=== PATIENT | male | born 1960 | race Caucasian/White ===

== ENCOUNTER → 2017-07-13 | Outpatient (CLI) | payer BC ==
[~2017-07-13] MED LIST: AMIT25TA9 PO; AML5T PO; AMLO5TAB2 PO; ASP325TEC PO; ASP81TEC PO; ASPI-999 PO; ASPI1TAB PO; ATOR40TA PO; ATOR80TA PO; CALC-250 PO; CLOP75TA PO; CLOP75TA28 PO; CLPD75T PO; CYCL10TA45 PO; FISH1CAP15 PO; FLDR.1T PO; HYDR-34 PO; HYDR12.5 PO; ISM30TCR PO; LIPITOR PO; METF500T4 PO; METF500T8 PO; METO-272 PO; METO-351 PO; METO25TA PO; METO25TA2 PO; MTF500T PO; MTP25TSR PO; NITR0.4T12 SL; NTR.4SL SL; OMG1KC PO; PNT40TEC PO; PRAV20TA PO; RANO500T2 PO; RANO500T3 PO; ROSU5TAB PO; TMZP15C PO; UBID1CAP51 PO; VARE1TAB17 PO
--- NOTE | 2017-07-13 09:34 | Diagnostic Imaging Report ---
PROCEDURE: CT lumbar spine without contrast. TECHNIQUE: Multiple contiguous axial images were obtained through the lumbar spine without the use of intravenous contrast. Sagittal and coronal reformations were then performed. INDICATION: Low back pain which radiates into the right lower extremity. FINDINGS: Lumbar spinal curvature and alignment are within normal limits. Vertebral body heights and disc spaces are maintained. There is mild annular bulging of the L2-L3 and L3-L4 disc with mild leftward asymmetry, however, there is no significant spinal or neural foraminal stenosis. There is also [id number] bulging of the L4-L5 disc which is eccentric towards the right resulting in mild neural foraminal stenosis, greater on the right. There is no evidence of fracture or subluxation. Mild degenerative facet arthropathy is seen at L4-L5 and L5-S1. Note is made of aortoiliac atherosclerotic calcification. IMPRESSION: Mild annular disc bulging from L2 through L5 without significant spinal stenosis. There does appear to be mild L4-L5 neural foraminal stenosis, greater on the right. Dictated by: Dictated on workstation # [id number]
== END ==
LOC: RAD 08:01
DX: M51.26 Other intervertebral disc displacement, lumbar region (principal); M79.604 Pain in right leg
CPT/HCPCS: 72131

== ENCOUNTER 2017-08-17 09:03 | Day surgery (SDC) | payer BC ==
[~2017-08-17] VITALS: Ht 177.8 cm; Wt 99.8 kg
[2017-08-17] VITALS (11 sets, daily range): BP systolic 125–149; BP diastolic 75–104
[2017-08-17 09:30] LABS: BASOPHILS % (AUTO) 0 % (0-10); EOSINOPHILS # (AUTO) 0.5 10^3/uL (0.0-0.3); EOSINOPHILS % (AUTO) 6 % (0-10); HEMATOCRIT 43 % (40-54); HEMOGLOBIN 14.8 G/DL (13.3-17.7); LYMPHOCYTES # (AUTO) 2.3 X 10^3 (1.0-4.0); LYMPHOCYTES % (AUTO) 27 % (12-44); MEAN CORPUSCULAR HEMOGLOBIN 33 PG (25-34); MEAN CORPUSCULAR HGB CONC 35 G/DL (32-36); MEAN CORPUSCULAR VOLUME 93 FL (80-99); MEAN PLATELET VOLUME 10.3 FL (7.4-10.4); MONOCYTES # (AUTO) 0.9 X 10^3 (0.0-1.0); MONOCYTES % (AUTO) 10 % (0-12); NEUTROPHILS % (AUTO) 57 % (42-75); PLATELET COUNT 214 10^3/uL (130-400); RED BLOOD COUNT 4.56 10^6/uL (4.35-5.85); RED CELL DISTRIBUTION WIDTH 13.8 % (10.0-14.5); WHITE BLOOD COUNT 8.8 10^3/uL (4.3-11.0)
[2017-08-17] MEDS ORDERED: IOHEXOL 240 MGI/ML 20 ML (OMNIPAQUE) VIAL IV ONE (11:00)
[2017-08-17] MEDS ORDERED: HYDROcodone/APAP 5 MG/325 MG (LORTAB) TAB PO PRN (11:15)
--- NOTE | 2017-08-17 11:48 | Diagnostic Imaging Report ---
PROCEDURE: CT lumbar spine with contrast. TECHNIQUE: Multiple contiguous axial images were obtained through the lumbar spine after the intrathecal administration of contrast. Sagittal and coronal reformations were then performed. INDICATION: Back pain, left leg pain. FINDINGS: The previous CT lumbar spine exam performed on 07/13/17 noted mild annular bulging of the L2-L3 and L3-L4 discs with mild leftward asymmetry. There also appeared to be a mild disc bulge eccentric to the right at L4-L5. On this study, there is a disc bulge eccentric to the left at the L2-L3 level. The disc compresses the left ventral aspect of the thecal sac and narrows the AP diameter of the thecal sac to 10.8 mm. There is also narrowing of the neuroforamen on the left at this level. At the L3-L4 level, there is a slight disc bulge centrally. The disc flattens the ventral aspect of the thecal sac and narrows the AP diameter to 14.2 mm. There is only mild narrowing of the neuroforamen bilaterally at this level. At the L4-L5 level, there is a broad-based disc bulge centrally which flattens the ventral aspect of the thecal sac and narrows the AP diameter to 12.9 mm. There is mild narrowing of the neuroforamen at this level, particularly on the right. At the L5-S1 level, there is a disc bulge centrally which narrows the AP diameter of the thecal sac to 16.1 mm. There does not appear to be any significant neuroforaminal narrowing at this level. There is no evidence for spinal stenosis or nerve root encroachment at the L1-L2 level. There is no fracture or acute bony abnormality identified. As noted on the prior exam, there is heavy atherosclerotic plaque involving the aorta and the common iliac arteries. IMPRESSION: 1. There is a disc bulge eccentric to the left at the L2-L3 level. The disc compresses the left ventral aspect of the thecal sac resulting in borderline spinal stenosis. There is also narrowing of the neuroforamen on the left at this level. 2. The remainder of the lumbar spine is unremarkable for central stenosis or any significant neuroforaminal narrowing. 3. There is no sign of an acute bony abnormality. Dictated by: Dictated on workstation # [id number]
--- NOTE | 2017-08-17 12:42 | Diagnostic Imaging Report ---
EXAM: Lumbar myelogram. INDICATION: Back pain, left leg pain. FINDINGS: Following aseptic preparation of the skin and administration of local anesthesia, a lumbar puncture was made at the L2-3 level. A small amount of clear CSF was visualized. Subsequently, 15 cc of Omnipaque-240 was infused. There is no significant central stenosis or nerve root encroachment identified. CT is pending for further evaluation. The patient tolerated the procedure well and was sent to the CT suite in good condition. 4.1 seconds of fluoroscopy time was utilized. IMPRESSION: There is no evidence for a high-grade central stenosis or for a nerve root encroachment. CT is pending for further evaluation. Dictated by: Dictated on workstation # [id number]
== END 2017-08-17 13:57 | disposition home or self-care (01) ==
LOC: RAD 09:03
PROVIDERS: ATTEND Orthopaedic Surgery
DX: M48.061 Spinal stenosis, lumbar region without neurogenic claudication (principal); M51.26 Other intervertebral disc displacement, lumbar region
CPT/HCPCS: 36415; 36430; 62284; 72132; 72265; 77002; 85025; 85610; 85730

== ENCOUNTER → 2017-08-25 | Outpatient (CLI) | payer BC ==
--- NOTE | 2017-08-25 15:03 | Diagnostic Imaging Report ---
PROCEDURE: CT abdomen and pelvis without contrast. TECHNIQUE: Multiple contiguous axial images were obtained through the abdomen and pelvis without the use of intravenous contrast. INDICATION: Hematuria x2 weeks. FINDINGS: Lung bases are clear. Liver appears normal. Gallbladder is decompressed. There is a moderate amount of food residue in stomach. Pancreas appears normal. The spleen is not enlarged. Adrenal glands are normal. There is aortic calcification. There is also some renovascular calcification of the renal tosha bilaterally. Right kidney appears normal. There is a 1 mm calculus in an inferior calyx of left kidney. There is a 3 cm cyst on the inferior lateral margin of the left kidney. There is no hydronephrosis. Urinary bladder appears normal. Prostate and seminal vesicles are unremarkable. The appendix is normal. Small bowel is not dilated. There is moderate amount of stool throughout the colon. There is no intraperitoneal free air or free fluid. IMPRESSION: Atherosclerosis. Left renal cyst. A 1 mm calculus in inferior pole of left kidney. Dictated by: Dictated on workstation # [id number]
== END ==
LOC: RAD 14:17
PROVIDERS: ATTEND Urology
DX: I70.1 Atherosclerosis of renal artery (principal); N28.1 Cyst of kidney, acquired; N20.0 Calculus of kidney
CPT/HCPCS: 74176

== ENCOUNTER → 2017-12-13 | Outpatient (CLI) | payer BC ==
[~2017-12-13] VITALS: Ht 180.3 cm; Wt 95.7 kg
[~2017-12-13] MED LIST changes: +CATHETER FLUSH 10 ML SYR IV PRN; -METF500T4 PO; +METF500T5 PO; +REGADENOSON 0.4 MG/5 ML SYR (LEXISCAN) IV ONE
[2017-12-13 09:37] VITALS: BP 117/77
[2017-12-13 09:40] VITALS: BP 111/74
--- NOTE | 2017-12-13 21:01 | STRESS TEST ---
DATE OF SERVICE: 12/13/2017 LEXISCAN MYOVIEW STRESS TEST REFERRING PHYSICIAN: Dr. Gala Chino. Baseline heart rate is 73, baseline blood pressure 117/77. Baseline EKG is sinus rhythm with no ischemic changes. In summary, the patient was injected with 10.16 mCi of technetium-99 Myoview and the resting images were obtained. Then, the patient received 0.4 mg of Lexiscan followed by 30.6 mCi of technetium-99 Myoview. Throughout the test, there were no EKG changes. The resting and stress images were reviewed and compared in the short axis, horizontal long axis, and vertical long axis views. Review of the images showed good radiotracer uptake with no significant ischemia or infarction. SSS is 0. TID value 1.13. On the gated images, the left ventricle appeared to be in normal size with normal contractility. Calculated ejection fraction is 66%. CONCLUSION: 1. The patient tolerated Lexiscan well. 2. No ischemia or infarction on SPECT images. 3. Normal left ventricular size with normal contractility. Calculated ejection fraction is 66%. Job ID: [id number] DocumentID: [id number] Dictated Date: 12/13/2017 14:23:55 Photograph Finisher Date: 12/13/2017 21:00:46 Dictated By: JERALD LOPEZ MD
== END ==
LOC: CARD 08:02
PROVIDERS: ATTEND Internal Medicine Cardiovascular Disease
DX: I25.10 Atherosclerotic heart disease of native coronary artery without angina pectoris (principal); R07.89 Other chest pain; I10 Essential (primary) hypertension; E78.2 Mixed hyperlipidemia; R00.2 Palpitations; I07.1 Rheumatic tricuspid insufficiency
CPT/HCPCS: 78452; 93017; 93306

== ENCOUNTER → 2018-01-15 | Outpatient (CLI) | payer BC ==
[~2018-01-15] MED LIST changes: -CATHETER FLUSH 10 ML SYR IV PRN; -REGADENOSON 0.4 MG/5 ML SYR (LEXISCAN) IV ONE
--- NOTE | 2018-01-15 18:30 | Diagnostic Imaging Report ---
INDICATION: History of tobacco use with a 36 pack year history. TECHNIQUE: Noncontrast, low-dose CT imaging performed according to lung cancer screening protocol. COMPARISON: CT angio chest 06/24/2016 FINDINGS: HEART/MEDIASTINUM: Left-sided transvenous pacemaker is present. Heart size upper limits of normal. Trace pericardial effusion. There is the presence of scattered coronary artery calcifications and apparent stents. Thoracic aortic contour unremarkable. Evaluation for potential mediastinal and/or hilar lymphadenopathy is limited. The hilar configuration however appears to be generally stable from prior examination. LUNGS: Advanced emphysematous changes including centrilobular and paraseptal changes are noted. Prominent predominantly subpleural honeycombing is present, particularly in the upper lobe distributions. Overall lung volumes are hyperinflated. Scattered areas of peribronchial thickening are noted most pronounced centrally. MEASURED PULMONARY NODULES: The multifocal areas of parenchymal density, including groundglass and solid densities in the upper lobe distributions overall to be generally stable from prior examination. Definitive new concerning mass lesion is not suggested. OTHER: None. IMPRESSION: 1. Rather advanced emphysematous changes about the lung parenchyma. Rather prominent scattered pulmonary parenchymal disease of the upper lobe distributions are noted but overall appear generally stable from previous imaging. 2. Prominent coronary artery calcification with the presence of coronary artery stents. LUNG-RADS CATEGORY: 2D-S. LUNG SCREENING MANAGEMENT/RECOMMENDATIONS: Continued annual screening with low dose CT in 12 months. Notes: Lung rads category 1 or 2 does not mean that an individual does not have lung cancer or other active disease process, but rather nothing is identified to meet criteria for current lung pathology. Therefore, continued annual lung cancer screening should be performed. It is noted that this is a low dose CT examination. As a technical result, the examination is limited in overall assessment compared to a conventional CT examination of the chest. Dictated by: Dictated on workstation # [id number]
== END ==
LOC: RAD 16:29
PROVIDERS: ATTEND Family Medicine
DX: Z12.2 Encounter for screening for malignant neoplasm of respiratory organs (principal); J43.9 Emphysema, unspecified; I25.10 Atherosclerotic heart disease of native coronary artery without angina pectoris; Z87.891 Personal history of nicotine dependence; Z95.5 Presence of coronary angioplasty implant and graft

== ENCOUNTER 2018-04-17 08:30 | Outpatient (CLI) | payer BC ==
[~2018-04-17] VITALS: Ht 177.8 cm; Wt 94.3 kg
[~2018-04-17 08:30] MED LIST changes: +AMLO5TAB7 PO; +METF-397 PO; -METF500T5 PO
[2018-04-17] MEDS ORDERED: ASPI-586 PO (11:20)
[2018-04-17] MEDS ORDERED: METO-387 PO (11:20)
[2018-04-17] MEDS ORDERED: EVOL140S SQ (11:20)
== END 2018-04-17 11:43 | disposition home or self-care (01) ==
LOC: PREOP 08:30
PROVIDERS: ATTEND Surgery
DX: Z01.818 Encounter for other preprocedural examination (principal)

== ENCOUNTER 2018-04-20 10:15 | Day surgery (SDC) | payer BC ==
[~2018-04-20] VITALS: Ht 177.8 cm; Wt 94.3 kg
[~2018-04-20 10:15] MED LIST changes: +ASPI-586 PO; +EVOL140S SQ; +METO-387 PO
--- OUTSIDE RECORDS SUMMARY | 2018-04-20 10:20 | XMS REPORT ---
Author Author JUSTINE PATEL [facility] Address [address] [place] [address] Care Team Providers Care Pet Training Instructor Name Role Phone YANETH FLETCHERY Unavailable PROBLEMS Type Condition ICD9-CM Code GWV35-BE Code Onset Dates Condition Status SNOMED Code Problem Major depressive disorder, recurrent, severe without psychotic features F33.2 Active 98673370 Problem Essential hypertension I10 Active 48915398 Problem Chronic post-traumatic headache, not intractable G44.329 Active 067768091 Problem Allergy to bee sting Z91.038 Active 770056785 Problem Mixed hyperlipidemia E78.2 Active 272524241 Problem Other chronic pain G89.29 Active 06171285 Problem Tobacco use Z72.0 Resolved 584938190 Problem Atherosclerotic heart disease of [place]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.10 Active 794864196863550 Problem Acute midline low back pain with left-sided sciatica M54.42 Active 913937949 Problem Chronic obstructive pulmonary disease, unspecified COPD type J44.9 Active 57541232 Problem 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.119 Active 9218833857272 Problem Automatic implantable cardioverter-defibrillator in situ Z95.810 Active 826418994 Problem Obstructive sleep apnea G47.33 Active 90629280 Problem Diabetes mellitus type II, controlled E11.9 Active 39803503 ALLERGIES No Information ENCOUNTERS Encounter Location Date Diagnosis [facility] [id number] [address] Feb, [facility] [id number] [place] [address] 94666- 0571 Jan, [facility] [address] [address] Jan, [facility] [id number] [place] [address] 00494- 7680 Jan, Diabetes mellitus type II, controlled E11.9 ; Essential hypertension I10 ; Chronic obstructive pulmonary disease, unspecified COPD type J44.9 ; Tobacco use Z72.0 ; Mixed hyperlipidemia E78.2 ; Numbness of toes R20.0 ; Colon cancer screening Z12.11 ; Encounter for screening for lung cancer Z12.2 and Encounter for immunization Z23 [place] [address] [address] December, Allergy to bee sting Z91.038 [place] [address] 96170- 9553 December, Mixed hyperlipidemia E78.2 [place] [address] [address]- 7372 Nov, [place] [address] [address]- [address]27 Sep, Acute midline low back pain with left-sided sciatica M54.42 [place] [address] 23223- 6951 Aug, Atherosclerotic heart disease of [place]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.10 [place] [address] 97369- 0681 Aug, [place] [address] [address]- 9931 Aug, [place] [address] 8[address]72- 3203 Aug, Acute midline low back pain with left-sided sciatica M54.42 [facility] [place] [address] [address] Aug, Left foot pain M79.672 ; Low back pain M54.5 ; Other chronic pain G89.29 and Acute cystitis without hematuria N30.00 [facility] [address] [address] Jun, Acute bilateral low back pain without sciatica M54.5 [facility] [id number] [place] [address] 28557- 1083 Jun, Diabetes mellitus type II, controlled E11.9 and Essential hypertension I10 [facility] [id number] [place] [address] 88827- 5880 May, [facility] [id number] [place] [address] 14988 -3634 Mar, Pneumonia of both lower lobes due to infectious organism J18.9 [facility] [id number] [place] [address] 15485- 3596 Mar, [place] [id number] [place] [address] 85029- 8257 Mar, Bronchitis J40 [facility] [id number] [place] [address] 75732 -4421 Mar, Bronchitis J40 [facility] [id number] [place] [address] 50923- 1194 Feb, Chronic obstructive pulmonary disease, unspecified COPD type J44.9 [place] [id number] [place] [address] 29282- 7472 Jan, Diabetes mellitus type II, controlled E11.9 ; Essential hypertension I10 and Chronic obstructive pulmonary disease, unspecified COPD type J44.9 [place] [id number] [place] [address] 38977- 1582 Nov, [facility] [id number] [place] [address] 61658- 4722 Oct, Pneumonia of left lung due to infectious organism, unspecified part of lung J18.9 [facility] [id number] [place] [address] 05981- 6082 Sep, Bronchitis J40 and Pneumonia of both upper lobes due to infectious organism J18.9 [place] [id number] [place] [address] 47859- 7457 17 Sep, 2016 Diabetes mellitus type II, controlled E11.9 ; Essential hypertension I10 and 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.119 [place] [id number] [place] [address] 44119- 6386 15 Sep, 2016 [place] [id number] [place] [address] 41020- 6215 Jul, [place] [id number] [place] [address] 29605- 4202 May, [place] [id number] [place] [address] 10746- 6644 May, Diabetes mellitus type II, controlled E11.9 ; Dental abscess K04.7 ; Palpitations R00.2 ; Dizziness R42 and Double vision H53.2 [place] [id number] [place] [address] 42268- 1347 May, Confused R41.0 and Shortness of breath R06.02 [place] [id number] [place] [address] 03423- 9780 May, Diabetes mellitus type II, controlled E11.9 ; Essential hypertension I10 and 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.119 [place] [address] [address] May, Essential hypertension I10 ; Diabetes mellitus type II, controlled E11.9 ; 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.119 and Tobacco use Z72.0 [place] [id number] [place] [address] 30176- 0411 Apr, 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.119 [place] [id number] [place] [address] 27451- 7250 Apr, [place] [id number] [place] [address] 70841- 5524 Apr, [facility] [id number] [place] [address] 40939- 4935 Feb, Diabetes mellitus type II, controlled E11.9 ; Essential hypertension I10 ; Tobacco use Z72.0 and 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.119 [facility] [id number] [place] [address] 47457 -3314 Jan, Right knee injury, initial encounter S89.91XA [facility] [id number] [place] [address] 93496- 1497 Nov, [facility] [address] 68211- 5944 Oct, [facility] [id number] [place] [address] 70053- 3555 Sep, [facility] [id number] [place] [address] 30897- 7425 Aug, [facility] [id number] [place] [address] 63158- 7191 Jul, [facility] [id number] [place] [address] 15496- 1643 Jul, Low back pain M54.5 ; Sciatica, unspecified side M54.30 and Thoracic neuritis M54.14 [facility] [id number] [place] [address] 77872- 7004 Jul, [facility] [id number] [place] [address] 71789- 0238 Jul, Shortness of breath R06.02 [facility] [id number] [place] [address] 56874- 7493 Jun, [facility] [id number] [place] [address] 03417- 5673 13 Jun, 2015 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.119 ; Apnea R06.81 and Fatigue, unspecified type R53.83 [facility] [id number] [place] [address] 50621- 2625 Jun, Major depressive disorder, recurrent, severe without psychotic features F33.2 and Insomnia G47.00 [place] [address] 30971- 8607 May, Atherosclerotic heart disease of [place]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.10 and Shortness of breath R06.02 [facility] [address] 43395- 7505 May, [place] [address] 92386- 7374 May, Diabetes mellitus type II, controlled E11.9 ; CAD (coronary artery disease) 414.00 ; Major depressive disorder, recurrent, severe without psychotic features F33.2 ; Apnea R06.81 and Shortness of breath R06.02 [place] [address] 97045- 2402 May, [place] [address] 57782- 3385 Feb, Sciatica 724.3 ; Lumbar pain 724.2 and CAD (coronary artery disease) 414.00 [place] [id number] [place] [address] 94335- 4503 Feb, [place] [address] 91226- 2126 Feb, [place] [id number] [place] [address] 98252- 4758 Nov, [facility] [address] 73148- 9832 Nov, [facility] [address] 32387- 0103 Oct, [facility] [address] 88634- 2546 Oct, [facility] [place] [facility] [address] [id number] [place] [address]- 1651 Oct, [facility] [place] [facility] [address] [id number] [place] [address]- 4323 Oct, [facility] [place] [facility] [address] [id number] [place] [address]- 4650 Oct, [facility] [place] [facility] [address] [id number] [place] [address]- 4691 Oct, [facility] [place] [facility] [address] [id number] [place] [address]- 5331 Oct, [facility] [place] [facility] [address] [facility] [id number] [place] [address]- 0565 Oct, [facility] [place] [facility] [address] [facility] [id number] [place] [address]- 2601 Oct, [facility] [place] [facility] [address] [id number] [address]- 6610 Oct, [facility] [place] [facility] [address] [id number] [place] [address]- 8251 Sep, [facility] [place] [facility] [address] [facility] [id number] [place] [address]- 6772 Sep, [facility] [place] [facility] [address] [id number] [place] [address]- 0404 Sep, 2014 [facility] [place] [facility] [address] [facility] [id number] [address]- 7039 Sep, [facility] [place] [facility] [address] [id number] [place] [address]- 7312 Sep, [facility] [place] [facility] [address] [id number] [place] [address]- 7789 Sep, [facility] [place] [facility] [address] [facility] [id number] [address]- 9986 Aug, [facility] [place] [facility] [address] [id number] [place] [address]- 0379 Aug, [facility] [place] [facility] [address] [id number] [place] [address]- 3850 Aug, [facility] [place] [facility] [address] [id number] [place] [address]- 6915 Aug, [facility] [place] [facility] [address] [id number] [place] [address]- 6029 Jul, [facility] [place] [facility] [address] [id number] [place] [address]- 2665 Jul, [facility] [place] [facility] [address] [id number] [place] [address]- 8329 Jul, [facility] [place] [facility] [address] [id number] [place] [address]- 3154 Jul, [facility] [place] [facility] [address] [id number] [place] [address]- 1890 Jun, [facility] [place] [facility] [address] [id number] [place] [address]- 9375 Jun, [facility] [place] [facility] [address] [id number] [place] [address]- 6695 Jun, [facility] [place] [facility] [address] [id number] [place] [address]- 9840 Jun, [facility] [place] [facility] [address] [id number] [place] [address]- 4313 Jun, [facility] [place] [facility] [address] [id number] [place] [address]- 6943 Jun, [facility] [place] [facility] [address] [id number] [place] [address]- 5238 May, [facility] [place] [facility] [address] [id number] [place] [address]- 9682 May, [facility] [place] [facility] [address] [id number] [place] [address]- 0542 May, [facility] [place] [facility] [address] [id number] [place] [address]- 1566 May, [facility] [place] [facility] [address] [id number] [place] [address]- 8228 May, [facility] [place] [facility] [address] [id number] [place] [address]- 1941 May, [facility] [place] [facility] [address] [id number] [place] [address]- 1372 May, [facility] [place] [facility] [address] [id number] [place] [address]- 7062 May, [facility] [place] [facility] [address] [id number] [place] [address]- 2983 May, [facility] [place] [facility] [address] [id number] [place] [address]- 4057 May, [facility] [place] [facility] [address] [id number] [place] [address]- 6638 May, [facility] [place] [facility] [address] [id number] [place] [address]- 6940 May, [facility] [place] [facility] [address] [id number] [place] [address]- 3312 May, [facility] [place] [facility] [address] [id number][place] [address]- 1893 May, [facility] [place] [facility] [address] [id number][place] [address]- 1447 May, [facility] [place] [facility] [address] [id number] [place] [address]- 5590 May, [facility] [place] [facility] [address] [id number][place] [address]- 6221 Apr, [facility] [place] [facility] [address] [id number] [place] [address]- 1224 Apr, [facility] [place] [facility] [address] [id number] [place] [address]- 8906 23 Sep, 2013 [facility] [place] [facility] [address] [id number] [place] [address] 2546 23 Sep, 2013 [facility] [place] [facility] [address] [id number] [place] [address] 2546 22 Sep, 2013 [facility] [place] [facility] [address] [id number] [place] [address] 2547 22 Sep, 2013 [facility] [place] [facility] [address] [id number] [place] [address] 2548 19 Sep, 2013 [facility] [place] [facility] [address] [id number] [place] [address]- 3385 19 Sep, 2013 [facility] [place] [facility] [address] [id number] [place] [address]- 6860 18 Sep, 2013 [facility] [place] [facility] [address] [id number] [place] [address]- 4731 18 Sep, 2013 [facility] [place] [facility] [address] [id number] [place] [address]- 7635 18 Sep, 2013 [facility] [place] [facility] [address] [id number] [place] [address] 2548 18 Sep, 2013 [facility] [place] [facility] [address] [id number] [place] [address]- 2540 17 Sep, 2013 [facility] [place] [facility] [address] [id number] [place] [address] 2543 17 Sep, 2013 [facility] [place] [facility] [address] [id number] [place] [address]- 2549 15 Sep, 2013 [facility] [place] [facility] [address] [id number] [place] [address] 2540 15 Sep, 2013 [facility] [place] [facility] [address] [id number] [place] [address]- 2547 02 Sep, 2013 [facility] [place] [facility] [address] [id number] [place] [address] 2544 Apr, [facility] [place] [facility] [address] [id number] [place] [address]- 1557 Apr, [facility] [place] [facility] [address] [id number] [place] [address]- 7233 Apr, [facility] [place] [facility] [address] [id number] [place] [address]- 8883 Mar, [facility] [place] [facility] [address] [id number] [place] [address]- 1560 Mar, [facility] [place] [facility] [address] [id number] [place] [address]- 6701 Mar, [facility] [place] [facility] [address] [id number] [place] [address]- 9356 Mar, [facility] [place] [facility] [address] [id number] [place] [address]- 5531 Feb, [facility] [place] [facility] [address] [id number] [place] [address]- 7002 Feb, [facility] [place] [facility] [address] [id number] [place] [address]- 8694 Jul, [facility] [place] [facility] [address] [id number] [place] [address]- 8825 Jul, [facility] [place] [facility] [address] [id number] [place] [address]- 0779 May, [facility] [place] [facility] [address] [id number] [place] [address]- 7118 May, [facility] [place] [facility] [address] [id number] [place] [address]- 2689 Mar, [facility] [place] [facility] [address] [id number] [place] [address]- 9985 Feb, [facility] [place] [facility] [address] [id number] [place] [address]- 2283 Jan, [facility] [place] [facility] [address] [id number] [place] [address]- 0397 Jan, [facility] [place] [facility] [address] [id number] [place] [address]- 3154 Jan, [facility] [place] [facility] [address] [id number] [place] [address]- 7842 Aug, [facility] [place] [facility] [address] [id number] [place] [address]- 9157 Aug, [facility] [place] [facility] [address] [id number] [place] [address]- 4172 Jun, [facility] [place] [facility] [address] [id number] [place] [address]- 5080 Jun, [facility] [place] [facility] [address] [id number] [place] [address]- 5202 Jun, [facility] [place] [facility] [address] [id number] [place] [address]- 2671 Jun, [facility] [place] [facility] [address] [id number] [place] [address]- 2538 May, [facility] [place] [facility] [address] [id number] [place] [address]- 1988 May, [facility] [place] [facility] [address] [id number] [place] [address]- 4315 Feb, [facility] [place] [facility] [address] [id number] [place] [address]- 1257 Jan, [facility] [place] [facility] [address] [id number] [place] [address]- 7270 Jan, [facility] [place] [facility] [address] [id number] [place] [address]- 9154 December, [facility] [place] [facility] [address] [id number] [place] [address]- 5704 December, [facility] [place] [facility] [address] [id number] [place] [address]36 December, [facility] [place] [facility] [address] [facility] [facility] [id number] [place] [address] December, [facility] [address] [facility] [id number] [place] [address]- 8489 Jun, [facility] [address] [facility] [id number] [place] [address]01 Feb, IMMUNIZATIONS No Known Immunizations SOCIAL HISTORY Never Assessed REASON FOR VISIT CT Scan PLAN OF CARE VITAL SIGNS MEDICATIONS Unknown Medications RESULTS No Results PROCEDURES No Known procedures INSTRUCTIONS MEDICATIONS ADMINISTERED No Known Medications MEDICAL (GENERAL) HISTORY Type Description Date Medical History Cardiovascular Disorder () Medical History ---- Stress Echo 02/26/2010 ()- Hypertensive response;no ischemia; normal Echo EF 60% Medical History --Stent 04/2011 Medical History --Heart Cath 06/2011 Medical History --Cardiac Arrest requiring multiple defibrillations 03/2014 Medical History --Heart cath 03/2014 in [place], no stents placed at that time Medical History --Pacemaker/defrillator placed 03/2014 after cardiac arrest Medical History Cardiovascular disorder ()- CAD Medical History ----Stress Echo 02/26/2010 Medical History --Stent 04/2011 Medical History --Heart Cath 06/2011- negative Medical History Hypertension Medical History Hyperlipidemia 02/2010- Chol 208, HDL 38, LDL 145, Trig 126 Medical History Type 2 diabetes mellitus A1C 6.6 at diagnosis 04/2014 Medical History Tobacco use (resolved 05/13/2016) Surgical History Orthopedic Surgery- Femur repair, titanium johnny placed [address] [facility] 2 stents placed 06/2015 Surgical History Back injections at [facility] 09/2017 Hospitalization History Surgeries Hospitalization History Chest pain/CAD--[facility] 04/26/16
--- OUTSIDE RECORDS SUMMARY | 2018-04-20 10:20 | XMS REPORT ---
Author Author JUSTINE PATEL [facility] Address [address] [place] [address] Care Team Providers Care Senior Materials Scientist Name Role Phone YANETH FLETCHERY Unavailable PROBLEMS Type Condition ICD9-CM Code ZSA65-JO Code Onset Dates Condition Status SNOMED Code Problem Major depressive disorder, recurrent, severe without psychotic features F33.2 Active 88494327 Problem Essential hypertension I10 Active 84214125 Problem Chronic post-traumatic headache, not intractable G44.329 Active 274432719 Problem Allergy to bee sting Z91.038 Active 730744160 Problem Mixed hyperlipidemia E78.2 Active 630706448 Problem Other chronic pain G89.29 Active 58491179 Problem Tobacco use Z72.0 Resolved 111528667 Problem Atherosclerotic heart disease of [place]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.10 Active [id number] Problem Acute midline low back pain with left-sided sciatica M54.42 Active 806038705 Problem Chronic obstructive pulmonary disease, unspecified COPD type J44.9 Active 19492906 Problem 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 Active 5905940907752 Problem Automatic implantable cardioverter-defibrillator in situ Z95.810 Active 735329212 Problem Obstructive sleep apnea G47.33 Active 35156919 Problem Diabetes mellitus type II, controlled E11.9 Active 55930269 ALLERGIES No Information ENCOUNTERS Encounter Location Date Diagnosis [facility] [address] [id number] [address] Feb, [facility] [id number] [place] [address] 38863- 2160 Jan, [facility] [id number] [address] Jan, [facility] [id number] [place] [address] 35846- 2567 Jan, Diabetes mellitus type II, controlled E11.9 ; Essential hypertension I10 ; Chronic obstructive pulmonary disease, unspecified COPD type J44.9 ; Tobacco use Z72.0 ; Mixed hyperlipidemia E78.2 ; Numbness of toes R20.0 ; Colon cancer screening Z12.11 ; Encounter for screening for lung cancer Z12.2 and Encounter for immunization Z23 [place] [address] [address] December, Allergy to bee sting Z91.038 [place] [address] [address]- 3800 December, Mixed hyperlipidemia E78.2 [place] [address] [address]- 9387 Nov, [place] [address] [address]- 2065 Sep, Acute midline low back pain with left-sided sciatica M54.42 [place] [address] 08513- 1337 Aug, Atherosclerotic heart disease of [place]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.10 [place] [address] [address]503- 6038 Aug, [place] [address] 09445- 0781 Aug, [place] [address] [address]64- 8255 Aug, Acute midline low back pain with left-sided sciatica M54.42 [facility] [place] [address] [address] Aug, Left foot pain M79.672 ; Low back pain M54.5 ; Other chronic pain G89.29 and Acute cystitis without hematuria N30.00 [facility] IN [facility] [address] [address]100 Jun, Acute bilateral low back pain without sciatica M54.5 [facility] [address] [place] [address] 80925- 7968 Jun, Diabetes mellitus type II, controlled E11.9 and Essential hypertension I10 [facility] [id number] [place] [address] 77710- 4191 May, [facility] [id number] [place] [address] 10599 -2899 Mar, Pneumonia of both lower lobes due to infectious organism J18.9 [facility] [id number] [place] [address] 60521- 4705 Mar, [place] [id number] [place] [address] 05218- 2443 Mar, Bronchitis J40 [facility] [id number] [place] [address] 12917 -0693 Mar, Bronchitis J40 [facility] [id number] [place] [address] 61305- 9599 Feb, Chronic obstructive pulmonary disease, unspecified COPD type J44.9 [place] [id number] [place] [address] 98456- 5582 Jan, Diabetes mellitus type II, controlled E11.9 ; Essential hypertension I10 and Chronic obstructive pulmonary disease, unspecified COPD type J44.9 [place] [address] [place] [address] 05332- 0863 Nov, [facility] [id number] [place] [address] 72596- 4574 Oct, Pneumonia of left lung due to infectious organism, unspecified part of lung J18.9 [facility] [id number] [place] [address] 24878- 8356 Sep, Bronchitis J40 and Pneumonia of both upper lobes due to infectious organism J18.9 [place] [id number] [place] [address] 41436- 5808 17 Sep, 2016 Diabetes mellitus type II, controlled E11.9 ; Essential hypertension I10 and 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 [place] [address] [place] [address] 12462- 8248 15 Sep, 2016 [place] [id number] [place] [address] 98530- 7437 Jul, [place] [id number] [place] [address] 96415- 1736 May, [place] [address] [id number] [place] [address] 57132- 3555 May, Diabetes mellitus type II, controlled E11.9 ; Dental abscess K04.7 ; Palpitations R00.2 ; Dizziness R42 and Double vision H53.2 [place] [id number] [place] [address] 82562- 9018 May, Confused R41.0 and Shortness of breath R06.02 [place] [address] [id number] [place] [address] 57622- 9656 May, Diabetes mellitus type II, controlled E11.9 ; Essential hypertension I10 and 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 [place] [address] [address] 1649 May, Essential hypertension I10 ; Diabetes mellitus type II, controlled E11.9 ; 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0 and 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 [facility] [id number] [place] [address] 48083 -4442 Jan, Right knee injury, initial encounter S89.91XA [facility] [id number] [place] [address] 09858- 8644 Nov, [facility] [address] 68286- 3375 Oct, [facility] [id number] [place] [address] 93383- 7909 Sep, [facility] [id number] [place] [address] 91940- 7937 Aug, [facility] [id number] [place] [address] 46356- 2465 Jul, [facility] [id number] [place] [address] 08135- 4978 Jul, Low back pain M54.5 ; Sciatica, unspecified side M54.30 and Thoracic neuritis M54.14 [facility] [address] [id number] [place] [address] 25891- 3278 Jul, [facility] [id number] [place] [address] 76410- 6537 Jul, Shortness of breath R06.02 [facility] [id number] [place] [address] 91914- 5456 Jun, [facility] [id number] [place] [address] 65899- 3869 13 Jun, 2015 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 ; Apnea R06.81 and Fatigue, unspecified type R53.83 [facility] [id number] [place] [address] 31376- 5004 Jun, Major depressive disorder, recurrent, severe without psychotic features F33.2 and Insomnia G47.00 [place] [address] 67696- 5791 May, Atherosclerotic heart disease of [place]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.10 and Shortness of breath R06.02 [facility] [address] 99481- 3856 May, [place] [address] 07929- 2394 May, Diabetes mellitus type II, controlled E11.9 ; CAD (coronary artery disease) 414.00 ; Major depressive disorder, recurrent, severe without psychotic features F33.2 ; Apnea R06.81 and Shortness of breath R06.02 [place] [address] 04035- 1842 May, [place] [address] 29455- 1260 Feb, Sciatica 724.3 ; Lumbar pain 724.2 and CAD (coronary artery disease) 414.00 [place] [id number] [place] [address] 52832- 2161 Feb, [place] [address] 28602- 9401 Feb, [place] [id number] [place] [address] 47112- 4040 Nov, [facility] [address] 51921- 8765 Nov, [facility] [address] 34854- 2963 Oct, [facility] [address] 33765- 2546 Oct, [facility] [place] [facility] [address] [id number] [place] [address]- 1996 Oct, [facility] [place] [facility] [address] [id number] [place] [address]- 4220 Oct, [facility] [place] [facility] [address] [id number] [place] [address]- 9546 Oct, [facility] [place] [facility] [address] [id number] [place] [address]- 7266 Oct, [facility] [place] [facility] [address] [id number] [place] [address]- 2892 Oct, [facility] [place] [facility] [address] [facility] [id number] [place] [address]- 6152 Oct, [facility] [place] [facility] [address] [facility] [id number] [place] [address]- 7139 Oct, [facility] [place] [facility] [address] [id number] [address]- 4630 Oct, [facility] [place] [facility] [address] [id number] [place] [address]- 3485 Sep, [facility] [place] [facility] [address] [facility] [id number] [place] [address]- 6188 Sep, [facility] [place] [facility] [address] [id number] [place] [address]- 9629 Sep, 2014 [facility] [place] [facility] [address] [facility] [id number] [address]- 4700 Sep, [facility] [place] [facility] [address] [id number] [place] [address]- 9985 Sep, [facility] [place] [facility] [address] [id number] [place] [address]- 7198 Sep, [facility] [place] [facility] [address] [facility] [id number] [address]- 0028 Aug, [facility] [place] [facility] [address] [id number] [place] [address]- 8390 Aug, [facility] [place] [facility] [address] [id number] [place] [address]- 6039 Aug, [facility] [place] [facility] [address] [id number] [place] [address]- 6641 Aug, [facility] [place] [facility] [address] [id number] [place] [address]- 9693 Jul, [facility] [place] [facility] [address] [id number] [place] [address]- 1584 Jul, [facility] [place] [facility] [address] [id number] [place] [address]- 0958 Jul, [facility] [place] [facility] [address] [id number] [place] [address]- 3934 Jul, [facility] [place] [facility] [address] [id number] [place] [address]- 7540 Jun, [facility] [place] [facility] [address] [id number] [place] [address]- 5359 Jun, [facility] [place] [facility] [address] [id number] [place] [address]- 0983 Jun, [facility] [place] [facility] [address] [id number] [place] [address]- 3700 Jun, [facility] [place] [facility] [address] [id number] [place] [address]- 1782 Jun, [facility] [place] [facility] [address] [id number] [place] [address]- 1455 Jun, [facility] [place] [facility] [address] [id number] [place] [address]- 0475 May, [facility] [place] [facility] [address] [id number] [place] [address]- 1205 May, [facility] [place] [facility] [address] [id number] [place] [address]- 5442 May, [facility] [place] [facility] [address] [id number] [place] [address]- 7539 May, [facility] [place] [facility] [address] [id number] [place] [address]- 2704 May, [facility] [place] [facility] [address] [id number] [place] [address]- 8056 May, [facility] [place] [facility] [address] [id number] [place] [address]- 6882 May, [facility] [place] [facility] [address] [id number] [place] [address]- 9725 May, [facility] [place] [facility] [address] [id number] [place] [address]- 6347 May, [facility] [place] [facility] [address] [id number] [place] [address]- 6893 May, [facility] [place] [facility] [address] [id number] [place] [address]- 3544 May, [facility] [place] [facility] [address] [id number] [place] [address]- 1839 May, [facility] [place] [facility] [address] [id number] [place] [address]- 1843 May, [facility] [place] [facility] [address] [id number] [place] [address]- 5603 May, [facility] [place] [facility] [address] [id number] [place] [address]- 6991 May, [facility] [place] [facility] [address] [id number] [place] [address]- 1966 May, [facility] [place] [facility] [address] [id number] [place] [address]- 9751 Apr, [facility] [place] [facility] [address] [id number] [place] [address]- 0555 Apr, [facility] [place] [facility] [address] [id number] [place] [address]- 4670 23 Sep, 2013 [facility] [place] [facility] [address] [id number] [place] [address] 2546 23 Sep, 2013 [facility] [place] [facility] [address] [id number] [place] [address] 2546 22 Sep, 2013 [facility] [place] [facility] [address] [id number] [place] [address] 2547 22 Sep, 2013 [facility] [place] [facility] [address] [id number] [place] [address] 2547 19 Sep, 2013 [facility] [place] [facility] [address] [id number] [place] [address]- 8143 19 Sep, 2013 [facility] [place] [facility] [address] [id number] [place] [address]- 0686 18 Sep, 2013 [facility] [place] [facility] [address] [id number] [place] [address]- 1464 18 Sep, 2013 [facility] [place] [facility] [address] [id number] [place] [address]- 6242 18 Sep, 2013 [facility] [place] [facility] [address] [id number] [place] [address] 2543 18 Sep, 2013 [facility] [place] [facility] [address] [id number] [place] [address]- 2545 17 Sep, 2013 [facility] [place] [facility] [address] [id number] [place] [address] 2545 17 Sep, 2013 [facility] [place] [facility] [address] [id number] [place] [address]- 2541 15 Sep, 2013 [facility] [place] [facility] [address] [id number] [place] [address] 2544 15 Sep, 2013 [facility] [place] [facility] [address] [id number] [place] [address]- 254 02 Sep, 2013 [facility] [place] [facility] [address] [id number] [place] [address] 2544 Apr, [facility] [place] [facility] [address] [id number] [place] [address]- 4029 Apr, [facility] [place] [facility] [address] [id number] [place] [address]- 9918 Apr, [facility] [place] [facility] [address] [id number] [place] [address]- 3487 Mar, [facility] [place] [facility] [address] [id number] [place] [address]- 8807 Mar, [facility] [place] [facility] [address] [id number] [place] [address]- 2927 Mar, [facility] [place] [facility] [address] [id number] [place] [address]- 7701 Mar, [facility] [place] [facility] [address] [id number] [place] [address]- 3243 Feb, [facility] [place] [facility] [address] [id number] [place] [address]- 1574 Feb, [facility] [place] [facility] [address] [id number] [place] [address]- 7253 Jul, [facility] [place] [facility] [address] [id number] [place] [address]- 2879 Jul, [facility] [place] [facility] [address] [id number] [place] [address]- 2337 May, [facility] [place] [facility] [address] [id number] [place] [address]- 4202 May, [facility] [place] [facility] [address] [id number] [place] [address]- 6026 Mar, [facility] [place] [facility] [address] [id number] [place] [address]- 3197 Feb, [facility] [place] [facility] [address] [id number] [place] [address]- 5830 Jan, [facility] [place] [facility] [address] [id number] [place] [address]- 7089 Jan, [facility] [place] [facility] [address] [id number] [place] [address]- 3623 Jan, [facility] [place] [facility] [address] [id number] [place] [address]- 0362 Aug, [facility] [place] [facility] [address] [id number] [place] [address]- 4108 Aug, [facility] [place] [facility] [address] [id number] [place] [address]- 1878 Jun, [facility] [place] [facility] [address] [id number] [place] [address]- 2897 Jun, [facility] [place] [facility] [address] [id number] [place] [address]- 4770 Jun, [facility] [place] [facility] [address] [id number] [place] [address]- 0487 Jun, [facility] [place] [facility] [address] [id number] [place] [address]- 1551 May, [facility] [place] [facility] [address] [id number] [place] [address]- 5720 May, [facility] [place] [facility] [address] [id number] [place] [address]- 0665 Feb, [facility] [place] [facility] [address] [id number] [place] [address]- 3773 Jan, [facility] [place] [facility] [address] [id number] [place] [address]- 0178 Jan, [facility] [place] [facility] [address] [id number] [place] [address]- 3741 December, [facility] [place] [facility] [address] [id number] [place] [address]- 2061 December, [facility] [place] [facility] [address] [id number] [place] 6811 December, [facility] [place] [facility] [address] [facility] [id number] [place] [address]- 4489 December, [facility] [address] [facility] [id number] [place] 2671 Jun, [facility] [address] [facility] [id number] [place] [address]- 9731 Feb, IMMUNIZATIONS No Known Immunizations SOCIAL HISTORY Never Assessed REASON FOR VISIT Refill request PLAN OF CARE VITAL SIGNS MEDICATIONS Medication Instructions Dosage Frequency Start Date End Date Duration Status Metoprolol Tartrate 25 MG Orally Once a day- if side effects can take half tab 1 tablet Active RESULTS No Results PROCEDURES No Known procedures INSTRUCTIONS MEDICATIONS ADMINISTERED No Known Medications MEDICAL (GENERAL) HISTORY Type Description Date Medical History Cardiovascular Disorder ([facility]) Medical History ---- Stress Echo 02/26/2010 ([facility])- Hypertensive response;no ischemia; normal Echo EF 60% Medical History --Stent 04/2011 Medical History --Heart Cath 06/2011 Medical History --Cardiac Arrest requiring multiple defibrillations 03/2014 Medical History --Heart cath 03/2014 in [place], no stents placed at that time Medical [...] Hospitalization History Surgeries Hospitalization History Chest pain/CAD--[facility] 04/26/16
--- OUTSIDE RECORDS SUMMARY | 2018-04-20 10:21 | XMS REPORT ---
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 Name Role Phone YANETH FLETCHERY Unavailable PROBLEMS Type Condition ICD9-CM Code [id number] Code Onset Dates Condition Status SNOMED Code Problem Major depressive disorder, recurrent, severe without psychotic features F33.2 Active 17639448 Problem Essential hypertension I10 Active 31701114 Problem Chronic post-traumatic headache, not intractable G44.329 Active 424837920 Problem Allergy to bee sting Z91.038 Active 646190064 Problem Mixed hyperlipidemia E78.2 Active 434213802 Problem Other chronic pain G89.29 Active 57992349 Problem Tobacco use Z72.0 Resolved 596325338 Problem 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 Active 209025147758577 Problem Acute midline low back pain with left-sided sciatica M54.42 Active 502304233 Problem Chronic obstructive pulmonary disease, unspecified COPD type J44.9 Active 09828014 Problem 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 Active 0983260172522 Problem Automatic implantable cardioverter-defibrillator in situ Z95.810 Active 115996639 Problem Obstructive sleep apnea G47.33 Active 59133365 Problem Diabetes mellitus type II, controlled E11.9 Active 39777657 ALLERGIES No Information ENCOUNTERS Encounter Location Date Diagnosis [facility] [id number] [address] Feb, [facility] [id number] [place] [address] 71582- 3353 Jan, [facility] [address] [address] Jan, [facility] [id number] [place] [address] 00114- 9887 Jan, Diabetes mellitus type II, controlled E11.9 ; Essential hypertension I10 ; Chronic obstructive pulmonary disease, unspecified COPD type J44.9 ; Tobacco use Z72.0 ; Mixed hyperlipidemia E78.2 ; Numbness of toes R20.0 ; Colon cancer screening Z12.11 ; Encounter for screening for lung cancer Z12.2 and Encounter for immunization Z23 [place] [address] [address] December, Allergy to bee sting Z91.038 [place] [address] 9[address]- 2354 December, Mixed hyperlipidemia E78.2 [place] [address] [address]- 2012 Nov, [place] [address] [address]- 6520 Sep, Acute midline low back pain with left-sided sciatica M54.42 [place] [address] [address]- 1821 Aug, 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 [place] [address] [address]- 1218 Aug, [place] [address] 05647- 0905 Aug, [place] [address] [address]25- 1278 Aug, Acute midline low back pain with left-sided sciatica M54.42 [facility] [place] [address] [address] Aug, Left foot pain M79.672 ; Low back pain M54.5 ; Other chronic pain G89.29 and Acute cystitis without hematuria N30.00 [facility] IN [facility] [address] [address] Jun, Acute bilateral low back pain without sciatica M54.5 [facility] [id number] [place] [address] 97963- 7019 Jun, Diabetes mellitus type II, controlled E11.9 and Essential hypertension I10 [facility] [id number] [place] [address] 57775- 5435 May, [facility] [id number] [place] [address] 31071 -6868 Mar, Pneumonia of both lower lobes due to infectious organism J18.9 [facility] [id number] [place] [address] 82433- 2471 Mar, [place] [id number] [place] [address] 72884- 1819 Mar, Bronchitis J40 [facility] IN [facility] [id number] [place] [address] 31263 -8478 Mar, Bronchitis J40 [facility] [id number] [place] [address] 98156- 7950 Feb, Chronic obstructive pulmonary disease, unspecified COPD type J44.9 [place] [id number] [place] [address] 36483- 9330 Jan, Diabetes mellitus type II, controlled E11.9 ; Essential hypertension I10 and Chronic obstructive pulmonary disease, unspecified COPD type J44.9 [place] [id number] [place] [address] 16606- 0329 Nov, [facility] [id number] [place] [address] 30648- 3357 Oct, Pneumonia of left lung due to infectious organism, unspecified part of lung J18.9 [facility] [id number] [place] [address] 26963- 2706 Sep, Bronchitis J40 and Pneumonia of both upper lobes due to infectious organism J18.9 [place] [id number] [place] [address] 80421- 9465 17 Sep, 2016 Diabetes mellitus type II, controlled E11.9 ; Essential hypertension I10 and 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 [place] [address] [place] [address] 85899- 3277 15 Sep, 2016 [place] [address] [id number] [place] [address] 73841- 6671 Jul, [place] [id number] [place] [address] 17658- 1303 May, [place] [id number] [place] [address] 15900- 2486 May, Diabetes mellitus type II, controlled E11.9 ; Dental abscess K04.7 ; Palpitations R00.2 ; Dizziness R42 and Double vision H53.2 [place] [id number] [place] [address] 47157- 4684 May, Confused R41.0 and Shortness of breath R06.02 [place] [id number] [place] [address] 85938- 6615 May, Diabetes mellitus type II, controlled E11.9 ; Essential hypertension I10 and 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 [place] [address] [address] 5536 May, Essential hypertension I10 ; Diabetes mellitus type II, controlled E11.9 ; 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 and Tobacco use Z72.0 [place] [id number] [place] [address] 16747- 4436 Apr, 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 [place] [id number] [place] [address] 57743- 5217 Apr, [place] [id number] [place] [address] 48224- 9031 Apr, [facility] [id number] [place] [address] 01678- 1908 Feb, Diabetes mellitus type II, controlled E11.9 ; Essential hypertension I10 ; Tobacco use Z72.0 and 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 [facility] [id number] [place] [address] 43521 -9580 Jan, Right knee injury, initial encounter S89.91XA [facility] [id number] [place] [address] 58826- 5840 Nov, [facility] [address] 53947- 3765 Oct, [facility] [id number] [place] [address] 50454- 3521 Sep, [facility] [id number] [place] [address] 72420- 0490 Aug, [facility] [id number] [place] [address] 67266- 9583 Jul, [facility] [id number] [place] [address] 41521- 7425 Jul, Low back pain M54.5 ; Sciatica, unspecified side M54.30 and Thoracic neuritis M54.14 [facility] [id number] [place] [address] 75754- 0127 Jul, [facility] [id number] [place] [address] 71472- 1231 Jul, Shortness of breath R06.02 [facility] [id number] [place] [address] 21029- 6930 Jun, [facility] [id number] [place] [address] 80934- 5487 13 Jun, 2015 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 ; Apnea R06.81 and Fatigue, unspecified type R53.83 [facility] [id number] [place] [address] 16738- 4129 Jun, Major depressive disorder, recurrent, severe without psychotic features F33.2 and Insomnia G47.00 [place] [address] 64170- 1821 May, 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 and Shortness of breath R06.02 [facility] [address] 37512- 1674 May, [place] [address] 85974- 4907 May, Diabetes mellitus type II, controlled E11.9 ; CAD (coronary artery disease) 414.00 ; Major depressive disorder, recurrent, severe without psychotic features F33.2 ; Apnea R06.81 and Shortness of breath R06.02 [place] [address] 27990- 7921 May, [place] [address] 85363- 7334 Feb, Sciatica 724.3 ; Lumbar pain 724.2 and CAD (coronary artery disease) 414.00 [place] [id number] [place] [address] 86740- 2706 Feb, [place] [address] 06413- 5583 Feb, [place] [id number] [place] [address] 13055- 5435 Nov, [facility] [address] 41487- 8142 Nov, [facility] [address] 57538- 9857 Oct, [facility] [address] 38560- 2546 Oct, [facility] [place] [facility] [address] [id number] [place] [address]- 3812 Oct, [facility] [place] [facility] [address] [id number] [place] [address]- 6644 Oct, [facility] [place] [facility] [address] [id number] [place] [address]- 9679 Oct, [facility] [place] [facility] [address] [id number] [place] [address]- 8265 Oct, [facility] [place] [facility] [address] [id number] [place] [address]- 9209 Oct, [facility] [place] [facility] [address] [facility] [id number] [place] [address]- 7364 Oct, [facility] [place] [facility] [address] [facility] [id number] [place] [address]- 8488 Oct, [facility] [place] [facility] [address] [id number] [address]- 9783 Oct, [facility] [place] [facility] [address] [id number] [place] [address]- 8548 Sep, [facility] [place] [facility] [address] [facility] [id number] [place] [address]- 6841 Sep, [facility] [place] [facility] [address] [id number] [place] [address]- 8156 Sep, 2014 [facility] [place] [facility] [address] [facility] [id number] [address]- 8202 Sep, [facility] [place] [facility] [address] [id number] [place] [address]- 4702 Sep, [facility] [place] [facility] [address] [id number] [place] [address]- 9366 Sep, [facility] [place] [facility] [address] [facility] [id number] [address]- 7661 Aug, [facility] [place] [facility] [address] [id number] [place] [address]- 1420 Aug, [facility] [place] [facility] [address] [id number] [place] [address]- 0313 Aug, [facility] [place] [facility] [address] [id number] [place] [address]- 2862 Aug, [facility] [place] [facility] [address] [id number] [place] [address]- 2527 Jul, [facility] [place] [facility] [address] [id number] [place] [address]- 4467 Jul, [facility] [place] [facility] [address] [id number] [place] [address]- 7237 Jul, [facility] [place] [facility] [address] [id number] [place] [address]- 8973 Jul, [facility] [place] [facility] [address] [id number] [place] [address]- 2326 Jun, [facility] [place] [facility] [address] [id number] [place] [address]- 4867 Jun, [facility] [place] [facility] [address] [id number] [place] [address]- 1343 Jun, [facility] [place] [facility] [address] [id number] [place] [address]- 5934 Jun, [facility] [place] [facility] [address] [id number] [place] [address]- 5968 Jun, [facility] [place] [facility] [address] [id number] [place] [address]- 9428 Jun, [facility] [place] [facility] [address] [id number] [place] [address]- 4660 May, [facility] [place] [facility] [address] [id number] [place] [address]- 7428 May, [facility] [place] [facility] [address] [id number] [place] [address]- 7842 May, [facility] [place] [facility] [address] [id number] [place] [address]- 3327 May, [facility] [place] [facility] [address] [id number] [place] [address]- 3060 May, [facility] [place] [facility] [address] [id number] [place] [address]- 3533 May, [facility] [place] [facility] [address] [id number] [place] [address]- 9744 May, [facility] [place] [facility] [address] [id number] [place] [address]- 9193 May, [facility] [place] [facility] [address] [id number] [place] [address]- 0843 May, [facility] [place] [facility] [address] [id number] [place] [address]- 0792 May, [facility] [place] [facility] [address] [id number] [place] [address]- 3662 May, [facility] [place] [facility] [address] [id number] [place] [address]- 5488 May, [facility] [place] [facility] [address] [id number] [place] [address]- 6510 May, [facility] [place] [facility] [address] [id number], [place] [address]- 6281 May, [facility] [place] [facility] [address] [id number], [place] [address]- 7038 May, [facility] [place] [facility] [address] [id number] [place] [address]- 9197 May, [facility] [place] [facility] [address] [id number], [place] [address]- 2116 Apr, [facility] [place] [facility] [address] [id number] [place] [address]- 0984 Apr, [facility] [place] [facility] [address] [id number] [place] [address]- 4865 23 Sep, 2013 [facility] [place] [facility] [address] [id number] [place] [address] 2546 23 Sep, 2013 [facility] [place] [facility] [address] [id number] [place] [address] 2546 22 Sep, 2013 [facility] [place] [facility] [address] [id number] [place] [address] 2543 22 Sep, 2013 [facility] [place] [facility] [address] [id number] [place] [address] 2543 19 Sep, 2013 [facility] [place] [facility] [address] [id number] [place] [address]- 1807 19 Sep, 2013 [facility] [place] [facility] [address] [id number] [place] [address]- 4207 18 Sep, 2013 [facility] [place] [facility] [address] [id number] [place] [address]- 8863 18 Sep, 2013 [facility] [place] [facility] [address] [id number] [place] [address]- 6441 18 Sep, 2013 [facility] [place] [facility] [address] [id number] [place] [address] 2548 18 Sep, 2013 [facility] [place] [facility] [address] [id number] [place] [address]- 2540 17 Sep, 2013 [facility] [place] [facility] [address] [id number] [place] [address] 2543 17 Sep, 2013 [facility] [place] [facility] [address] [id number] [place] [address]- 254 15 Sep, 2013 [facility] [place] [facility] [address] [id number] [place] [address] 2547 15 Sep, 2013 [facility] [place] [facility] [address] [id number] [place] [address]- 2541 02 Sep, 2013 [facility] [place] [facility] [address] [id number] [place] [address] 2549 Apr, [facility] [place] [facility] [address] [id number] [place] [address]- 6358 Apr, [facility] [place] [facility] [address] [id number] [place] [address]- 6024 Apr, [facility] [place] [facility] [address] [id number] [place] [address]- 3240 Mar, [facility] [place] [facility] [address] [id number] [place] [address]- 4299 Mar, [facility] [place] [facility] [address] [id number] [place] [address]- 1134 Mar, [facility] [place] [facility] [address] [id number] [place] [address]- 9678 Mar, [facility] [place] [facility] [address] [id number] [place] [address]- 3564 Feb, [facility] [place] [facility] [address] [id number] [place] [address]- 0872 Feb, [facility] [place] [facility] [address] [id number] [place] [address]- 9509 Jul, [facility] [place] [facility] [address] [id number] [place] [address]- 0838 Jul, [facility] [place] [facility] [address] [id number] [place] [address]- 2695 May, [facility] [place] [facility] [address] [id number] [place] [address]- 7597 May, [facility] [place] [facility] [address] [id number] [place] [address]- 5045 Mar, [facility] [place] [facility] [address] [id number] [place] [address]- 3227 Feb, [facility] [place] [facility] [address] [id number] [place] [address]- 6565 Jan, [facility] [place] [facility] [address] [id number] [place] [address]- 1064 Jan, [facility] [place] [facility] [address] [id number] [place] [address]- 8827 Jan, [facility] [place] [facility] [address] [id number] [place] [address]- 0022 Aug, [facility] [place] [facility] [address] [id number] [place] [address]- 8654 Aug, [facility] [place] [facility] [address] [id number] [place] [address]- 9888 Jun, [facility] [place] [facility] [address] [id number] [place] [address]- 0910 Jun, [facility] [place] [facility] [address] [id number] [place] [address]- 1648 Jun, [facility] [place] [facility] [address] [id number] [place] [address]- 4906 Jun, [facility] [place] [facility] [address] [id number] [place] [address]- 1931 May, [facility] [place] [facility] [address] [id number] [place] [address]- 1401 May, [facility] [place] [facility] [address] [id number] [place] [address]- 2326 Feb, [facility] [place] [facility] [address] [id number] [place] [address]- 0466 Jan, [facility] [place] [facility] [address] [id number] [place] [address]- 1353 Jan, [facility] [place] [facility] [address] [id number] [place] [address]- 4966 December, [facility] [place] [facility] [address] [id number] [place] [address]- 5042 December, [facility] [place] [facility] [address] [id number] [place] 1890 December, [facility] [place] [facility] [address] [facility] [id number] [place] 7718 December, [facility] [address] [facility] [id number] [place] [address]- 0843 Jun, [facility] [address] [facility] [id number] [place] 0466 Feb, IMMUNIZATIONS No Known Immunizations SOCIAL HISTORY Never Assessed REASON FOR VISIT Requests return call PLAN OF CARE VITAL SIGNS MEDICATIONS Unknown [...] 03/2014 Medical History --Heart cath 03/2014 in [place], no stents placed at that time Medical [...] Hospitalization History Surgeries Hospitalization History Chest pain/CAD--[facility]ia [facility] 04/26/16
--- OUTSIDE RECORDS SUMMARY | 2018-04-20 10:21 | XMS REPORT ---
Author Author JUSTINE PATEL [facility] Address [address] [place] [address] Care Team Providers Care Cooker Process Cheese Name Role Phone JUSTINESYDNEE MUSEHANY Unavailable PROBLEMS Type Condition ICD9-CM Code QRZ70-XL Code Onset Dates Condition Status SNOMED Code Problem Major depressive disorder, recurrent, severe without psychotic features F33.2 Active 02779519 Problem Essential hypertension I10 Active 62372931 Problem Chronic post-traumatic headache, not intractable G44.329 Active 749020221 Problem Allergy to bee sting Z91.038 Active 954944069 Problem Mixed hyperlipidemia E78.2 Active 464524611 Problem Other chronic pain G89.29 Active 68134998 Problem Tobacco use Z72.0 Resolved 594529978 Problem Atherosclerotic heart disease of [place]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.10 Active [id number] Problem Acute midline low back pain with left-sided sciatica M54.42 Active 735347846 Problem Chronic obstructive pulmonary disease, unspecified COPD type J44.9 Active 99406215 Problem 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.119 Active 9451467182301 Problem Automatic implantable cardioverter-defibrillator in situ Z95.810 Active 042859036 Problem Obstructive sleep apnea G47.33 Active 52819340 Problem Diabetes mellitus type II, controlled E11.9 Active 74697317 ALLERGIES Substance Reaction Event Type Date Status Isosorbide Mononitrate migraines Drug Allergy Jan, Active Atorvastatin Calcium muscle pain Drug Allergy Jan, Active ENCOUNTERS Encounter Location Date Diagnosis [facility] [id number], [place] [address] Feb, [facility] [address], [place] [address] Jan, [facility] [address] [id number], [place] [address] Jan, [facility] [id number] [place] [address] 89958- 5914 Jan, Diabetes mellitus type II, controlled E11.9 ; Essential hypertension I10 ; Chronic obstructive pulmonary disease, unspecified COPD type J44.9 ; Tobacco use Z72.0 ; Mixed hyperlipidemia E78.2 ; Numbness of toes R20.0 ; Colon cancer screening Z12.11 ; Encounter for screening for lung cancer Z12.2 and Encounter for immunization Z23 [facility] [address] [address] December, Allergy to bee sting Z91.038 [place] [address] [address] December, Mixed hyperlipidemia E78.2 [place] [address] [address]- 7626 Nov, [place] [address] 9[address]72- 6368 Sep, Acute midline low back pain with left-sided sciatica M54.42 [place] [address] [address]- 74[address] Aug, Atherosclerotic heart disease of [place]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.10 [place] [id number] [place] [address] 24227- 5953 Aug, [facility] [id number] [place] [address] 30084- 7766 Aug, [place] [id number] [place] [address] 27191- 2172 Aug, Acute midline low back pain with left-sided sciatica M54.42 [facility] [id number] [place] [address] 44789 -5558 Aug, Left foot pain M79.672 ; Low back pain M54.5 ; Other chronic pain G89.29 and Acute cystitis without hematuria N30.00 [facility] [id number] [place] [address] 26066 -9038 15 Jun, 2017 Acute bilateral low back pain without sciatica M54.5 [facility] [id number] [place] [address] 34184- 4975 09 Jun, 2017 Diabetes mellitus type II, controlled E11.9 and Essential hypertension I10 [facility] [address] [address]- 9855 May, [facility] [id number] [place] [address] 65292 -0171 Mar, Pneumonia of both lower lobes due to infectious organism J18.9 [place] [id number] [place] [address] 93922- 8030 Mar, [facility] [id number] [place] [address] 31676- 0091 Mar, Bronchitis J40 [facility] [id number] [place] [address] 21301 -6392 Mar, Bronchitis J40 [place] [id number] [place] [address] 64262- 1953 Feb, Chronic obstructive pulmonary disease, unspecified COPD type J44.9 [facility] [id number] [place] [address] 35049- 3142 Jan, Diabetes mellitus type II, controlled E11.9 ; Essential hypertension I10 and Chronic obstructive pulmonary disease, unspecified COPD type J44.9 [place] [id number] [place] [address] 33916- 2303 Nov, [place] [id number] [place] [address] 08900- 1457 Oct, Pneumonia of left lung due to infectious organism, unspecified part of lung J18.9 [facility] [id number] [place] [address] 44612- 8477 Sep, Bronchitis J40 and Pneumonia of both upper lobes due to infectious organism J18.9 [place] [id number] [place] [address] 03291- 0430 17 Sep, 2016 Diabetes mellitus type II, controlled E11.9 ; Essential hypertension I10 and 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.119 [place] [id number] [place] [address] 00532- 3647 15 Sep, 2016 [place] [address] 51466- 0769 Jul, [place] [address] 19711- 7062 May, [place] [address] 28122- 5406 May, Diabetes mellitus type II, controlled E11.9 ; Dental abscess K04.7 ; Palpitations R00.2 ; Dizziness R42 and Double vision H53.2 [place] [id number] [place] [address] 45850- 9080 May, Confused R41.0 and Shortness of breath R06.02 [place] [id number] [place] [address] 63454- 1699 May, Diabetes mellitus type II, controlled E11.9 ; Essential hypertension I10 and 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.119 [place] [id number] [place] [address] 00054- 1079 May, Essential hypertension I10 ; Diabetes mellitus type II, controlled E11.9 ; 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.119 and Tobacco use Z72.0 [place] [id number] [place] [address] 52519- 8044 Apr, 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.119 [place] [id number] [place] [address] 84733- 3969 Apr, [facility] [id number] [place] [address] 63232- 0130 Apr, [facility] [id number] [place] [address] 43640- 4626 Feb, Diabetes mellitus type II, controlled E11.9 ; Essential hypertension I10 ; Tobacco use Z72.0 and 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.119 [facility] [id number] [place] [address] 59836 -3730 Jan, Right knee injury, initial encounter S89.91XA [facility] [address] 38968- 6687 Nov, [facility] [address] 01994- 2835 Oct, [facility] [address] 48280- 4712 Sep, [facility] [id number] [place] [address] 10812- 0650 Aug, [facility] [id number] [place] [address] 84266- 7536 Jul, [facility] [id number] [place] [address] 63423- 0582 Jul, Low back pain M54.5 ; Sciatica, unspecified side M54.30 and Thoracic neuritis M54.14 [facility] [id number] [place] [address] 31427- 7291 Jul, [facility] [address] 83718- 5320 Jul, Shortness of breath R06.02 [facility] [id number] [place] [address] 66597- 6940 Jun, [facility] [address] 60870- 5980 Jun, 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.119 ; Apnea R06.81 and Fatigue, unspecified type R53.83 [place] [address] 96254- 2127 Jun, Major depressive disorder, recurrent, severe without psychotic features F33.2 and Insomnia G47.00 [place] [address] 60898- 7548 May, Atherosclerotic heart disease of [place]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.10 and Shortness of breath R06.02 [place] [address] 24208- 2188 May, [address] [address]- 1537 May, Diabetes mellitus type II, controlled E11.9 ; CAD (coronary artery disease) 414.00 ; Major depressive disorder, recurrent, severe without psychotic features F33.2 ; Apnea R06.81 and Shortness of breath R06.02 [place] [address] 69854- 8357 May, [place] [address] 25491- 8922 Feb, Sciatica 724.3 ; Lumbar pain 724.2 and CAD (coronary artery disease) 414.00 [place] [address] 11186- 1293 Feb, [place] [address] 27046- 6777 Feb, [facility] [address] 58843- 2198 Nov, [place] [address] 53397- 3973 Nov, [facility] [address] 68688- 7496 Oct, [facility] [place] [facility] [address] [id number] [place] [address]- 8504 Oct, [facility] [place] [facility] [address] [id number] [place] [address]- 4233 Oct, [facility] [place] [facility] [address] [facility] [id number] [place] [address]- 9841 Oct, [facility] [place] [facility] [address] [id number], [place] [address]- 3542 Oct, [facility] [place] [facility] [address] [id number] [place] [address]- 6977 Oct, [facility] [place] [facility] [address] [facility] [id number] [place] [address]- 1616 Oct, [facility] [place] [facility] [address] [facility] [id number] [place] [address]- 2932 Oct, [facility] [place] [facility] [address] [facility] [id number], [place] [address]- 5098 Oct, [facility] [place] [facility] [address] [facility] [id number] [place] [address]- 2309 Oct, [facility] [place] [facility] [address] [facility] [id number], [place] [address]- 8686 Sep, [facility] [place] [facility] [address] [id number], [place] [address]- 7319 Sep, 2014 [facility] [place] [facility] [address] [facility] [id number], [place] [address]- 5862 Sep, 2014 [facility] [place] [facility] [address] [id number] [place] [address]- 2647 Sep, 2014 [facility] [place] [facility] [address] [facility] [id number], [place] [address]- 5104 Sep, 2014 [facility] [place] [facility] [address] [facility] [id number], [place] [address]- 6604 Sep, 2014 [facility] [place] [facility] [address] [id number] [place] [address]- 7589 Aug, [facility] [place] [facility] [address] [id number] [place] [address]- 6551 Aug, [facility] [place] [facility] [address] [id number] [place] [address]- 9579 Aug, [facility] [place] [facility] [address] [id number] [place] [address]- 5936 Aug, [facility] [place] [facility] [address] [id number] [place] [address]- 8791 Jul, [facility] [place] [facility] [address] [id number] [place] [address]- 5395 Jul, [facility] [place] [facility] [address] [id number] [place] [address]- 7622 Jul, [facility] [place] [facility] [address] [id number] [place] [address]- 3862 Jul, [facility] [place] [facility] [address] [id number] [place] [address]- 0931 Jun, [facility] [place] [facility] [address] [id number] [place] [address]- 6418 Jun, [facility] [place] [facility] [address] [id number] [place] [address]- 4604 Jun, [facility] [place] [facility] [address] [id number] [place] [address]- 6376 Jun, [facility] [place] [facility] [address] [id number] [place] [address]- 6019 Jun, [facility] [place] [facility] [address] [id number] [place] [address]- 6622 Jun, [facility] [place] [facility] [address] [id number] [place] [address]- 7721 May, [facility] [place] [facility] [address] [id number] [place] [address]- 5913 May, [facility] [place] [facility] [address] [id number] [place] [address]- 7827 May, [facility] [place] [facility] [address] [id number] [place] [address]- 2396 May, [facility] [place] [facility] [address] [id number] [place] [address]- 1702 May, [facility] [place] [facility] [address] [id number] [place] [address]- 9037 May, [facility] [place] [facility] [address] [id number] [place] [address]- 9980 May, [facility] [place] [facility] [address] [id number] [place] [address]- 4448 May, [facility] [place] [facility] [address] [id number] [place] [address]- 1682 May, [facility] [place] [facility] [address] [id number], [place] [address]- 5238 May, [facility] [place] [facility] [address] [id number] [place] [address]- 3368 May, [facility] [place] [facility] [address] [id number], [place] [address]- 1063 May, [facility] [place] [facility] [address] [id number], [place] [address]- 0785 May, [facility] [place] [facility] [address] [id number], [place] [address]- 1442 May, [facility] [place] [facility] [address] [id number] [place] [address]- 4110 May, [facility] [place] [facility] [address] [id number], [place] [address]- 2512 May, [facility] [place] [facility] [address] [id number], [place] [address]- 7898 Apr, [facility] [place] [facility] [address] [id number] [place] [address]- 7414 26 Sep, 2013 [facility] [place] [facility] [address] [id number] [place] [address] 2546 23 Sep, 2013 [facility] [place] [facility] [address] [id number] [place] [address] 2546 23 Sep, 2013 [facility] [place] [facility] [address] [id number] [place] [address] 2545 22 Sep, 2013 [facility] [place] [facility] [address] [id number] [place] [address] 2542 22 Sep, 2013 [facility] [place] [facility] [address] [id number] [place] [address]- 8481 19 Sep, 2013 [facility] [place] [facility] [address] [id number] [place] [address]- 0274 19 Sep, 2013 [facility] [place] [facility] [address] [id number] [place] [address]- 5378 18 Sep, 2013 [facility] [place] [facility] [address] [id number] [place] [address]- 2548 18 Sep, 2013 [facility] [place] [facility] [address] [id number] [place] [address] 2542 18 Sep, 2013 [facility] [place] [facility] [address] [id number] [place] [address] 2543 18 Sep, 2013 [facility] [place] [facility] [address] [id number] [place] [address] 2542 17 Sep, 2013 [facility] [place] [facility] [address] [id number] [place] [address]- 2545 17 Sep, 2013 [facility] [place] [facility] [address] [id number] [place] [address] 2543 15 Sep, 2013 [facility] [place] [facility] [address] [id number] [place] [address]- 2549 15 Sep, 2013 [facility] [place] [facility] [address] [id number] [place] [address] 2547 Apr, [facility] [place] [facility] [address] [id number] [place] [address]- 2355 Apr, [facility] [place] [facility] [address] [id number] [place] [address]- 5511 Apr, [facility] [place] [facility] [address] [id number] [place] [address]- 5699 Apr, [facility] [place] [facility] [address] [id number] [place] [address]- 6993 Mar, [facility] [place] [facility] [address] [id number] [place] [address]- 7920 Mar, [facility] [place] [facility] [address] [id number] [place] [address]- 4240 Mar, [facility] [place] [facility] [address] [id number] [place] [address]- 2385 Mar, [facility] [place] [facility] [address] [id number] [place] [address]- 3726 Feb, [facility] [place] [facility] [address] [id number] [place] [address]- 5809 Feb, [facility] [place] [facility] [address] [id number] [place] [address]- 6449 Jul, [facility] [place] [facility] [address] [id number] [place] [address]- 6612 Jul, [facility] [place] [facility] [address] [id number] [place] [address]- 6679 May, [facility] [place] [facility] [address] [id number] [place] [address]- 4412 May, [facility] [place] [facility] [address] [id number] [place] [address]- 3398 Mar, [facility] [place] [facility] [address] [id number] [place] [address]- 2544 Feb, [facility] [place] [facility] [address] [id number] [place] [address]- 3774 Jan, [facility] [place] [facility] [address] [id number] [place] [address]- 3701 Jan, [facility] [place] [facility] [address] [id number] [place] [address]- 3528 Jan, [facility] [place] [facility] [address] [id number] [place] [address]- 7764 Aug, [facility] [place] [facility] [address] [id number] [place] [address]- 8834 Aug, [facility] [place] [facility] [address] [id number] [place] [address]- 3987 Jun, [facility] [place] [facility] [address] [id number] [place] [address]- 1947 Jun, [facility] [place] [facility] [address] [id number] [place] [address]- 2065 Jun, [facility] [place] [facility] [address] [id number] [place] [address]- 7325 Jun, [facility] [place] [facility] [address] [id number] [place] [address]- 9929 May, [facility] [place] [facility] [address] [id number] [place] [address]- 8920 May, [facility] [place] [facility] [address] [id number] [place] [address]- 4854 Feb, [facility] [place] [facility] [address] [id number] [place] [address]- 5727 Jan, [facility] [place] [facility] [address] [id number] [place] [address]- 1010 Jan, [facility] [place] [facility] [address] [id number] [place] [address]- 1480 December, [facility] [place] [facility] [address] [id number] [place] [address]- 1266 December, [facility] [place] [facility] [address] [facility] [id number] [place] [address]- 0731 December, [facility] [address] [facility] [id number][place] [id number] 0337 December, [facility] [address] [facility] [id number], [place] [address]- 9819 Jun, [place] [address] [facility] [id number][place] [address] [address]697 Feb, IMMUNIZATIONS Vaccine Route Administration Date Status PPSV23 (PNEUMOVAX) IM Intramuscular January 10, 2018 Administered SOCIAL HISTORY Never Assessed REASON FOR VISIT Diabetes--tcuppettRN PLAN OF CARE Activity Details Follow Up 6 Months Reason:DMII/HTN VITAL SIGNS Height 70 in 2018-01-10 Weight 211.2 lbs 2018-01-10 Temperature 98.5 degrees Fahrenheit 2018-01-10 Heart Rate 76 bpm 2018-01-10 Respiratory Rate 18 2018-01-10 BMI 30.30 kg/m2 2018-01-10 Blood pressure systolic 120 mmHg 2018-01-10 Blood pressure diastolic 78 mmHg 2018-01-10 MEDICATIONS Medication Instructions Dosage Frequency Start Date End Date Duration Status Metoprolol Tartrate 25 MG Orally Once a day 0.5 tablet with food 24h Active Aspirin 81 MG CHEW ONE TABLET BY MOUTH AND SWALLOW ONCE DAILY (MUST HAVE APPOINTMENT FOR REFILL) 90 Active Hydrochlorothiazide 12.5 MG Orally Once a day 1 tablet in the morning as needed for swelling 24h 90 days Active Repatha 140 MG/ML Subcutaneous every 2 weeks 1 ml Active Amlodipine Besylate 5 MG Orally Once a day 1 tablet 24h 90 days Active EpiPen 2-Remigio 0.3 MG/0.3ML as directed December, Active Symbicort 160-4.5 MCG/ACT Inhalation Twice a day 2 puffs 12h Oct, Not-Taking Fish Oil 500 mg Orally Once a day 1 capsule 24h Active ProAir HFA 108 (90 Base) MCG/ACT Inhalation every 4 hrs 2 puffs as needed 4h Mar, Active RESULTS Name Result Date Reference Range A1C (IN HOUSE) 2018-01-10 A1C IN HOUSE 5.4 4.3 - 5.6 % Previous A1c 5.5 Lot [id number] Exp date 10/2019 CT Scan : Chest, low dose (Screening) 2018-01-15 PROCEDURES Procedure Date Ordered Result Body Site GLYCATED HEMOGLOBIN TEST January 10, 2018 SINGLE IMMUNIZATION ADMIN January 10, 2018 PPSV23 (PNEUMOVAX) January 10, 2018 INSTRUCTIONS MEDICATIONS ADMINISTERED No Known Medications MEDICAL (GENERAL) HISTORY Type Description Date Medical History Cardiovascular Disorder () Medical History ---- Stress Echo 02/26/2010 ([facility] Hypertensive response;no ischemia; normal Echo EF 60% Medical History --Stent 04/2011 Medical History --Heart Cath 06/2011 Medical History --Cardiac Arrest requiring multiple defibrillations 03/2014 Medical History --Heart cath 03/2014 in [place], no stents placed at that time Medical [...] Hospitalization History Surgeries Hospitalization History Chest pain/CAD--[facility] 04/26/16
--- OUTSIDE RECORDS SUMMARY | 2018-04-20 10:22 | XMS REPORT ---
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 Name Role Phone YANETH FLETCHERY Unavailable PROBLEMS Type Condition ICD9-CM Code UVE17-EX Code Onset Dates Condition Status SNOMED Code Problem Major depressive disorder, recurrent, severe without psychotic features F33.2 Active 62751245 Problem Essential hypertension I10 Active 80583541 Problem Chronic post-traumatic headache, not intractable G44.329 Active 121904443 Problem Allergy to bee sting Z91.038 Active 785932803 Problem Mixed hyperlipidemia E78.2 Active 651343117 Problem Other chronic pain G89.29 Active 53472521 Problem Tobacco use Z72.0 Resolved 599540366 Problem Atherosclerotic heart disease of [place]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.10 Active 731104885280324 Problem Acute midline low back pain with left-sided sciatica M54.42 Active 764668706 Problem Chronic obstructive pulmonary disease, unspecified COPD type J44.9 Active 14083859 Problem 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 [id number] [address] Feb, [facility] [id number] [place] [address]58- 2816 Jan, [facility] [address] [address] Jan, [facility] [id number] [place] [address] 99304- 4437 Jan, Diabetes mellitus type II, controlled E11.9 ; Essential hypertension I10 ; Chronic obstructive pulmonary disease, unspecified COPD type J44.9 ; Tobacco use Z72.0 ; Mixed hyperlipidemia E78.2 ; Numbness of toes R20.0 ; Colon cancer screening Z12.11 ; Encounter for screening for lung cancer Z12.2 and Encounter for immunization Z23 [place] [address] [address] December, Allergy to bee sting Z91.038 [place] [address] 9[address]- 4977 December, Mixed hyperlipidemia E78.2 [place] [address] 9[address]- 3274 Nov, [place] [address] 73619- 8862 Sep, Acute midline low back pain with left-sided sciatica M54.42 [place] [address] [address]- 4311 Aug, Atherosclerotic heart disease of [place]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.10 [place] [address] 8[address]48- 4796 Aug, [place] [address] 98388- 0785 Aug, [place] [address] 86436- 1289 Aug, Acute midline low back pain with left-sided sciatica M54.42 [facility] [place] [address] [address] -[address] Aug, Left foot pain M79.672 ; Low back pain M54.5 ; Other chronic pain G89.29 and Acute cystitis without hematuria N30.00 [facility] [address] [address] Jun, Acute bilateral low back pain without sciatica M54.5 [facility] [address] [place] [address] 80204- 6835 Jun, Diabetes mellitus type II, controlled E11.9 and Essential hypertension I10 [facility] [id number] [place] [address] 38126- 4732 May, [facility] [id number] [place] [address] 35217 -6110 Mar, Pneumonia of both lower lobes due to infectious organism J18.9 [facility] [id number] [place] [address] 06029- 0085 Mar, [place] [id number] [place] [address] 19220- 0424 Mar, Bronchitis J40 [facility] [id number] [place] [address] 63210 -0853 Mar, Bron[address]itis J40 [facility] [id number] [place] [address] 88838- 9810 Feb, Chronic obstructive pulmonary disease, unspecified COPD type J44.9 [place] [id number] [place] [address] 42528- 4479 Jan, Diabetes mellitus type II, controlled E11.9 ; Essential hypertension I10 and Chronic obstructive pulmonary disease, unspecified COPD type J44.9 [place] [address] [place] [address] 07051- 2642 Nov, [facility] [id number] [place] [address] 42486- 7649 Oct, Pneumonia of left lung due to infectious organism, unspecified part of lung J18.9 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.119 [place] [address] [place] [address] 85248- 9060 15 Sep, 2016 [place] [id number] [place] [address] 97574- 3568 Jul, [place] [id number] [place] [address] 07721- 4896 May, [place] [id number] [place] [address] 77794- 0287 May, Diabetes mellitus type II, controlled E11.9 ; Dental abscess K04.7 ; Palpitations R00.2 ; Dizziness R42 and Double vision H53.2 [place] [id number] [place] [address] 74994- 8946 May, Confused R41.0 and Shortness of breath R06.02 [place] [id number] [place] [address] 92526- 6720 May, Diabetes mellitus type II, controlled E11.9 ; Essential hypertension I10 and 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.119 [place] [address] [address] 3340 May, Essential hypertension I10 ; Diabetes mellitus type II, controlled E11.9 ; 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 [address] [place] [address] 76229- 7764 Feb, Diabetes mellitus type II, controlled E11.9 ; Essential hypertension I10 ; Tobacco use Z72.0 and 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.119 [facility] [id number] [place] [address] 79742 -8194 Jan, Right knee injury, initial encounter S89.91XA [facility] [id number] [place] [address] 19210- 6464 Nov, [facility] [address] 84665- [address]563 Oct, [facility] [id number] [place] [address] 28957- 3636 Sep, [facility] [id number] [place] [address] 59972- 6594 Aug, [facility] [id number] [place] [address] 90494- 7200 Jul, [facility] [id number] [place] [address] 54380- 5854 Jul, Low back pain M54.5 ; Sciatica, unspecified side M54.30 and Thoracic neuritis M54.14 [facility] [id number] [place] [address] 86733- 5364 Jul, [facility] [id number] [place] [address] 73016- 6477 Jul, Shortness of breath R06.02 [facility] [id number] [place] [address] 93999- 1723 Jun, 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 [id number] [place] [address] 69481- 3519 Jun, Major depressive disorder, recurrent, severe without psychotic features F33.2 and Insomnia G47.00 [place] [address] 87653- 5789 May, Atherosclerotic heart disease of [place]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.10 and Shortness of breath R06.02 [facility] [address] 14809- 8552 May, [place] [address] 23480- 4966 May, Diabetes mellitus type II, controlled E11.9 ; CAD (coronary artery disease) 414.00 ; Major depressive disorder, recurrent, severe without psychotic features F33.2 ; Apnea R06.81 and Shortness of breath R06.02 [place] [address] 99733- 0957 May, [place] [address] 84994- 5043 Feb, Sciatica 724.3 ; Lumbar pain 724.2 and CAD (coronary artery disease) 414.00 [place] [id number] [place] [address] 14771- 8902 Feb, [place] [address] 56955- 3019 Feb, [place] [id number] [place] [address] 91611- 3525 Nov, [facility] [address] 10028- 6347 Nov, [facility] [address] 66415- 6074 Oct, [facility] [address] 30858- 2546 Oct, [facility] [place] [facility] [address] [id number] [place] [address]- 0053 Oct, [facility] [place] [facility] [address] [id number] [place] [address]- 3148 Oct, [facility] [place] [facility] [address] [id number] [place] [address]- 0669 Oct, [facility] [place] [facility] [address] [id number] [place] [address]- 4432 Oct, [facility] [place] [facility] [address] [id number] [place] [address]- 9958 Oct, [facility] [place] [facility] [address] [facility] [id number] [place] [address]- 3214 Oct, [facility] [place] [facility] [address] [facility] [id number] [place] [address]- 3451 Oct, [facility] [place] [facility] [address] [id number] [address]- 7508 Oct, [facility] [place] [facility] [address] [id number] [place] [address]- 1780 Sep, [facility] [place] [facility] [address] [facility] [id number] [place] [address]- 1332 Sep, [facility] [place] [facility] [address] [id number] [place] [address]- 4649 Sep, 2014 [facility] [place] [facility] [address] [facility] [id number] [address]- 8891 Sep, [facility] [place] [facility] [address] [id number] [place] [address]- 4874 Sep, [facility] [place] [facility] [address] [id number] [place] [address]- 3031 Sep, [facility] [place] [facility] [address] [facility] [id number] [address]- 6021 Aug, [facility] [place] [facility] [address] [id number] [place] [address]- 9806 Aug, [facility] [place] [facility] [address] [id number] [place] [address]- 6571 Aug, [facility] [place] [facility] [address] [id number] [place] [address]- 3367 Aug, [facility] [place] [facility] [address] [id number] [place] [address]- 4698 Jul, [facility] [place] [facility] [address] [id number] [place] [address]- 5305 Jul, [facility] [place] [facility] [address] [id number] [place] [address]- 6171 Jul, [facility] [place] [facility] [address] [id number] [place] [address]- 2906 Jul, [facility] [place] [facility] [address] [id number] [place] [address]- 7489 Jun, [facility] [place] [facility] [address] [id number] [place] [address]- 8003 Jun, [facility] [place] [facility] [address] [id number] [place] [address]- 7577 Jun, [facility] [place] [facility] [address] [id number] [place] [address]- 7086 Jun, [facility] [place] [facility] [address] [id number] [place] [address]- 4544 Jun, [facility] [place] [facility] [address] [id number] [place] [address]- 0011 Jun, [facility] [place] [facility] [address] [id number] [place] [address]- 0011 May, [facility] [place] [facility] [address] [id number] [place] [address]- 1960 May, [facility] [place] [facility] [address] [id number] [place] [address]- 1118 May, [facility] [place] [facility] [address] [id number] [place] [address]- 2835 May, [facility] [place] [facility] [address] [id number] [place] [address]- 6409 May, [facility] [place] [facility] [address] [id number] [place] [address]- 0084 May, [facility] [place] [facility] [address] [id number] [place] [address]- 7776 May, [facility] [place] [facility] [address] [id number] [place] [address]- 4689 May, [facility] [place] [facility] [address] [id number] [place] [address]- 4426 May, [facility] [place] [facility] [address] [id number] [place] [address]- 0564 May, [facility] [place] [facility] [address] [id number] [place] [address]- 8492 May, [facility] [place] [facility] [address] [id number] [place] [address]- 8873 May, [facility] [place] [facility] [address] [id number] [place] [address]- 7929 May, [facility] [place] [facility] [address] [id number], [place] [address]- 3054 May, [facility] [place] [facility] [address] [id number], [place] [address]- 7025 May, [facility] [place] [facility] [address] [id number] [place] [address]- 9607 May, [facility] [place] [facility] [address] [id number], [place] [address]- 3409 Apr, [facility] [place] [facility] [address] [id number] [place] [address]- 1333 Apr, [facility] [place] [facility] [address] [id number] [place] [address]- 2850 23 Sep, 2013 [facility] [place] [facility] [address] [id number] [place] [address] 2546 23 Sep, 2013 [facility] [place] [facility] [address] [id number] [place] [address] 2546 22 Sep, 2013 [facility] [place] [facility] [address] [id number] [place] [address] 2548 22 Sep, 2013 [facility] [place] [facility] [address] [id number] [place] [address] 2548 19 Sep, 2013 [facility] [place] [facility] [address] [id number] [place] [address]- 0753 19 Sep, 2013 [facility] [place] [facility] [address] [id number] [place] [address]- 0307 18 Sep, 2013 [facility] [place] [facility] [address] [id number] [place] [address]- 7121 18 Sep, 2013 [facility] [place] [facility] [address] [id number] [place] [address]- 5330 18 Sep, 2013 [facility] [place] [facility] [address] [id number] [place] [address] 2541 18 Sep, 2013 [facility] [place] [facility] [address] [id number] [place] [address]- 2542 17 Sep, 2013 [facility] [place] [facility] [address] [id number] [place] [address] 254 17 Sep, 2013 [facility] [place] [facility] [address] [id number] [place] [address]- 254 15 Sep, 2013 [facility] [place] [facility] [address] [id number] [place] [address] 2540 15 Sep, 2013 [facility] [place] [facility] [address] [id number] [place] [address]- 2543 02 Sep, 2013 [facility] [place] [facility] [address] [id number] [place] [address] 2549 Apr, [facility] [place] [facility] [address] [id number] [place] [address]- 1489 Apr, [facility] [place] [facility] [address] [id number] [place] [address]- 3276 Apr, [facility] [place] [facility] [address] [id number] [place] [address]- 1565 Mar, [facility] [place] [facility] [address] [id number] [place] [address]- 3550 Mar, [facility] [place] [facility] [address] [id number] [place] [address]- 5673 Mar, [facility] [place] [facility] [address] [id number] [place] [address]- 5878 Mar, [facility] [place] [facility] [address] [id number] [place] [address]- 9890 Feb, [facility] [place] [facility] [address] [id number] [place] [address]- 9786 Feb, [facility] [place] [facility] [address] [id number] [place] [address]- 4817 Jul, [facility] [place] [facility] [address] [id number] [place] [address]- 4415 Jul, [facility] [place] [facility] [address] [id number] [place] [address]- 8807 May, [facility] [place] [facility] [address] [id number] [place] [address]- 0679 May, [facility] [place] [facility] [address] [id number] [place] [address]- 6789 Mar, [facility] [place] [facility] [address] [id number] [place] [address]- 0708 Feb, [facility] [place] [facility] [address] [id number] [place] [address]- 8114 Jan, [facility] [place] [facility] [address] [id number] [place] [address]- 6430 Jan, [facility] [place] [facility] [address] [id number] [place] [address]- 3392 Jan, [facility] [place] [facility] [address] [id number] [place] [address]- 6928 Aug, [facility] [place] [facility] [address] [id number] [place] [address]- 9730 Aug, [facility] [place] [facility] [address] [id number] [place] [address]- 9450 Jun, [facility] [place] [facility] [address] [id number] [place] [address]- 7040 Jun, [facility] [place] [facility] [address] [id number] [place] [address]- 0046 Jun, [facility] [place] [facility] [address] [id number] [place] [address]- 2596 Jun, [facility] [place] [facility] [address] [id number] [place] [address]- 5130 May, [facility] [place] [facility] [address] [id number] [place] [address]- 6925 May, [facility] [place] [facility] [address] [id number] [place] [address]- 7996 Feb, [facility] [place] [facility] [address] [id number] [place] [address]- 9444 Jan, [facility] [place] [facility] [address] [id number] [place] [address]- 0134 Jan, [facility] [place] [facility] [address] [id number] [place] [address]- 8923 December, [facility] [place] [facility] [address] [id number] [place] [address]- 8488 December, [facility] [place] [facility] [address] [id number] [place] 1663 December, [facility] [place] [facility] [address] [facility] [id number] [place] [address] December, [facility] [address] [facility] [id number] [place] [address]- 5088 Jun, [facility] [address] [facility] [id number] [place] 1172 Feb, IMMUNIZATIONS No Known Immunizations SOCIAL HISTORY Never Assessed REASON FOR VISIT Medication refill/needing appointment PLAN OF CARE VITAL SIGNS MEDICATIONS Unknown Medications RESULTS No Results PROCEDURES No Known procedures INSTRUCTIONS MEDICATIONS ADMINISTERED No Known Medications MEDICAL (GENERAL) HISTORY Type Description Date Medical History Cardiovascular Disorder () Medical History ---- Stress Echo 02/26/2010 ([facility])- [...] Hospitalization History Surgeries Hospitalization History Chest pain/CAD--[facility] 04/26/16
--- OUTSIDE RECORDS SUMMARY | 2018-04-20 10:22 | XMS REPORT ---
Author Author JERALD LOPEZ Organization [facility] Address [address] [place] [address] Care Team Providers Care [employer] Counter Associate Name Role Phone JERALD LOPEZ Unavailable PROBLEMS Type Condition ICD9-CM Code [id number] Code Onset Dates Condition Status SNOMED Code Problem Major depressive disorder, recurrent, severe without psychotic features F33.2 Active 52515518 Problem Essential hypertension I10 Active 79495190 Problem Chronic post-traumatic headache, not intractable G44.329 Active 957056097 Problem Allergy to bee sting Z91.038 Active 400673049 Problem Mixed hyperlipidemia E78.2 Active 810612514 Problem Other chronic pain G89.29 Active 31874391 Problem Tobacco use Z72.0 Resolved 640570116 Problem Atherosclerotic heart disease of [place]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.10 Active 968201011731039 Problem Acute midline low back pain with left-sided sciatica M54.42 Active 193733398 Problem Chronic obstructive pulmonary disease, unspecified COPD type J44.9 Active 88966718 Problem 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 Active 4634427956106 Problem Automatic implantable cardioverter-defibrillator in situ Z95.810 Active 782269423 Problem Obstructive sleep apnea G47.33 Active 54011102 Problem Diabetes mellitus type II, controlled E11.9 Active 05693254 ALLERGIES No Information ENCOUNTERS Encounter Location Date Diagnosis [facility] [address] [facility] [id number], [place] [address] Feb, [facility] [id number] [place] [address] 61829- 5130 Jan, [facility] [address] [address] Jan, [facility] [address] [place] [id number] [place] [address] 93507- 5317 Jan, Diabetes mellitus type II, controlled E11.9 ; Essential hypertension I10 ; Chronic obstructive pulmonary disease, unspecified COPD type J44.9 ; Tobacco use Z72.0 ; Mixed hyperlipidemia E78.2 ; Numbness of toes R20.0 ; Colon cancer screening Z12.11 ; Encounter for screening for lung cancer Z12.2 and Encounter for immunization Z23 [place] [address] [address] December, Allergy to bee sting Z91.038 [place] [address] 53287- 5805 December, Mixed hyperlipidemia E78.2 [place] [address] 41574- 1306 Nov, [place] [address] 21369- 4160 Sep, Acute midline low back pain with left-sided sciatica M54.42 [place] [address] 13555- 6571 Aug, Atherosclerotic heart disease of [place]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.10 [place] [address] 13463- 9242 Aug, [place] [address] 32[address]- 7820 Aug, [place] [address] 87930- 8682 Aug, Acute midline low back pain with left-sided sciatica M54.42 [facility] [place] [address] [address] Aug, Left foot pain M79.672 ; Low back pain M54.5 ; Other chronic pain G89.29 and Acute cystitis without hematuria N30.00 [facility] [place] [address] 7[address]160 Jun, Acute bilateral low back pain without sciatica M54.5 [facility] [address] [address] Jun, Diabetes mellitus type II, controlled E11.9 and Essential hypertension I10 [facility] [address] [address] May, [facility] [address] [place] [id number] [place] [address] 41552 -7489 Mar, Pneumonia of both lower lobes due to infectious organism J18.9 [facility] [address] [place] [id number] [place] [address] 58759- 6978 Mar, [facility] [address] [place] [id number] [place] [address] 82279- 9190 Mar, Bronchitis J40 [facility] [address] [place] [id number] [place] [address] 67978 -5322 Mar, Bronchitis J40 [facility] [address] [place] [id number] [place] [address] 41557- 4834 Feb, Chronic obstructive pulmonary disease, unspecified COPD type J44.9 [facility] [address] [place] [id number] [place] [address] 73752- 6934 Jan, Diabetes mellitus type II, controlled E11.9 ; Essential hypertension I10 and Chronic obstructive pulmonary disease, unspecified COPD type J44.9 [facility] [address] [address] 0407 Nov, [facility] [address] [place] [id number] [place] [address] 42424- 3361 Oct, Pneumonia of left lung due to infectious organism, unspecified part of lung J18.9 [facility] [id number] [place] [address] 31862- 0028 Sep, Bronchitis J40 and Pneumonia of both upper lobes due to infectious organism J18.9 [place] [address] [place] [id number] [place] [address] 60960- 5585 Sep, Diabetes mellitus type II, controlled E11.9 ; Essential hypertension I10 and 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 [place] [address] [place] [address] 65150- 8188 15 Sep, 2016 [facility] [address] [place] [address] 85926- 9786 Jul, [place] [address] [place] [id number] [place] [address] 28986- 2776 May, [place] [address] [place] [id number] [place] [address] 40769- 8491 May, Diabetes mellitus type II, controlled E11.9 ; Dental abscess K04.7 ; Palpitations R00.2 ; Dizziness R42 and Double vision H53.2 [place] [address] [place] [id number] [place] [address] 13741- 8881 May, Confused R41.0 and Shortness of breath R06.02 [place] [address] [place] [id number] [place] [address] 08123- 6703 May, Diabetes mellitus type II, controlled E11.9 ; Essential hypertension I10 and 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 [place] [address], [place] [address] 3905 May, Essential hypertension I10 ; Diabetes mellitus type II, controlled E11.9 ; 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0 and 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 [facility] [address] [place] [id number] [place] [address] 23648 -0455 Jan, Right knee injury, initial encounter S89.91XA [facility] [address] [place] [id number] [place] [address] 20164- 8660 Nov, [facility] [address] 76291- 5182 Oct, [facility] [address] [place] [id number] [place] [address] 43068- 7542 Sep, [facility] [address] [place] [id number] [place] [address] 04432- 7812 Aug, [facility] [address] [place] [id number] [place] [address] 48022- 6346 Jul, [facility] [address] [place] [id number] [place] [address] 22647- 1160 Jul, Low back pain M54.5 ; Sciatica, unspecified side M54.30 and Thoracic neuritis M54.14 [facility] [address] [place] [id number] [place] [address] 77941- 6672 Jul, [facility] [address] [place] [id number] [place] [address] 51614- 7092 Jul, Shortness of breath R06.02 [facility] [address] [place] [id number] [place] [address] 13439- 0182 Jun, [facility] [address] [place] [id number] [place] [address] 19900- 0173 13 Jun, 2015 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 ; Apnea R06.81 and Fatigue, unspecified type R53.83 [facility] [address] [place] [id number] [place] [address] 04467- 6223 Jun, Major depressive disorder, recurrent, severe without psychotic features F33.2 and Insomnia G47.00 [facility] [address] [place] [id number] [place] [address] 40417- 9728 May, Atherosclerotic heart disease of [place]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.10 and Shortness of breath R06.02 [facility] [address] 69930- 8532 May, [place] [address] 04089- 2449 May, Diabetes mellitus type II, controlled E11.9 ; CAD (coronary artery disease) 414.00 ; Major depressive disorder, recurrent, severe without psychotic features F33.2 ; Apnea R06.81 and Shortness of breath R06.02 [place] [address] 72290- 2091 May, [place] [address] 57119- 6063 Feb, Sciatica 724.3 ; Lumbar pain 724.2 and CAD (coronary artery disease) 414.00 [place] [address] [place] [id number] [place] [address] 45328- 4126 Feb, [facility] [address] [place] [id number] [place] [address] 21465- 9197 Feb, [facility] [address] [place] [id number] [place] [address] 96940- 2272 Nov, [facility] [address] 98211- 9315 Nov, [facility] [address] [place] [id number] [place] [address] 97190- 6301 Oct, [facility] [address] 93461- 6882 Oct, [facility] [place] [facility] [address] [id number] [place] [address]- 2779 Oct, [facility] [place] [facility] [address] [id number] [place] [address]- 3097 Oct, [facility] [place] [facility] [address] [facility] [id number] [place] [address]- 6388 Oct, [facility] [place] [facility] [address] [facility] [id number] [place] [address]- 2287 Oct, [facility] [place] [facility] [address] [facility] [id number] [place] [address]- 1671 Oct, [facility] [place] [facility] [address] [facility] [id number] [place] [address]- 2210 Oct, [facility] [place] [facility] [address] [facility] [id number] [place] [address]- 7513 Oct, [facility] [place] [facility] [address] [facility] [id number], [place] [address]- 1184 Oct, [facility] [place] [facility] [address] [facility] [id number] [place] [address]- 1674 Sep, [facility] [place] [facility] [address] [facility] [id number] [place] [address]- 6624 Sep, [facility] [place] [facility] [address] [facility] [id number], [place] [address]- 5320 Sep, 2014 [facility] [place] [facility] [address] [facility] [id number], [place] [address]- 8598 Sep, [facility] [place] [facility] [address] [facility] [id number] [place] [address]- 0063 Sep, [facility] [place] [facility] [address] [facility] [id number], [place] [address]- 1650 Sep, [facility] [place] [facility] [address] [facility] [id number] [place] [address]- 1492 Aug, [facility] [place] [facility] [address] [id number] [place] [address]- 6047 Aug, [facility] [place] [facility] [address] [id number] [place] [address]- 7657 Aug, [facility] [place] [facility] [address] [id number] [place] [address]- 1971 Aug, [facility] [place] [facility] [address] [id number] [place] [address]- 8640 Jul, [facility] [place] [facility] [address] [id number] [place] [address]- 4729 Jul, [facility] [place] [facility] [address] [id number] [place] [address]- 4204 Jul, [facility] [place] [facility] [address] [id number] [place] [address]- 5093 Jul, [facility] [place] [facility] [address] [id number] [place] [address]- 1255 Jun, [facility] [place] [facility] [address] [id number] [place] [address]- 5172 Jun, [facility] [place] [facility] [address] [id number] [place] [address]- 9918 Jun, [facility] [place] [facility] [address] [id number] [place] [address]- 9507 Jun, [facility] [place] [facility] [address] [id number] [place] [address]- 8351 Jun, [facility] [place] [facility] [address] [id number] [place] [address]- 9956 Jun, [facility] [place] [facility] [address] [id number] [place] [address]- 9890 May, [facility] [place] [facility] [address] [id number] [place] [address]- 8035 May, [facility] [place] [facility] [address] [id number] [place] [address]- 7513 May, [facility] [place] [facility] [address] [id number] [place] [address]- 8845 May, [facility] [place] [facility] [address] [id number] [place] [address]- 0506 May, [facility] [place] [facility] [address] [id number] [place] [address]- 8763 May, [facility] [place] [facility] [address] [id number] [place] [address]- 0595 May, [facility] [place] [facility] [address] [id number] [place] [address]- 8541 May, [facility] [place] [facility] [address] [id number] [place] [address]- 8232 May, [facility] [place] [facility] [address] [id number] [place] [address]- 9341 May, [facility] [place] [facility] [address] [id number] [place] [address]- 8563 May, [facility] [place] [facility] [address] [id number] [place] [address]- 9762 May, [facility] [place] [facility] [address] [id number], [place] [address]- 4423 May, [facility] [place] [facility] [address] [id number], [place] [address]- 4640 May, [facility] [place] [facility] [address] [id number], [place] [address]- 6170 May, [facility] [place] [facility] [address] [id number] [place] [address]- 9897 May, [facility] [place] [facility] [address] [id number], [place] [address]- 2153 Apr, [facility] [place] [facility] [address] [id number], [place] [address]- 5961 Apr, [facility] [place] [facility] [address] [id number] [place] [address]- 3077 23 Sep, 2013 [facility] [place] [facility] [address] [id number] [place] [address] 2546 23 Sep, 2013 [facility] [place] [facility] [address] [id number] [place] [address] 2546 22 Sep, 2013 [facility] [place] [facility] [address] [id number] [place] [address] 254 22 Sep, 2013 [facility] [place] [facility] [address] [id number] [place] [address] 2549 19 Sep, 2013 [facility] [place] [facility] [address] [id number] [place] [address]- 6019 19 Sep, 2013 [facility] [place] [facility] [address] [id number] [place] [address] 2543 18 Sep, 2013 [facility] [place] [facility] [address] [id number] [place] [address]- 4037 18 Sep, 2013 [facility] [place] [facility] [address] [id number] [place] [address]- 2542 18 Sep, 2013 [facility] [place] [facility] [address] [id number] [place] [address] 2545 18 Sep, 2013 [facility] [place] [facility] [address] [id number] [place] [address]- 254 17 Sep, 2013 [facility] [place] [facility] [address] [id number] [place] [address] 2544 17 Sep, 2013 [facility] [place] [facility] [address] [id number], [place] [address]- 2542 15 Sep, 2013 [facility] [place] [facility] [address] [id number] [place] [address] 2541 15 Sep, 2013 [facility] [place] [facility] [address] [id number] [place] [address]- 2547 02 Sep, 2013 [facility] [place] [facility] [address] [id number] [place] [address] 2547 Apr, [facility] [place] [facility] [address] [id number] [place] [address]- 8544 Apr, [facility] [place] [facility] [address] [id number] [place] [address]- 8852 Apr, [facility] [place] [facility] [address] [id number] [place] [address]- 4213 Mar, [facility] [place] [facility] [address] [id number] [place] [address]- 0778 Mar, [facility] [place] [facility] [address] [id number] [place] [address]- 5172 Mar, [facility] [place] [facility] [address] [id number] [place] [address]- 9036 Mar, [facility] [place] [facility] [address] [id number] [place] [address]- 1228 Feb, [facility] [place] [facility] [address] [id number] [place] [address]- 3217 Feb, [facility] [place] [facility] [address] [id number] [place] [address]- 7901 Jul, [facility] [place] [facility] [address] [id number] [place] [address]- 9492 Jul, [facility] [place] [facility] [address] [id number] [place] [address]- 9281 May, [facility] [place] [facility] [address] [id number] [place] [address]- 1412 May, [facility] [place] [facility] [address] [id number] [place] [address]- 2791 Mar, [facility] [place] [facility] [address] [id number] [place] [address]- 2479 Feb, [facility] [place] [facility] [address] [id number] [place] [address]- 5275 Jan, [facility] [place] [facility] [address] [id number] [place] [address]- 0018 Jan, [facility] [place] [facility] [address] [id number] [place] [address]- 3015 Jan, [facility] [place] [facility] [address] [id number] [place] [address]- 2570 Aug, [facility] [place] [facility] [address] [id number] [place] [address]- 7158 Aug, [facility] [place] [facility] [address] [id number] [place] [address]- 6151 Jun, [facility] [place] [facility] [address] [id number] [place] [address]- 0583 Jun, [facility] [place] [facility] [address] [id number] [place] [address]- 8265 Jun, [facility] [place] [facility] [address] [id number] [place] [address]- 5195 Jun, [facility] [place] [facility] [address] [id number] [place] [address]- 4485 May, [facility] [place] [facility] [address] [id number] [place] [address]- 9520 May, [facility] [place] [facility] [address] [id number] [place] [address]- 2416 Feb, [facility] [place] [facility] [address] [id number] [place] [address]- 5243 Jan, [facility] [place] [facility] [address] [id number] [place] [address]- 8579 Jan, [facility] [place] [facility] [address] [id number] [place] [address]- 0922 December, [facility] [place] [facility] [address] [id number] [place] [address]- 6325 December, [facility] [place] [facility] [address] [id number] [place] [address]- 1797 December, [facility] [place] [facility] [address] [facility] [id number] [place] [address]- 0365 December, [facility] [address] [facility] [id number] [place] 9146 Jun, [facility] [address] [facility] [id number] [place] [address]82 Feb, IMMUNIZATIONS No Known Immunizations SOCIAL HISTORY Never Assessed REASON FOR VISIT Lab (walk-in)--[facility] PLAN OF CARE VITAL SIGNS MEDICATIONS Unknown Medications RESULTS No Results PROCEDURES Procedure Date Ordered Result Body Site COMPREHEN METABOLIC PANEL December 07, 2017 LIPID PANEL December 07, 2017 VENIPUNCT, ROUTINE* December 07, 2017 INSTRUCTIONS MEDICATIONS ADMINISTERED No Known Medications MEDICAL (GENERAL) HISTORY Type Description Date Medical History Cardiovascular Disorder () Medical History ---- Stress Echo 02/26/2010 ([facility])- Hypertensive response;no ischemia; normal Echo EF 60% Medical History --Stent 04/2011 Medical History --Heart Cath 06/2011 Medical History --Cardiac Arrest requiring multiple defibrillations 03/2014 Medical History --Heart cath 03/2014 in [place], no stents placed at that time Medical [...] Hospitalization History Surgeries Hospitalization History Chest pain/CAD--[facility] 04/26/16
--- OUTSIDE RECORDS SUMMARY | 2018-04-20 10:22 | XMS REPORT ---
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
--- OUTSIDE RECORDS SUMMARY | 2018-04-20 10:22 | XMS REPORT ---
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.119 Active 4754269821813 Problem Chronic obstructive pulmonary disease, unspecified COPD type J44.9 Active 02338293 Problem Tobacco use Z72.0 Resolved 070635341 Problem Diabetes mellitus type II, controlled E11.9 Active 15260020 Problem Automatic implantable cardioverter-defibrillator in situ Z95.810 Active 230319486 Problem Chronic post-traumatic headache, not intractable G44.329 Active 556560156 Problem Major depressive disorder, recurrent, severe without psychotic features F33.2 Active 12755590 Problem Essential hypertension I10 Active 55190314 ALLERGIES Unknown Allergies SOCIAL HISTORY No smoking Hx information available PLAN OF CARE VITAL SIGNS MEDICATIONS Unknown Medications RESULTS No Results PROCEDURES No Known procedures IMMUNIZATIONS No Known Immunizations
--- OUTSIDE RECORDS SUMMARY | 2018-04-20 10:22 | XMS REPORT ---
Author Author PATEL FLETCHER e[employer] Address Unknown Phone Unavailable Care Team Providers Care Unit Assembler Name Role Phone PATEL FLETCHER CP Unavailable Allergies, Adverse Reactions, Alerts Substance Reaction Event Type Isosorbide Mononitrate migraines Drug Allergy Atorvastatin Calcium muscle pain Drug Allergy Problems Problem Type Condition Code Onset Dates Condition Status Assessment Diabetes mellitus type II, controlled E11.9 Active Problem Chronic obstructive pulmonary disease, unspecified COPD type J44.9 Active Problem Obstructive sleep apnea G47.33 Active Problem Diabetes mellitus type II, controlled E11.9 Active Problem Major depressive disorder, recurrent, severe without psychotic features F33.2 Active Problem Tobacco use Z72.0 Active Problem Chronic post-traumatic headache, not intractable G44.329 Active Problem Coronary artery disease involving [place] coronary artery of [place]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 pectoris I25.119 Active Problem Essential hypertension I10 Active Problem Automatic implantable cardioverter-defibrillator in situ Z95.810 Active Assessment Double vision H53.2 Active Assessment Dizziness R42 Active Assessment Palpitations R00.2 Active Assessment Dental abscess K04.7 Active Medications Medication Code System Code Instructions Start Date End Date Status Dosage Amlodipine Besylate [facility] [address]-41 5 mg Orally Once a day 1 tablet Amoxicillin [facility] [address]-14 500 MG Orally 3 times a day May 20, 2016 May 30, 2016 1 capsule Clopidogrel Bisulfate [facility] 27954002346 75 MG Orally Once a day 1 tablet [place] [facility] [address]-61 7.5-325 MG Orally every 6 hrs May 20, 2016 1 tablet as needed Aspirin [facility] [address]-32 81 MG Orally Once a day Apr 24, 2014 1 tablet MetFORMIN HCl ER [facility] 70929043697 500 MG Orally Once a day 1 tablet with evening meal Nitrostat [facility] [address]-59 0.4 MG Sublingual every 15 mins x3 for Chest pain 1 tablet Procedures Procedure Coding System Code Date Office Visit, Est Pt., Level 3 CPT-4 37875 May 20, 2016 GLYCATED HEMOGLOBIN TEST CPT-4 97108 May 20, 2016 Vital Signs Date/Time: May 20, 2016 Cardiac Monitoring Heart Rate 80 bpm Weight 208 lbs Height 70 in BMI 29.84 Index Blood Pressure Diastolic 84 mmHg Blood Pressure Systolic 126 mmHg Results Name Result Date Reference Range Unit Abnormality Flag A1C (IN HOUSE) ----A1C IN HOUSE 5.5 20160520 4.3 - 5.6 % ----Previous A1c 5.5 [id number] ----Lot [id number] ----Exp date 20160520 Summary Purpose eClinicalWorks Submission
--- OUTSIDE RECORDS SUMMARY | 2018-04-20 10:22 | XMS REPORT ---
Author Author PATEL FLETCHER Organization [facility] Address [address] [place] [address] Care Team Providers Care Marine Engine Machinist Name Role Phone PATEL FLETCHER Unavailable PROBLEMS Type Condition ICD9-CM Code VSL39-FS Code Onset Dates Condition Status SNOMED Code Problem Obstructive sleep apnea G47.33 Active 04999237 Problem Coronary artery disease involving [place] coronary artery of [place]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 pectoris I25.119 Active 6931062338310 Problem Chronic obstructive pulmonary disease, unspecified COPD type J44.9 Active 14709893 Problem Tobacco use Z72.0 Resolved 129608141 Problem Diabetes mellitus type II, controlled E11.9 Active 12347469 Problem Automatic implantable cardioverter-defibrillator in situ Z95.810 Active 801726817 Problem Chronic post-traumatic headache, not intractable G44.329 Active 802031475 Problem Major depressive disorder, recurrent, severe without psychotic features F33.2 Active 49903851 Problem Essential hypertension I10 Active 34833205 ALLERGIES Unknown Allergies SOCIAL HISTORY No smoking Hx information available PLAN OF CARE VITAL SIGNS MEDICATIONS Unknown Medications RESULTS No Results PROCEDURES No Known procedures IMMUNIZATIONS No Known Immunizations
--- OUTSIDE RECORDS SUMMARY | 2018-04-20 10:23 | XMS REPORT ---
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 Name Role Phone DOUG QUIÑONES Unavailable PROBLEMS Type Condition ICD9-CM Code DGD16-ZU Code Onset Dates Condition Status SNOMED Code Problem Automatic implantable cardioverter-defibrillator in situ Z95.810 Active 623790707 Problem Major depressive disorder, recurrent, severe without psychotic features F33.2 Active 17917727 Problem Diabetes mellitus type II, controlled E11.9 Active 01813866 Problem Obstructive sleep apnea G47.33 Active 03429082 Problem Chronic obstructive pulmonary disease, unspecified COPD type J44.9 Active 23243395 Problem 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.119 Active 5122825280603 Problem Atherosclerotic heart disease of [place]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.10 Active 236926120680450 Problem Acute midline low back pain with left-sided sciatica M54.42 Active 186795791 Problem Essential hypertension I10 Active 01879410 Problem Chronic post-traumatic headache, not intractable G44.329 Active 788752035 Problem Other chronic pain G89.29 Active 20907855 Problem Tobacco use Z72.0 Resolved 172968919 ALLERGIES Substance Reaction Event Type Date Status Isosorbide Mononitrate migraines Drug Allergy Mar, Active Atorvastatin Calcium muscle pain Drug Allergy Mar, Active ENCOUNTERS Encounter Location Date Diagnosis [facility] [address] [facility] [id number] [address] Sep, Acute midline low back pain with left-sided sciatica M54.42 [facility] [address] [id number] [address] Aug, Atherosclerotic heart disease of [place]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.10 [facility] [address] [facility] [id number], [place] [address] Aug, [facility] [id number] [place] [address] Aug, [facility] [address] [address] Aug, Acute midline low back pain with left-sided sciatica M54.42 [facility] [address] [address] Aug, Left foot pain M79.672 ; Low back pain M54.5 ; Other chronic pain G89.29 and Acute cystitis without hematuria N30.00 [facility] [address] [address] Jun, Acute bilateral low back pain without sciatica M54.5 [place] [address] [address] Jun, Diabetes mellitus type II, controlled E11.9 and Essential hypertension I10 [place] [address] [address] May, [facility] [address] [address] Mar, Pneumonia of both lower lobes due to infectious organism J18.9 [place] [id number] [place] [address]23- 6298 Mar, [place] [address] [address] Mar, Bronchitis J40 [facility] [id number] [place] [address] Mar, Bronchitis J40 [facility] [id number] [place] [address]- 7092 Feb, Chronic obstructive pulmonary disease, unspecified COPD type J44.9 [facility] [address] [address] Jan, Diabetes mellitus type II, controlled E11.9 ; Essential hypertension I10 and Chronic obstructive pulmonary disease, unspecified COPD type J44.9 [place] [id number] [place] [address]73- 7670 Nov, [place] [id number] [place] [address]87- 0320 Oct, Pneumonia of left lung due to infectious organism, unspecified part of lung J18.9 [place] [id number] [place] [address]335- 4232 Sep, Bronchitis J40 and Pneumonia of both upper lobes due to infectious organism J18.9 [place] [id number] [place] [address]32- 5[address] 17 Sep, 2016 Diabetes mellitus type II, controlled E11.9 ; Essential hypertension I10 and 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.119 [place] [id number] [place] [address] 08381- 9265 Sep, [place] [id number] [place] [address]156- 7343 Jul, [place] [id number] [place] [address]284- 2753 May, [place] [id number] [place] [address] 79931- 1058 May, Diabetes mellitus type II, controlled E11.9 ; Dental abscess K04.7 ; Palpitations R00.2 ; Dizziness R42 and Double vision H53.2 [place] [id number] [place] [address] 95861- 9191 May, Confused R41.0 and Shortness of breath R06.02 [place] [id number] [place] [address] 46619- 0068 May, Diabetes mellitus type II, controlled E11.9 ; Essential hypertension I10 and 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.119 [facility] [address], [place] [address] 07 May, 2016 Essential hypertension I10 ; Diabetes mellitus type II, controlled E11.9 ; 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.119 and Tobacco use Z72.0 [facility] [address], [place] [address] Apr, 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.119 [facility] [id number] [place] [address] 89967- 239[address] Apr, [facility] [id number] [place] [address] 60383- 6519 Apr, [facility] [address] [id number] [address] Feb, Diabetes mellitus type II, controlled E11.9 ; Essential hypertension I10 ; Tobacco use Z72.0 and 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.119 [facility] [address], [place] [address] Jan, Right knee injury, initial encounter S89.91XA [facility] [address], [place] [address] Nov, [facility] [id number] [place] [address] 01902- 9378 Oct, [facility] [address], [place] [address] 10[address] Sep, [facility] [id number] [place] [address] 94031- 2551 Aug, [facility] [address], [place] [address] Jul, [facility] [id number] [place] [address] 86365- 4849 Jul, Low back pain M54.5 ; Sciatica, unspecified side M54.30 and Thoracic neuritis M54.[address] [address]- [address] Jul, [place] [address] [address] Jul, Shortness of breath R06.[address] [address] Jun, [address] [address] 16[address] Jun, 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.119 ; Apnea R06.81 and Fatigue, unspecified type R53.[address] [address]- [address] Jun, Major depressive disorder, recurrent, severe without psychotic features F33.2 and Insomnia G47.[address] [address]- [address] May, Atherosclerotic heart disease of [place]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.10 and Shortness of breath R06.02 [place] [id number] [place] [address]359- 9590 May, [address] [address] 6[address] May, Diabetes mellitus type II, controlled E11.9 ; CAD (coronary artery disease) 414.00 ; Major depressive disorder, recurrent, severe without psychotic features F33.2 ; Apnea R06.81 and Shortness of breath R06.[address] [address] May, [address] [address] Feb, Sciatica 724.3 ; Lumbar pain 724.2 and CAD (coronary artery disease) 414.00 [facility] [place] [facility] [address] [id number] [place] [address]- 9118 Feb, [facility] [place] [facility] [address] [id number] [place] [address]- 9766 Feb, [facility] [place] [facility] [address] [id number] [place] [address]- 6168 14 Nov, 2014 [facility] [place] [facility] [address] [id number] [place] [address]- 0914 Nov, [facility] [place] [facility] [address] [id number] [place] [address]- 4673 Oct, [facility] [place] [facility] [address] [id number] [place] [address]- 6637 Oct, [facility] [place] [facility] [address] [id number] [place] [address]- 3214 Oct, [facility] [place] [facility] [address] [id number] [place] [address]- 9406 Oct, [facility] [place] [facility] [address] [id number] [place] [address]- 9490 Oct, [facility] [place] [facility] [address] [id number] [place] [address]- 0753 Oct, [facility] [place] [facility] [address] [id number] [place] [address]- 6649 Oct, [facility] [place] [facility] [address] [id number], [place] [address] 4827 Oct, [facility] [place] [facility] [address] [id number] [place] [address]- 7154 Oct, [facility] [place] [facility] [address] [id number] [place] [address]- 0856 Oct, [facility] [place] [facility] [address] [id number] [place] [address]- 0595 Sep, [facility] [place] [facility] [address] [id number] [place] [address]- 3492 20 Sep, 2014 [facility] [address] [id number] [place] [address]- 4246 Sep, 2014 [facility] [place] [facility] [address] [id number] [place] [address] Sep, 2014 [facility] [place] [facility] [address] [id number] [place] [address]- 3426 Sep, 2014 [facility] [place] [facility] [address] [id number] [place] [address]- 2812 Sep, 2014 [facility] [place] [facility] [address] [id number] [place] [address]- 0789 Aug, [facility] [place] [facility] [address] [id number] [place] [address]- 1889 Aug, [facility] [place] [facility] [address] [id number] [place] [address]- 2616 Aug, [facility] [place] [facility] [address] [id number] [place] [address]- 5832 Aug, [facility] [place] [facility] [address] [id number] [place] [address]- 7979 Jul, [facility] [place] [facility] [address] [id number] [place] [address]- 9680 31 Jul, 2014 [facility] [place] [facility] [address] [id number] [place] [address]- 2031 Jul, [facility] [place] [facility] [address] [id number] [place] [address]- 9296 Jul, [facility] [place] [facility] [address] [id number] [place] 7927 Jun, [facility] [place] [facility] [address] [id number] [place] [address]- 1807 Jun, [facility] [place] [facility] [address] [id number] [place] 9260 Jun, [facility] [place] [facility] [address] [id number] [place] [address]- 7420 Jun, [facility] [place] [facility] [address] [id number] [place] [address]- 2649 Jun, [facility] [place] [facility] [address] [id number] [place] [address]- 4547 Jun, [facility] [place] [facility] [address] [id number] [place] [address]- 4908 May, [facility] [place] [facility] [address] [id number] [place] [address]- 1477 May, [facility] [place] [facility] [address] [id number] [place] [address]- 0274 May, [facility] [place] [facility] [address] [id number] [place] [address]- 7871 May, [facility] [place] [facility] [address] [id number] [place] [address]- 1483 May, [facility] [place] [facility] [address] [id number] [place] [address]- 6758 May, [facility] [place] [facility] [address] [id number] [place] [address]- 9142 May, [facility] [place] [facility] [address] [id number] [place] [address]- 2838 May, [facility] [place] [facility] [address] [id number], [place] [address]- 1680 May, [facility] [place] [facility] [address] [id number] [place] [address]- 7956 May, [facility] [place] [facility] [address] [id number] [place] [address]- 3465 May, [facility] [place] [facility] [address] [id number] 6673 May, [facility] [place] [facility] [address] [id number], [place] [address]- 7335 May, [facility] [place] [facility] [address] [id number] [place] [address]- 3865 May, [facility] [place] [facility] [address] [id number] [place] [address]- 0505 May, [facility] [place] [facility] [address] [id number] [place] [address]- 1591 May, [facility] [place] [facility] [address] [id number] [place] [address]- 5627 Apr, [facility] [place] [facility] [address] [id number] [place] [address]- 5453 Apr, [facility] [place] [facility] [address] [id number] [place] [address]- 8067 Apr, [facility] [place] [facility] [address] [id number] [place] [address]- 0888 Apr, [facility] [place] [facility] [address] [id number] [place] [address]- 8571 Apr, [facility] [place] [facility] [address] [id number] [place] [address]- 4954 Apr, [facility] [place] [facility] [address] [id number] [place] [address]- 0135 Apr, 2013 [facility] [place] [facility] [address] [id number], [place] [address]- 9423 Apr, 2013 [facility] [place] [facility] [address] [id number], [place] [address]- 6424 18 Apr, 2013 [facility] [place] [facility] [address] [id number], [place] [address]- 9892 18 Apr, 2013 [facility] [place] [facility] [address] [id number] [place] [address]- 0153 18 Apr, 2013 [facility] [place] [facility] [address] [id number] [place] [address]- 7891 Apr, 2013 [facility] [place] [facility] [address] [id number] [place] [address]- 8321 17 Apr, 2013 [facility] [place] [facility] [address] [id number] [place] [address]- 7148 17 Apr, 2013 [facility] [place] [facility] [address] [id number] [place] [address]- 1566 15 Apr, 2013 [facility] [place] [facility] [address] [id number] [place] [address]- 3446 15 Apr, 2013 [facility] [place] [facility] [address] [id number] [place] [address]- 6999 02 Apr, 2013 [facility] [place] [facility] [address] [id number] [place] [address]- 1139 Apr, 2013 [facility] [place] [facility] [address] [id number] [place] [address]- 0220 Apr, 2013 [facility] [place] [facility] [address] [id number] [place] [address]- 0099 Apr, 2013 [facility] [place] [facility] [address] [id number] [place] [address]- 1480 Mar, [facility] [place] [facility] [address] [id number] [place] [address]- 2276 Mar, [facility] [place] [facility] [address] [id number] [place] [address]- 2952 Mar, [facility] [place] [facility] [address] [id number] [place] [address]- 8744 Mar, [facility] [place] [facility] [address] [id number] [place] [address]- 3593 Feb, [facility] [place] [facility] [address] [id number] [place] [address]- 0585 Feb, [facility] [place] [facility] [address] [id number] [place] [address]- 7070 Jul, [facility] [place] [facility] [address] [id number] [place] [address]- 9690 Jul, [facility] [place] [facility] [address] [id number] [place] [address]- 6097 May, [facility] [place] [facility] [address] [id number] [place] [address]- 8574 May, [facility] [place] [facility] [address] [id number] [place] [address]- 3172 Mar, [facility] [place] [facility] [address] [id number] [place] [address]- 8000 Feb, [facility] [place] [facility] [address] [id number] [place] [address]- 4847 Jan, [facility] [place] [facility] [address] [id number] [place] [address]- 0989 Jan, [facility] [place] [facility] [address] [id number] [place] [address]- 4757 Jan, [facility] [place] [facility] [address] [id number] [place] [address]- 9230 Aug, [facility] [place] [facility] [address] [id number] [place] [address]- 4824 Aug, [facility] [place] [facility] [address] [id number], [place] [address]- 3658 Jun, [facility] [place] [facility] [address] [id number] [place] [address]- 7262 Jun, [facility] [place] [facility] [address] [id number], [place] [address]- 0011 Jun, [facility] [place] [facility] [address] [id number] [place] [address]- 9007 Jun, [facility] [place] [facility] [address] [id number] [place] [address]- 9530 May, [facility] [place] [facility] [address] [id number] [place] [address]- 9587 May, [facility] [place] [facility] [address] [id number] [address]- 2546 Feb, [facility] [address], [place] [address]- 2546 Jan, [facility] [address] [address]- 2546 Jan, [facility] [address] [address]- 2546 December, [facility] [id number] [place] [address] 92498- 2546 December, [facility] [id number] [place] [address] 87657 2546 December, [facility] [id number] [place] [address] 60686- 2546 December, [facility] [id number] [place] [address] 92022- 2546 Jun, [facility] [id number], [place] [address]- 2546 Feb, IMMUNIZATIONS No Known Immunizations SOCIAL HISTORY Never Assessed REASON FOR VISIT cough, head and chest congestion for a month. has seen mis...was on levaquin...still feels sick. right earache that started yesterday...also having some vertigo. [email or web address] PLAN OF CARE VITAL SIGNS Height 70 in 2017-04-05 Weight 200.6 lbs 2017-04-05 Temperature 97.5 degrees Fahrenheit 2017-04-05 Heart Rate 80 bpm 2017-04-05 Respiratory Rate 20 2017-04-05 BMI 28.78 kg/m2 2017-04-05 Blood pressure systolic 126 mmHg 2017-04-05 Blood pressure diastolic 76 mmHg 2017-04-05 MEDICATIONS Medication Instructions Dosage Frequency Start Date End Date Duration Status Amlodipine Besylate 5 mg Orally Once a day 1 tablet 24h 90 Active ProAir HFA 108 (90 Base) MCG/ACT Inhalation every 4 hrs 2 puffs as needed 4h Mar, Active Clopidogrel Bisulfate 75 MG Orally Once a day 1 tablet 24h 90 Active Promethazine-Codeine 6.25-10 MG/5ML Orally every 6 hrs 5 ml as needed 6h 12 Mar, 2017 Active Levaquin 750 MG Orally Once a day 1 tablet 24h Mar, Apr, 10 day(s) Active Pravachol 20 mg Orally Once a day 1/2 tablet 24h Active Aspirin 81 MG Orally Once a day 1 tablet 24h 18 Apr, 2014 Active Hydrochlorothiazide 12.5 MG Orally Once a day 1 capsule as needed for swelling 24h 30 Active PredniSONE 20 mg Orally Once a day 2 tablets 24h Mar, Apr, 05 days Active Albuterol Sulfate HFA cfc free 90 mcg/inh Inhalation every 4 hrs 2 puffs as needed 4h 20 Sep, 2016 Active Symbicort 160-4.5 MCG/ACT Inhalation Twice a day 2 puffs 12h Oct, Active RESULTS No Results PROCEDURES Procedure Date Ordered Result Body Site CHEST X-RAY Apr 05, 2017 INSTRUCTIONS MEDICATIONS ADMINISTERED No Known Medications MEDICAL (GENERAL) HISTORY Type Description Date Medical History Cardiovascular Disorder ([facility]) Medical History ---- Stress Echo 02/26/2010 ([facility])- Hypertensive response;no ischemia; normal Echo EF 60% Medical History --Stent 04/2011 Medical History --Heart Cath 06/2011 Medical History --Cardiac Arrest requiring multiple defibrillations 03/2014 Medical History --Heart cath 03/2014 in [place], no stents placed at that time Medical History --Pacemaker/defrillator placed 03/2014 after cardiac arrest Medical History Cardiovascular disorder ([facility])- CAD Medical History ----Stress Echo 02/26/2010 Medical [...] History [facility] 2 stents placed 06/2015 Hospitalization History Surgeries Hospitalization History Chest pain/CAD--Via [facility] 04/26/16
--- OUTSIDE RECORDS SUMMARY | 2018-04-20 10:23 | XMS REPORT ---
Author Author JUSTINE PATEL [facility] Address [address] [place] [address] Care Team Providers Care Medicine Aide Name Role Phone JUSTINESYDNEE MUSEHANY Unavailable PROBLEMS Type Condition ICD9-CM Code SNM74-PJ Code Onset Dates Condition Status SNOMED Code Problem Major depressive disorder, recurrent, severe without psychotic features F33.2 Active 67184281 Problem Essential hypertension I10 Active 85650511 Problem Chronic post-traumatic headache, not intractable G44.329 Active 343313383 Problem Allergy to bee sting Z91.038 Active 838460811 Problem Mixed hyperlipidemia E78.2 Active 644198398 Problem Other chronic pain G89.29 Active 81582257 Problem Tobacco use Z72.0 Resolved 987630835 Problem Atherosclerotic heart disease of [place]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.10 Active 028727612746640 Problem Acute midline low back pain with left-sided sciatica M54.42 Active 042488581 Problem Chronic obstructive pulmonary disease, unspecified COPD type J44.9 Active 84074534 Problem 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 [id number] [address] Jan, [facility] [address] [address] Jan, [facility] [address] [place] [id number] [address] Jan, Diabetes mellitus type II, controlled E11.9 ; Essential hypertension I10 ; Chronic obstructive pulmonary disease, unspecified COPD type J44.9 ; Tobacco use Z72.0 ; Mixed hyperlipidemia E78.2 ; Numbness of toes R20.0 ; Colon cancer screening Z12.11 ; Encounter for screening for lung cancer Z12.2 and Encounter for immunization Z23 [place] [address] [address] December, Allergy to bee sting Z91.038 [place] [address] [address] December, Mixed hyperlipidemia E78.2 [place] [address] [address] Nov, [place] [address] [address] Sep, Acute midline low back pain with left-sided sciatica M54.42 [place] [address] [address] Aug, Atherosclerotic heart disease of [place]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.10 [place] [address] [address] Aug, [place] [address] [address] Aug, [place] [address] [address] Aug, Acute midline low back pain with left-sided sciatica M54.42 [facility] [address] [address] Aug, Left foot pain M79.672 ; Low back pain M54.5 ; Other chronic pain G89.29 and Acute cystitis without hematuria N30.00 [facility] [address] [address] Jun, Acute bilateral low back pain without sciatica M54.5 [place] [address] [place] [address] Jun, Diabetes mellitus type II, controlled E11.9 and Essential hypertension I10 [facility] [id number] [place] [address] May, [facility] [address] [address] Mar, Pneumonia of both lower lobes due to infectious organism J18.9 [facility] [address] [place] [address]- [address] Mar, [facility] [id number] [place] [address]- 0128 Mar, Bronchitis J40 [facility] [address] [address] Mar, Bronchitis J40 [facility] [address] [place] [id number] [place] [address]- 9[address] Feb, Chronic obstructive pulmonary disease, unspecified COPD type J44.9 [facility] [address], [place] [address] Jan, Diabetes mellitus type II, controlled E11.9 ; Essential hypertension I10 and Chronic obstructive pulmonary disease, unspecified COPD type J44.9 [facility] [address] [address] Nov, [facility] [address] [place] [address]- 5[address] Oct, Pneumonia of left lung due to infectious organism, unspecified part of lung J18.9 [facility] [address], [place] [address] Sep, Bronchitis J40 and Pneumonia of both upper lobes due to infectious organism J18.9 [facility] [address] [address] Sep, Diabetes mellitus type II, controlled E11.9 ; Essential hypertension I10 and 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 [place] [address] [address] 15 Sep, 2016 [place] [address] [place] [id number] [place] [address]- [address] Jul, [place] [address] [place] [id number] [place] [address]- 4677 May, [place] [address] [place] [id number] [place] [address]- 4[address] May, Diabetes mellitus type II, controlled E11.9 ; Dental abscess K04.7 ; Palpitations R00.2 ; Dizziness R42 and Double vision H53.2 [place] [address] [place] [id number] [place] [address]- 6[address] May, Confused R41.0 and Shortness of breath R06.02 [place] [address] [place] [id number] [place] [address] 29[address] May, Diabetes mellitus type II, controlled E11.9 ; Essential hypertension I10 and 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 [place] [address] [place] [id number] [place] [address] 8314 May, Essential hypertension I10 ; Diabetes mellitus type II, controlled E11.9 ; 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 and Tobacco use Z72.0 [place] [address] [place] [address]- 6917 Apr, 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 [place] [address] [place] [id number] [place] [address] Apr, [place] [address] [place] [address]- 0319 Apr, [place] [address] [place] [id number] [place] [address] 6[address]- 1770 Feb, Diabetes mellitus type II, controlled E11.9 ; Essential hypertension I10 ; Tobacco use Z72.0 and 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 [facility] [address] [place] [id number] [place] [address] Jan, Right knee injury, initial encounter S89.91XA [facility] [address] [address] Nov, [facility] [address] [address] Oct, [place] [address] [address] Sep, [place] [address] [address] Aug, [facility] [address] [address]- [address] Jul, [place] [address] [address] Jul, Low back pain M54.5 ; Sciatica, unspecified side M54.30 and Thoracic neuritis M54.14 [place] [address] [address]- 82[address] Jul, [place] [address] [place] [id number] [place] [address]- 5027 Jul, Shortness of breath R06.02 [place] [address] [address]- 7940 Jun, [place] [address] [address]- [address] 13 Jun, 2015 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 ; Apnea R06.81 and Fatigue, unspecified type R53.83 [place] [address] [address] Jun, Major depressive disorder, recurrent, severe without psychotic features F33.2 and Insomnia G47.00 [place] [address] [address]- 8729 May, Atherosclerotic heart disease of [place]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.10 and Shortness of breath R06.02 [facility] [address] [address]- [address] May, [facility] [address] [address]- [address] May, Diabetes mellitus type II, controlled E11.9 ; CAD (coronary artery disease) 414.00 ; Major depressive disorder, recurrent, severe without psychotic features F33.2 ; Apnea R06.81 and Shortness of breath R06.02 [place] [address] [address]- [address] May, [facility] [address] [address]- [address] Feb, Sciatica 724.3 ; Lumbar pain 724.2 and CAD (coronary artery disease) 414.00 [place] [address] [place] [id number] [place] [address] 56[address]- 0883 Feb, [facility] [address] [place] [id number] [place] [address]99- 8593 Feb, [facility] [address] [place] [id number] [place] [address] 04790- 5781 Nov, [facility] [address] [place] [id number] [place] [address] 92632- 4175 Nov, [facility] [address] [address]- 8025 Oct, [facility] [address] [place] [id number] [place] [address] 94027- 1806 Oct, [facility] [address] [address]- 2546 Oct, [facility] [place] [facility] [address] [id number] [place] [address]- 3493 Oct, [facility] [place] [facility] [address] [id number] [place] [address]- 8199 Oct, [facility] [place] [facility] [address] [facility] [id number] [place] [address]- 0647 Oct, [facility] [place] [facility] [address] [id number] [place] [address]- 9091 Oct, [facility] [place] [facility] [address] [id number] [place] [address]- 9484 Oct, [facility] [place] [facility] [address] [facility] [id number] [place] [address]- 9136 Oct, [facility] [place] [facility] [address] [facility] [id number] [place] [address]- 4722 Oct, [facility] [place] [facility] [address] [facility] [id number] [place] [address]- 2229 Sep, [facility] [place] [facility] [address] [id number] [place] [address]- 6267 Sep, [facility] [place] [facility] [address] [facility] [id number] [place] [address]- 1202 Sep, [facility] [place] [facility] [address] [facility] [id number] [place] [address]- 2386 Sep, [facility] [place] [facility] [address] [facility] [id number] [address]- 9489 Sep, [facility] [place] [facility] [address] [id number] [place] [address]- 8729 Sep, [facility] [place] [facility] [address] [facility] [id number] [place] [address]- 5425 Aug, [facility] [place] [facility] [address] [facility] [id number], [place] [address]- 2730 Aug, [facility] [place] [facility] [address] [id number] [place] [address]- 2997 Aug, [facility] [place] [facility] [address] [id number] [place] [address]- 2661 Aug, [facility] [place] [facility] [address] [id number] [place] [address]- 8876 Jul, [facility] [place] [facility] [address] [id number] [place] [address]- 5473 Jul, [facility] [place] [facility] [address] [id number] [place] [address]- 5012 Jul, [facility] [place] [facility] [address] [id number] [place] [address]- 3654 Jul, [facility] [place] [facility] [address] [id number] [place] [address]- 9323 Jun, [facility] [place] [facility] [address] [id number] [place] [address]- 6602 Jun, [facility] [place] [facility] [address] [id number] [place] [address]- 8237 Jun, [facility] [place] [facility] [address] [id number] [place] [address]- 1130 Jun, [facility] [place] [facility] [address] [id number] [place] [address]- 3308 Jun, [facility] [place] [facility] [address] [id number] [place] [address]- 1481 Jun, [facility] [place] [facility] [address] [id number] [place] [address]- 7466 May, [facility] [place] [facility] [address] [id number] [place] [address]- 6490 May, [facility] [place] [facility] [address] [id number] [place] [address]- 5539 May, [facility] [place] [facility] [address] [id number] [place] [address]- 2888 May, [facility] [place] [facility] [address] [id number] [place] [address]- 6654 May, [facility] [place] [facility] [address] [id number] [place] [address]- 3130 May, [facility] [place] [facility] [address] [id number] [place] [address]- 0458 May, [facility] [place] [facility] [address] [id number] [place] [address]- 8941 May, [facility] [place] [facility] [address] [id number] [place] [address]- 2256 May, [facility] [place] [facility] [address] [id number] [place] [address]- 3735 May, [facility] [place] [facility] [address] [id number] [place] [address]- 0545 May, [facility] [place] [facility] [address] [id number] [place] [address]- 1523 May, [facility] [place] [facility] [address] [id number] [place] [address]- 5692 May, [facility] [place] [facility] [address] [id number] [place] [address]- 8896 May, [facility] [place] [facility] [address] [id number], [place] [address]- 1610 May, [facility] [place] [facility] [address] [id number] [address]- 1390 May, [facility] [place] [facility] [address] [id number] [place] [address]- 2386 Apr, [facility] [place] [facility] [address] [id number] [place] [address]- 8443 Apr, [facility] [place] [facility] [address] [id number] [place] [address]- 4582 Apr, [facility] [place] [facility] [address] [id number] [place] [address]- 4790 23 Sep, 2013 [facility] [place] [facility] [address] [id number] [place] [address] 2546 22 Sep, 2013 [facility] [place] [facility] [address] [id number] [place] [address] 2540 22 Sep, 2013 [facility] [place] [facility] [address] [id number] [place] [address] 2549 19 Sep, 2013 [facility] [place] [facility] [address] [id number] [place] [address] 2544 19 Sep, 2013 [facility] [place] [facility] [address] [id number] [place] [address]- 2141 18 Sep, 2013 [facility] [place] [facility] [address] [id number] [place] [address]- 7007 18 Sep, 2013 [facility] [place] [facility] [address] [id number] [place] [address]- 7303 18 Sep, 2013 [facility] [place] [facility] [address] [id number] [place] [address]- 4159 18 Sep, 2013 [facility] [place] [facility] [address] [id number] [place] [address]- 2547 17 Sep, 2013 [facility] [place] [facility] [address] [id number] [place] [address]- 2541 17 Sep, 2013 [facility] [place] [facility] [address] [id number] [place] [address] 2549 15 Sep, 2013 [facility] [place] [facility] [address] [id number] [place] [address]- 254 15 Sep, 2013 [facility] [place] [facility] [address] [id number] [place] [address] 2544 02 Sep, 2013 [facility] [place] [facility] [address] [id number] [place] [address]- 2541 02 Sep, 2013 [facility] [place] [facility] [address] [id number] [place] [address]- 7874 Apr, [facility] [place] [facility] [address] [id number] [place] [address]- 0652 Apr, [facility] [place] [facility] [address] [id number] [place] [address]- 2230 Mar, [facility] [place] [facility] [address] [id number] [place] [address]- 6507 Mar, [facility] [place] [facility] [address] [id number] [place] [address]- 2421 Mar, [facility] [place] [facility] [address] [id number] [place] [address]- 6752 Mar, [facility] [place] [facility] [address] [id number] [place] [address]- 4153 Feb, [facility] [place] [facility] [address] [id number] [place] [address]- 5069 Feb, [facility] [place] [facility] [address] [id number] [place] [address]- 4118 Jul, [facility] [place] [facility] [address] [id number] [place] [address]- 9014 Jul, [facility] [place] [facility] [address] [id number] [place] [address]- 1717 May, [facility] [place] [facility] [address] [id number] [place] [address]- 9337 May, [facility] [place] [facility] [address] [id number] [place] [address]- 0562 Mar, [facility] [place] [facility] [address] [id number] [place] [address]- 4989 Feb, [facility] [place] [facility] [address] [id number] [place] [address]- 8720 Jan, [facility] [place] [facility] [address] [id number] [place] [address]- 6781 Jan, [facility] [place] [facility] [address] [id number], [place] [address]- 2925 Jan, [facility] [place] [facility] [address] [id number] [place] [address]- 3906 Aug, [facility] [place] [facility] [address] [id number] [place] [address]- 6717 Aug, [facility] [place] [facility] [address] [id number] [place] [address]- 1227 Jun, [facility] [place] [facility] [address] [id number] [place] [address]- 5131 Jun, [facility] [place] [facility] [address] [id number] [place] [address]- 3989 Jun, [facility] [place] [facility] [address] [id number] [place] [address]- 2300 Jun, [facility] [place] [facility] [address] [id number] [place] [address]- 8738 May, [facility] [place] [facility] [address] [id number] [place] [address]- 3303 May, [facility] [place] [facility] [address] [id number] [place] [address]- 9960 Feb, [facility] [place] [facility] [address] [id number] [place] [address]- 2006 Jan, [facility] [place] [facility] [address] [id number] [place] [address]- 8791 Jan, [facility] [place] [facility] [address] [id number] [place] [address]- 6055 December, [facility] [place] [facility] [address] [id number] [place] [address]- 4555 December, [facility] [place] [facility] [address] [id number] [place] [address]- 7237 December, [facility] [place] [facility] [address] [id number] [place] [address]- 7486 December, [facility] [place] [facility] [address] [facility] [id number] [place] [address]- 5519 Jun, [facility] [address] [facility] [id number] [place] [address]- 5558 Feb, IMMUNIZATIONS No Known Immunizations SOCIAL HISTORY Never Assessed REASON FOR VISIT Referral Request PLAN OF CARE VITAL SIGNS MEDICATIONS Unknown Medications RESULTS No Results PROCEDURES No Known procedures INSTRUCTIONS MEDICATIONS ADMINISTERED No Known Medications MEDICAL (GENERAL) HISTORY Type Description Date Medical History Cardiovascular Disorder (Yanet) Medical History ---- Stress Echo 02/26/2010 (Yanet)- [...] Hospitalization History Surgeries Hospitalization History Chest pain/CAD--[facility] 04/26/16
--- OUTSIDE RECORDS SUMMARY | 2018-04-20 10:23 | XMS REPORT ---
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.119 Active Assessment Tobacco use Z72.0 Active Assessment Essential hypertension I10 Active Medications Medication Code System Code Instructions Start Date End Date Status Dosage Aspirin [facility] [address]-45 Apr 24, 2014 by Oral route Chantix Starting Month Remigio [facility] [address]-00 0.5 MG X 11 & 1 MG X 42 Orally February 19, 2016 as directed MetFORMIN HCl ER [facility] 96352138923 500 MG Orally Once a day 1 tablet with evening meal Fish Oil [facility] [address]-56 December 23, 2011 by Oral route Clopidogrel Bisulfate [facility] 86830520261 75 MG TAKE ONE TABLET BY MOUTH ONCE DAILY Amlodipine Besylate [facility] 25173288236 5 MG TAKE ONE TABLET BY MOUTH DAILY Procedures Procedure Coding System Code Date MICROALBUMIN, SEMIQUANT CPT-4 42073 February 19, 2016 Office Visit, Est Pt., Level 3 CPT-4 83478 February 19, 2016 GLYCATED HEMOGLOBIN TEST CPT-4 96562 February 19, 2016 Vital Signs Date/Time: February 19, 2016 Cardiac Monitoring Heart Rate 88 bpm Weight 198.5 lbs Height 70 in Blood Pressure Diastolic 74 mmHg Blood Pressure Systolic 126 mmHg Results No Known Results Summary Purpose [employer] Submission
--- OUTSIDE RECORDS SUMMARY | 2018-04-20 10:24 | XMS REPORT ---
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
--- OUTSIDE RECORDS SUMMARY | 2018-04-20 10:24 | XMS REPORT ---
Author Author PATEL FLETCHER Organization [facility] Address [address] [place] [address] Care Team Providers Care Product Designer Name Role Phone PATEL FLETCHER Unavailable PROBLEMS Type Condition ICD9-CM Code ODB60-ZI Code Onset Dates Condition Status SNOMED Code Problem Obstructive sleep apnea G47.33 Active 15774090 Problem Chronic post-traumatic headache, not intractable G44.329 Active 384746093 Problem Chronic obstructive pulmonary disease, unspecified COPD type J44.9 Active 13132557 Problem Tobacco use Z72.0 Resolved 675389686 Problem Essential hypertension I10 Active 14645678 Problem Automatic implantable cardioverter-defibrillator in situ Z95.810 Active 669469775 Problem 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.] Hospitalization History Surgeries Hospitalization History Chest pain/CAD--[facility] 04/26/16
--- OUTSIDE RECORDS SUMMARY | 2018-04-20 10:24 | XMS REPORT ---
Author Author PATEL FLETCHER eClinicalWorks Address Unknown Phone Unavailable Care Team Providers Care Manager [facility] Name Role Phone PATEL FLETCHER Unavailable Allergies No Known Allergies Problems Problem Type Condition Code Onset Dates Condition Status Problem Major depressive disorder, recurrent, severe without psychotic features F33.2 Active Problem Essential hypertension I10 Active Problem Diabetes mellitus type II, controlled E11.9 Active Problem Coronary artery disease involving ruby coronary artery of ruby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 pectoris I25.119 Active Problem Chronic obstructive pulmonary disease, unspecified COPD type J44.9 Active Problem Automatic implantable cardioverter-defibrillator in situ Z95.810 Active Problem Chronic post-traumatic headache, not intractable G44.329 Active Medications Medication Code System Code Instructions Start Date End Date Status Dosage Albuterol Sulfate A [facility] [id number] (90 Base) MCG/ACT Inhalation every 4 hrs Jul 14, 2015 2 puffs as needed Results No Known Results Summary Purpose eClinicalWorks Submission
--- OUTSIDE RECORDS SUMMARY | 2018-04-20 10:24 | XMS REPORT ---
Author Author JUSTINE PATEL [facility] Address [address] [place] [address] Care Team Providers Care Lead Customer Service Representative Name Role Phone JUSTINESYDNEE MUSEHANY Unavailable PROBLEMS Type Condition ICD9-CM Code LOG41-ON Code Onset Dates Condition Status SNOMED Code Problem Diabetes mellitus type II, controlled E11.9 Active 46457072 Problem Chronic post-traumatic headache, not intractable G44.329 Active 948771789 Problem Major depressive disorder, recurrent, severe without psychotic features F33.2 Active 99820638 Problem Obstructive sleep apnea G47.33 Active 25160350 Problem Chronic obstructive pulmonary disease, unspecified COPD type J44.9 Active 95582413 Problem 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 Active 5858849571250 Problem Automatic implantable cardioverter-defibrillator in situ Z95.810 Active 876711144 Problem Mixed hyperlipidemia E78.2 Active 085564407 Problem Atherosclerotic heart disease of [place]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.10 Active 737115300592676 Problem Tobacco use Z72.0 Resolved 780842756 Problem Essential hypertension I10 Active 48322800 Problem Acute midline low back pain with left-sided sciatica M54.42 Active 437405749 Problem Other chronic pain G89.29 Active 91776334 ALLERGIES No Information ENCOUNTERS Encounter Location Date Diagnosis [facility] [id number] [place] [address] 74327- 0869 Jan, [facility] [id number] [place] [address] 34542- 1013 December, Mixed hyperlipidemia E78.2 [facility] [id number] [place] [address] 70250- 4429 Nov, [facility] [id number] [place] [address] 13130- 9485 Sep, Acute midline low back pain with left-sided sciatica M54.42 [place] [id number] [place] [address] 53230- 0442 Aug, Atherosclerotic heart disease of [place]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.10 [place] [id number] [place] [address] 06441- 3176 Aug, [facility] [address] [address]- 4848 Aug, [place] [address] 03006- 5340 Aug, Acute midline low back pain with left-sided sciatica M54.42 [facility] [place] [id number] [place] [address] 45627 -3036 Aug, Left foot pain M79.672 ; Low back pain M54.5 ; Other chronic pain G89.29 and Acute cystitis without hematuria N30.00 [facility] [address] [address] -7507 Jun, Acute bilateral low back pain without sciatica M54.5 [place] [id number] [place] [address] 77230- 3399 Jun, Diabetes mellitus type II, controlled E11.9 and Essential hypertension I10 [place] [address] 45108- 0941 May, [facility] [place] [id number] [place] [address] 70973 -0068 Mar, Pneumonia of both lower lobes due to infectious organism J18.9 [place] [address] 06658- 1872 Mar, [place] [address] 42149- 4465 Mar, Bronchitis J40 [facility] [address] 66248 -6903 Mar, Bronchitis J40 [facility] [address] [place] [address] 50392- 9000 Feb, Chronic obstructive pulmonary disease, unspecified COPD type J44.9 [facility] [address] [place] [address] 56241- 9718 Jan, Diabetes mellitus type II, controlled E11.9 ; Essential hypertension I10 and Chronic obstructive pulmonary disease, unspecified COPD type J44.9 [place] [id number] [place] [address] 24011- 9182 Nov, [place] [id number] [place] [address] 91101- 0420 Oct, Pneumonia of left lung due to infectious organism, unspecified part of lung J18.9 [place] [id number] [place] [address] 10824- 1698 Sep, Bronchitis J40 and Pneumonia of both upper lobes due to infectious organism J18.9 [place] [address] [place] [address] 84877- 3012 Sep, Diabetes mellitus type II, controlled E11.9 ; Essential hypertension I10 and 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 [place] [address] [place] [address] 55493- 4829 Sep, [place] [address] [place] [address] 05718- 5207 Jul, [place] [address] [place] [address] 40024- 5084 May, [place] [id number] [place] [address] 47768- 3804 14 May, 2016 Diabetes mellitus type II, controlled E11.9 ; Dental abscess K04.7 ; Palpitations R00.2 ; Dizziness R42 and Double vision H53.2 [place] [id number] [place] [address] 54573- 8668 May, Confused R41.0 and Shortness of breath R06.02 [facility] [id number] [place] [address] 66289- 7781 May, Diabetes mellitus type II, controlled E11.9 ; Essential hypertension I10 and 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 [place] [id number] [place] [address] 56849- 1804 May, Essential hypertension I10 ; Diabetes mellitus type II, controlled E11.9 ; 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 and Tobacco use Z72.0 [place] [id number] [place] [address] 61150- 6848 Apr, 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 [place] [id number] [place] [address] 94052- 5891 Apr, [facility] [id number] [place] [address] 33225- 3056 Apr, [place] [id number] [place] [address] 85939- 7228 Feb, Diabetes mellitus type II, controlled E11.9 ; Essential hypertension I10 ; Tobacco use Z72.0 and 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 [facility] [address] [place] [address] 39239 -4738 Jan, Right knee injury, initial encounter S89.91XA [facility] [id number] [place] [address] 60760- 4119 Nov, [place] [id number] [place] [address] 53728- 8961 Oct, [facility] [address] [place] [address] 32098- 5503 Sep, [place] [id number] [place] [address] 42351- 4621 Aug, [place] [address] 03860- 2323 Jul, [place] [address] 06703- 6556 Jul, Low back pain M54.5 ; Sciatica, unspecified side M54.30 and Thoracic neuritis M54.14 [place] [id number] [place] [address] 54885- 1565 Jul, [place] [address] 91984- 9122 Jul, Shortness of breath R06.02 [place] [id number] [place] [address] 35451- 2012 Jun, [place] [address] 26317- 8362 Jun, 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 ; Apnea R06.81 and Fatigue, unspecified type R53.83 [place] [id number] [place] [address] 22291- 2347 Jun, Major depressive disorder, recurrent, severe without psychotic features F33.2 and Insomnia G47.00 [place] [id number] [place] [address] 91480- 7263 May, Atherosclerotic heart disease of [place]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.10 and Shortness of breath R06.02 [place] [id number] [place] [address] 63192- 2539 May, [address] 13728- 1067 May, Diabetes mellitus type II, controlled E11.9 ; CAD (coronary artery disease) 414.00 ; Major depressive disorder, recurrent, severe without psychotic features F33.2 ; Apnea R06.81 and Shortness of breath R06.02 [facility] [address] [address]- 6727 May, [facility] [id number] [address]- 0896 Feb, Sciatica 724.3 ; Lumbar pain 724.2 and CAD (coronary artery disease) 414.00 [facility] [id number] [place] [address] 02439- 3007 Feb, [facility] [id number] [address]- 1128 Feb, [facility] [id number] [place] [address], [place] [address]- 0848 Nov, [facility] [id number] [address]- 5267 Nov, [facility] [id number] [place] [address], [place] [address]- 7276 Oct, [facility] [address] [address]- 1070 Oct, [facility] [address] [address] 9577 Oct, [facility] [address] 3051 Oct, [facility] [address] [address]- 7220 Oct, [facility] [address] [address]- 6394 Oct, [facility] [id number] [address]- 1992 Oct, [facility] [address] [address]- 4470 Oct, [facility] [address] [address]- 8149 Oct, [facility] [place] [facility] [address] [facility] [id number] [place] [address]- 7353 Oct, [facility] [place] [facility] [address] [facility] [id number] [place] [address]- 4281 Sep, 2014 [facility] [place] [facility] [address] [facility] [id number] [place] [address]- 3126 Sep, 2014 [facility] [place] [facility] [address] [facility] [id number] [place] [address]- 2223 Sep, 2014 [facility] [place] [facility] [address] [facility] [id number] [place] [address]- 3624 Sep, 2014 [facility] [place] [facility] [address] [facility] [id number] [place] [address]- 6422 Sep, [facility] [place] [facility] [address] [facility] [id number] [place] [address]- 6358 Sep, [facility] [place] [facility] [address] [facility] [id number] [place] [address]- 3339 Aug, [facility] [place] [facility] [address] [facility] [id number] [place] [address]- 5646 Aug, [facility] [place] [facility] [address] [facility] [id number] [place] [address]- 9478 Aug, [facility] [place] [facility] [address] [facility] [id number] [place] [address]- 2059 Aug, [facility] [place] [facility] [address] [facility] [id number] [place] [address]- 7958 Jul, [facility] [place] [facility] [address] [facility] [id number] [place] 7679 Jul, [facility] [place] [facility] [address] [facility] [id number] [place] [address]- 9221 Jul, [facility] [place] [facility] [address] [facility] [id number] [place] [address]- 9697 Jul, [facility] [place] [facility] [address] [id number] [place] [address]- 5939 Jun, [facility] [place] [facility] [address] [id number] [place] [address]- 3747 Jun, [facility] [place] [facility] [address] [id number] [place] [address]- 7334 Jun, [facility] [place] [facility] [address] [id number] [place] [address]- 7595 Jun, [facility] [place] [facility] [address] [id number] [place] [address]- 0633 Jun, [facility] [place] [facility] [address] [id number] [place] [address]- 1425 Jun, [facility] [place] [facility] [address] [id number] [place] [address]- 2667 May, [facility] [place] [facility] [address] [id number] [place] [address]- 0632 May, [facility] [place] [facility] [address] [id number] [place] [address]- 5846 May, [facility] [place] [facility] [address] [id number] [place] [address]- 2940 May, [facility] [place] [facility] [address] [id number] [place] [address]- 3490 May, [facility] [place] [facility] [address] [id number] [place] [address]- 8991 May, [facility] [place] [facility] [address] [id number] [place] [address]- 6362 May, [facility] [place] [facility] [address] [id number] [place] [address]- 7503 May, [facility] [place] [facility] [address] [id number] [place] [address]- 8197 May, [facility] [place] [facility] [address] [id number] [place] [address]- 7462 May, [facility] [place] [facility] [address] [id number] [place] [address]- 4566 May, [facility] [place] [facility] [address] [id number] [place] [address]- 1283 May, [facility] [place] [facility] [address] [id number] [place] [address]- 6381 May, [facility] [place] [facility] [address] [id number] [place] [address]- 1690 May, [facility] [place] [facility] [address] [id number] [place] [address]- 7678 May, [facility] [place] [facility] [address] [id number] [place] [address]- 3101 May, [facility] [place] [facility] [address] [id number] [place] [address]- 1678 Apr, [facility] [place] [facility] [address] [id number] [place] [address]- 7482 26 Apr, 2014 [facility] [place] [facility] [address] [id number] [place] [address]- 1189 23 Apr, 2014 [facility] [place] [facility] [address] [id number] [place] [address]- 3928 23 Apr, 2013 [facility] [place] [facility] [address] [id number], [place] [address]- 1859 22 Apr, 2013 [facility] [place] [facility] [address] [id number], [place] [address]- 9829 22 Apr, 2013 [facility] [place] [facility] [address] [id number] [place] [address]- 3988 19 Apr, 2013 [facility] [place] [facility] [address] [id number] [place] [address]- 4511 19 Apr, 2013 [facility] [place] [facility] [address] [id number] [place] [address]- 2824 18 Apr, 2013 [facility] [place] [facility] [address] [id number] [place] [address]- 1947 18 Apr, 2013 [facility] [place] [facility] [address] [id number] [place] [address]- 6732 18 Apr, 2013 [facility] [place] [facility] [address] [id number] [place] [address]- 3986 18 Apr, 2013 [facility] [place] [facility] [address] [id number] [place] [address]- 5211 17 Apr, 2013 [facility] [place] [facility] [address] [id number] [place] [address]- 0270 17 Apr, 2013 [facility] [place] [facility] [address] [id number] [place] [address]- 3102 15 Apr, 2013 [facility] [place] [facility] [address] [id number] [place] [address]- 7799 15 Apr, 2013 [facility] [place] [facility] [address] [id number] [place] [address]- 0890 02 Apr, 2013 [facility] [place] [facility] [address] [id number] [place] [address]- 3941 02 Apr, 2013 [facility] [place] [facility] [address] [id number] [place] [address]- 9691 02 Apr, 2013 [facility] [place] [facility] [address] [id number] [place] [address]- 0135 02 Apr, 2013 [facility] [place] [facility] [address] [id number] [place] [address]- 4665 Mar, 2013 [facility] [place] [facility] [address] [id number] [place] [address]- 3511 Mar, [facility] [place] [facility] [address] [id number] [place] [address]- 1061 Mar, [facility] [place] [facility] [address] [id number] [place] [address]- 4686 Mar, 2013 [facility] [place] [facility] [address] [id number] [place] [address]- 3394 Feb, [facility] [place] [facility] [address] [id number] [place] [address]- 3667 Feb, [facility] [place] [facility] [address] [id number] [place] [address]- 2619 Jul, [facility] [place] [facility] [address] [id number] [place] [address]- 9062 Jul, [facility] [place] [facility] [address] [id number] [place] [address]- 2527 May, [facility] [place] [facility] [address] [id number] [place] [address]- 2492 May, [facility] [place] [facility] [address] [id number] [place] [address]- 2799 Mar, [facility] [place] [facility] [address] [id number] [place] [address]- 8229 Feb, [facility] [place] [facility] [address] [id number] [place] [address]- 5658 Jan, [facility] [place] [facility] [address] [id number] [place] [address]- 8146 Jan, [facility] [place] [facility] [address] [id number] [place] [address]- 9105 Jan, [facility] [place] [facility] [address] [id number] [place] [address]- 3769 Aug, [facility] [place] [facility] [address] [id number] [place] [address]- 2154 Aug, [facility] [place] [facility] [address] [id number] [place] [address]- 7542 Jun, [facility] [place] [facility] [address] [id number] [place] [address]- 3284 Jun, [facility] [place] [facility] [address] [id number] [place] [address]- 7412 Jun, [facility] [place] [facility] [address] [id number], [place] [address]- 7056 Jun, [facility] [id number] [address]- 2216 May, [facility] [address] [address]- 2546 May, [facility] [address] [address]- 2546 Feb, [facility] [id number] [address]- 2546 Jan, [facility] [address] [address]- 2546 Jan, [facility] [address] [address] 2546 December, [facility] [address] [address]- 2546 December, [facility] [address] [address] 2546 December, [facility] [address] [address]- 7466 December, [facility] [address] [address] 2546 Jun, [facility] [id number] [address] 2546 Feb, IMMUNIZATIONS No Known Immunizations SOCIAL [...] after cardiac arrest Medical History Cardiovascular disorder (Yanet)- CAD Medical History ----Stress Echo 02/26/2010 Medical [...] Hospitalization History Surgeries Hospitalization History Chest pain/CAD--[facility] 04/26/16
--- OUTSIDE RECORDS SUMMARY | 2018-04-20 10:24 | XMS REPORT ---
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 [address]-69 75 MG TAKE ONE TABLET BY MOUTH ONCE DAILY MetFORMIN HCl ER [facility] [address]-38 500 MG Orally Once a day Sep 24, 2015 1 tablet with evening meal Results No Known Results Summary Purpose eClinicalWorks Submission
--- OUTSIDE RECORDS SUMMARY | 2018-04-20 10:24 | XMS REPORT ---
Author Author MARY PHAM Organization [facility] Address [address] [place] [address] Care Team Providers Care Bootmaker Name Role Phone ANKIT MARY Unavailable PROBLEMS Type Condition ICD9-CM Code [id number] Code Onset Dates Condition Status SNOMED Code Problem Obstructive sleep apnea G47.33 Active 92829574 Problem Chronic post-traumatic headache, not intractable G44.329 Active 937549860 Problem Chronic obstructive pulmonary disease, unspecified COPD type J44.9 Active 04245735 Problem Tobacco use Z72.0 Resolved 937284462 Problem Essential hypertension I10 Active 04468586 Problem Automatic implantable cardioverter-defibrillator in situ Z95.810 Active 907218005 Problem 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.119 Active 5468252931698 Problem Major depressive disorder, recurrent, severe without psychotic features F33.2 Active 96515228 Problem Diabetes mellitus type II, controlled E11.9 Active 28072820 ALLERGIES Substance Reaction Event Type Date Status Isosorbide Mononitrate migraines Drug Allergy Sep, Active Atorvastatin Calcium muscle pain Drug Allergy Sep, Active SOCIAL HISTORY Never Assessed PLAN OF CARE Activity Details Follow Up 2 Weeks, prn Reason: VITAL SIGNS Height 70 in 2016-09-26 Weight 206.3 lbs 2016-09-26 Temperature 98.3 degrees Fahrenheit 2016-09-26 Heart Rate 82 bpm 2016-09-26 Respiratory Rate 18 2016-09-26 BMI 29.60 kg/m2 2016-09-26 Blood pressure systolic 120 mmHg 2016-09-26 Blood pressure diastolic 80 mmHg 2016-09-26 MEDICATIONS Medication Instructions Dosage Frequency Start Date End Date Duration Status Fish Oil 1200 MG Orally Once a day 2 capsule 24h December, Active Promethazine-Codeine 6.25-10 MG/5ML Orally every 6 hrs 5 ml as needed 6h Sep, Active MetFORMIN HCl ER 500 MG Orally Once a day 1 tablet with evening meal 24h 90 days Active Nitrostat 0.4 MG Sublingual every 15 mins x3 for Chest pain 1 tablet Active Hydrochlorothiazide 12.5 MG Orally Once a day 1 capsule as needed for swelling 24h 30 Active Clopidogrel Bisulfate 75 MG Orally Once a day 1 tablet 24h 90 days Active Albuterol Sulfate HFA 108 (90 Base) MCG/ACT Inhalation every 4 hrs 2 puffs as needed 4h Sep, Active Amlodipine Besylate 5 mg Orally Once a day 1 tablet 24h 90 days Active Levaquin 500 MG Orally Once a day 1 tablet 24h Sep, Oct, 10 day(s) Active Aspirin 81 MG Orally Once a day 1 tablet 24h 18 Apr, 2014 Active RESULTS Name Result Date Reference Range MYCOPLASMA, IgM 2016-09-26 M pneumoniae IgM Abs <770 0-769 CBC 2016-09-26 WBC 4.5 3.4-10.8 RBC 4.79 4.14-5.80 Hemoglobin 14.7 12.6-17.7 Hematocrit 42.5 37.5-51.0 MCV 89 79-97 MCH 30.7 26.6-33.0 MCHC 34.6 31.5-35.7 RDW 13.8 12.3-15.4 Platelets 188 150-379 Neutrophils 55 Lymphs 29 Monocytes 13 Eos 3 Basos 0 Neutrophils (Absolute) 2.5 1.4-7.0 Lymphs (Absolute) 1.3 0.7-3.1 Monocytes(Absolute) 0.6 0.1-0.9 Eos (Absolute) 0.2 0.0-0.4 Baso (Absolute) 0.0 0.0-0.2 Immature Granulocytes 0 Immature Grans (Abs) 0.0 0.0-0.1 Xray : Chest (IN HOUSE) 2016-09-26 PROCEDURES Procedure Date Ordered Result Body Site CHEST X-RAY Sep 26, 2016 COMPLETE CBC W/AUTO DIFF WBC Sep 26, 2016 THER/PROPH/DIAG INJ, SC/IM Sep 26, 2016 MYCOPLASMA ANTIBODY Sep 26, 2016 DEPO MEDROL 40 MG/ML Sep 26, 2016 VENIPUNCT, ROUTINE* Sep 26, 2016 IMMUNIZATIONS Vaccine Route Administration Date Status DEPO MEDROL 40 MG/ML IM Intramuscular Sep 26, 2016 Administered MEDICAL (GENERAL) HISTORY Type Description Date Medical [...]
--- OUTSIDE RECORDS SUMMARY | 2018-04-20 10:25 | XMS REPORT ---
Author Author JUSTINE PATEL [facility] Address [address] [place] [address] Care Team Providers Care Pst Manager Name Role Phone JUSTINESYDNEE MUSEHANY Unavailable PROBLEMS Type Condition ICD9-CM Code CVN58-UG Code Onset Dates Condition Status SNOMED Code Problem Major depressive disorder, recurrent, severe without psychotic features F33.2 Active 28110498 Problem Essential hypertension I10 Active 20337806 Problem Chronic post-traumatic headache, not intractable G44.329 Active 089506227 Problem Allergy to bee sting Z91.038 Active 649087126 Problem Mixed hyperlipidemia E78.2 Active 549681010 Problem Other chronic pain G89.29 Active 00695674 Problem Tobacco use Z72.0 Resolved 834954362 Problem Atherosclerotic heart disease of [place]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.10 Active 069873752300825 Problem Acute midline low back pain with left-sided sciatica M54.42 Active 545543406 Problem Chronic obstructive pulmonary disease, unspecified COPD type J44.9 Active 96642813 Problem 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.119 Active 6095025124864 Problem Automatic implantable cardioverter-defibrillator in situ Z95.810 Active 750159668 Problem Obstructive sleep apnea G47.33 Active 87027083 Problem Diabetes mellitus type II, controlled E11.9 Active 45174470 ALLERGIES No Information ENCOUNTERS Encounter Location Date Diagnosis [facility] [address] [facility] [id number], [place] [address] Jan, [facility] [address] [address] Jan, [facility] [address] [id number] [address] Jan, Diabetes mellitus type II, controlled E11.9 ; Essential hypertension I10 ; Chronic obstructive pulmonary disease, unspecified COPD type J44.9 ; Tobacco use Z72.0 ; Mixed hyperlipidemia E78.2 ; Numbness of toes R20.0 ; Colon cancer screening Z12.11 ; Encounter for screening for lung cancer Z12.2 and Encounter for immunization Z23 [place] [address] [address] December, Allergy to bee sting Z91.038 [place] [address] [address] December, Mixed hyperlipidemia E78.2 [place] [address] [address] Nov, [place] [address] [address] Sep, Acute midline low back pain with left-sided sciatica M54.42 [place] [address] [address] Aug, Atherosclerotic heart disease of [place]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.10 [place] [address] [address] Aug, [place] [address] [address] Aug, [place] [address] [address] Aug, Acute midline low back pain with left-sided sciatica M54.42 [facility] [address] [address] Aug, Left foot pain M79.672 ; Low back pain M54.5 ; Other chronic pain G89.29 and Acute cystitis without hematuria N30.00 [facility] [address] [address] Jun, Acute bilateral low back pain without sciatica M54.5 [place] [address] [place] [address] Jun, Diabetes mellitus type II, controlled E11.9 and Essential hypertension I10 [facility] [id number] [place] [address] May, [facility] [address], [place] [address] Mar, Pneumonia of both lower lobes due to infectious organism J18.9 [facility] [address] [place] [address]- 2[address] Mar, [facility] [id number] [place] [address]- 3743 Mar, Bronchitis J40 [facility] [address], [place] [address] Mar, Bronchitis J40 [facility] [address] [id number] [place] [address]- [address] Feb, Chronic obstructive pulmonary disease, unspecified COPD type J44.9 [facility] [address], [place] [address] Jan, Diabetes mellitus type II, controlled E11.9 ; Essential hypertension I10 and Chronic obstructive pulmonary disease, unspecified COPD type J44.9 [facility] [address], [place] [address] Nov, [facility] [id number] [place] [address]- 6752 Oct, Pneumonia of left lung due to infectious organism, unspecified part of lung J18.9 [facility] [address], [place] [address] 160[address] Sep, Bronchitis J40 and Pneumonia of both upper lobes due to infectious organism J18.9 [facility] [address], [place] [address] Sep, Diabetes mellitus type II, controlled E11.9 ; Essential hypertension I10 and 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.119 [place] [address], [place] [address] 15 Sep, 2016 [place] [address] [address] [id number] [place] [address]- 6[address] Jul, [place] [address] [address] [id number] [place] [address] 7[address]- 95[address] May, [place] [address] [id number] [place] [address]- 6203 May, Diabetes mellitus type II, controlled E11.9 ; Dental abscess K04.7 ; Palpitations R00.2 ; Dizziness R42 and Double vision H53.2 [place] [address] [id number] [place] [address]- 7923 May, Confused R41.0 and Shortness of breath R06.02 [place] [address] [address] [id number] [place] [address]- 2008 May, Diabetes mellitus type II, controlled E11.9 ; Essential hypertension I10 and 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.119 [place] [address] [address] [id number] [place] [address] 86[address]- 9339 May, Essential hypertension I10 ; Diabetes mellitus type II, controlled E11.9 ; 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.119 and Tobacco use Z72.0 [place] [address] [place] [address] 16155- 6990 Apr, 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.119 [place] [address] [address] [id number] [place] [address]- 6147 Apr, [place] [address] [place] [address] 8[address]25- 8074 Apr, [place] [address] [address] [id number] [place] [address] 21787- 8293 Feb, Diabetes mellitus type II, controlled E11.9 ; Essential hypertension I10 ; Tobacco use Z72.0 and 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.119 [facility] [address] [id number] [place] [address] Jan, Right knee injury, initial encounter S89.91XA [facility] [address] [address]- [address] Nov, [facility] [address] [address] Oct, [place] [address] [address]- [address] Sep, [place] [address] 23[address]- 8691 Aug, [facility] [address] [address]- [address] Jul, [place] [address] [address]- [address]774 Jul, Low back pain M54.5 ; Sciatica, unspecified side M54.30 and Thoracic neuritis M54.14 [place] [address] 6[address]- 7108 Jul, [place] [address] [place] [id number] [place] [address]- 8206 Jul, Shortness of breath R06.02 [place] [address] 7[address]- 4861 Jun, [place] [address] 47[address]- 6957 13 Jun, 2015 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.119 ; Apnea R06.81 and Fatigue, unspecified type R53.83 [place] [address] [address]- 7434 Jun, Major depressive disorder, recurrent, severe without psychotic features F33.2 and Insomnia G47.00 [place] [address] 160[address]- 6717 May, Atherosclerotic heart disease of [place]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.10 and Shortness of breath R06.02 [facility] [address] [address]- 6[address] May, [facility] [address] [address]- 0842 May, Diabetes mellitus type II, controlled E11.9 ; CAD (coronary artery disease) 414.00 ; Major depressive disorder, recurrent, severe without psychotic features F33.2 ; Apnea R06.81 and Shortness of breath R06.02 [place] [address] [address]- [address] May, [facility] [address] [address]- [address] Feb, Sciatica 724.3 ; Lumbar pain 724.2 and CAD (coronary artery disease) 414.00 [place] [address] [id number] [place] [address] 79651- 6821 Feb, [facility] [address] [id number] [place] [address] 74288- 2747 Feb, [facility] [address] [id number] [place] [address] 04948- 3821 Nov, [facility] [address] [place] [address] [id number] [place] [address]28- 0293 Nov, [facility] [address] [address]- 0608 Oct, [facility] [address] [place] [id number] [place] [address] 83827- 3340 Oct, [facility] [address] [address]- 2546 Oct, [facility] [place] [facility] [address] [id number] [place] [address]- 5533 Oct, [facility] [place] [facility] [address] [id number] [place] [address]- 1404 Oct, [facility] [place] [facility] [address] [facility] [id number] [place] [address]- 7754 Oct, [facility] [place] [facility] [address] [id number] [place] [address]- 1492 Oct, [facility] [place] [facility] [address] [id number] [place] [address]- 4882 Oct, [facility] [place] [facility] [address] [facility] [id number] [place] [address]- 8015 Oct, [facility] [place] [facility] [address] [facility] [id number] [place] [address]- 1472 Oct, [facility] [place] [facility] [address] [facility] [id number] [place] [address]- 2578 Sep, [facility] [place] [facility] [address] [id number] [place] [address]- 8165 Sep, [facility] [place] [facility] [address] [facility] [id number] [place] [address]- 5661 Sep, [facility] [place] [facility] [address] [facility] [id number] [place] [address]- 2379 Sep, [facility] [place] [facility] [address] [facility] [id number], [place] [address]- 3250 Sep, [facility] [place] [facility] [address] [id number] [place] [address]- 8109 Sep, [facility] [place] [facility] [address] [facility] [id number] [place] [address]- 0577 Aug, [facility] [place] [facility] [address] [facility] [id number], [place] [address]- 8284 Aug, [facility] [place] [facility] [address] [id number] [place] [address]- 7990 Aug, [facility] [place] [facility] [address] [id number] [place] [address]- 6561 Aug, [facility] [place] [facility] [address] [id number] [place] [address]- 9759 Jul, [facility] [place] [facility] [address] [id number] [place] [address]- 6050 Jul, [facility] [place] [facility] [address] [id number] [place] [address]- 1651 Jul, [facility] [place] [facility] [address] [id number] [place] [address]- 2067 Jul, [facility] [place] [facility] [address] [id number] [place] [address]- 5501 Jun, [facility] [place] [facility] [address] [id number] [place] [address]- 8869 Jun, [facility] [place] [facility] [address] [id number] [place] [address]- 3596 Jun, [facility] [place] [facility] [address] [id number] [place] [address]- 7035 Jun, [facility] [place] [facility] [address] [id number] [place] [address]- 3121 Jun, [facility] [place] [facility] [address] [id number] [place] [address]- 4061 Jun, [facility] [place] [facility] [address] [id number] [place] [address]- 4628 May, [facility] [place] [facility] [address] [id number] [place] [address]- 4840 May, [facility] [place] [facility] [address] [id number] [place] [address]- 1349 May, [facility] [place] [facility] [address] [id number] [place] [address]- 0113 May, [facility] [place] [facility] [address] [id number] [place] [address]- 9182 May, [facility] [place] [facility] [address] [id number] [place] [address]- 0079 May, [facility] [place] [facility] [address] [id number] [place] [address]- 6816 May, [facility] [place] [facility] [address] [id number] [place] [address]- 7305 May, [facility] [place] [facility] [address] [id number] [place] [address]- 8045 May, [facility] [place] [facility] [address] [id number] [place] [address]- 2501 May, [facility] [place] [facility] [address] [id number] [place] [address]- 7428 May, [facility] [place] [facility] [address] [id number] [place] [address]- 8148 May, [facility] [place] [facility] [address] [id number] [place] [address]- 5226 May, [facility] [place] [facility] [address] [id number] [place] [address]- 6523 May, [facility] [place] [facility] [address] [id number], [place] [address]- 7799 May, [facility] [place] [facility] [address] [id number], [place] [address]- 4699 May, [facility] [place] [facility] [address] [id number] [place] [address]- 0506 Apr, [facility] [place] [facility] [address] [id number] [place] [address]- 5673 Apr, [facility] [place] [facility] [address] [id number] [place] [address]- 6894 Apr, [facility] [place] [facility] [address] [id number] [place] [address]- 9882 23 Sep, 2013 [facility] [place] [facility] [address] [id number] [place] [address] 2546 22 Sep, 2013 [facility] [place] [facility] [address] [id number] [place] [address] 2545 22 Sep, 2013 [facility] [place] [facility] [address] [id number] [place] [address] 2547 19 Sep, 2013 [facility] [place] [facility] [address] [id number] [place] [address] 2541 19 Sep, 2013 [facility] [place] [facility] [address] [id number] [place] [address]- 7501 18 Sep, 2013 [facility] [place] [facility] [address] [id number] [place] [address]- 3806 18 Sep, 2013 [facility] [place] [facility] [address] [id number] [place] [address]- 1247 18 Sep, 2013 [facility] [place] [facility] [address] [id number] [place] [address]- 7562 18 Sep, 2013 [facility] [place] [facility] [address] [id number] [place] [address]- 2549 17 Sep, 2013 [facility] [place] [facility] [address] [id number] [place] [address]- 2543 17 Sep, 2013 [facility] [place] [facility] [address] [id number] [place] [address] 2542 15 Sep, 2013 [facility] [place] [facility] [address] [id number] [place] [address]- 2545 15 Sep, 2013 [facility] [place] [facility] [address] [id number] [place] [address] 2549 02 Sep, 2013 [facility] [place] [facility] [address] [id number] [place] [address]- 2549 02 Sep, 2013 [facility] [place] [facility] [address] [id number] [place] [address]- 3633 Apr, [facility] [place] [facility] [address] [id number] [place] [address]- 5025 Apr, [facility] [place] [facility] [address] [id number] [place] [address]- 2216 Mar, [facility] [place] [facility] [address] [id number] [place] [address]- 9082 Mar, [facility] [place] [facility] [address] [id number] [place] [address]- 2494 Mar, [facility] [place] [facility] [address] [id number] [place] [address]- 6120 Mar, [facility] [place] [facility] [address] [id number] [place] [address]- 8419 Feb, [facility] [place] [facility] [address] [id number] [place] [address]- 9022 Feb, [facility] [place] [facility] [address] [id number] [place] [address]- 4061 Jul, [facility] [place] [facility] [address] [id number] [place] [address]- 2979 Jul, [facility] [place] [facility] [address] [id number] [place] [address]- 1603 May, [facility] [place] [facility] [address] [id number] [place] [address]- 0569 May, [facility] [place] [facility] [address] [id number] [place] [address]- 6779 Mar, [facility] [place] [facility] [address] [id number] [place] [address]- 7272 Feb, [facility] [place] [facility] [address] [id number] [place] [address]- 7799 Jan, [facility] [place] [facility] [address] [id number] [place] [address]- 4204 Jan, [facility] [place] [facility] [address] [id number], [place] [address]- 4530 Jan, [facility] [place] [facility] [address] [id number] [place] [address]- 4519 Aug, [facility] [place] [facility] [address] [id number] [place] [address]- 5526 Aug, [facility] [place] [facility] [address] [id number] [place] [address]- 5897 Jun, [facility] [place] [facility] [address] [id number] [place] [address]- 7915 Jun, [facility] [place] [facility] [address] [id number] [place] [address]- 7307 Jun, [facility] [place] [facility] [address] [id number] [place] [address]- 4523 Jun, [facility] [place] [facility] [address] [id number] [place] [address]- 4623 May, [facility] [place] [facility] [address] [id number] [place] [address]- 4540 May, [facility] [place] [facility] [address] [id number] [place] [address]- 5261 Feb, [facility] [place] [facility] [address] [id number] [place] [address]- 8636 Jan, [facility] [place] [facility] [address] [id number] [place] [address]- 6585 Jan, [facility] [place] [facility] [address] [id number] [place] [address]- 6326 December, [facility] [place] [facility] [address] [id number] [place] [address]- 6280 December, [facility] [place] [facility] [address] [id number] [place] [address]- 2215 December, [facility] [place] [facility] [address] [id number] [place] [address]- 7546 December, [facility] [place] [facility] [address] [facility] [id number] [place] [address]- 0804 Jun, [facility] [address] [facility] [id number], [place] [address]- 7422 Feb, IMMUNIZATIONS No Known Immunizations SOCIAL HISTORY Never Assessed REASON FOR VISIT Controlled Refill Request PLAN OF CARE VITAL SIGNS MEDICATIONS Medication Instructions Dosage Frequency Start Date End Date Duration Status Promethazine-Codeine 6.25-10 MG/5ML Orally every 6 hrs 5 ml as needed 6h 12 Mar, 2017 Not-Taking Pravachol 20 mg Orally Once a day 1/2 tablet 24h Not-Taking Amlodipine Besylate 5 mg Orally Once a day 1 tablet 24h 90 Active Promethazine-Codeine 6.25-10 MG/5ML Orally every 6 hrs 5 ml as needed 6h Sep, Not-Taking Metoprolol Succinate ER 25 MG Orally Once a day 1 tablet 24h Not- Taking Fish Oil 1200 MG Orally Once a day 2 capsule 24h December, Not- Taking Nitrostat 0.4 MG Sublingual every 15 mins x3 for Chest pain 1 tablet Not-Taking Symbicort 160-4.5 MCG/ACT Inhalation Twice a day 2 puffs 12h Oct, Active Hydrochlorothiazide 12.5 MG Orally Once a day 1 capsule as needed for swelling 24h 30 Active Efudex 5 % Externally Twice a day 1 application to affected area 12h Nov Not-Taking Aspirin 81 MG CHEW AND SWALLOW ONE TABLET BY MOUTH ONCE DAILY 108 Active ProAir HFA 108 (90 Base) MCG/ACT Inhalation every 4 hrs 2 puffs as needed 4h Mar, Active Clopidogrel Bisulfate 75 MG Orally Once a day 1 tablet 24h 90 Not- Taking PredniSONE 20 MG Orally Once a day 2 tablet 24h Aug, Aug, 5 days Active [place] 7.5-325 MG Orally every 6 hrs 1 tablet as needed 6h May, Not-Taking Tramadol HCl 50 mg Orally every 6 hrs 1 tablet as needed 6h Aug, Aug, 07 days Active Albuterol Sulfate HFA cfc free 90 mcg/inh Inhalation every 4 hrs 2 puffs as needed 4h Sep, Active Tizanidine HCl 4 MG Orally Three times a day 1 tablet as needed 8h Aug, Sep, 30 days Active Pravastatin Sodium 20 MG TAKE ONE TABLET BY MOUTH ONCE DAILY 30 Not-Taking Bactrim DS 800-160 MG Orally Twice a day 1 tablet 12h Aug,Aug 10 day(s) Active RESULTS No Results PROCEDURES No Known procedures INSTRUCTIONS MEDICATIONS ADMINISTERED No Known Medications MEDICAL (GENERAL) HISTORY Type Description Date Medical History Cardiovascular Disorder ([facility]) Medical History ---- Stress Echo 02/26/2010 ([facility])- Hypertensive response;no ischemia; normal Echo EF 60% Medical History --Stent 04/2011 Medical History --Heart Cath 06/2011 Medical History --Cardiac Arrest requiring multiple defibrillations 03/2014 Medical History --Heart cath 03/2014 in [place], no stents placed at that time Medical History --Pacemaker/defrillator placed 03/2014 after cardiac arrest Medical History Cardiovascular disorder ([facility])- CAD Medical History ----Stress Echo 02/26/2010 [...]
--- OUTSIDE RECORDS SUMMARY | 2018-04-20 10:25 | XMS REPORT ---
Author Author ELIZABETH VILLAGOMEZ [facility] Address [address] [place] [address] Care Team Providers Care Juvenile Court Judge Name Role Phone ELIZABETH VILLAGOMEZ Unavailable PROBLEMS Type Condition ICD9-CM Code AGP89-LH Code Onset Dates Condition Status SNOMED Code Problem Major depressive disorder, recurrent, severe without psychotic features F33.2 Active 42699303 Problem Essential hypertension I10 Active 00887474 Problem Chronic post-traumatic headache, not intractable G44.329 Active 848725833 Problem Allergy to bee sting Z91.038 Active 130701435 Problem Mixed hyperlipidemia E78.2 Active 110199246 Problem Other chronic pain G89.29 Active 06067167 Problem Tobacco use Z72.0 Resolved 654982892 Problem Atherosclerotic heart disease of [place]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.10 Active [id number] Problem Acute midline low back pain with left-sided sciatica M54.42 Active 529607335 Problem Chronic obstructive pulmonary disease, unspecified COPD type J44.9 Active 84325220 Problem Coronary artery disease involving [place] coronary artery of [place]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 pectoris I25.119 Active 3257548926436 Problem Automatic implantable cardioverter-defibrillator in situ Z95.810 Active 559975088 Problem Obstructive sleep apnea G47.33 Active 49642225 Problem Diabetes mellitus type II, controlled E11.9 Active 33231192 ALLERGIES Substance Reaction Event Type Date Status Isosorbide Mononitrate migraines Drug Allergy Aug, Active Atorvastatin Calcium muscle pain Drug Allergy Aug, Active ENCOUNTERS Encounter Location Date Diagnosis [facility] [address] [facility] [id number] [address] Jan, [facility] [address] [facility] [id number] [address] Jan, [facility] [address] [address] Jan, Diabetes mellitus type II, controlled E11.9 ; Essential hypertension I10 ; Chronic obstructive pulmonary disease, unspecified COPD type J44.9 ; Tobacco use Z72.0 ; Mixed hyperlipidemia E78.2 ; Numbness of toes R20.0 ; Colon cancer screening Z12.11 ; Encounter for screening for lung cancer Z12.2 and Encounter for immunization Z23 [place] [address] [address] December, Allergy to bee sting Z91.038 [place] [address] [address] December, Mixed hyperlipidemia E78.2 [place] [address] [address] Nov, [place] [address] [address] Sep, Acute midline low back pain with left-sided sciatica M54.42 [place] [address] [address] Aug, Atherosclerotic heart disease of [place]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.10 [place] [address] [address] Aug, [place] [address] [address] Aug, [place] [address] [address] Aug, Acute midline low back pain with left-sided sciatica M54.42 [facility] [place] [address] [address] 02 Aug, 2017 Left foot pain M79.672 ; Low back pain M54.5 ; Other chronic pain G89.29 and Acute cystitis without hematuria N30.00 [facility] [place] [address] [address] Jun, Acute bilateral low back pain without sciatica M54.5 [facility] [address], [place] [address] Jun, Diabetes mellitus type II, controlled E11.9 and Essential hypertension I10 [facility] [address], [place] [address] May, [facility] [address] [place] [id number] [place] [address] Mar, Pneumonia of both lower lobes due to infectious organism J18.9 [facility] [address] [place] [id number] [place] [address]- 2916 Mar, [facility] [address] [place] [id number] [place] [address]- 7587 Mar, Bronchitis J40 [facility] [address] [place] [id number] [place] [address] Mar, Bronchitis J40 [facility] [address] [place] [id number] [place] [address]- 6[address] Feb, Chronic obstructive pulmonary disease, unspecified COPD type J44.9 [place] [id number] [place] [address]- [address] Jan, Diabetes mellitus type II, controlled E11.9 ; Essential hypertension I10 and Chronic obstructive pulmonary disease, unspecified COPD type J44.9 [place] [address] [address] Nov, [facility] [id number] [place] [address]- 1844 Oct, Pneumonia of left lung due to infectious organism, unspecified part of lung J18.9 [facility] [address], [place] [address] Sep, Bronchitis J40 and Pneumonia of both upper lobes due to infectious organism J18.9 [place] [address] [place] [id number] [place] [address]- 7815 17 Sep, 2016 Diabetes mellitus type II, controlled E11.9 ; Essential hypertension I10 and Coronary artery disease involving [place] coronary artery of [place]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 pectoris I25.119 [place] [address] [place] [id number] [place] [address]61- 68[address] 15 Sep, 2016 [place] [address] [place] [id number] [place] [address]- 6011 Jul, [place] [address] [place] [id number] [place] [address]- 1548 May, [place] [address] [place] [id number] [place] [address]- 8557 May, Diabetes mellitus type II, controlled E11.9 ; Dental abscess K04.7 ; Palpitations R00.2 ; Dizziness R42 and Double vision H53.2 [place] [address] [place] [id number] [place] [address] 16[address]- 2447 May, Confused R41.0 and Shortness of breath R06.02 [place] [address] [place] [id number] [place] [address] 9[address]16- 7738 May, Diabetes mellitus type II, controlled E11.9 ; Essential hypertension I10 and Coronary artery disease involving [place] coronary artery of [place]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 pectoris I25.119 [place] [address] [place] [address]- 3657 May, Essential hypertension I10 ; Diabetes mellitus type II, controlled E11.9 ; Coronary artery disease involving [place] coronary artery of [place]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 pectoris I25.119 and Tobacco use Z72.0 [place] [address] [place] [id number] [place] [address]- 0248 Apr, Coronary artery disease involving [place] coronary artery of [place]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 pectoris I25.119 [place] [address] [place] [id number] [place] [address]47- 6879 Apr, [place] [address] [place] [id number] [place] [address] 7[address]- 7377 Apr, [facility] [address] [place] [id number] [place] [address]28- 8785 Feb, Diabetes mellitus type II, controlled E11.9 ; Essential hypertension I10 ; Tobacco use Z72.0 and Coronary artery disease involving [place] coronary artery of [place]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 pectoris I25.119 [facility] [address] [place] [id number] [place] [address] Jan, Right knee injury, initial encounter S89.91XA [facility] [address] [address] Nov, [facility] [address] [address] 98[address] Oct, [facility] [address] [address]- 8[address] Sep, [facility] [address] [place] [id number] [place] [address] 92942- 3284 Aug, [facility] [address] [place] [id number] [place] [address]35- 0914 Jul, [facility] [address] [place] [id number] [place] [address] 97418- 6888 Jul, Low back pain M54.5 ; Sciatica, unspecified side M54.30 and Thoracic neuritis M54.14 [facility] [address] [place] [id number] [place] [address] 14858- 0480 Jul, [facility] [address] [place] [id number] [place] [address] 68461- 0237 Jul, Shortness of breath R06.02 [facility] [address] [place] [id number] [place] [address] 20269- 0041 Jun, [facility] [address] [place] [id number] [place] [address] 13619- 0111 13 Jun, 2015 Coronary artery disease involving [place] coronary artery of [place]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 pectoris I25.119 ; Apnea R06.81 and Fatigue, unspecified type R53.83 [facility] [address] [place] [id number] [place] [address] 7[address]- 1415 Jun, Major depressive disorder, recurrent, severe without psychotic features F33.2 and Insomnia G47.00 [place] [address] [address]- 264[address] May, Atherosclerotic heart disease of [place]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.10 and Shortness of breath R06.02 [place] [address] [address]- 1471 May, [place] [address] [address]- 47[address] May, Diabetes mellitus type II, controlled E11.9 ; CAD (coronary artery disease) 414.00 ; Major depressive disorder, recurrent, severe without psychotic features F33.2 ; Apnea R06.81 and Shortness of breath R06.02 [place] [address] [address]- 245[address] May, [place] [address] 8[address]- 8151 Feb, Sciatica 724.3 ; Lumbar pain 724.2 and CAD (coronary artery disease) 414.00 [place] [address] [place] [id number] [place] [address]- 1930 Feb, [place] [address] [address]- 5103 Feb, [place] [address] 17178- 4476 Nov, [place] [address] 7[address]23- 0925 Nov, [facility] [address] [address]- 6736 Oct, [place] [address] [place] [address]- 1264 Oct, [facility] [place] [facility] [address] [id number] [place] [address]- 2138 Oct, [facility] [place] [facility] [address] [id number] [place] [address]- 8402 Oct, [facility] [place] [facility] [address] [id number] [place] [address]- 8904 Oct, [facility] [place] [facility] [address] [id number] [place] [address]- 6286 Oct, [facility] [place] [facility] [address] [id number] [place] [address]- 0003 Oct, [facility] [place] [facility] [address] [id number] [place] [address]- 4547 Oct, [facility] [place] [facility] [address] [id number] [place] [address]- 2399 Oct, [facility] [place] [facility] [address] [facility] [id number] [place] [address]- 4517 Oct, [facility] [place] [facility] [address] [id number] [place] [address]- 5658 Sep, 2014 [facility] [place] [facility] [address] [facility] [id number] [place] [address]- 1574 Sep, 2014 [facility] [place] [facility] [address] [facility] [id number] [place] [address]- 8519 Sep, 2014 [facility] [place] [facility] [address] [facility] [id number] [address]- 8314 Sep, 2014 [facility] [place] [facility] [address] [id number] [place] [address]- 1958 Sep, 2014 [facility] [place] [facility] [address] [facility] [id number], [place] [address]- 3149 Sep, 2014 [facility] [place] [facility] [address] [facility] [id number] [address]- 2680 Aug, [facility] [place] [facility] [address] [id number] [place] [address]- 4188 Aug, [facility] [place] [facility] [address] [id number] [place] [address]- 3541 Aug, [facility] [place] [facility] [address] [id number] [place] [address]- 1510 Aug, [facility] [place] [facility] [address] [id number] [place] [address]- 2391 Jul, [facility] [place] [facility] [address] [id number] [place] [address]- 3365 Jul, [facility] [place] [facility] [address] [id number] [place] [address]- 1994 Jul, [facility] [place] [facility] [address] [id number] [place] [address]- 5517 Jul, [facility] [place] [facility] [address] [id number] [place] [address]- 3355 Jun, [facility] [place] [facility] [address] [id number] [place] [address]- 7805 Jun, [facility] [place] [facility] [address] [id number], [place] [address]- 7737 Jun, [facility] [place] [facility] [address] [id number], [place] [address]- 6385 Jun, [facility] [place] [facility] [address] [id number][place] [address]- 2431 Jun, [facility] [place] [facility] [address] [id number] [address]- 3363 Jun, [facility] [place] [facility] [address] [id number], [place] [address]- 9743 May, [facility] [place] [facility] [address] [id number], [place] [address]- 9395 May, [facility] [place] [facility] [address] [id number], [place] [address]- 9082 May, [facility] [place] [facility] [address] [id number] [place] [address]- 8601 May, [facility] [place] [facility] [address] [id number] [place] [address]- 7829 May, [facility] [place] [facility] [address] [id number] [place] [address]- 9553 May, [facility] [place] [facility] [address] [id number] [place] [address]- 5658 May, [facility] [place] [facility] [address] [id number] [place] [address]- 6047 May, [facility] [place] [facility] [address] [id number] [place] [address]- 8593 May, [facility] [place] [facility] [address] [id number] [place] [address]- 4338 May, [facility] [place] [facility] [address] [id number] [place] [address]- 9256 May, [facility] [place] [facility] [address] [id number] [place] [address]- 0371 May, [facility] [place] [facility] [address] [facility] [id number] [place] [address]- 3361 May, [facility] [place] [facility] [address] [id number], [place] [address]- 5103 May, [facility] [place] [facility] [address] [id number], [place] [address]- 1781 May, [facility] [place] [facility] [address] [id number] [place] [address]- 2796 May, [facility] [place] [facility] [address] [id number] [place] [address]- 9395 Apr, [facility] [place] [facility] [address] [id number] [place] [address]- 0840 Apr, [facility] [place] [facility] [address] [id number] [place] [address]- 2191 23 Sep, 2013 [facility] [place] [facility] [address] [id number] [place] [address]- 9096 23 Sep, 2013 [facility] [place] [facility] [address] [id number] [place] [address]- 2546 22 Sep, 2013 [facility] [place] [facility] [address] [id number] [place] [address] 2542 22 Sep, 2013 [facility] [place] [facility] [address] [id number] [place] [address]- 2542 19 Sep, 2013 [facility] [place] [facility] [address] [id number] [place] [address]- 3018 19 Sep, 2013 [facility] [place] [facility] [address] [id number] [place] [address]- 1943 18 Sep, 2013 [facility] [place] [facility] [address] [id number] [place] [address]- 3236 18 Sep, 2013 [facility] [place] [facility] [address] [id number] [place] [address] 2545 18 Sep, 2013 [facility] [place] [facility] [address] [id number] [place] [address]- 2545 18 Sep, 2013 [facility] [place] [facility] [address] [id number] [place] [address]- 2543 17 Sep, 2013 [facility] [place] [facility] [address] [id number] [place] [address]- 2549 17 Sep, 2013 [facility] [place] [facility] [address] [id number] [place] [address] 2541 15 Sep, 2013 [facility] [place] [facility] [address] [id number] [place] [address] 2546 15 Sep, 2013 [facility] [place] [facility] [address] [id number] [place] [address]- 2540 02 Sep, 2013 [facility] [place] [facility] [address] [id number] [place] [address]- 2071 Apr, [facility] [place] [facility] [address] [id number] [place] [address]- 0635 Apr, [facility] [place] [facility] [address] [id number] [place] [address]- 9415 Apr, [facility] [place] [facility] [address] [id number] [place] [address]- 4939 Mar, [facility] [place] [facility] [address] [id number] [place] [address]- 3298 Mar, [facility] [place] [facility] [address] [id number] [place] [address]- 3583 Mar, [facility] [place] [facility] [address] [id number] [place] [address]- 3332 Mar, [facility] [place] [facility] [address] [id number] [place] [address]- 7493 Feb, [facility] [place] [facility] [address] [id number] [place] [address]- 7360 Feb, [facility] [place] [facility] [address] [id number] [place] [address]- 6048 Jul, [facility] [place] [facility] [address] [id number] [place] [address]- 1302 Jul, [facility] [place] [facility] [address] [id number] [place] [address]- 8722 May, [facility] [place] [facility] [address] [id number] [address]- 0433 May, [facility] [place] [facility] [address] [id number] [place] [address]- 9370 Mar, [facility] [place] [facility] [address] [id number] [place] [address]- 8502 Feb, [facility] [place] [facility] [address] [id number] [place] [address]- 5682 Jan, [facility] [place] [facility] [address] [id number] [place] [address]- 0957 Jan, [facility] [place] [facility] [address] [id number] [place] [address]- 0492 Jan, [facility] [place] [facility] [address] [id number] [place] [address]- 1575 Aug, [facility] [place] [facility] [address] [id number] [place] [address]- 6011 Aug, [facility] [place] [facility] [address] [id number] [place] [address]- 9452 Jun, [facility] [place] [facility] [address] [id number] [place] [address]- 1488 Jun, [facility] [place] [facility] [address] [id number] [place] [address]- 0717 Jun, [facility] [place] [facility] [address] [id number] [place] [address]- 9563 Jun, [facility] [place] [facility] [address] [id number] [place] [address]- 6842 May, [facility] [place] [facility] [address] [id number] [place] [address]- 3452 May, [facility] [place] [facility] [address] [id number] [place] [address]- 7705 Feb, [facility] [place] [facility] [address] [id number] [place] [address]- 1422 Jan, [facility] [place] [facility] [address] [id number] [place] [address]- 8719 Jan, [facility] [place] [facility] [address] [id number] [place] [address]- 7644 December, [facility] [place] [facility] [address] [id number] [place] [address]- 5717 December, [facility] [place] [facility] [address] [id number] [place] [address]- 5193 December, [facility] [address] [facility] [id number] [address]- 7186 December, [facility] [address] [facility] [id number], [place] [address]- 0636 Jun, [facility] [address] [facility] [id number] [address]- 1656 Feb, IMMUNIZATIONS No Known Immunizations SOCIAL HISTORY Never Assessed REASON FOR VISIT uti/back pain Pt states he feels he has UTI since Monday. Also having back pain and L foot pain. States numbness in last two toes on L foot for months and recently they started hurting. Also states he stopped his statin therapy for cholesterol due to joint pain with the increased dose. JUDITH Moore PLAN OF CARE Activity Details Follow Up prn Reason: VITAL SIGNS Height 70 in 2017-08-08 Weight 204.8 lbs 2017-08-08 Temperature 97.8 degrees Fahrenheit 2017-08-08 Heart Rate 88 bpm 2017-08-08 Respiratory Rate 20 2017-08-08 BMI 29.38 kg/m2 2017-08-08 Blood pressure systolic 122 mmHg 2017-08-08 Blood pressure diastolic 76 mmHg 2017-08-08 MEDICATIONS Medication Instructions Dosage Frequency Start Date End Date Duration Status Percocet 5-325 MG Orally every 6 hrs 1 tablet as needed 6h 15 Jun, 2017 Not-Taking Pravachol 20 mg Orally Once a day 1/2 tablet 24h Not-Taking Clopidogrel Bisulfate 75 MG Orally Once a day 1 tablet 24h 90 Not- Taking Amlodipine Besylate 5 mg Orally Once a day 1 tablet 24h 90 Active Hydrochlorothiazide 12.5 MG Orally Once a day 1 capsule as needed for swelling 24h 30 Active Pravastatin Sodium 20 MG TAKE ONE TABLET BY MOUTH ONCE DAILY 30 Not-Taking PredniSONE 20 MG Orally Once a day 2 tablet 24h Aug, Aug, 5 days Active Metoprolol Succinate ER 25 MG Orally Once a day 1 tablet 24h Not- Taking Cyclobenzaprine HCl 10 MG Orally Three times a day 1 tablet as needed 8h Aug, Aug, 10 days Active Albion 7.5-325 MG Orally every 6 hrs 1 tablet as needed 6h 14 May, 2016 Not-Taking Efudex 5 % Externally Twice a day 1 application to affected area 12h Nov Not-Taking Nitrostat 0.4 MG Sublingual every 15 mins x3 for Chest pain 1 tablet Not-Taking Albuterol Sulfate HFA cfc free 90 mcg/inh Inhalation every 4 hrs 2 puffs as needed 4h Sep, Active Fish Oil 1200 MG Orally Once a day 2 capsule 24h 18 Dec, 2011 Not- Taking ProAir HFA 108 (90 Base) MCG/ACT Inhalation every 4 hrs 2 puffs as needed 4h 30 Mar, 2017 Active Aspirin 81 MG CHEW AND SWALLOW ONE TABLET BY MOUTH ONCE DAILY 108 Active Promethazine-Codeine 6.25-10 MG/5ML Orally every 6 hrs 5 ml as needed 6h Sep, Not-Taking Promethazine-Codeine 6.25-10 MG/5ML Orally every 6 hrs 5 ml as needed 6h Mar, Not-Taking Symbicort 160-4.5 MCG/ACT Inhalation Twice a day 2 puffs 12h 08 Oct, 2016 Active Bactrim DS 800-160 MG Orally Twice a day 1 tablet 12h Aug,Aug 10 day(s) Active RESULTS Name Result Date Reference Range UA LONG DIP (IN HOUSE) 2017-08-08 Lot # [id number] Exp date Clarity sl cloudy Color dk yellow Odor none GLU neg CATHERINE neg KET neg SG 1.025 BLO 2+ pH 6.0 Protein neg URO 1.0 NIT neg ORIANA neg Lot # [id number] Exp date 11/2017 Xray : Foot, Left 3 views (IN HOUSE) PROCEDURES Procedure Date Ordered Result Body Site X-RAY EXAM OF FOOT Aug 08, 2017 URINALYSIS, AUTO, W/O SCOPE Aug 08, 2017 INSTRUCTIONS MEDICATIONS ADMINISTERED No Known Medications MEDICAL (GENERAL) HISTORY Type Description Date Medical History Cardiovascular Disorder ([facility]) Medical History ---- Stress Echo 02/26/2010 ([facility])- Hypertensive response;no ischemia; normal Echo EF 60% Medical History --Stent 04/2011 Medical History --Heart Cath 06/2011 Medical History --Cardiac Arrest requiring multiple defibrillations 03/2014 Medical History --Heart cath 03/2014 in [place], no stents placed at that time Medical History --Pacemaker/defrillator placed 03/2014 after cardiac arrest Medical History Cardiovascular disorder ([facility])- CAD Medical History ----Stress Echo 02/26/2010 [...] Hospitalization History Surgeries Hospitalization History Chest pain/CAD--[facility] 04/26/16
--- OUTSIDE RECORDS SUMMARY | 2018-04-20 10:26 | XMS REPORT ---
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 Name Role Phone PATEL FLETCHER CP Unavailable Allergies No Known Allergies Problems Problem Type Condition Code Onset Dates Condition Status Problem Chronic airway obstruction, not elsewhere classified 496 Active Problem Other dyspnea and respiratory abnormalities 786.09 Active Problem Lumbago 724.2 Active Problem Ventricular fibrillation 427.41 Active Problem Automatic implantable cardiac defibrillator in situ V45.02 Active Problem CAD (coronary artery disease) 414.00 Active Problem Special screening for malignant neoplasms, colon V76.51 Active Problem Squamous cell carcinoma of skin of upper limb, including shoulder 173.62 Active Problem Nondependent tobacco use disorder 305.1 Active Problem 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 Active Problem Routine general medical examination at health care facility V70.0 Active Problem Unspecified disorder of skin and subcutaneous tissue 709.9 Active Problem Closed fracture of metatarsal bone(s) 825.25 Active Problem Enthesopathy of hip region 726.5 Active Problem Pain in soft tissues of limb 729.5 Active Problem Essential hypertension, benign 401.1 Active Problem Other seborrheic keratosis 702.19 Active Problem Diabetes mellitus without mention of complication, type II or unspecified type, not stated as uncontrolled 250.00 Active Problem Encounter for long-term (current) use of other medications V58.69 Active Problem Chronic post-traumatic headache 339.22 Active Medications No Known Medications Results No Known Results Summary Purpose eClinicalWorks Submission
--- OUTSIDE RECORDS SUMMARY | 2018-04-20 10:26 | XMS REPORT ---
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 Name Role Phone PATEL FLETCHER Unavailable Allergies No Known Allergies Problems Problem Type Condition Code Onset Dates Condition Status Assessment Shortness of breath R06.02 Active Problem Major depressive disorder, recurrent, severe without psychotic features F33.2 Active Problem Essential hypertension I10 Active Problem Diabetes mellitus type II, controlled E11.9 Active Problem Coronary artery disease involving [place] coronary artery of [place]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 pectoris I25.119 Active Assessment Atherosclerotic heart disease of [place]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.10 Active Problem Automatic implantable cardioverter-defibrillator in situ Z95.810 Active Problem Chronic post-traumatic headache, not intractable G44.329 Active Medications No Known Medications Results No Known Results Summary Purpose eClinicalWorks Submission
--- OUTSIDE RECORDS SUMMARY | 2018-04-20 10:26 | XMS REPORT ---
Author Author PATEL FLETCHER eClinicalWorks Address Unknown Phone Unavailable Care Team Providers Care Stranner Name Role Phone PATEL FLETCHER Unavailable Allergies No Known Allergies Problems Problem Type Condition Code Onset Dates Condition Status Problem Major depressive disorder, recurrent, severe without psychotic features F33.2 Active Problem Essential hypertension I10 Active Problem Diabetes mellitus type II, controlled E11.9 Active Problem Coronary artery disease involving [place] coronary artery of [place]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 pectoris I25.119 Active Problem Automatic implantable cardioverter-defibrillator in situ Z95.810 Active Problem Chronic post-traumatic headache, not intractable G44.329 Active Medications No Known Medications Results No Known Results Summary Purpose eClinicalWorks Submission
--- OUTSIDE RECORDS SUMMARY | 2018-04-20 10:26 | XMS REPORT ---
Author Author MARY PHAM [facility] eClinicalWorks Address Unknown Phone Unavailable Care Team Providers Care Diamond Powder Technician Name Role Phone MARY PHAM CP Unavailable Allergies No Known Allergies Problems Problem Type Condition Code Onset Dates Condition Status Assessment Confused R41.0 Active Problem Chronic obstructive pulmonary disease, unspecified COPD type J44.9 Active Problem Obstructive sleep apnea G47.33 Active Assessment Shortness of breath R06.02 Active Problem Diabetes mellitus type II, controlled E11.9 Active Problem Major depressive disorder, recurrent, severe without psychotic features F33.2 Active Problem Tobacco use Z72.0 Active Problem Chronic post-traumatic headache, not intractable G44.329 Active Problem 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
--- OUTSIDE RECORDS SUMMARY | 2018-04-20 10:26 | XMS REPORT ---
Author Author MARY Vang Organization [facility] [place] Address [address] [place] [address] Care Team Providers Care Radar Systems Engineer Name Role Phone Ciera MARY Unavailable PROBLEMS Type Condition ICD9-CM Code HEF45-UA Code Onset Dates Condition Status SNOMED Code Problem Automatic implantable cardioverter-defibrillator in situ Z95.810 Active 018094660 Problem Major depressive disorder, recurrent, severe without psychotic features F33.2 Active 55695074 Problem Diabetes mellitus type II, controlled E11.9 Active 09405881 Problem Obstructive sleep apnea G47.33 Active 42499716 Problem Chronic obstructive pulmonary disease, unspecified COPD type J44.9 Active 73608495 Problem Coronary artery disease involving modoc coronary artery of modoc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 pectoris I25.119 Active 6102664226055 Problem Atherosclerotic heart disease of modoc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.10 Active [id number] Problem Acute midline low back pain with left-sided sciatica M54.42 Active 966336238 Problem Essential hypertension I10 Active 75843248 Problem Chronic post-traumatic headache, not intractable G44.329 Active 330508593 Problem Other chronic pain G89.29 Active 16136339 Problem Tobacco use Z72.0 Resolved 684984384 ALLERGIES Substance Reaction Event Type Date Status Isosorbide Mononitrate migraines Drug Allergy Mar, Active Atorvastatin Calcium muscle pain Drug Allergy Mar, Active ENCOUNTERS Encounter Location Date Diagnosis [facility] [place] [address] [id number] [address] Sep, Acute midline low back pain with left-sided sciatica M54.42 [facility] [place] [address] [id number] [address] Aug, Atherosclerotic heart disease of modoc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.10 [facility] [place] [id number] [place] [address]95- 6567 Aug, [facility] [place] [id number] [place] [address]47- 8866 Aug, [facility] [place] [id number] [place] [address]359- 6402 Aug, Acute midline low back pain with left-sided sciatica M54.42 [facility] [address] [address] Aug, Left foot pain M79.672 ; Low back pain M54.5 ; Other chronic pain G89.29 and Acute cystitis without hematuria N30.00 [facility] [address] [address] Jun, Acute bilateral low back pain without sciatica M54.5 [place] [address] [address] Jun, Diabetes mellitus type II, controlled E11.9 and Essential hypertension I10 [place] [address] [address] May, [facility] [address] [address] Mar, Pneumonia of both lower lobes due to infectious organism J18.9 [place] [address] [address] Mar, [facility] [place] [address] [address] Mar, Bronchitis J40 [facility] [address] [address] Mar, Bronchitis J40 [facility] [place] [id number] [place] [address] 49575- 5195 Feb, Chronic obstructive pulmonary disease, unspecified COPD type J44.9 [facility] [place] [address] [place] [address] Jan, Diabetes mellitus type II, controlled E11.9 ; Essential hypertension I10 and Chronic obstructive pulmonary disease, unspecified COPD type J44.9 [place] [id number] [place] [address]85- 1298 Nov, [place] [id number] [place] [address]74- [address]27 Oct, Pneumonia of left lung due to infectious organism, unspecified part of lung J18.9 [place] [id number] [place] [address]235- 2990 20 Sep, 2016 Bronchitis J40 and Pneumonia of both upper lobes due to infectious organism J18.9 [place] [id number] [place] [address] 46357- 8745 17 Sep, 2016 Diabetes mellitus type II, controlled E11.9 ; Essential hypertension I10 and Coronary artery disease involving modoc coronary artery of modoc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 pectoris I25.119 [place] [id number] [place] [address] 03420- 1041 Sep, [place] [id number] [place] [address]- 1990 Jul, [place] [id number] [place] [address] 24242- 0236 May, [place] [id number] [place] [address] 92129- 7255 May, Diabetes mellitus type II, controlled E11.9 ; Dental abscess K04.7 ; Palpitations R00.2 ; Dizziness R42 and Double vision H53.2 [place] [id number] [place] [address] 77925- 1407 May, Confused R41.0 and Shortness of breath R06.02 [place] [id number] [place] [address] 98156- 8270 May, Diabetes mellitus type II, controlled E11.9 ; Essential hypertension I10 and Coronary artery disease involving modoc coronary artery of modoc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 pectoris I25.119 [facility] [place] [address] [address] May, Essential hypertension I10 ; Diabetes mellitus type II, controlled E11.9 ; Coronary artery disease involving modoc coronary artery of modoc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 pectoris I25.119 and Tobacco use Z72.0 [facility] [place] [id number] [place] [address]88- 8912 Apr, Coronary artery disease involving modoc coronary artery of modoc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 pectoris I25.119 [facility] [place] [id number] [place] [address] 48332- 4741 Apr, [facility] [place] [id number] [place] [address] 34609- 2445 Apr, [facility] [place] [id number] [place] [address]24- 3736 Feb, Diabetes mellitus type II, controlled E11.9 ; Essential hypertension I10 ; Tobacco use Z72.0 and Coronary artery disease involving modoc coronary artery of modoc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 pectoris I25.119 [facility] [id number] [place] [address] Jan, Right knee injury, initial encounter S89.91XA [facility] [place] [id number] [place] [address] 57001- 9067 Nov, [facility] [place] [id number] [place] [address] 11258- 3208 Oct, [facility] [place] [id number] [place] [address] 89681- 7110 Sep, [facility] [place] [id number] [place] [address] 23024- 6458 Aug, [facility] [place] [id number] [place] [address] 49043- 9255 Jul, [facility] [place] [id number] [place] [address] 00321- 9137 Jul, Low back pain M54.5 ; Sciatica, unspecified side M54.30 and Thoracic neuritis M54.14 [place] [id number] [place] [address] 33043- 4020 Jul, [place] [id number] [place] [address] 96541- 5069 Jul, Shortness of breath R06.02 [place] [address] [address]- 9908 Jun, [place] [address] 7[address]63- 7087 Jun, Coronary artery disease involving modoc coronary artery of modoc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 pectoris I25.119 ; Apnea R06.81 and Fatigue, unspecified type R53.[address] [address]- [address] Jun, Major depressive disorder, recurrent, severe without psychotic features F33.2 and Insomnia G47.00 [place] [id number] [place] [address] 23293- 6742 May, Atherosclerotic heart disease of modoc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.10 and Shortness of breath R06.02 [place] [id number] [place] [address] 94648- 6376 May, [place] [id number] [place] [address] 20556- 1086 May, Diabetes mellitus type II, controlled E11.9 ; CAD (coronary artery disease) 414.00 ; Major depressive disorder, recurrent, severe without psychotic features F33.2 ; Apnea R06.81 and Shortness of breath R06.02 [place] [id number] [place] [address] 96498- 5165 May, [place] [id number] [place] [address] 83179- 4582 Feb, Sciatica 724.3 ; Lumbar pain 724.2 and CAD (coronary artery disease) 414.00 [facility] [address] [facility] [id number] [place] [address]- [address] Feb, [facility] [address] [facility] [id number] [address]- 4[address] Feb, [facility] [address] [place] [address]- [address] 14 Nov, 2014 [facility] [address] [facility] [id number] [address]- 1278 Nov, [facility] [address] [place] [address]- 4331 Oct, [facility] [address] [facility] [id number] [place] [address]- 1662 Oct, [facility] [address] [address]- 6658 Oct, [facility] [address] [address]- 6344 Oct, [facility] [address] [address]- 7203 Oct, [facility] [address] [address]- 6091 Oct, [facility] [address] [address]- 2149 Oct, [facility] [address] [facility] [id number] [address]- 3603 Oct, [facility] [id number] [address]- 3042 Oct, [facility] [address] [facility] [id number] [address]- 8286 Oct, [facility] [id number] [address]- 0902 Sep, [facility] [place] [facility] [address] [id number] [place] [address]- 8184 Sep, 2014 [facility] [place] [facility] [address] [id number] [place] [address]- 1634 Sep, 2014 [facility] [place] [facility] [address] [id number] [place] [address]- 8788 Sep, 2014 [facility] [place] [facility] [address] [id number] [place] [address]- 6530 Sep, 2014 [facility] [place] [facility] [address] [id number] [place] [address]- 8048 Sep, 2014 [facility] [place] [facility] [address] [id number] [place] [address]- 2370 Aug, [facility] [place] [facility] [address] [id number] [place] [address]- 5293 Aug, [facility] [place] [facility] [address] [id number] [place] [address]- 6658 Aug, [facility] [place] [facility] [address] [id number] [place] [address]- 0240 Aug, [facility] [place] [facility] [address] [facility] [id number] [place] [address]- 1171 Jul, [facility] [place] [facility] [address] [facility] [id number] [place] [address]- 6965 Jul, [facility] [place] [facility] [address] [id number] [place] [address]- 3440 Jul, [facility] [place] [facility] [address] [id number] [place] [address]- 3277 Jul, [facility] [place] [facility] [address] [id number] [place] [address]- 9882 Jun, [facility] [place] [facility] [address] [id number] [address]- 9550 Jun, [facility] [place] [facility] [address] [id number] [address]- 4526 Jun, [facility] [place] [facility] [address] [id number] [place] [address]- 5089 Jun, [facility] [place] [facility] [address] [id number] [place] [address]- 9315 Jun, [facility] [place] [facility] [address] [id number] [place] [address]- 1180 Jun, [facility] [place] [facility] [address] [id number] [place] [address]- 2953 May, [facility] [place] [facility] [address] [id number] [place] [address]- 1459 May, [facility] [place] [facility] [address] [id number] [place] [address]- 1510 May, [facility] [place] [facility] [address] [id number] [place] [address]- 8962 May, [facility] [place] [facility] [address] [id number] [place] [address]- 9117 May, [facility] [place] [facility] [address] [id number] [place] [address]- 7938 May, [facility] [place] [facility] [address] [id number] [place] [address]- 0464 May, [facility] [place] [facility] [address] [id number] [address]- 1776 May, [facility] [place] [facility] [address] [id number] [address]- 5052 May, [facility] [place] [facility] [address] [id number] [place] [address]- 8844 May, [facility] [place] [facility] [address] [id number] [address]- 1828 May, [facility] [place] [facility] [address] [facility] [id number] [place] [address]- 1133 May, [facility] [place] [facility] [address] [id number] [place] [address]- 4175 May, [facility] [place] [facility] [address] [id number] [place] [address]- 2107 May, [facility] [place] [facility] [address] [id number] [place] [address]- 6737 May, [facility] [place] [facility] [address] [id number] [place] [address]- 4185 May, [facility] [place] [facility] [address] [id number] [place] [address]- 2335 Apr, 2013 [facility] [place] [facility] [address] [id number] [place] [address]- 1087 26 Apr, 2013 [facility] [place] [facility] [address] [id number] [place] [address]- 3938 23 Apr, 2014 [facility] [place] [facility] [address] [id number] [place] [address]- 5098 23 Apr, 2013 [facility] [place] [facility] [address] [id number] [place] [address]- 2389 22 Apr, 2013 [facility] [place] [facility] [address] [id number] [place] [address]- 6681 22 Apr, 2013 [facility] [place] [facility] [address] [id number] [place] [address]- 8961 19 Apr, 2013 [facility] [place] [facility] [address] [id number] [place] [address]- 4190 19 Apr, 2013 [facility] [place] [facility] [address] [id number] [place] [address]- 2544 18 Apr, 2013 [facility] [place] [facility] [address] [id number] [place] [address]- 254 18 Apr, 2013 [facility] [place] [facility] [address] [id number] [place] [address]- 2547 18 Apr, 2013 [facility] [place] [facility] [address] [id number] [place] [address]- 1897 18 Sep, 2013 [facility] [place] [facility] [address] [id number] [place] [address]- 2059 17 Apr, 2013 [facility] [place] [facility] [address] [id number] [place] [address]- 6411 17 Apr, 2013 [facility] [place] [facility] [address] [id number] [place] [address]- 4878 15 Apr, 2013 [facility] [place] [facility] [address] [id number] [place] [address]- 2436 15 Apr, 2013 [facility] [place] [facility] [address] [id number] [place] [address]- 0418 Apr, [facility] [place] [facility] [address] [id number] [place] [address]- 3158 Apr, [facility] [place] [facility] [address] [id number] [place] [address]- 9349 Apr, [facility] [place] [facility] [address] [id number] [place] [address]- 2400 Apr, [facility] [place] [facility] [address] [id number] [place] [address]- 7214 Mar, [facility] [place] [facility] [address] [id number] [place] [address]- 4969 Mar, [facility] [place] [facility] [address] [id number] [place] [address]- 1407 Mar, [facility] [place] [facility] [address] [id number] [address]- 9626 Mar, [facility] [place] [facility] [address] [id number] [place] [address]- 0590 Feb, [facility] [place] [facility] [address] [id number] [place] [address]- 8007 Feb, [facility] [place] [facility] [address] [id number] [place] [address]- 0343 Jul, [facility] [place] [facility] [address] [id number] [place] [address]- 6638 Jul, [facility] [address] [id number] [place] [address]- 2332 May, [facility] [place] [facility] [address] [id number] [place] [address]- 2997 May, [facility] [place] [facility] [address] [id number] [place] [address]- 3761 Mar, [facility] [place] [facility] [address] [id number] [place] [address]- 6698 Feb, [facility] [place] [facility] [address] [id number] [place] [address]- 3079 Jan, [facility] [place] [facility] [address] [id number] [place] [address]- 0089 Jan, [facility] [place] [facility] [address] [id number] [place] [address]- 0475 Jan, [facility] [place] [facility] [address] [id number] [place] [address]- 2912 Aug, [facility] [place] [facility] [address] [id number] [place] [address]- 5390 Aug, [facility] [place] [facility] [address] [id number] [place] [address]- 2210 Jun, [facility] [place] [facility] [address] [id number] [place] [address]- 0311 Jun, [facility] [place] [facility] [address] [id number] [place] [address]- 2142 Jun, [facility] [place] [facility] [address] [id number] [place] [address]- 8832 Jun, [facility] [place] [facility] [address] [id number] [place] [address]- 3679 May, [facility] [place] [facility] [address] [id number] [place] [address]- 8325 May, [facility] [place] [address] [facility] [id number] [address]- 2546 Feb, [facility] [place] [id number] [address]- 2546 Jan, [facility] [place] [id number] [address]- 2546 Jan, [facility] [place] [address] [address]- 2546 December, [facility] [place] [id number] [address]- 2546 December, [facility] [place] [address] [address]- 2546 December, [facility] [place] [address] [address]- 2546 December, [facility] [place] [address] [address]- 2546 Jun, [facility] [place] [address] [facility] [id number] [address] 2546 Feb, IMMUNIZATIONS Vaccine Route Administration Date Status DEXAMETHASONE 4MG/ML (PER 1 MG) IM Intramuscular Mar 18, 2017 Administered DEPO MEDROL 40 MG/ML IM Intramuscular Mar 18, 2017 Administered SOCIAL HISTORY Never Assessed REASON FOR VISIT respiratory PLAN OF CARE Activity Details Follow Up 1 Week Reason: VITAL SIGNS Height 70 in 2017-03-18 Weight 202 lbs 2017-03-18 Temperature 98.0 degrees Fahrenheit 2017-03-18 Heart Rate 84 bpm 2017-03-18 Respiratory Rate 16 2017-03-18 BMI 28.98 kg/m2 2017-03-18 Blood pressure systolic 140 mmHg 2017-03-18 Blood pressure diastolic 70 mmHg 2017-03-18 MEDICATIONS Medication Instructions Dosage Frequency Start Date End Date Duration Status Promethazine-Codeine 6.25-10 MG/5ML Orally every 6 hrs 5 ml as needed 6h Mar, Active Clopidogrel Bisulfate 75 MG Orally Once a day 1 tablet 24h 90 Active Pravachol 20 mg Orally Once a day 1/2 tablet 24h Active Aspirin 81 MG Orally Once a day 1 tablet 24h 18 Apr, 2014 Active Hydrochlorothiazide 12.5 MG Orally Once a day 1 capsule as needed for swelling 24h 30 Active Symbicort 160-4.5 MCG/ACT Inhalation Twice a day 2 puffs 12h 08 Oct, 2016 Active Levaquin 500 mg Orally Once a day 1 tablet 24h 12 Mar, 2017 Mar, 10 day(s) Active Albuterol Sulfate HFA cfc free 90 mcg/inh Inhalation every 4 hrs 2 puffs as needed 4h 20 Sep, 2016 Active Amlodipine Besylate 5 mg Orally Once a day 1 tablet 24h 90 Active RESULTS No Results PROCEDURES Procedure Date Ordered Result Body Site DEXAMETHASONE 4MG/ML (PER 1 MG) Mar 18, 2017 DEPO MEDROL 40 MG/ML Mar 18, 2017 THER/PROPH/DIAG INJ, SC/IM Mar 18, 2017 INSTRUCTIONS MEDICATIONS ADMINISTERED No Known Medications MEDICAL (GENERAL) HISTORY Type Description Date Medical History Cardiovascular Disorder ([facility]) Medical History ---- Stress Echo 02/26/2010 ([facility])- Hypertensive response;no ischemia; normal Echo EF 60% Medical History --Stent 04/2011 Medical History --Heart Cath 06/2011 Medical History --Cardiac Arrest requiring multiple defibrillations 03/2014 Medical History --Heart cath 03/2014 in [place], no stents placed at that time Medical History --Pacemaker/defrillator placed 03/2014 after cardiac arrest Medical History Cardiovascular disorder ([facility])- CAD Medical History ----Stress Echo 02/26/2010 [...] Hospitalization History Surgeries Hospitalization History Chest pain/CAD--[facility] 04/26/16
--- OUTSIDE RECORDS SUMMARY | 2018-04-20 10:26 | XMS REPORT ---
Author Author MARY Vang Organization [facility] Address [address] [place] [address] Care Team Providers Care Rig Manager Name Role Phone Ciera MARY Unavailable PROBLEMS Type Condition ICD9-CM Code PBP81-TD Code Onset Dates Condition Status SNOMED Code Problem Automatic implantable cardioverter-defibrillator in situ Z95.810 Active 380352850 Problem Major depressive disorder, recurrent, severe without psychotic features F33.2 Active 80554832 Problem Diabetes mellitus type II, controlled E11.9 Active 20815794 Problem Obstructive sleep apnea G47.33 Active 78678078 Problem Chronic obstructive pulmonary disease, unspecified COPD type J44.9 Active 46109646 Problem 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 [id number] [place] [address] 99739- 0008 Sep, Acute midline low back pain with left-sided sciatica M54.42 [facility] [id number] [place] [address] 01250- 0734 Aug, Atherosclerotic heart disease of [place]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.10 [facility] [address] [address] Aug, [facility] [id number] [place] [address] 57801- 8590 Aug, [facility] [id number] [place] [address] 80444- 4288 Aug, Acute midline low back pain with left-sided sciatica M54.42 [facility] [id number] [place] [address] 49907 -7439 Aug, Left foot pain M79.672 ; Low back pain M54.5 ; Other chronic pain G89.29 and Acute cystitis without hematuria N30.00 [facility] [id number] [place] [address] 81602 -9836 Jun, Acute bilateral low back pain without sciatica M54.5 [place] [id number] [place] [address] 19433- 7842 Jun, Diabetes mellitus type II, controlled E11.9 and Essential hypertension I10 [place] [address] [address]- 4434 May, [facility] [id number] [place] [address] 81771 -5916 Mar, Pneumonia of both lower lobes due to infectious organism J18.9 [place] [id number] [place] [address] 53495- 9791 Mar, [place] [facility] [id number] [place] [address] 92225- 2747 Mar, Bronchitis J40 [facility] [id number] [place] [address] 21270 -4301 Mar, Bronchitis J40 [place] [id number] [place] [address] 86033- 1607 Feb, Chronic obstructive pulmonary disease, unspecified COPD type J44.9 [facility] [id number] [place] [address] 37613- 7387 Jan, Diabetes mellitus type II, controlled E11.9 ; Essential hypertension I10 and Chronic obstructive pulmonary disease, unspecified COPD type J44.9 [place] [id number] [place] [address] 31586- 6002 Nov, [place] [id number] [place] [address] Oct, Pneumonia of left lung due to infectious organism, unspecified part of lung J18.9 [place] [id number] [place] [address] 49118- 5900 20 Sep, 2016 Bronchitis J40 and Pneumonia of both upper lobes due to infectious organism J18.9 [place] [id number] [place] [address] 24375- 1359 17 Sep, 2016 Diabetes mellitus type II, controlled E11.9 ; Essential hypertension I10 and Coronary artery disease involving [place] coronary artery of [place]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 pectoris I25.[address] 7[address]83- 2657 15 Sep, 2016 [place] [id number] [place] [address] 90517- 3053 Jul, [place] [id number] [place] [address] 05578- 5209 May, [place] [id number] [place] [address] 46747- 5771 May, Diabetes mellitus type II, controlled E11.9 ; Dental abscess K04.7 ; Palpitations R00.2 ; Dizziness R42 and Double vision H53.[address] [place] [address] 58052- 6359 May, Confused R41.0 and Shortness of breath R06.02 [id number] [place] [address] 75582- 5584 May, Diabetes mellitus type II, controlled E11.9 ; Essential hypertension I10 and 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 [id number] [place] [address] 97182- 4328 Apr, [facility] [id number] [place] [address] 32282- 9528 Apr, 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 [id number] [place] [address] 76070- 0506 Nov, [facility] [id number] [place] [address] 77077- 0940 Oct, [facility] [address] [place] [address] 07949- 4368 Sep, [facility] [address] [place] [address] 01744- 6279 Aug, [facility] [id number] [place] [address] 10614- 2327 Jul, 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.119 ; Apnea R06.81 and Fatigue, unspecified type R53.[address] 31855- 4487 Jun, Major depressive disorder, recurrent, severe without psychotic features F33.2 and Insomnia G47.[address] 40666- 0604 May, Atherosclerotic heart disease of [place]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.10 and Shortness of breath R06.[address] 42750- 6141 May, [address] 24565- 3917 May, Diabetes mellitus type II, controlled E11.9 ; CAD (coronary artery disease) 414.00 ; Major depressive disorder, recurrent, severe without psychotic features F33.2 ; Apnea R06.81 and Shortness of breath R06.[address] 25197- 2295 May, [address] 36713- 3474 Feb, Sciatica 724.3 ; Lumbar pain 724.2 and CAD (coronary artery disease) 414.[address] [place] [address]- 2836 07 Feb, 2014 [facility] [place] [facility] [address] [id number] [place] [address]- 6825 06 Feb, 2015 [facility] [place] [facility] [address] [id number] [place] [address]- 7958 14 Nov, 2014 [facility] [place] [facility] [address] [id number] [place] [address]- 3439 13 Nov, 2014 [facility] [place] [facility] [address] [id number] [place] [address]- 0778 Oct, [facility] [place] [facility] [address] [id number] [place] [address]- 9288 Oct, [facility] [place] [facility] [address] [id number] [place] [address]- 4445 Oct, [facility] [place] [facility] [address] [id number] [place] [address]- 6496 Oct, [facility] [place] [facility] [address] [id number] [place] [address]- 2610 Oct, [facility] [place] [facility] [address] [id number] [place] [address]- 5744 Oct, [facility] [place] [facility] [address] [facility] [id number] [place] [address]- 3429 Oct, [facility] [place] [facility] [address] [id number] [place] [address]- 1032 Oct, [facility] [place] [facility] [address] [id number] [place] [address]- 4315 Oct, [facility] [place] [facility] [address] [id number] [place] [address]- 0193 Oct, [facility] [place] [facility] [address] [id number] [place] [address]- 8726 Sep, [facility] [place] [facility] [address] [id number] [place] [address]- 6583 Sep, [facility] [place] [facility] [address] [id number] [place] [address]- 0059 Sep, 2014 [facility] [place] [facility] [address] [id number] [place] [address]- 1111 Sep, 2014 [facility] [place] [facility] [address] [id number] [place] [address]- 9498 Sep, 2014 [facility] [place] [facility] [address] [id number] [place] [address]- 0269 Sep, [facility] [place] [facility] [address] [id number] [place] [address]- 6804 Aug, [facility] [place] [facility] [address] [id number] [place] [address]- 8273 Aug, [facility] [place] [facility] [address] [id number] [place] [address]- 5928 Aug, [facility] [place] [facility] [address] [id number] [place] [address]- 4926 Aug, [facility] [place] [facility] [address] [id number] [place] [address]- 8315 Jul, [facility] [place] [facility] [address] [id number] [place] [address]- 0629 Jul, [facility] [place] [facility] [address] [id number] [place] [address]- 5569 Jul, [facility] [place] [facility] [address] [id number] [place] [address]- 9293 Jul, [facility] [place] [facility] [address] [id number] [place] [address]- 0024 Jun, [facility] [place] [facility] [address] [id number] [place] [address]- 1006 Jun, [facility] [place] [facility] [address] [id number] [place] [address]- 3866 Jun, [facility] [place] [facility] [address] [id number] [address]- 0203 Jun, [facility] [place] [facility] [address] [id number] [place] [address]- 0769 Jun, [facility] [place] [facility] [address] [id number] [place] [address]- 6599 Jun, [facility] [place] [facility] [address] [id number] [place] [address]- 3638 May, [facility] [place] [facility] [address] [id number] [place] [address]- 4728 May, [facility] [place] [facility] [address] [id number] [place] [address]- 5024 May, [facility] [place] [facility] [address] [id number] [place] [address]- 0999 May, [facility] [place] [facility] [address] [id number] [place] [address]- 9936 May, [facility] [place] [facility] [address] [id number] [place] [address]- 4496 May, [facility] [place] [facility] [address] [id number] [place] [address]- 0288 May, [facility] [place] [facility] [address] [id number] [place] [address]- 1654 May, [facility] [place] [facility] [address] [id number] [place] [address]- 8813 May, [facility] [place] [facility] [address] [id number] [place] [address]- 7841 May, [facility] [place] [facility] [address] [id number] [place] [address]- 5266 May, [facility] [place] [facility] [address] [facility] [id number] [place] [address]- 2407 May, [facility] [place] [facility] [address] [facility] [id number] [place] [address]- 3518 May, [facility] [place] [facility] [address] [id number] [place] [address]- 7784 May, [facility] [place] [facility] [address] [id number] [place] [address]- 7812 May, [facility] [place] [facility] [address] [id number] [place] [address]- 5013 May, [facility] [place] [facility] [address] [id number] [place] [address]- 9224 Apr, 2013 [facility] [place] [facility] [address] [id number] [place] [address] 2542 26 Apr, 2013 [facility] [place] [facility] [address] [id number] [place] [address]- 2311 23 Apr, 2013 [facility] [place] [facility] [address] [id number] [place] [address]- 7286 23 Apr, 2013 [facility] [place] [facility] [address] [id number] [place] [address]- 3674 22 Apr, 2013 [facility] [place] [facility] [address] [id number] [place] [address]- 5037 22 Apr, 2013 [facility] [place] [facility] [address] [id number] [place] [address]- 0348 19 Apr, 2013 [facility] [place] [facility] [address] [id number] [place] [address]- 0031 19 Apr, 2013 [facility] [place] [facility] [address] [id number] [place] [address]- 3922 18 Apr, 2013 [facility] [place] [facility] [address] [id number] [place] [address] 2541 18 Apr, 2013 [facility] [place] [facility] [address] [id number] [place] [address] 2542 18 Apr, 2013 [facility] [place] [facility] [address] [id number] [place] [address]- 2549 18 Apr, 2013 [facility] [place] [facility] [address] [id number] [place] [address]- 6650 17 Apr, 2013 [facility] [place] [facility] [address] [id number] [place] [address]- 0615 17 Apr, 2013 [facility] [place] [facility] [address] [id number] [place] [address]- 2043 15 Apr, 2014 [facility] [place] [facility] [address] [id number] [place] [address]- 4351 15 Apr, 2014 [facility] [place] [facility] [address] [id number] [place] [address]- 2534 Apr, [facility] [place] [facility] [address] [id number] [place] [address]- 7831 Apr, [facility] [place] [facility] [address] [id number] [place] [address]- 9027 Apr, [facility] [place] [facility] [address] [id number] [place] [address]- 8575 Apr, [facility] [place] [facility] [address] [id number] [place] [address]- 1959 Mar, [facility] [place] [facility] [address] [id number] [place] [address]- 0862 Mar, [facility] [place] [facility] [address] [id number] [place] [address]- 5773 Mar, [facility] [place] [facility] [address] [id number] [place] [address]- 5254 Mar, [facility] [place] [facility] [address] [id number] [place] [address]- 2116 Feb, [facility] [place] [facility] [address] [id number] [place] [address]- 4215 Feb, [facility] [place] [facility] [address] [id number] [place] [address]- 6392 Jul, [facility] [place] [facility] [address] [id number] [place] [address]- 2232 Jul, [facility] [place] [facility] [address] [id number] [place] [address]- 5545 May, [facility] [place] [facility] [address] [id number] [place] [address]- 7024 May, [facility] [place] [facility] [address] [id number] [place] [address]- 3866 Mar, [facility] [place] [facility] [address] [id number] [place] 7108 Feb, [facility] [place] [facility] [address] [id number] [place] [address]- 2653 Jan, [facility] [place] [facility] [address] [id number] [place] [address]- 2734 Jan, [facility] [place] [facility] [address] [id number] [place] [address]- 2386 Jan, [facility] [place] [facility] [address] [id number] [place] [address]- 0884 Aug, [facility] [place] [facility] [address] [id number] [place] [address]- 0458 Aug, [facility] [place] [facility] [address] [id number] [place] [address]- 6929 Jun, [facility] [place] [facility] [address] [id number] [place] [address]- 9524 Jun, [facility] [place] [facility] [address] [id number] [place] [address]- 6949 Jun, [facility] [place] [facility] [address] [id number] [place] [address]- 7769 Jun, [facility] [place] [facility] [address] [id number] [place] [address]- 1545 May, [facility] [place] [facility] [address] [id number] [place] [address]- 3135 May, [facility] [place] [facility] [address] [id number] [place] [address]- 3592 Feb, [facility] [id number] [address] 2546 Jan, [facility] [address] [address] 2546 Jan, [facility] [address] [address]- 2546 December, [facility] [id number] [place] [address] 17262- [address]46 [address], [facility] [address] [place] [address] 47766- 2546 December, [facility] [address] [place] [address]4879- 2546 December, [facility] [address] [address]- 2546 Jun, [facility] [address] [address] 2546 Feb, IMMUNIZATIONS No Known Immunizations SOCIAL HISTORY Never Assessed REASON FOR VISIT 40/4 PLAN OF CARE VITAL SIGNS MEDICATIONS Unknown [...] Hospitalization History Surgeries Hospitalization History Chest pain/CAD--[facility] 04/26/16
--- OUTSIDE RECORDS SUMMARY | 2018-04-20 10:26 | XMS REPORT ---
Author Author PATEL FLETCHER Organization 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 Active 0270250774903 Problem Chronic obstructive pulmonary disease, unspecified COPD type J44.9 Active 25966074 Assessment Coronary artery disease involving [place] coronary artery of samish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 pectoris I25.119 26 Apr, 2016 Active 7616333993877 Problem Tobacco use Z72.0 Resolved 315437028 Problem Diabetes mellitus type II, controlled E11.9 Active 76667102 Problem Automatic implantable cardioverter-defibrillator in situ Z95.810 Active 684926294 Problem Chronic post-traumatic headache, not intractable G44.329 Active 055023931 Problem Major depressive disorder, recurrent, severe without psychotic features F33.2 Active 97999115 Problem Essential hypertension I10 Active 96517740 ALLERGIES Unknown Allergies SOCIAL HISTORY No smoking Hx information available PLAN OF CARE VITAL SIGNS MEDICATIONS Unknown Medications RESULTS No Results PROCEDURES No Known procedures IMMUNIZATIONS No Known Immunizations
--- OUTSIDE RECORDS SUMMARY | 2018-04-20 10:27 | XMS REPORT ---
Author Author PATEL FLETCHER [employer] Address Unknown Phone Unavailable Care Team Providers Care Communications Coordinator Name Role Phone PATEL FLETCHER CP Unavailable Allergies, Adverse Reactions, Alerts Substance Reaction Event Type Isosorbide Mononitrate 30 Mg Tablet Extended Relea Headache Non Drug Allergy Problems Problem Type Condition Code Onset Dates Condition Status Assessment Major depressive disorder, recurrent, severe without psychotic features F33.2 Active Assessment Diabetes mellitus type II, controlled E11.9 Active Assessment CAD (coronary artery disease) 414.00 Active Assessment Shortness of breath R06.02 Active Assessment Apnea R06.81 Active Problem Major depressive disorder, recurrent, severe without psychotic features F33.2 Active Problem Essential hypertension I10 Active Problem Diabetes mellitus type II, controlled E11.9 Active Problem 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.119 Active Problem CAD (coronary artery disease) 414.00 Active Problem Automatic implantable cardioverter-defibrillator in situ Z95.810 Active Problem Chronic post-traumatic headache, not intractable G44.329 Active Medications Medication Code System Code Instructions Start Date End Date Status Dosage Atorvastatin Calcium [facility] [address]-98 40 MG Orally Once a day 1 tablet Aspirin [facility] [address]-34 Apr 24, 2014 by Oral route Coenzyme Q10 NDC 0 December 23, 2011 by Oral route Plavix [facility] 09667682962 75 MG TAKE ONE TABLET BY MOUTH ONCE DAILY MetFORMIN HCl ER ND 87933009098 500 MG TAKE ONE TABLET BY MOUTH DAILY WITH EVENING MEAL Amlodipine Besylate [place] 82728349009 5 MG TAKE ONE TABLET BY MOUTH DAILY Fish Oil [facility] [address]-37 December 23, 2011 by Oral route Contour Blood Glucose System NDC 0 not defined Escitalopram Oxalate ND 95379222218 10 MG TAKE ONE TABLET BY MOUTH DAILY Procedures Procedure Coding System Code Date Office Visit, Est Pt., Level 4 CPT-4 98028 May 19, 2015 GLYCATED HEMOGLOBIN TEST CPT-4 53268 May 19, 2015 Vital Signs Date/Time: May 19, 2015 Temperature 97.2 F Weight 204.2 lbs Height 70 in BMI 29.30 Index Blood Pressure Diastolic 80 mmHg Blood Pressure Systolic 134 mmHg Cardiac Monitoring Heart Rate 88 bpm Results Name Result Date Reference Range Unit Abnormality Flag A1C (IN HOUSE) Summary Purpose [employer] Submission
--- OUTSIDE RECORDS SUMMARY | 2018-04-20 10:27 | XMS REPORT ---
Author Author PATEL FLETCHER [facility] Address [address] [place] [address] Care Team Providers Care Conical Mixer Name Role Phone PATEL FLETCHER Unavailable PROBLEMS Type Condition ICD9-CM Code ZLS64-RR Code Onset Dates Condition Status SNOMED Code Problem Obstructive sleep apnea G47.33 Active 73606832 Problem Coronary artery disease involving [place] coronary artery of [place]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 pectoris I25.119 Active 6769349311744 Problem Chronic obstructive pulmonary disease, unspecified COPD type J44.9 Active 11664742 Problem Tobacco use Z72.0 Resolved 749926398 Problem Diabetes mellitus type II, controlled E11.9 Active 86415964 Problem Automatic implantable cardioverter-defibrillator in situ Z95.810 Active 295008512 Problem Chronic post-traumatic headache, not intractable G44.329 Active 311643963 Problem Major depressive disorder, recurrent, severe without psychotic features F33.2 Active 91749916 Problem Essential hypertension I10 Active 42451023 ALLERGIES No Known Allergies SOCIAL HISTORY No smoking Hx information available PLAN OF CARE VITAL SIGNS MEDICATIONS Unknown Medications RESULTS Name Result Date Reference Range CBC 2016-05-18 WBC 6.5 3.4-10.8 RBC 4.52 4.14-5.80 Hemoglobin 13.7 12.6-17.7 Hematocrit 40.4 37.5-51.0 MCV 89 79-97 MCH 30.3 26.6-33.0 MCHC 33.9 31.5-35.7 RDW 13.5 12.3-15.4 Platelets 236 150-379 Neutrophils 56 Lymphs 35 Monocytes 7 Eos 2 Basos 0 Neutrophils (Absolute) 3.6 1.4-7.0 Lymphs (Absolute) 2.3 0.7-3.1 Monocytes(Absolute) 0.5 0.1-0.9 Eos (Absolute) 0.1 0.0-0.4 Baso (Absolute) 0.0 0.0-0.2 Immature Granulocytes 0 Immature Grans (Abs) 0.0 0.0-0.1 BNP 2016-05-18 B-Type Natriuretic Peptide 19.2 0.0-100.0 BMP 2016-05-18 Glucose, Serum 89 65-99 BUN 17 6-24 Creatinine, Serum 1.01 0.76-1.27 eGFR If NonAfricn Am 84 >59 eGFR If Africn Am 97 >59 BUN/Creatinine Ratio 17 9-20 Sodium, Serum 139 134-144 Potassium, Serum 4.1 3.5-5.2 Chloride, Serum 104 97-108 Carbon Dioxide, Total 22 18-29 Calcium, Serum 9.2 8.7-10.2 Xray : Chest (IN HOUSE) 2016-05-18 PROCEDURES Procedure Date Ordered Related Diagnosis Body Site ROUTINE VENIPUNCTURE 2016-05-18 N/A COMPLETE CBC W/AUTO DIFF WBC May 18, 2016 NATRIURETIC PEPTIDE May 18, 2016 BASIC METABOLIC PANEL May 18, 2016 CHEST X-RAY May 18, 2016 VENIPUNCT, ROUTINE* May 18, 2016 IMMUNIZATIONS No Known Immunizations
--- OUTSIDE RECORDS SUMMARY | 2018-04-20 10:27 | XMS REPORT ---
Author Author MARY Vang Organization [facility] Address [address] [place] [address] Care Team Providers Care Financial Auditor Name Role Phone Ciera MARY Unavailable PROBLEMS Type Condition ICD9-CM Code BQN98-ZG Code Onset Dates Condition Status SNOMED Code Problem Automatic implantable cardioverter-defibrillator in situ Z95.810 Active 121613161 Problem Major depressive disorder, recurrent, severe without psychotic features F33.2 Active 61710245 Problem Diabetes mellitus type II, controlled E11.9 Active 83897059 Problem Obstructive sleep apnea G47.33 Active 43587933 Problem Chronic obstructive pulmonary disease, unspecified COPD type J44.9 Active 97010614 Problem 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 Active 6626512719734 Problem Atherosclerotic heart disease of [place]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.10 Active 204364498721461 Problem Acute midline low back pain with left-sided sciatica M54.42 Active 510133663 Problem Essential hypertension I10 Active 68095118 Problem Chronic post-traumatic headache, not intractable G44.329 Active 227961242 Problem Other chronic pain G89.29 Active 20316942 Problem Tobacco use Z72.0 Resolved 217723922 ALLERGIES No Information ENCOUNTERS Encounter Location Date Diagnosis [facility] [address] [place] [address] 18385- 5381 Sep, Acute midline low back pain with left-sided sciatica M54.42 [facility] [id number] [place] [address] 24956- 4666 Aug, Atherosclerotic heart disease of [place]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.10 [facility] [address] [address] 1[address] Aug, [facility] [id number] [place] [address] 85709- 5184 Aug, [facility] [id number] [place] [address] 90695- 4347 Aug, Acute midline low back pain with left-sided sciatica M54.42 [facility] [id number] [place] [address] 85801 -3779 Aug, Left foot pain M79.672 ; Low back pain M54.5 ; Other chronic pain G89.29 and Acute cystitis without hematuria N30.00 [facility] [id number] [place] [address] 57429 -0131 Jun, Acute bilateral low back pain without sciatica M54.5 [place] [id number] [place] [address] 10474- 6300 Jun, Diabetes mellitus type II, controlled E11.9 and Essential hypertension I10 [place] [address] 8[address]- 3349 May, [facility] [id number] [place] [address] 99847 -4671 Mar, Pneumonia of both lower lobes due to infectious organism J18.9 [place] [id number] [place] [address] 23022- 1757 Mar, [place] [id number] [place] [address] 20346- 2503 Mar, Bronchitis J40 [facility] [id number] [place] [address] 14203 -0205 Mar, Bronchitis J40 [place] [id number] [place] [address] 59674- 1767 Feb, Chronic obstructive pulmonary disease, unspecified COPD type J44.9 [facility] [id number] [place] [address] 24099- 7661 Jan, Diabetes mellitus type II, controlled E11.9 ; Essential hypertension I10 and Chronic obstructive pulmonary disease, unspecified COPD type J44.9 [place] [address] [place] [address] 10932- 2287 Nov, [place] [id number] [place] [address] Oct, Pneumonia of left lung due to infectious organism, unspecified part of lung J18.9 [place] [id number] [place] [address] 67652- 1610 20 Sep, 2016 Bronchitis J40 and Pneumonia of both upper lobes due to infectious organism J18.9 [place] [id number] [place] [address] 57960- 9089 17 Sep, 2016 Diabetes mellitus type II, controlled E11.9 ; Essential hypertension I10 and 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 [address]- 5747 15 Sep, 2016 [place] [id number] [place] [address] 60356- 6109 Jul, [place] [id number] [place] [address] 76898- 7552 May, [place] [id number] [place] [address] 74250- 7695 May, Diabetes mellitus type II, controlled E11.9 ; Dental abscess K04.7 ; Palpitations R00.2 ; Dizziness R42 and Double vision H53.[address] [place] [address] 10455- 3374 May, Confused R41.0 and Shortness of breath R06.02 [place] [id number] [place] [address] 95452- 2737 May, Diabetes mellitus type II, controlled E11.9 ; Essential hypertension I10 and 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 [place] [address] [place] [address] 3074 07 May, 2016 Essential hypertension I10 ; Diabetes mellitus type II, controlled E11.9 ; 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 and Tobacco use Z72.0 [facility] [address] [place] [address] 11021- 0910 26 Apr, 2016 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 [facility] [id number] [place] [address] 61297- 3966 Apr, [facility] [id number] [place] [address] 88330- 4540 Apr, [facility] [id number] [place] [address] 86243- 5216 Feb, Diabetes mellitus type II, controlled E11.9 ; Essential hypertension I10 ; Tobacco use Z72.0 and 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 [facility] [address] [place] [address] 50589 -5748 04 Jan, 2016 Right knee injury, initial encounter S89.91XA [facility] [id number] [place] [address] 78279- 0555 Nov, [facility] [id number] [place] [address] 82471- 3633 Oct, [facility] [id number] [place] [address] 53543- 1664 Sep, [facility] [address] [place] [address] 98826- 0547 Aug, [facility] [id number] [place] [address] 53822- 6041 Jul, [facility] [id number] [place] [address] 02792- 9464 08 Jul, 2015 Low back pain M54.5 ; Sciatica, unspecified side M54.30 and Thoracic neuritis M54.14 [place] [address] [address]53- 1938 Jul, [address] 99097- 2438 Jul, Shortness of breath R06.[address] 74470- 5583 Jun, [place] [address] 55030- 5785 Jun, 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 ; Apnea R06.81 and Fatigue, unspecified type R53.[address] 28704- 8807 Jun, Major depressive disorder, recurrent, severe without psychotic features F33.2 and Insomnia G47.[address] 76818- 9165 May, Atherosclerotic heart disease of [place]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.10 and Shortness of breath R06.[address] 60281- 6070 May, [address] 11071- 0443 May, Diabetes mellitus type II, controlled E11.9 ; CAD (coronary artery disease) 414.00 ; Major depressive disorder, recurrent, severe without psychotic features F33.2 ; Apnea R06.81 and Shortness of breath R06.[address] 63614- 5629 May, [address] 10270- 9554 Feb, Sciatica 724.3 ; Lumbar pain 724.2 and CAD (coronary artery disease) 414.[address] [place] [address]- 0414 07 Feb, 2014 [facility] [place] [facility] [address] [id number] [place] [address]- 8756 06 Feb, 2015 [facility] [place] [facility] [address] [id number] [place] [address]- 8398 14 Nov, 2014 [facility] [place] [facility] [address] [id number] [place] [address]- 4089 13 Nov, 2014 [facility] [place] [facility] [address] [id number] [place] [address]- 0520 Oct, [facility] [place] [facility] [address] [id number] [place] [address]- 8315 Oct, [facility] [place] [facility] [address] [id number] [place] [address]- 1999 Oct, [facility] [place] [facility] [address] [id number] [place] [address]- 7023 Oct, [facility] [place] [facility] [address] [id number] [place] [address]- 6369 Oct, [facility] [place] [facility] [address] [id number] [place] [address]- 3562 Oct, [facility] [place] [facility] [address] [facility] [id number] [place] [address]- 7437 Oct, [facility] [place] [facility] [address] [id number] [place] [address]- 1143 Oct, [facility] [place] [facility] [address] [id number] [place] [address]- 6664 Oct, [facility] [place] [facility] [address] [id number] [place] [address]- 7994 Oct, [facility] [place] [facility] [address] [id number] [place] [address]- 9219 Sep, [facility] [place] [facility] [address] [id number] [place] [address]- 6420 Sep, [facility] [place] [facility] [address] [id number] [place] [address]- 1594 Sep, 2014 [facility] [place] [facility] [address] [id number] [place] [address]- 7328 Sep, 2014 [facility] [place] [facility] [address] [id number] [place] [address]- 0581 Sep, 2014 [facility] [place] [facility] [address] [id number] [place] [address]- 8665 Sep, [facility] [place] [facility] [address] [id number] [place] [address]- 8254 Aug, [facility] [place] [facility] [address] [id number] [place] [address]- 2254 Aug, [facility] [place] [facility] [address] [id number] [place] [address]- 9865 Aug, [facility] [place] [facility] [address] [id number] [place] [address]- 5991 Aug, [facility] [place] [facility] [address] [id number] [place] [address]- 7243 Jul, [facility] [place] [facility] [address] [id number] [place] [address]- 1548 Jul, [facility] [place] [facility] [address] [id number] [place] [address]- 7663 Jul, [facility] [place] [facility] [address] [id number] [place] [address]- 1574 Jul, [facility] [place] [facility] [address] [id number] [place] [address]- 1325 Jun, [facility] [place] [facility] [address] [id number] [place] [address]- 1017 Jun, [facility] [place] [facility] [address] [id number] [place] [address]- 2752 Jun, [facility] [place] [facility] [address] [id number], [place] [address]- 5988 Jun, [facility] [place] [facility] [address] [id number] [place] [address]- 3347 Jun, [facility] [place] [facility] [address] [id number], [place] [address]- 9629 Jun, [facility] [place] [facility] [address] [id number] [place] [address]- 6387 May, [facility] [place] [facility] [address] [id number] [place] [address]- 8445 May, [facility] [place] [facility] [address] [id number] [place] [address]- 0318 May, [facility] [place] [facility] [address] [id number] [place] [address]- 6771 May, [facility] [place] [facility] [address] [id number], [place] [address]- 3136 May, [facility] [place] [facility] [address] [id number], [place] [address]- 2729 May, [facility] [place] [facility] [address] [id number], [place] [address]- 2976 May, [facility] [place] [facility] [address] [id number], [place] [address]- 6717 May, [facility] [place] [facility] [address] [id number], [place] [address]- 7446 May, [facility] [place] [facility] [address] [id number], [place] [address]- 4640 May, [facility] [place] [facility] [address] [id number], [place] [address]- 0034 May, [facility] [place] [facility] [address] [facility] [id number], [place] [address]- 2401 May, [facility] [place] [facility] [address] [facility] [id number], [place] [address]- 1370 May, [facility] [place] [facility] [address] [id number] [place] [address]- 6468 May, [facility] [place] [facility] [address] [id number] [place] [address]- 3896 May, [facility] [place] [facility] [address] [id number] [place] [address]- 9733 May, [facility] [place] [facility] [address] [id number] [place] [address]- 2181 Apr, 2013 [facility] [place] [facility] [address] [id number] [place] [address] 2549 26 Apr, 2013 [facility] [place] [facility] [address] [id number] [place] [address]- 9177 23 Apr, 2013 [facility] [place] [facility] [address] [id number] [place] [address]- 9607 23 Apr, 2013 [facility] [place] [facility] [address] [id number] [place] [address]- 1689 22 Apr, 2013 [facility] [place] [facility] [address] [id number] [place] [address]- 3140 22 Apr, 2013 [facility] [place] [facility] [address] [id number] [place] [address]- 6710 19 Apr, 2013 [facility] [place] [facility] [address] [id number] [place] [address]- 8624 19 Apr, 2013 [facility] [place] [facility] [address] [id number] [place] [address]- 3076 18 Apr, 2013 [facility] [place] [facility] [address] [id number] [place] [address] 2549 18 Apr, 2013 [facility] [place] [facility] [address] [id number] [place] [address] 254 18 Apr, 2013 [facility] [place] [facility] [address] [id number] [place] [address]- 254 18 Apr, 2013 [facility] [place] [facility] [address] [id number] [place] [address]- 7646 17 Apr, 2013 [facility] [place] [facility] [address] [id number] [place] [address]- 4653 17 Apr, 2013 [facility] [place] [facility] [address] [id number] [place] [address]- 2452 15 Apr, 2014 [facility] [place] [facility] [address] [id number] [place] [address]- 4347 15 Apr, 2014 [facility] [place] [facility] [address] [id number] [place] [address]- 3766 Apr, [facility] [place] [facility] [address] [id number] [place] [address]- 9518 Apr, [facility] [place] [facility] [address] [id number] [place] [address]- 8341 Apr, [facility] [place] [facility] [address] [id number] [place] [address]- 7245 Apr, [facility] [place] [facility] [address] [id number] [place] [address]- 2596 Mar, [facility] [place] [facility] [address] [id number] [place] [address]- 2381 Mar, [facility] [place] [facility] [address] [id number] [place] [address]- 7191 Mar, [facility] [place] [facility] [address] [id number] [place] [address]- 1928 Mar, [facility] [place] [facility] [address] [id number], [place] [address]- 2422 Feb, [facility] [place] [facility] [address] [id number] [place] [address]- 0826 Feb, [facility] [place] [facility] [address] [id number] [place] [address]- 1396 Jul, [facility] [place] [facility] [address] [id number] [place] [address]- 7086 Jul, [facility] [place] [facility] [address] [id number] [place] [address]- 3803 May, [facility] [place] [facility] [address] [id number] [place] [address]- 0607 May, [facility] [place] [facility] [address] [id number] [place] [address]- 6076 Mar, [facility] [place] [facility] [address] [id number] [place] 9298 Feb, [facility] [place] [facility] [address] [id number] [place] [address]- 6657 Jan, [facility] [place] [facility] [address] [id number] [place] [address]- 6732 Jan, [facility] [place] [facility] [address] [id number] [place] [address]- 3273 Jan, [facility] [place] [facility] [address] [id number] [place] [address]- 7227 Aug, [facility] [place] [facility] [address] [id number] [place] [address]- 1084 Aug, [facility] [place] [facility] [address] [id number] [place] [address]- 7874 Jun, [facility] [place] [facility] [address] [id number] [place] [address]- 4648 Jun, [facility] [place] [facility] [address] [id number] [place] [address]- 2181 Jun, [facility] [place] [facility] [address] [id number] [place] [address]- 3278 Jun, [facility] [place] [facility] [address] [id number] [place] [address]- 1182 May, [facility] [place] [facility] [address] [id number] [place] [address]- 7073 May, [facility] [place] [facility] [address] [id number] [place] [address]- 1776 Feb, [facility] [address] [facility] [id number], [place] [address]- 2546 Jan, [facility] [address] [id number], [place] [address] 2546 Jan, [facility] [address] [facility] [id number], [place] [address]- 5706 December, [facility] [address] [address]- 2496 December, [facility] [address] [facility] [id number], [place] [address]- 6166 December, [facility] [address] [id number], [place] [address]- 3156 December, [facility] [address] [id number], [place] [address]- 4596 Jun, [facility] [address] [id number], [place] [address] Feb, IMMUNIZATIONS Vaccine Route Administration Date Status DEXAMETHASONE 4MG/ML (PER 1 MG) IM Intramuscular Mar 31, 2017 Administered DEPO MEDROL 40 MG/ML IM Intramuscular Mar 31, 2017 Administered SOCIAL HISTORY Never Assessed REASON FOR VISIT Injection Aguilar PLAN OF CARE VITAL SIGNS MEDICATIONS Medication Instructions Dosage Frequency Start Date End Date Duration Status Aspirin 81 MG Orally Once a day 1 tablet 24h 18 Apr, 2014 Active Amlodipine Besylate 5 mg Orally Once a day 1 tablet 24h 90 Active Clopidogrel Bisulfate 75 MG Orally Once a day 1 tablet 24h 90 Active Albuterol Sulfate HFA cfc free 90 mcg/inh Inhalation every 4 hrs 2 puffs as needed 4h 20 Sep, 2016 Active Pravachol 20 mg Orally Once a day 1/2 tablet 24h Active Hydrochlorothiazide 12.5 MG Orally Once a day 1 capsule as needed for swelling 24h 30 Active Promethazine-Codeine 6.25-10 MG/5ML Orally every 6 hrs 5 ml as needed 6h Mar, Active Symbicort 160-4.5 MCG/ACT Inhalation Twice a day 2 puffs 12h Oct, Active RESULTS No Results PROCEDURES Procedure Date Ordered Result Body Site DEXAMETHASONE 4MG/ML (PER 1 MG) Mar 31, 2017 THER/PROPH/DIAG INJ, SC/IM Mar 31, 2017 DEPO MEDROL 40 MG/ML Mar 31, 2017 INSTRUCTIONS MEDICATIONS ADMINISTERED No Known Medications MEDICAL (GENERAL) HISTORY Type Description Date Medical History Cardiovascular Disorder ([place]) Medical History ---- Stress Echo 02/26/2010 ([place] [...] Hospitalization History Surgeries Hospitalization History Chest pain/CAD--[facility] 04/26/16
--- OUTSIDE RECORDS SUMMARY | 2018-04-20 10:27 | XMS REPORT ---
Author Author CHEKO BARRON Organization [facility] Address [address] 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.119 Active 5543251513120 Problem Chronic obstructive pulmonary disease, unspecified COPD type J44.9 Active 63477469 Problem Tobacco use Z72.0 Resolved 410327840 Problem Diabetes mellitus type II, controlled E11.9 Active 52614602 Problem Automatic implantable cardioverter-defibrillator in situ Z95.810 Active 962033347 Problem Chronic post-traumatic headache, not intractable G44.329 Active 751273884 Problem Major depressive disorder, recurrent, severe without psychotic features F33.2 Active 35434059 Problem Essential hypertension I10 Active 09098567 ALLERGIES Unknown Allergies SOCIAL HISTORY No smoking Hx information available PLAN OF CARE VITAL SIGNS MEDICATIONS Medication Instructions Dosage Frequency Start Date End Date Duration Status MetFORMIN HCl ER 500 MG Orally Once a day 1 tablet with evening meal 24h 30 Active Clopidogrel Bisulfate 75 MG TAKE ONE TABLET BY MOUTH ONCE DAILY Active Amlodipine Besylate 5 MG TAKE ONE TABLET BY MOUTH DAILY Active Metoprolol Succinate ER 25 MG Orally Once a day 1 tablet 24h Active Fish Oil 1200 MG Orally Once a day 2 capsule 24h December, Active Aspirin 81 MG Orally Once a day 1 tablet 24h Apr, Active Pravachol 20 MG Orally Once a day 1 tablet 24h Active Nitrostat 0.4 MG Sublingual every 15 mins x3 for Chest pain 1 tablet Active RESULTS No Results PROCEDURES No Known procedures IMMUNIZATIONS No Known Immunizations
--- OUTSIDE RECORDS SUMMARY | 2018-04-20 10:27 | XMS REPORT ---
Author Author PATEL FLETCHER eClinicalWorks Address Unknown Phone Unavailable Care Team Providers Care Ancient Art Curator Name Role Phone PATEL FLETCHER CP Unavailable Allergies, Adverse Reactions, Alerts Substance Reaction Event Type Isosorbide Mononitrate 30 Mg Tablet Extended Relea Headache Non Drug Allergy Problems Problem Type Condition Code Onset Dates Condition Status Assessment Apnea R06.81 Active Assessment Fatigue, unspecified type R53.83 Active Problem Major depressive disorder, recurrent, severe without psychotic features F33.2 Active Problem Essential hypertension I10 Active Problem Diabetes mellitus type II, controlled E11.9 Active Problem Coronary artery disease involving [place] coronary artery of [place]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 pectoris I25.119 Active Assessment Coronary artery disease involving [place] coronary artery of [place]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 pectoris I25.119 Active Problem Automatic implantable cardioverter-defibrillator in situ Z95.810 Active Problem Chronic post-traumatic headache, not intractable G44.329 Active Medications Medication Code System Code Instructions Start Date End Date Status Dosage Plavix [facility] 58188965288 75 MG TAKE ONE TABLET BY MOUTH ONCE DAILY Atorvastatin Calcium [facility] [address]-66 40 MG Orally Once a day 1 tablet Fish Oil [facility] [address]-49 December 23, 2011 by Oral route Contour Blood Glucose System ND 0 not defined Amlodipine Besylate [facility] 11339742030 5 MG TAKE ONE TABLET BY MOUTH DAILY MetFORMIN HCl ER [facility] 88185043560 500 MG TAKE ONE TABLET BY MOUTH DAILY WITH EVENING MEAL Coreg [facility] [address]-97 6.25 MG Orally 2 times a day 1 tablet Coenzyme Q10 ND 0 December 23, 2011 by Oral route Aspirin [facility] [address]-43 Apr 24, 2014 by Oral route Ambien CR [facility] [address]-97 6.25 MG Orally Once a day Jun 12, 2015 1 tablet at bedtime as needed Procedures Procedure Coding System Code Date Office Visit, Est Pt., Level 3 CPT-4 89757 Jun 19, 2015 Vital Signs Date/Time: Jun 19, 2015 Temperature 97.9 F Weight 207.0 lbs Height 70 in BMI 29.70 Index Blood Pressure Diastolic 82 mmHg Blood Pressure Systolic 130 mmHg Cardiac Monitoring Heart Rate 88 bpm Results No Known Results Summary Purpose eClinicalWorks Submission
--- OUTSIDE RECORDS SUMMARY | 2018-04-20 10:27 | XMS REPORT ---
Author Author MARY PHAM Organization [facility] Address [address] [place] [address] Care Team Providers Care City Planner Name Role Phone MARY PHAM Unavailable PROBLEMS Type Condition ICD9-CM Code CTC41-AB Code Onset Dates Condition Status SNOMED Code Problem Obstructive sleep apnea G47.33 Active 36072804 Problem Chronic post-traumatic headache, not intractable G44.329 Active 558644488 Problem Chronic obstructive pulmonary disease, unspecified COPD type J44.9 Active 07818851 Problem Tobacco use Z72.0 Resolved 732718022 Problem Essential hypertension I10 Active 18117741 Problem Automatic implantable cardioverter-defibrillator in situ Z95.810 Active 222362077 Problem Coronary artery disease involving [place] coronary artery of [place]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 pectoris I25.119 Active 5983467344992 Problem Major depressive disorder, recurrent, severe without psychotic features F33.2 Active 38932716 Problem Diabetes mellitus type II, controlled E11.9 Active 62027039 ALLERGIES Substance Reaction Event Type Date Status Isosorbide Mononitrate migraines Drug Allergy Oct, Active Atorvastatin Calcium muscle pain Drug Allergy Oct, Active SOCIAL HISTORY Never Assessed PLAN OF CARE Activity Details Follow Up 3 Months, prn Reason: VITAL SIGNS Height 70 in 2016-10-12 Weight 204.9 lbs 2016-10-12 Temperature 98.0 degrees Fahrenheit 2016-10-12 Heart Rate 80 bpm 2016-10-12 Respiratory Rate 16 2016-10-12 BMI 29.40 kg/m2 2016-10-12 Blood pressure systolic 108 mmHg 2016-10-12 Blood pressure diastolic 70 mmHg 2016-10-12 MEDICATIONS Medication Instructions Dosage Frequency Start Date End Date Duration Status Fish Oil 1200 MG Orally Once a day 2 capsule 24h December, Active Hydrochlorothiazide 12.5 MG Orally Once a day 1 capsule as needed for swelling 24h 30 Active Nitrostat 0.4 MG Sublingual every 15 mins x3 for Chest pain 1 tablet Active Aspirin 81 MG Orally Once a day 1 tablet 24h 18 Apr, 2014 Active MetFORMIN HCl ER 500 MG Orally Once a day 1 tablet with evening meal 24h 90 days Active Clopidogrel Bisulfate 75 MG Orally Once a day 1 tablet 24h 90 days Active Amlodipine Besylate 5 mg Orally Once a day 1 tablet 24h 90 days Active Albuterol Sulfate HFA 108 (90 Base) MCG/ACT Inhalation every 4 hrs 2 puffs as needed 4h 20 Sep, 2016 Active Symbicort 160-4.5 MCG/ACT Inhalation Twice a day 2 puffs 12h 08 Oct, 2016 Active RESULTS No Results PROCEDURES No Known procedures IMMUNIZATIONS No Known Immunizations MEDICAL (GENERAL) HISTORY Type Description Date Medical History Cardiovascular Disorder ([facility]) Medical History ---- Stress Echo 02/26/2010 ([facility])- Hypertensive response;no ischemia; normal Echo EF 60% Medical History --Stent 04/2011 Medical History --Heart Cath 06/2011 Medical History --Cardiac Arrest requiring multiple defibrillations 03/2014 Medical History --Heart cath 03/2014 in [place], no stents placed at that time Medical History --Pacemaker/defrillator placed 03/2014 after cardiac arrest Medical History Cardiovascular disorder ([facility])- CAD Medical History ----Stress Echo 02/26/2010 [...] Hospitalization History Surgeries Hospitalization History Chest pain/CAD--[facility] 04/26/16
--- OUTSIDE RECORDS SUMMARY | 2018-04-20 10:28 | XMS REPORT ---
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 Active Problem Essential hypertension I10 Active Problem Automatic implantable cardioverter-defibrillator in situ Z95.810 Active Medications No Known Medications Procedures Procedure Coding System Code Date NEB/MDI DEMO CPT-4 71550 Jul 10, 2015 RESPIRATORY FLOW VOLUME LOOP CPT-4 66679 Jul 10, 2015 SPIROMETRY CPT-4 43449 Jul 10, 2015 SPRIOMETRY CHALLENGE CPT-4 30018 Jul 10, 2015 Results Name Result Date Reference Range Unit Abnormality Flag PULMONARY FUNCTION TEST (IN-HOUSE) PULMONARY EDUCATION (IN-HOUSE) RESPIRATORY FLOW VOLUME LOOP (IN-HOUSE) BRONCHODILATION PRE/POST (IN-HOUSE) Summary Purpose eClinicalWorks Submission
--- OUTSIDE RECORDS SUMMARY | 2018-04-20 10:28 | XMS REPORT ---
Author Author JOSE LUNA [facility] eClinicalWorks Address Unknown Phone Unavailable Care Team Providers Care Manager Child Name Role Phone JOSE LUNA CP Unavailable Allergies, Adverse Reactions, Alerts Substance Reaction Event Type Isosorbide Mononitrate 30 Mg Tablet Extended Relea Headache Non Drug Allergy Problems Problem Type Condition Code Onset Dates Condition Status Assessment Insomnia G47.00 Active Problem Major depressive disorder, recurrent, severe without psychotic features F33.2 Active Problem Essential hypertension I10 Active Problem Diabetes mellitus type II, controlled E11.9 Active Problem 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 Active Assessment Major depressive disorder, recurrent, severe without psychotic features F33.2 Active Problem Automatic implantable cardioverter-defibrillator in situ Z95.810 Active Problem Chronic post-traumatic headache, not intractable G44.329 Active Medications Medication Code System Code Instructions Start Date End Date Status Dosage Plavix [facility] 2] 96092428341 75 MG TAKE ONE TABLET BY MOUTH ONCE DAILY Amlodipine Besylate [facility] [place] 2] 53477663656 5 MG TAKE ONE TABLET BY MOUTH DAILY Ambien CR [facility] [place] 2] [address]-54 6.25 MG Orally Once a day Jun 12, 2015 1 tablet at bedtime as needed Fish Oil [facility] [place] 2[facility] [address]-99 December 23, 2011 by Oral route MetFORMIN HCl ER [facility] [place]NOTE 2] 66860156209 500 MG TAKE ONE TABLET BY MOUTH DAILY WITH EVENING MEAL Atorvastatin Calcium [facility] [place]NOTE 2] [address]-22 40 MG Orally Once a day 1 tablet Contour Blood Glucose System NDC 0 not defined Aspirin [facility] [place] 2] [address]-56 Apr 24, 2014 by Oral route Coenzyme Q10 NDC 0 December 23, 2011 by Oral route Escitalopram Oxalate [facility] [place]NOTE 2] 31753942952 10 MG TAKE ONE TABLET BY MOUTH DAILY Procedures Procedure Coding System Code Date Psych diagnostic evaluation w/medical services, established patient CPT-4 15344 Jun 12, 2015 Vital Signs Date/Time: Jun 12, 2015 Cardiac Monitoring Heart Rate 100 bpm Weight 207.4 lbs Height 70 in BMI 29.76 Index Blood Pressure Diastolic 76 mmHg Blood Pressure Systolic 124 mmHg Results No Known Results Summary Purpose eClinicalWorks Submission
--- OUTSIDE RECORDS SUMMARY | 2018-04-20 10:28 | XMS REPORT ---
Author Author PATEL FLETCHER Organization [facility] Address [address] [place] [address] Care Team Providers Care Blow Off Worker Name Role Phone PATEL FLETCHER Unavailable PROBLEMS Type Condition ICD9-CM Code LJJ24-TI Code Onset Dates Condition Status SNOMED Code Problem Obstructive sleep apnea G47.33 Active 77734821 Problem Chronic post-traumatic headache, not intractable G44.329 Active 871195743 Problem Chronic obstructive pulmonary disease, unspecified COPD type J44.9 Active 02297226 Problem Tobacco use Z72.0 Resolved 999545060 Problem Essential hypertension I10 Active 98874815 Problem Automatic implantable cardioverter-defibrillator in situ Z95.810 Active 281611131 Problem 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 Active 9819500410331 Problem Major depressive disorder, recurrent, severe without psychotic features F33.2 Active 82088793 Problem Diabetes mellitus type II, controlled E11.9 Active 27946225 ALLERGIES No Information SOCIAL HISTORY Never Assessed PLAN OF CARE VITAL SIGNS MEDICATIONS Medication Instructions Dosage Frequency Start Date End Date Duration Status Amlodipine Besylate 5 mg Orally Once a day 1 tablet 24h 90 days Active MetFORMIN HCl ER 500 MG Orally Once a day 1 tablet with evening meal 24h 90 days Active Clopidogrel Bisulfate 75 MG Orally Once a day 1 tablet 24h 90 days Active RESULTS No Results PROCEDURES No Known [...] Hospitalization History Surgeries Hospitalization History Chest pain/CAD--[facility] 04/26/16
--- OUTSIDE RECORDS SUMMARY | 2018-04-20 10:28 | XMS REPORT ---
Author Author PATEL FLETCHER eClinicalWorks Address Unknown Phone Unavailable Care Team Providers Care Activities Director Scouting Name Role Phone PATEL FLETCHER CP Unavailable Allergies, Adverse Reactions, Alerts Substance Reaction Event Type Isosorbide Mononitrate migraines Drug Allergy Atorvastatin Calcium muscle pain Drug Allergy Problems Problem Type Condition Code Onset Dates Condition Status Assessment Essential hypertension I10 Active Problem Chronic obstructive pulmonary disease, unspecified COPD type J44.9 Active Problem Obstructive sleep apnea G47.33 Active Problem Diabetes mellitus type II, controlled E11.9 Active Problem Major depressive disorder, recurrent, severe without psychotic features F33.2 Active Problem Tobacco use Z72.0 Active Problem Chronic post-traumatic headache, not intractable G44.329 Active Problem 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 25064423137 500 MG Orally Once a day 1 tablet with evening meal Amlodipine Besylate [facility] [address]-42 5 mg Orally Once a day 1 tablet [address] [facility] [address]-75 0.4 MG Sublingual every 15 mins x3 for Chest pain 1 tablet Clopidogrel Bisulfate [facility] 25437156567 75 MG Orally Once a day 1 tablet Metoprolol Succinate ER [facility] [address]-77 25 MG Orally Once a day 1 tablet [address]rav[address]ol [facility] [address]-00 20 MG Orally Once a day [address] [facility] [address]-93 81 MG Orally Once a day Apr 24, 2014 1 tablet Procedures Procedure Coding System Code Date ASSAY OF FREE THYROXINE CPT-4 92190 May 13, 2016 COMPLETE CBC W/AUTO DIFF WBC CPT-4 51754 May 13, 2016 ASSAY THYROID STIM HORMONE CPT-4 12966 May 13, 2016 COMPREHEN METABOLIC PANEL CPT-4 17976 May 13, 2016 LIPID PANEL CPT-4 84684 May 13, 2016 VENIPUNCT, ROUTINE* CPT-4 88217 May 13, 2016 Office Visit, Est Pt., Level 3 CPT-4 45654 May 13, 2016 Vital Signs Date/Time: May 13, 2016 Cardiac Monitoring Heart Rate 80 bpm Weight 207.1 lbs Height 70 in BMI 29.71 Index Blood Pressure Diastolic 76 mmHg Blood Pressure Systolic 132 mmHg Results Name Result Date Reference Range Unit Abnormality Flag ROUTINE VENIPUNCTURE Summary Purpose eClinicalWorks Submission
--- OUTSIDE RECORDS SUMMARY | 2018-04-20 10:29 | XMS REPORT ---
Author DOUG Culver [facility] eClinicalWorks Address Unknown Phone Unavailable Care Team Providers Care Manager Security Name Role Phone DOUG QUIÑONES CP Unavailable Allergies, Adverse Reactions, Alerts Substance Reaction Event Type Isosorbide Mononitrate migraines Drug Allergy Problems Problem Type Condition Code Onset Dates Condition Status Assessment Thoracic neuritis M54.14 Active Assessment Low back pain M54.5 Active Assessment Sciatica, unspecified side M54.30 Active Problem Major depressive disorder, recurrent, severe without psychotic features F33.2 Active Problem Essential hypertension I10 Active Problem Diabetes mellitus type II, controlled E11.9 Active Problem 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 Active Problem Chronic obstructive pulmonary disease, unspecified COPD type J44.9 Active Problem Automatic implantable cardioverter-defibrillator in situ Z95.810 Active Problem Chronic post-traumatic headache, not intractable G44.329 Active Medications Medication Code System Code Instructions Start Date End Date Status Dosage Percocet [facility] [address]-50 5-325 MG Orally every 6 hrs Jul 14, 2015 1 tablet as needed MetFORMIN HCl ER [facility] 54211851267 500 MG TAKE ONE TABLET BY MOUTH DAILY WITH EVENING MEAL Contour Blood Glucose System ND 0 not defined Pantoprazole Sodium [facility] 05605971243 40 MG TAKE ONE TABLET BY MOUTH EVERY MORNING BEFORE BREAKFAST Atorvastatin Calcium [facility] [address]-20 40 MG Orally Once a day 1 tablet Clopidogrel Bisulfate [facility] 62680522500 75 MG TAKE ONE TABLET BY MOUTH ONCE DAILY Ambien CR [facility] [address]-70 6.25 MG Orally Once a day Jun 12, 2015 1 tablet at bedtime as needed Fish Oil [facility] [address]-95 December 23, 2011 by Oral route Aspirin [facility] [address]-02 Apr 24, 2014 by Oral route Coenzyme Q10 [facility] 0 December 23, 2011 by Oral route Albuterol Sulfate HFA [facility] [address]-01 108 (90 Base) MCG/ACT Inhalation every 4 hrs Jul 14, 2015 2 puffs as needed Amlodipine Besylate [facility] 50620931229 5 MG TAKE ONE TABLET BY MOUTH DAILY PredniSONE [facility] [address]-48 20 MG Orally Twice a day Jul 14, 2015Jul 1 tablet with food or milk Procedures Procedure Coding System Code Date THER/PROPH/DIAG INJ, SC/IM CPT-4 94017 Jul 14, 2015 Office Visit, Est Pt., Level 3 CPT-4 33133 Jul 14, 2015 TORADOL (IM) 60 MG/2ML (UP TO 15 MG) CPT-4 J1885 Jul 14, 2015 Vital Signs Date/Time: Jul 14, 2015 Temperature 97.5 F Weight 207.7 lbs Height 70 in BMI 29.80 Index Blood Pressure Diastolic 90 mmHg Blood Pressure Systolic 172 mmHg Cardiac Monitoring Heart Rate 100 bpm Results No Known Results Summary Purpose eClinicalWorks Submission
--- OUTSIDE RECORDS SUMMARY | 2018-04-20 10:29 | XMS REPORT ---
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
--- OUTSIDE RECORDS SUMMARY | 2018-04-20 10:29 | XMS REPORT ---
Author Author JUSTINE PATEL Organization [facility] Address [address] [place] [address] Care Team Providers Care Road Supervisor Of Engines Name Role Phone JUSTINESYDNEE MUSEHANY Unavailable PROBLEMS Type Condition ICD9-CM Code IFV15-CF Code Onset Dates Condition Status SNOMED Code Problem Automatic implantable cardioverter-defibrillator in situ Z95.810 Active 718225540 Problem Major depressive disorder, recurrent, severe without psychotic features F33.2 Active 83414830 Problem Diabetes mellitus type II, controlled E11.9 Active 35736543 Problem Obstructive sleep apnea G47.33 Active 44837855 Problem Chronic obstructive pulmonary disease, unspecified COPD type J44.9 Active 62056878 Problem 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.119 Active 6108944058544 Problem Atherosclerotic heart disease of [place]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.10 Active 317446317415356 Problem Acute midline low back pain with left-sided sciatica M54.42 Active 440408802 Problem Essential hypertension I10 Active 18722282 Problem Chronic post-traumatic headache, not intractable G44.329 Active 696664988 Problem Other chronic pain G89.29 Active 83381552 Problem Tobacco use Z72.0 Resolved 223444844 ALLERGIES Substance Reaction Event Type Date Status Isosorbide Mononitrate migraines Drug Allergy Jan, Active Atorvastatin Calcium muscle pain Drug Allergy Jan, Active ENCOUNTERS Encounter Location Date Diagnosis [facility] [address] [facility] [id number] [address] Sep, Acute midline low back pain with left-sided sciatica M54.42 [facility] [address] [id number] [address] Aug, Atherosclerotic heart disease of [place]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.10 [facility] [id number] [place] [address] Aug, [facility] [address] [address] Aug, [facility] [address] [address] Aug, Acute midline low back pain with left-sided sciatica M54.42 [facility] [address] [address] Aug, Left foot pain M79.672 ; Low back pain M54.5 ; Other chronic pain G89.29 and Acute cystitis without hematuria N30.00 [facility] [address] [address] Jun, Acute bilateral low back pain without sciatica M54.5 [place] [address] [address] Jun, Diabetes mellitus type II, controlled E11.9 and Essential hypertension I10 [place] [address] [address] May, [facility] [place] [address] [address] Mar, Pneumonia of both lower lobes due to infectious organism J18.9 [place] [address] [address] Mar, [place] [address] [address] Mar, Bronchitis J40 [facility] [address] [address] Mar, Bronchitis J40 [facility] [address] [address] Feb, Chronic obstructive pulmonary disease, unspecified COPD type J44.9 [facility] [address] [address] Jan, Diabetes mellitus type II, controlled E11.9 ; Essential hypertension I10 and Chronic obstructive pulmonary disease, unspecified COPD type J44.9 [place] [address] [place] [id number] [place] [address] Nov, [place] [address] [place] [address] [id number] [place] [address] Oct, Pneumonia of left lung due to infectious organism, unspecified part of lung J18.9 [place] [address] [place] [address] [id number] [place] [address]- [address] 20 Sep, 2016 Bronchitis J40 and Pneumonia of both upper lobes due to infectious organism J18.9 [place] [address] [place] [address] [id number] [place] [address]- [address] 17 Sep, 2016 Diabetes mellitus type II, controlled E11.9 ; Essential hypertension I10 and 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.119 [place] [address] [place] [address] [id number] [place] [address] Sep, [place] [address] [place] [address] [id number] [place] [address] Jul, [place] [address] [place] [address] [id number] [place] [address]- [address] May, [place] [address] [place] [address] [id number] [place] [address] May, Diabetes mellitus type II, controlled E11.9 ; Dental abscess K04.7 ; Palpitations R00.2 ; Dizziness R42 and Double vision H53.2 [place] [address] [place] [address] [id number] [place] [address]- [address] May, Confused R41.0 and Shortness of breath R06.02 [place] [address] [place] [address] [id number] [place] [address] May, Diabetes mellitus type II, controlled E11.9 ; Essential hypertension I10 and 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.119 [facility] [address], [place] [address] May, Essential hypertension I10 ; Diabetes mellitus type II, controlled E11.9 ; 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.119 and Tobacco use Z72.0 [facility] [address], [place] [address] Apr, 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.119 [facility] [address] [place] [address]- [address] Apr, [facility] [id number] [place] [address]20- 76[address] Apr, [facility] [id number] [place] [address] Feb, Diabetes mellitus type II, controlled E11.9 ; Essential hypertension I10 ; Tobacco use Z72.0 and 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.119 [facility] [address] [place] [address] Jan, Right knee injury, initial encounter S89.91XA [facility] [address], [place] [address] Nov, [facility] [id number] [place] [address] Oct, [facility] [address], [place] [address] Sep, [facility] [id number] [place] [address] Aug, [facility] [address], [place] [address] Jul, [facility] [id number] [place] [address]- [address] Jul, Low back pain M54.5 ; Sciatica, unspecified side M54.30 and Thoracic neuritis M54.14 [place] [address] [address] Jul, [place] [address] [address] Jul, Shortness of breath R06.02 [place] [address] [address] Jun, [place] [address] [address] Jun, 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.119 ; Apnea R06.81 and Fatigue, unspecified type R53.[address] [address] Jun, Major depressive disorder, recurrent, severe without psychotic features F33.2 and Insomnia G47.[address] [address] May, Atherosclerotic heart disease of walk[place]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.10 and Shortness of breath R06.02 [place] [id number] [place] [address] May, [address] [address] May, Diabetes mellitus type II, controlled E11.9 ; CAD (coronary artery disease) 414.00 ; Major depressive disorder, recurrent, severe without psychotic features F33.2 ; Apnea R06.81 and Shortness of breath R06.02 [place] [address] [address] May, [place] [address] [address] Feb, Sciatica 724.3 ; Lumbar pain 724.2 and CAD (coronary artery disease) 414.00 [facility] [place] [facility] [address] [id number] [place] [address] Feb, [facility] [place] [facility] [address] [id number] [place] [address]- 2686 Feb, [facility] [place] [facility] [address] [id number] [place] [address]- 7[address] Nov, [facility] [place] [facility] [address] [id number] [place] [address]- 4094 Nov, [facility] [place] [facility] [address] [id number] [place] [address]- 8359 Oct, [facility] [place] [facility] [address] [id number] [place] [address]- 4759 Oct, [facility] [place] [facility] [address] [id number] [place] [address]- 9562 Oct, [facility] [place] [facility] [address] [id number] [place] [address]- 7923 Oct, [facility] [place] [facility] [address] [id number] [place] [address]- 8553 Oct, [facility] [place] [facility] [address] [id number] [place] [address]- 2073 Oct, [facility] [place] [facility] [address] [id number], [place] [address] Oct, [facility] [place] [facility] [address] [id number], [place] [address] 3[address] Oct, [facility] [place] [facility] [address] [id number] [place] [address]- 8364 Oct, [facility] [place] [facility] [address] [id number] [place] [address]- 9885 Oct, [facility] [place] [facility] [address] [facility] [id number] [place] [address]- 8292 Sep, [facility] [place] [facility] [address] [id number] [place] [address]- 9018 20 Sep, 2014 [facility] [place] [facility] [address] [id number] [place] [address]- 9149 Sep, 2014 [facility] [place] [facility] [address] [id number] [place] [address]- 9936 Sep, 2014 [facility] [place] [facility] [address] [id number] [place] [address]- 6396 Sep, 2014 [facility] [place] [facility] [address] [id number] [place] [address]- 3694 Sep, [facility] [place] [facility] [address] [id number] [place] [address]- 7405 Aug, [facility] [place] [facility] [address] [id number] [place] [address]- 1144 Aug, [facility] [place] [facility] [address] [facility] [id number] [place] [address]- 7542 Aug, [facility] [place] [facility] [address] [id number] [place] [address]- 9825 Aug, [facility] [place] [facility] [address] [facility] [id number] [place] [address]- 3557 Jul, [facility] [place] [facility] [address] [facility] [id number] [place] [address]- 6255 Jul, [facility] [place] [facility] [address] [id number] [place] [address]- 8167 Jul, [facility] [place] [facility] [address] [id number] [place] [address] Jul, [facility] [place] [facility] [address] [id number] [place] [address]- 2666 Jun, [facility] [place] [facility] [address] [id number] [place] [address]- 2191 Jun, [facility] [place] [facility] [address] [facility] [id number] [place] [address]- 9613 Jun, [facility] [place] [facility] [address] [id number] [place] [address]- 1644 Jun, [facility] [place] [facility] [address] [id number] [place] [address]- 6267 Jun, [facility] [place] [facility] [address] [id number] [place] [address]- 7404 Jun, [facility] [place] [facility] [address] [id number] [place] [address]- 6601 May, [facility] [place] [facility] [address] [id number] [place] [address]- 8745 May, [facility] [place] [facility] [address] [id number] [place] [address]- 1102 May, [facility] [place] [facility] [address] [id number] [place] [address]- 9429 May, [facility] [place] [facility] [address] [id number], [place] [address]- 2094 May, [facility] [place] [facility] [address] [id number] [place] [address]- 1628 May, [facility] [place] [facility] [address] [id number], [place] [address]- 4903 May, [facility] [place] [facility] [address] [id number], [place] [address]- 2837 May, [facility] [place] [facility] [address] [id number], [place] [address]- 1500 May, [facility] [place] [facility] [address] [id number], [place] [address]- 3153 May, [facility] [place] [facility] [address] [id number], [place] [address]- 4790 May, [facility] [place] [facility] [address] [id number], [place] [address]- 3445 May, [facility] [place] [facility] [address] [id number] [place] [address]- 8682 May, [facility] [place] [facility] [address] [id number] [place] [address]- 3223 May, [facility] [place] [facility] [address] [id number] [place] [address]- 1113 May, [facility] [place] [facility] [address] [id number] [place] [address]- 4081 May, [facility] [place] [facility] [address] [id number] [place] [address]- 2971 Apr, 2013 [facility] [place] [facility] [address] [id number] [place] [address]- 7965 26 Apr, 2013 [facility] [place] [facility] [address] [id number] [place] [address]- 0514 23 Apr, 2013 [facility] [place] [facility] [address] [id number] [place] [address]- 7454 23 Apr, 2013 [facility] [place] [facility] [address] [id number] [place] [address]- 4610 22 Apr, 2013 [facility] [place] [facility] [address] [id number] [place] [address]- 9740 22 Apr, 2013 [facility] [place] [facility] [address] [id number] [place] [address]- 2540 19 Apr, 2013 [facility] [place] [facility] [address] [id number] [place] [address] 2549 19 Apr, 2013 [facility] [place] [facility] [address] [id number], [place] [address]- 2544 18 Apr, 2013 [facility] [place] [facility] [address] [id number] [place] [address] 2542 18 Apr, 2013 [facility] [place] [facility] [address] [id number] [place] [address]- 2547 18 Apr, 2013 [facility] [place] [facility] [address] [id number] [place] [address] 2543 18 Apr, 2013 [facility] [place] [facility] [address] [id number] [place] [address]- 2342 17 Apr, 2013 [facility] [place] [facility] [address] [id number] [place] [address]- 8620 17 Apr, 2013 [facility] [place] [facility] [address] [id number] [place] [address]- 5019 15 Apr, 2013 [facility] [place] [facility] [address] [id number] [place] [address]- 4086 15 Apr, 2013 [facility] [place] [facility] [address] [id number] [place] [address]- 2309 Apr, 2013 [facility] [place] [facility] [address] [id number] [place] [address]- 9152 Apr, 2013 [facility] [place] [facility] [address] [id number] [place] [address]- 7722 Apr, 2013 [facility] [place] [facility] [address] [id number] [place] [address]- 4505 Apr, [facility] [place] [facility] [address] [id number] [place] [address]- 8583 Mar, [facility] [place] [facility] [address] [id number] [place] [address]- 1950 Mar, [facility] [place] [facility] [address] [id number] [place] [address]- 2104 Mar, [facility] [place] [facility] [address] [id number] [place] [address]- 0300 Mar, [facility] [place] [facility] [address] [id number] [place] [address]- 5427 Feb, [facility] [place] [facility] [address] [id number] [place] [address]- 3112 Feb, [facility] [place] [facility] [address] [id number] [place] [address]- 9380 Jul, [facility] [place] [facility] [address] [id number] [place] [address]- 2935 Jul, [facility] [place] [facility] [address] [id number] [place] [address]- 4386 May, [facility] [place] [facility] [address] [id number] [place] [address]- 2071 May, [facility] [place] [facility] [address] [id number] [place] [address]- 8765 Mar, [facility] [place] [facility] [address] [id number] [place] [address]- 1624 Feb, [facility] [place] [facility] [address] [id number] [place] [address]- 8073 Jan, [facility] [place] [facility] [address] [id number] [place] [address]- 0234 Jan, [facility] [place] [facility] [address] [id number] [place] [address]- 0004 Jan, [facility] [place] [facility] [address] [id number] [place] [address]- 5372 Aug, [facility] [place] [facility] [address] [id number] [place] [address]- 7630 Aug, [facility] [place] [facility] [address] [id number] [place] [address]- 1374 Jun, [facility] [place] [facility] [address] [id number] [place] [address]- 9855 Jun, [facility] [place] [facility] [address] [id number] [place] [address]- 2419 Jun, [facility] [place] [facility] [address] [id number] [place] [address]- 9012 Jun, [facility] [place] [facility] [address] [id number] [place] [address]- 4417 May, [facility] [place] [facility] [address] [id number] [place] [address]- 2857 May, [facility] [place] [facility] [id number] [address]- [address] Feb, [facility] [id number] [address] 2546 Jan, [facility] [address], [place] [address]- 2546 Jan, [facility] [id number], [place] [address] 2546 December, [facility] [address], [place] [address]- 2546 December, [facility] [address], [place] [address] 2546 December, [facility] [address], [place] [address]- 2546 December, [facility] [address], [place] [address] 2546 Jun, [facility] [address] [facility] [id number], [place] [address] 2546 Feb, IMMUNIZATIONS No Known Immunizations SOCIAL HISTORY Never Assessed REASON FOR VISIT f/u PLAN OF CARE Activity Details Follow Up 3 Months Reason:DMII VITAL SIGNS Height 70 in 2017-02-03 Weight 206 lbs 2017-02-03 Temperature 98.2 degrees Fahrenheit 2017-02-03 Heart Rate 84 bpm 2017-02-03 BMI 29.55 kg/m2 2017-02-03 Blood pressure systolic 135 mmHg 2017-02-03 Blood pressure diastolic 70 mmHg 2017-02-03 MEDICATIONS Medication Instructions Dosage Frequency Start Date End Date Duration Status Nitrostat 0.4 MG Sublingual every 15 mins x3 for Chest pain 1 tablet Active Aspirin 81 MG Orally Once a day 1 tablet 24h 18 Apr, 2014 Active Albuterol Sulfate HFA 108 (90 Base) mcg/act Inhalation every 4 hrs 2 puffs as needed 4h 20 Sep, 2016 Active Clopidogrel Bisulfate 75 MG Orally Once a day 1 tablet 24h 90 Active Symbicort 160-4.5 MCG/ACT Inhalation Twice a day 2 puffs 12h Oct, Active Pravachol 20 mg Orally Once a day 1/2 tablet 24h Active Hydrochlorothiazide 12.5 MG Orally Once a day 1 capsule as needed for swelling 24h 30 Active Efudex 5 % Externally Twice a day 1 application to affected area 12h 24 Nov Active Amlodipine Besylate 5 mg Orally Once a day 1 tablet 24h 90 Active RESULTS Name Result Date Reference Range A1C (IN HOUSE) 2017-02-06 A1C IN HOUSE 5.5 4.3 - 5.6 % Previous A1c 5.5 Lot [id number] Exp date 10/2018 PROCEDURES Procedure Date Ordered Result Body Site GLYCATED HEMOGLOBIN TEST February 03, 2017 INSTRUCTIONS MEDICATIONS ADMINISTERED No Known Medications MEDICAL (GENERAL) HISTORY Type Description Date Medical History Cardiovascular Disorder ([facility]) Medical History ---- Stress Echo 02/26/2010 ([facility])- Hypertensive response;no ischemia; normal Echo EF 60% Medical History --Stent 04/2011 Medical History --Heart Cath 06/2011 Medical History --Cardiac Arrest requiring multiple defibrillations 03/2014 Medical History --Heart cath 03/2014 in [place], no stents placed at that time Medical History --Pacemaker/defrillator placed 03/2014 after cardiac arrest Medical History Cardiovascular disorder ([facility])- CAD Medical History ----Stress Echo 02/26/2010 [...] Hospitalization History Surgeries Hospitalization History Chest pain/CAD--[facility]ia [facility] 04/26/16
[2018-04-20] MEDS ORDERED: LACTATED RINGERS 1,000 ML IV ONE (10:39)
[2018-04-20] MEDS ORDERED: PROPOFOL INJECTION 50 ML IV ONE (11:12)
[2018-04-20] MEDS ORDERED: LACTATED RINGERS 1,000 ML IV STA (11:19)
[2018-04-20 11:24] VITALS: BP 128/91
--- NOTE | 2018-04-20 11:28 | Conscious Sedation/ASA ---
Conscious Sedation Pre-Proced Time Reviewed: 11:00 ASA Class: 2 Airway Mallampati Classification: (apache appropriate class) I. II. III, IV Lungs Heart ASA score ASA 1: a normal healthy patient ASA 2: a patient with a mild systemic disease (mid diabetes, controlled hypertension, obesity ASA 3: a patient with a severe systemic disease that limits activity (angina , COPD, prior Myocardial infarction) ASA 4: a patient with an incapacitating disease that is a constant threat to life (CHF, renal failure) ASA 5: a moribund patient not expected to survive 24 hrs. (ruptured aneurysm) ASA 6: a declared brain patient whose organs are being harvested. For emergent operations, add the letter E after the classification Grade 2 Sedation Plan: Analgesia, Amnesia, Plan communicated to team members, Discussed options with patient/fam, Discussed risks with patient/fam Note The patient is an appropriate candidate to undergo the planned procedure, sedation, and anesthesia. The patient immediately re-assessed prior to indication. FELIX DE GUZMAN MD Apr 20, 2018 11:28 am
--- NOTE | 2018-04-20 11:28 | Progress Note-Pre Operative ---
Pre-Operative Progress Note H&P Reviewed The H&P was reviewed, patient examined and no changes noted. Date Seen by Provider: Apr 20, 2018 Time Seen by Provider: 11:00 Date H&P Reviewed: Apr 20, 2018 Time H&P Reviewed: 11:00 Pre-Operative Diagnosis: screening colonoscopy FELIX DE GUZMAN MD Apr 20, 2018 11:28 am
[2018-04-20] MEDS ORDERED: morphine INJ 10 MG/ML 1ML (SYR OR VIAL) IV PRN (11:30)
[2018-04-20] MEDS ORDERED: ONDANSETRON 4 MG/2 ML (SDV) Z0FRAN IV PRN (11:30)
[2018-04-20] MEDS ORDERED: LIDOCAINE JELLY 2% (XYLOCAINE) 5 ML TUBE MM PRN (11:30)
[2018-04-20] MEDS ORDERED: HYDROcodone/APAP 5 MG/325 MG (LORTAB) TAB PO PRN (11:30)
[2018-04-20] MEDS ORDERED: ACETAMINOPHEN 325 MG TABLET PO PRN (11:30)
[2018-04-20] MEDS ORDERED: MIDAZOLAM 2 MG/2 ML (VERSED) VIAL ONE (11:30)
[2018-04-20] MEDS ORDERED: LIDOCAINE JELLY 2% (XYLOCAINE) 5 ML TUBE ONE (12:09)
--- NOTE | 2018-04-20 12:15 | Progress Note-Post Operative ---
Post-Operative Progess Note Surgeon (s)/Window Air Conditioner Installer (s) Surgeon FELIX DE GUZMAN MD Window Air Conditioner Installer: none Pre-Operative Diagnosis screening colonoscopy Post-Operative Diagnosis mild chronic stage 1 ext and int hemorrhoids. Procedure & Operative Findings Date of Procedure 04/20/18 Procedure Performed/Findings Colonoscopy Anesthesia Type MAC Estimated Blood Loss Estimated blood loss (mL): minimal Specimens/Packing Specimens Removed none FELIX DE GUZMAN MD Apr 20, 2018 12:14 pm
--- NOTE | 2018-04-20 12:16 | Discharge Inst-Surgical ---
D/C Lap Instructions-GAB Follow Up 10 years Activity as tolerated High Fiber Diet 25g or more per day Avoid Alcohol, Caffeine, Spicy [place] and Acid foods. Drink 64 fluid oz or more of fluids per day. Symptoms to Report: Fever over 101 degree F, Nausea/Vomiting If any problems/questions: Contact your physician or go to Emergency Room FELIX DE GUZMAN MD Apr 20, 2018 12:16 pm
[2018-04-20 12:30] VITALS: BP 110/80
[2018-04-20 12:45] VITALS: BP 110/80
--- NOTE | 2018-04-20 13:36 | Anesthesia-General Post-Op ---
MAC Patient Condition Mental Status/LOC: Same as Preop Cardiovascular: Satisfactory Nausea/Vomiting: Absent Respiratory: Satisfactory Pain: Controlled Complications: Absent Post Op Complications Complications None Follow Up Care/Instructions Patient Instructions None needed. Anesthesiology Discharge Order Discharge Order Patient is doing well, no complaints, stable vital signs, no apparent adverse anesthesia problems. No complications reported per nursing. BIRDIE WALTON CRNA Apr 20, 2018 13:36
[2018-04-20 13:57] VITALS: BP 110/80
--- NOTE | 2018-04-20 17:47 | OPERATIVE REPORT ---
DATE OF SERVICE: 04/20/2018 ATTENDING PRIMARY CARE PHYSICIAN: Gala Chino MD. PREOPERATIVE DIAGNOSIS: Screening colonoscopy. POSTOPERATIVE DIAGNOSIS: Mild stage I chronic external and internal hemorrhoids. Remainder of the rectum and colon were normal. PROCEDURE: Colonoscopy. SURGEON: Felix De Guzman MD. ANESTHESIA: Monitored anesthesia care. ESTIMATED BLOOD LOSS: Minimal. FINDINGS: Mild chronic stage I external and internal hemorrhoids, not actively edematous nor inflamed and no bleeding. Prostate gland was palpable and appeared normal. Remainder of the rectum and colon were normal. There were no polyps, or any neoplasms identified. DISPOSITION: The patient tolerated the procedure well. INDICATIONS: The patient is a 57-year-old male in need of a screening colonoscopy. He has not had a colonoscopy up to this point in his life. He states for the most part he is doing well with no issues with diarrhea nor constipation as well as no red blood per rectum nor any dark tarry stool. He also does not report any family history of colon cancer. DESCRIPTION OF PROCEDURE: The patient was brought to the endoscopy suite, laid in the left lateral decubitus position. After adequate IV pain and sedative medications and conscious sedation anesthesia, a digital rectal examination was performed. Mild chronic stage I external and internal hemorrhoids were identified, which were not actively edematous nor inflamed, no bleeding. Normal sphincter tone was felt and there were no palpable masses. Prostate gland was palpable and appeared normal. The endoscope was then intubated to the anus and rectum gently insufflated. The endoscope was then advanced to the valves of [place] in the rectum with no polyps or any neoplasms identified. We then proceeded through the sigmoid colon where no diverticulosis identified. The endoscope was then advanced to the remainder of the descending, transverse and ascending colon to the cecum. These segments were normal. There were no polyps, or any neoplasms identified throughout the colon or rectum. The endoscope was then slowly withdrawn while taking a second look and suctioning of residual air with no additional findings. The patient tolerated the procedure well. We will start IV and oral pain medication. We will recommend medical management with a high fiber diet with at least 30 grams of fiber per day as well as at least 64 fluid ounces of water daily to promote soft stools on a daily basis. He does not need another colonoscopy for another 10 years. Job ID: [id number] DocumentID: [id number] Dictated Date: 04/20/2018 12:05:33 Bar Welder Date: 04/20/2018 17:47:15 Dictated By: FELIX DE GUZMAN MD
== END 2018-04-20 12:45 | disposition home or self-care (01) ==
LOC: ENDO 10:15
PROVIDERS: ATTEND Surgery
DX: Z12.11 Encounter for screening for malignant neoplasm of colon (principal); K64.0 First degree hemorrhoids; I10 Essential (primary) hypertension; F17.210 Nicotine dependence, cigarettes, uncomplicated; G62.9 Polyneuropathy, unspecified; I25.2 Old myocardial infarction; Z95.810 Presence of automatic (implantable) cardiac defibrillator; Z79.82 Long term (current) use of aspirin; Z79.899 Other long term (current) drug therapy; Z95.5 Presence of coronary angioplasty implant and graft

== ENCOUNTER 2018-06-07 10:59 | Outpatient (CLI) | payer BC ==
[~2018-06-07] VITALS: Ht 177.8 cm; Wt 92.5 kg
[2018-06-07 11:07] VITALS: BP 120/82
== END 2018-06-07 11:20 | disposition home or self-care (01) ==
LOC: PREOP 10:59
PROVIDERS: ATTEND Orthopaedic Surgery
DX: Z01.818 Encounter for other preprocedural examination (principal); Z11.2 Encounter for screening for other bacterial diseases; M75.102 Unspecified rotator cuff tear or rupture of left shoulder, not specified as traumatic; M25.312 Other instability, left shoulder
CPT/HCPCS: 87081

== ENCOUNTER 2018-06-13 09:34 | Day surgery (SDC) | payer BC ==
--- NOTE | 2018-06-06 16:39 | HISTORY AND PHYSICAL ---
DATE OF SERVICE: ADMISSION HISTORY AND PHYSICAL This will be for outpatient surgery on 06/13/2018 for the left shoulder arthroscopy and rotator cuff repair. HISTORY OF PRESENT ILLNESS: The patient is a 57-year-old [id number] gentleman who for the last several months has progressively worsening left shoulder pain. He has undergone subacromial injections, which provided temporary relief of symptoms. He reports, however, that his symptoms have progressed. He reports difficulty with work as well as his activities of daily living. He reports weakness and stiffness. He is not a candidate for MRI due to his pacemaker. He has had no new injuries otherwise, but is very active. REVIEW OF SYSTEMS: No chest pain, no shortness of breath, no dysuria. PAST MEDICAL HISTORY: Myocardial infarction, coronary artery disease, hypertension, hypercholesterolemia, ventricular fibrillation. PAST SURGICAL HISTORY: Right femur IM johnny placement, vasectomy and lumbar injections. FAMILY HISTORY: Significant for ischemic heart disease and hypertension. PRIMARY CARE PROVIDER: [facility]. MEDICATIONS: 1. Amlodipine. 2. Repatha. 3. Children's aspirin. ALLERGIES: No known allergies. SOCIAL HISTORY: The patient is a former smoker with [id number] history. Denies alcohol use. PHYSICAL EXAMINATION: GENERAL: The patient is well developed, well nourished, in no acute distress. HEENT: Normocephalic, atraumatic. Pupils equal, round, reactive to light. Oropharynx is clear. LUNGS: Clear to auscultation bilaterally. HEART: Regular rate and rhythm. ABDOMEN: Soft, nontender, nondistended. EXTREMITIES: The left upper extremity demonstrates active forward elevation 180 degrees, but painful beyond 90. He has a mildly positive drop arm sign. External rotation and internal rotation are symmetric. He has a positive Neer sign marked and a positive Hawkin sign with marked positive [place]aca's maneuver. He has weakness with external rotation on the left versus the right. ASSESSMENT: Left shoulder superior labrum anterior and posterior tear with rotator cuff tear. PLAN: Left shoulder arthroscopy with acromioplasty, biceps tenodesis, possible open rotator cuff repair. The risks, benefits, options, ramifications and recovery were discussed at length with the patient. He understands and wishes to proceed. Job ID: [id number] DocumentID: [id number] Dictated Date: 06/06/2018 15:43:20 Psychiatric [facility]n Date: 06/06/2018 16:38:05 Dictated By: MARION SIEGEL MD
[~2018-06-13] VITALS: Ht 177.8 cm; Wt 92.5 kg
[2018-06-13] MEDS: LACTATED RINGERS 1,000 ML IV PRN ×2 (10:00→11:45)
[2018-06-13] MEDS ORDERED: BUPIVACAINE 0.25% 30 ML (SENSORCAINE) VIAL ONE (10:09)
[2018-06-13] MEDS ORDERED: morphine PF (DURAMORPH) 10 MG/10 ML AMP ONE (10:09)
[2018-06-13 10:12] VITALS: BP 119/70
[2018-06-13] MEDS ORDERED: fentaNYL INJECTION 100 MCG/2 ML AMP ONE ×2 (10:14→10:18)
[2018-06-13] MEDS ORDERED: ROPIVACAINE 5MG/ML 30ML VIAL ONE (10:14)
[2018-06-13] MEDS ORDERED: MIDAZOLAM 2 MG/2 ML (VERSED) VIAL ONE ×2 (10:14→10:19)
[2018-06-13] MEDS ORDERED: ceFAZolin INJECTION 1,000 MG in NS (IVPB) 50 ML IV ONE (10:15)
--- OUTSIDE RECORDS SUMMARY | 2018-06-13 10:17 | XMS REPORT ---
Author Author JUSTINE PATEL [facility] Address [address] [place] [address] Care Team Providers Care Montessori Paraprofessional Name Role Phone JUSTINESYDNEE MUSEHANY Unavailable PROBLEMS Type Condition ICD9-CM Code RJE17-EC Code Onset Dates Condition Status SNOMED Code Problem Major depressive disorder, recurrent, severe without psychotic features F33.2 Active 89774105 Problem Essential hypertension I10 Active 58523241 Problem Chronic post-traumatic headache, not intractable G44.329 Active 964553001 Problem Allergy to bee sting Z91.038 Active 942005019 Problem Mixed hyperlipidemia E78.2 Active 385388580 Problem Other chronic pain G89.29 Active 89061201 Problem Tobacco use Z72.0 Resolved 968866687 Problem Atherosclerotic heart disease of [place]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.10 Active [id number] Problem Acute midline low back pain with left-sided sciatica M54.42 Active 776053547 Problem Chronic obstructive pulmonary disease, unspecified COPD type J44.9 Active 36719343 Problem Coronary artery disease involving [place] coronary artery of [place]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 pectoris I25.119 Active 7745338819257 Problem Automatic implantable cardioverter-defibrillator in situ Z95.810 Active 007558504 Problem Obstructive sleep apnea G47.33 Active 38469444 Problem Diabetes mellitus type II, controlled E11.9 Active 16574310 ALLERGIES No Information ENCOUNTERS Encounter Location Date Diagnosis [facility] [address] [id number] [address] May, [facility] [id number] [place] [address] 18[address] May, Encounter for immunization Z23 [facility] [address] [address] Feb, [facility] [address] [address] 07 Jan, 2018 [place] [address] [address] Jan, [place] [address] [address] Jan, Diabetes mellitus type II, controlled E11.9 ; Essential hypertension I10 ; Chronic obstructive pulmonary disease, unspecified COPD type J44.9 ; Tobacco use Z72.0 ; Mixed hyperlipidemia E78.2 ; Numbness of toes R20.0 ; Colon cancer screening Z12.11 ; Encounter for screening for lung cancer Z12.2 and Encounter for immunization Z23 [place] [address] [address] December, Allergy to bee sting Z91.038 [place] [address] [address]- [address] December, Mixed hyperlipidemia E78.2 [place] [address] [address]- [address] Nov, [place] [address] [address]- [address] Sep, Acute midline low back pain with left-sided sciatica M54.42 [place] [address] [address]- [address] Aug, Atherosclerotic heart disease of [place]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.10 [place] [id number] [place] [address] 65044- 4070 Aug, [place] [id number] [place] [address] 47213- 3991 Aug, [place] [address] [address]- [address] Aug, Acute midline low back pain with left-sided sciatica M54.42 [facility] [address] [address] Aug, Left foot pain M79.672 ; Low back pain M54.5 ; Other chronic pain G89.29 and Acute cystitis without hematuria N30.00 [facility] [id number] [place] [address] -0073 15 Jun, 2017 Acute bilateral low back pain without sciatica M54.5 [facility] [address] [address]- [address] 09 Jun, 2017 Diabetes mellitus type II, controlled E11.9 and Essential hypertension I10 [facility] [address] [address]- [address] May, [facility] [address] [address] Mar, Pneumonia of both lower lobes due to infectious organism J18.9 [place] [address] 9[address]- 9916 Mar, [facility] [id number] [place] [address] 98465- 0711 Mar, Bronchitis J40 [facility] [address] [address]68 Mar, Bronchitis J40 [place] [id number] [place] [address] 59974- 0659 Feb, Chronic obstructive pulmonary disease, unspecified COPD type J44.9 [facility] [id number] [place] [address] 05031- 0316 Jan, Diabetes mellitus type II, controlled E11.9 ; Essential hypertension I10 and Chronic obstructive pulmonary disease, unspecified COPD type J44.9 [facility] [id number] [place] [address] 87858- 3880 Nov, [facility] [id number] [place] [address] 52265- 1112 Oct, Pneumonia of left lung due to infectious organism, unspecified part of lung J18.9 [place] [address] [place] [address] 20999- 4619 20 Sep, 2016 Bronchitis J40 and Pneumonia of both upper lobes due to infectious organism J18.9 [facility] [id number] [place] [address] 54733- 5587 17 Sep, 2016 Diabetes mellitus type II, controlled E11.9 ; Essential hypertension I10 and Coronary artery disease involving [place] coronary artery of [place]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 pectoris I25.119 [place] [id number] [place] [address] 14542- 0071 Sep, [place] [address] 413[address]- 1291 Jul, [place] [id number] [place] [address] 55056- 5179 May, [place] [id number] [place] [address] 42965- 1635 May, Diabetes mellitus type II, controlled E11.9 ; Dental abscess K04.7 ; Palpitations R00.2 ; Dizziness R42 and Double vision H53.2 [place] [id number] [place] [address] 83400- 6191 May, Confused R41.0 and Shortness of breath R06.02 [place] [id number] [place] [address] 04540- 1734 May, Diabetes mellitus type II, controlled E11.9 ; Essential hypertension I10 and Coronary artery disease involving [place] coronary artery of [place]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 pectoris I25.119 [place] [address] [place] [address] 69539- 3259 May, Essential hypertension I10 ; Diabetes mellitus type II, controlled E11.9 ; Coronary artery disease involving [place] coronary artery of [place]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 pectoris I25.119 and Tobacco use Z72.0 [place] [id number] [place] [address] 17691- 1757 Apr, Coronary artery disease involving [place] coronary artery of [place]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 pectoris I25.119 [facility] [address] [id number] [address] Apr, [facility] [id number] [place] [address] 92254- 0139 Apr, [facility] [id number] [place] [address] 22004- 9537 Feb, Diabetes mellitus type II, controlled E11.9 ; Essential hypertension I10 ; Tobacco use Z72.0 and Coronary artery disease involving [place] coronary artery of [place]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 pectoris I25.119 [facility] [id number] [place] [address] 00084 -8659 Jan, Right knee injury, initial encounter S89.91XA [facility] [id number] [place] [address] 11518- 0328 Nov, [facility] [id number] [place] [address] 21033- 2382 Oct, [facility] [id number] [place] [address] 37238- 8512 Sep, [facility] [id number] [place] [address] 43651- 7850 Aug, [facility] [id number] [place] [address] 48336- 6802 Jul, [facility] [id number] [place] [address] 73605- 7898 Jul, Low back pain M54.5 ; Sciatica, unspecified side M54.30 and Thoracic neuritis M54.14 [facility] [id number] [place] [address] 53786- 9526 Jul, [facility] [id number] [place] [address] 77870- 1031 Jul, Shortness of breath R06.02 [facility] [id number] [place] [address] 11966- 0801 Jun, [place] [id number] [place] [address] 42974- 3700 Jun, Coronary artery disease involving [place] coronary artery of [place]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 pectoris I25.119 ; Apnea R06.81 and Fatigue, unspecified type R53.83 [place] [id number] [place] [address] 90816- 8123 Jun, Major depressive disorder, recurrent, severe without psychotic features F33.2 and Insomnia G47.00 [place] [id number] [place] [address] 06164- 3387 May, Atherosclerotic heart disease of [place]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.10 and Shortness of breath R06.02 [place] [id number] [place] [address] 91846- 1983 May, [address] [address]- 5871 May, Diabetes mellitus type II, controlled E11.9 ; CAD (coronary artery disease) 414.00 ; Major depressive disorder, recurrent, severe without psychotic features F33.2 ; Apnea R06.81 and Shortness of breath R06.02 [place] [id number] [place] [address] 93930- 8071 May, [place] [id number] [place] [address] 66048- 0700 Feb, Sciatica 724.3 ; Lumbar pain 724.2 and CAD (coronary artery disease) 414.00 [place] [id number] [place] [address] 62587- 1880 Feb, [place] [id number] [place] [address] 64783- 9170 Feb, [place] [id number] [place] [address] 73829- 6438 Nov, [place] [address] [place] [address]- 8591 Nov, [facility] [place] [facility] [address] [id number] [place] [address]- 6534 Oct, [facility] [place] [facility] [address] [id number] [place] [address]- 6722 Oct, [facility] [place] [facility] [address] [id number] [place] [address]- 2046 Oct, [facility] [place] [facility] [address] [id number] [place] [address]- 9576 Oct, [facility] [place] [facility] [address] [id number] [place] [address]- 5606 Oct, [facility] [place] [facility] [address] [id number] [place] [address]- 4675 Oct, [facility] [place] [facility] [address] [id number] [place] [address]- 0367 Oct, [facility] [place] [facility] [address] [id number] [place] [address]- 8513 Oct, [facility] [place] [facility] [address] [id number] [place] [address]- 7262 Oct, [facility] [place] [facility] [address] [facility] [id number] [place] [address]- 9896 Oct, [facility] [place] [facility] [address] [id number] [place] [address]- 8173 Sep, 2014 [facility] [place] [facility] [address] [id number] [place] [address]- 5301 Sep, 2014 [facility] [place] [facility] [address] [id number] [place] [address]- 8049 Sep, 2014 [facility] [place] [facility] [address] [id number] [place] [address]- 8436 Sep, 2014 [facility] [place] [facility] [address] [id number] [address]- 5437 Sep, [facility] [place] [facility] [address] [id number] [place] [address]- 7079 Sep, [facility] [place] [facility] [address] [id number] [place] [address]- 4913 Aug, [facility] [place] [facility] [address] [id number] [place] [address]- 1952 Aug, [facility] [place] [facility] [address] [id number] [place] [address]- 2965 Aug, [facility] [place] [facility] [address] [id number] [place] [address]- 0660 Aug, [facility] [place] [facility] [address] [id number] [place] [address]- 8498 Jul, [facility] [place] [facility] [address] [id number] [place] [address]- 5120 Jul, [facility] [place] [facility] [address] [id number] [place] [address]- 0811 Jul, [facility] [place] [facility] [address] [id number] [place] [address]- 5980 Jul, [facility] [place] [facility] [address] [id number] [place] [address]- 0317 Jun, [facility] [place] [facility] [address] [id number] [place] [address]- 0227 Jun, [facility] [place] [facility] [address] [id number], [place] [address]- 4100 Jun, [facility] [place] [facility] [address] [id number] [place] [address]- 1045 Jun, [facility] [place] [facility] [address] [id number] [place] [address]- 3851 Jun, [facility] [place] [facility] [address] [id number] 0813 Jun, [facility] [place] [facility] [address] [id number], [place] [address]- 0917 May, [facility] [place] [facility] [address] [id number] [place] [address]- 5643 May, [facility] [place] [facility] [address] [id number] [place] [address]- 8445 May, [facility] [place] [facility] [address] [id number] [place] [address]- 5416 May, [facility] [place] [facility] [address] [id number] [place] [address]- 8469 May, [facility] [place] [facility] [address] [id number] [place] [address]- 4093 May, [facility] [place] [facility] [address] [id number] [place] [address]- 2066 May, [facility] [place] [facility] [address] [id number] [place] [address]- 1535 May, [facility] [place] [facility] [address] [id number] [place] [address]- 8289 May, [facility] [place] [facility] [address] [id number] [place] [address]- 0260 May, [facility] [place] [facility] [address] [id number], [place] [address]- 0485 May, [facility] [place] [facility] [address] [id number], [place] [address]- 2774 May, [facility] [place] [facility] [address] [id number], [place] [address]- 9499 May, [facility] [place] [facility] [address] [id number] [place] [address]- 9472 May, [facility] [place] [facility] [address] [id number], [place] [address]- 7005 May, [facility] [place] [facility] [address] [id number] [place] [address]- 9055 May, [facility] [place] [facility] [address] [id number] [place] [address]- 8538 26 Sep, 2013 [facility] [place] [facility] [address] [id number] [place] [address]- 0346 26 Sep, 2013 [facility] [place] [facility] [address] [id number] [place] [address] 2546 23 Sep, 2013 [facility] [place] [facility] [address] [id number] [place] [address] 2546 23 Sep, 2013 [facility] [place] [facility] [address] [id number] [place] [address]- 2548 22 Sep, 2013 [facility] [place] [facility] [address] [id number] [place] [address]- 4298 22 Sep, 2013 [facility] [place] [facility] [address] [id number] [place] [address]- 8755 19 Sep, 2013 [facility] [place] [facility] [address] [id number] [place] [address]- 6304 19 Sep, 2013 [facility] [place] [facility] [address] [id number] [place] [address] 2545 18 Sep, 2013 [facility] [place] [facility] [address] [id number] [place] [address]- 254 18 Sep, 2013 [facility] [place] [facility] [address] [id number] [place] [address]- 4836 18 Sep, 2013 [facility] [place] [facility] [address] [id number] [place] [address]- 2540 18 Sep, 2013 [facility] [place] [facility] [address] [id number] [place] [address] 2548 17 Sep, 2013 [facility] [place] [facility] [address] [id number] [place] [address] 2546 17 Sep, 2013 [facility] [place] [facility] [address] [id number] [place] [address]- 2546 15 Sep, 2013 [facility] [place] [facility] [address] [id number] [place] [address]- 0028 15 Apr, 2014 [facility] [place] [facility] [address] [id number] [place] [address]- 8204 Apr, [facility] [place] [facility] [address] [id number] [place] [address]- 2106 Apr, [facility] [place] [facility] [address] [id number] [place] [address]- 3905 Apr, [facility] [place] [facility] [address] [id number] [place] [address]- 8121 Apr, [facility] [place] [facility] [address] [id number] [place] [address]- 4416 Mar, [facility] [place] [facility] [address] [id number] [place] [address]- 0076 Mar, [facility] [place] [facility] [address] [id number] [place] [address]- 4785 Mar, [facility] [place] [facility] [address] [id number] [place] [address]- 6863 Mar, [facility] [place] [facility] [address] [id number] [place] [address]- 9252 Feb, [facility] [place] [facility] [address] [id number] [place] [address]- 1150 Feb, [facility] [place] [facility] [address] [id number] [place] [address]- 2402 Jul, [facility] [place] [facility] [address] [id number], [place] [address]- 6042 Jul, [facility] [place] [facility] [address] [id number] [place] [address]- 6006 May, [facility] [place] [facility] [address] [id number] [place] [address]- 8990 May, [facility] [place] [facility] [address] [id number] [place] [address]- 1279 Mar, [facility] [place] [facility] [address] [id number] [place] [address]- 7238 Feb, [facility] [place] [facility] [address] [id number] [place] [address]- 3073 Jan, [facility] [place] [facility] [address] [id number] [place] [address]- 7121 Jan, [facility] [place] [facility] [address] [id number] [place] [address]- 5855 Jan, [facility] [place] [facility] [address] [id number] [place] [address]- 4201 Aug, [facility] [place] [facility] [address] [id number] [place] [address]- 0177 Aug, [facility] [place] [facility] [address] [id number] [place] [address]- 9795 Jun, [facility] [place] [facility] [address] [id number] [place] [address]- 1085 Jun, [facility] [place] [facility] [address] [id number] [place] [address]- 0545 Jun, [facility] [place] [facility] [address] [id number] [place] [address]- 9048 Jun, [facility] [place] [facility] [address] [id number] [place] [address]- 8498 May, [facility] [place] [facility] [address] [id number] [place] [address]- 8823 May, [facility] [place] [facility] [address] [id number] [place] [address]- 9216 Feb, [facility] [place] [facility] [address] [id number] [place] [address]- 9036 Jan, [facility] [place] [facility] [address] [id number] [place] [address]- 4553 Jan, [facility] [place] [facility] [address] [id number] [place] [address]- 9404 December, [facility] [address] [facility] [id number], [place] [address]- 4953 December, [facility] [address] [facility] [id number], [place] [address]- 3659 December, [facility] [address] [facility] [id number], [place] [address]- 7616 December, [facility] [address] [facility] [id number], [place] [address]- 3616 Jun, [facility] [address] [facility] [id number], [place] [address]- 4297 Feb, IMMUNIZATIONS No Known Immunizations SOCIAL HISTORY Never Assessed REASON FOR VISIT Surgical Clearance PLAN OF CARE VITAL SIGNS MEDICATIONS Unknown [...] Hospitalization History Surgeries Hospitalization History Chest pain/CAD--[facility] 04[facility]16
--- OUTSIDE RECORDS SUMMARY | 2018-06-13 10:17 | XMS REPORT ---
Author Author KIRILL DAVENPORT [facility] Address [address] [place] [address] Phone Unavailable Care Team Providers Care Marine Painter Name Role Phone KIRILL DAVENPORT Unavailable Unavailable PROBLEMS Type Condition ICD9-CM Code [id number] Code Onset Dates Condition Status SNOMED Code Problem Major depressive disorder, recurrent, severe without psychotic features F33.2 Active 62307400 Problem Essential hypertension I10 Active 00202256 Problem Chronic post-traumatic headache, not intractable G44.329 Active 612814350 Problem Allergy to bee sting Z91.038 Active 544805248 Problem Mixed hyperlipidemia E78.2 Active 669332530 Problem Other chronic pain G89.29 Active 22522153 Problem Tobacco use Z72.0 Resolved 297245845 Problem Atherosclerotic heart disease of [place]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.10 Active [id number] Problem Acute midline low back pain with left-sided sciatica M54.42 Active 236377437 Problem Chronic obstructive pulmonary disease, unspecified COPD type J44.9 Active 94092670 Problem Coronary artery disease involving [place] coronary artery of [place]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 pectoris I25.119 Active 5310660874796 Problem Automatic implantable cardioverter-defibrillator in situ Z95.810 Active 611283998 Problem Obstructive sleep apnea G47.33 Active 49596728 Problem Diabetes mellitus type II, controlled E11.9 Active 21135019 ALLERGIES No Information ENCOUNTERS Encounter Location Date Diagnosis [facility] [id number] [place] [address] 35307- 1434 May, Encounter for immunization Z23 [facility] [id number] [place] [address] 58028- 5857 Feb, [facility] [id number] [place] [address] 48621- 6222 Jan, [facility] [id number] [place] [address] 97064- 0826 Jan, [facility] [address] [place] [id number] [place] [address] 24677- 1090 Jan, Diabetes mellitus type II, controlled E11.9 ; Essential hypertension I10 ; Chronic obstructive pulmonary disease, unspecified COPD type J44.9 ; Tobacco use Z72.0 ; Mixed hyperlipidemia E78.2 ; Numbness of toes R20.0 ; Colon cancer screening Z12.11 ; Encounter for screening for lung cancer Z12.2 and Encounter for immunization Z23 [place] [address] [address]- [address] December, Allergy to bee sting Z91.038 [place] [address] 72847- 2359 December, Mixed hyperlipidemia E78.2 [place] [address] 36727- 1913 Nov, [place] [address] 76969- 2472 Sep, Acute midline low back pain with left-sided sciatica M54.42 [place] [address] 49252- 9485 Aug, Atherosclerotic heart disease of [place]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.10 [place] [address] 87252- 0462 Aug, [place] [address] 86282- 7958 Aug, [place] [address] 49566- 0535 Aug, Acute midline low back pain with left-sided sciatica M54.42 [facility] [id number] [place] [address] 90990 -2041 Aug, Left foot pain M79.672 ; Low back pain M54.5 ; Other chronic pain G89.29 and Acute cystitis without hematuria N30.00 [facility] [address] [address] 15 Jun, 2017 Acute bilateral low back pain without sciatica M54.5 [facility] [id number] [place] [address] 22696- 2775 Jun, Diabetes mellitus type II, controlled E11.9 and Essential hypertension I10 [facility] [id number] [place] [address] 92585- 2559 May, [facility] [id number] [place] [address] 28874 -8595 Mar, Pneumonia of both lower lobes due to infectious organism J18.9 [facility] [id number] [place] [address] 66003- 8551 Mar, [facility] [id number] [place] [address] 31120- 9359 Mar, Bronchitis J40 [facility] [id number] [place] [address] 90688 -8415 Mar, Bronchitis J40 [place] [id number] [place] [address] 92731- 1525 Feb, Chronic obstructive pulmonary disease, unspecified COPD type J44.9 [facility] [id number] [place] [address] 94038- 4584 Jan, Diabetes mellitus type II, controlled E11.9 ; Essential hypertension I10 and Chronic obstructive pulmonary disease, unspecified COPD type J44.9 [place] [id number] [place] [address] 10357- 8736 Nov, [place] [id number] [place] [address] 65321- 1766 Oct, Pneumonia of left lung due to infectious organism, unspecified part of lung J18.9 [facility] [id number] [place] [address] 49383- 4980 Sep, Bronchitis J40 and Pneumonia of both upper lobes due to infectious organism J18.9 [place] [id number] [place] [address] 15764- 8749 17 Sep, 2016 Diabetes mellitus type II, controlled E11.9 ; Essential hypertension I10 and Coronary artery disease involving [place] coronary artery of [place]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 pectoris I25.119 [place] [id number] [place] [address] 90891- 4192 15 Sep, 2016 [place] [address] 40025- 6211 Jul, [place] [id number] [place] [address] 36738- 9475 May, [place] [address] 72608- 7727 May, Diabetes mellitus type II, controlled E11.9 ; Dental abscess K04.7 ; Palpitations R00.2 ; Dizziness R42 and Double vision H53.2 [place] [id number] [place] [address] 77597- 8434 May, Confused R41.0 and Shortness of breath R06.02 [place] [id number] [place] [address] 29198- 7016 May, Diabetes mellitus type II, controlled E11.9 ; Essential hypertension I10 and Coronary artery disease involving [place] coronary artery of [place]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 pectoris I25.119 [place] [id number] [place] [address] 68839- 5018 May, Essential hypertension I10 ; Diabetes mellitus type II, controlled E11.9 ; Coronary artery disease involving [place] coronary artery of [place]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 pectoris I25.119 and Tobacco use Z72.0 [place] [id number] [place] [address] 37556- 3150 Apr, Coronary artery disease involving [place] coronary artery of [place]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 pectoris I25.119 [place] [id number] [place] [address] 83751- 5496 Apr, [facility] [id number] [place] [address] 45728- 7356 Apr, [facility] [id number] [place] [address] 20337- 9296 Feb, Diabetes mellitus type II, controlled E11.9 ; Essential hypertension I10 ; Tobacco use Z72.0 and Coronary artery disease involving [place] coronary artery of [place]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 pectoris I25.119 [facility] [id number] [place] [address] 39085 -9545 Jan, Right knee injury, initial encounter S89.91XA [facility] [address] 34891- 1869 Nov, [facility] [address] [id number] [place] [address] 41217- 2507 Oct, [facility] [address] 91378- 0270 Sep, [facility] [id number] [place] [address] 59954- 9512 Aug, [facility] [id number] [place] [address] 90972- 9018 Jul, [facility] [id number] [place] [address] 98796- 5923 Jul, Low back pain M54.5 ; Sciatica, unspecified side M54.30 and Thoracic neuritis M54.14 [facility] [id number] [place] [address] 08558- 2342 Jul, [facility] [address] [id number] [place] [address] 85442- 0368 Jul, Shortness of breath R06.02 [facility] [id number] [place] [address] 32536- 5206 20 Jun, 2015 [facility] [id number] [place] [address] 04137- 6658 Jun, Coronary artery disease involving [place] coronary artery of [place]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 pectoris I25.119 ; Apnea R06.81 and Fatigue, unspecified type R53.83 [place] [address] 26722- 3513 Jun, Major depressive disorder, recurrent, severe without psychotic features F33.2 and Insomnia G47.00 [place] [address] 13572- 1249 May, Atherosclerotic heart disease of [place]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.10 and Shortness of breath R06.02 [place] [address] 04407- 0550 May, [place] [address] 68345- 9284 May, Diabetes mellitus type II, controlled E11.9 ; CAD (coronary artery disease) 414.00 ; Major depressive disorder, recurrent, severe without psychotic features F33.2 ; Apnea R06.81 and Shortness of breath R06.02 [place] [address] 60814- 0417 May, [place] [address] 14509- 6687 Feb, Sciatica 724.3 ; Lumbar pain 724.2 and CAD (coronary artery disease) 414.00 [place] [address] 01652- 1246 Feb, [place] [address] 36077- 5174 Feb, [place] [address] 94234- 0826 Nov, [place] [address] 73071- 1585 Nov, [place] [address] 41614- 3621 Oct, [facility] [place] [facility] [address] [id number] [place] [address]- 0636 Oct, [facility] [place] [facility] [address] [id number] [place] [address]- 2748 Oct, [facility] [place] [facility] [address] [facility] [id number] [place] [address]- 8370 Oct, [facility] [place] [facility] [address] [facility] [id number] [place] [address]- 0719 Oct, [facility] [place] [facility] [address] [id number] [place] [address]- 6895 Oct, [facility] [place] [facility] [address] [facility] [id number] [place] [address]- 4863 Oct, [facility] [place] [facility] [address] [facility] [id number] [place] [address]- 7643 Oct, [facility] [place] [facility] [address] [facility] [id number] [address]- 0933 Oct, [facility] [place] [facility] [address] [facility] [id number] [place] [address]- 7085 Oct, [facility] [place] [facility] [address] [facility] [id number] [place] [address]- 4767 Sep, [facility] [place] [facility] [address] [facility] [id number] [address]- 9956 Sep, 2014 [facility] [place] [facility] [address] [facility] [id number] [address]- 0110 Sep, 2014 [facility] [place] [facility] [address] [id number] [place] [address]- 9060 Sep, 2014 [facility] [place] [facility] [address] [facility] [id number] [place] [address]- 2059 Sep, 2014 [facility] [place] [facility] [address] [facility] [id number] [place] [address]- 4216 Sep, 2014 [facility] [place] [facility] [address] [id number] [place] [address]- 2650 Aug, [facility] [place] [facility] [address] [id number] [place] [address]- 3422 Aug, [facility] [place] [facility] [address] [id number] [place] [address]- 8429 Aug, [facility] [place] [facility] [address] [id number] [place] [address]- 5482 Aug, [facility] [place] [facility] [address] [id number] [place] [address]- 6908 Jul, [facility] [place] [facility] [address] [id number] [place] [address]- 1899 Jul, [facility] [place] [facility] [address] [id number] [place] [address]- 9907 Jul, [facility] [place] [facility] [address] [id number] [place] [address]- 3424 Jul, [facility] [place] [facility] [address] [id number] [place] [address]- 4035 Jun, [facility] [place] [facility] [address] [id number] [place] [address]- 6305 Jun, [facility] [place] [facility] [address] [id number] [place] [address]- 1097 Jun, [facility] [place] [facility] [address] [id number] [place] [address]- 0771 Jun, [facility] [place] [facility] [address] [id number] [place] [address]- 6165 Jun, [facility] [place] [facility] [address] [id number] [place] 7247 Jun, [facility] [place] [facility] [address] [id number] [place] [address]- 0704 May, [facility] [place] [facility] [address] [id number] [place] [address]- 6209 May, [facility] [place] [facility] [address] [id number] [place] [address]- 8895 May, [facility] [place] [facility] [address] [id number] [place] [address]- 9215 May, [facility] [place] [facility] [address] [id number] [place] [address]- 7487 May, [facility] [place] [facility] [address] [id number] [place] [address]- 7174 May, [facility] [place] [facility] [address] [id number] [place] [address]- 4141 May, [facility] [place] [facility] [address] [id number] [place] [address]- 1109 May, [facility] [place] [facility] [address] [id number] [place] [address]- 0878 May, [facility] [place] [facility] [address] [id number] [place] [address]- 2316 May, [facility] [place] [facility] [address] [id number] [place] [address]- 1159 May, [facility] [place] [facility] [address] [id number] [place] [address]- 3301 May, [facility] [place] [facility] [address] [id number] [address]- 1017 May, [facility] [place] [facility] [address] [id number] [address]- 7433 May, [facility] [place] [facility] [address] [id number] [place] [address]- 4057 May, [facility] [place] [facility] [address] [id number] [place] [address]- 8997 May, [facility] [place] [facility] [address] [id number] [place] [address]- 9770 Apr, [facility] [place] [facility] [address] [id number] [place] [address]- 4660 26 Sep, 2013 [facility] [place] [facility] [address] [id number] [place] [address] 2546 23 Sep, 2013 [facility] [place] [facility] [address] [id number] [place] [address] 2546 23 Sep, 2013 [facility] [place] [facility] [address] [id number] [place] [address] 254 22 Sep, 2013 [facility] [place] [facility] [address] [id number] [place] [address] 2542 22 Sep, 2013 [facility] [place] [facility] [address] [id number] [place] [address]- 4583 19 Sep, 2013 [facility] [place] [facility] [address] [id number] [place] [address] 2549 19 Sep, 2013 [facility] [place] [facility] [address] [id number] [place] [address]- 3058 18 Sep, 2013 [facility] [place] [facility] [address] [id number] [place] [address]- 2548 18 Sep, 2013 [facility] [place] [facility] [address] [id number] [place] [address] 2549 18 Sep, 2013 [facility] [place] [facility] [address] [id number] [place] [address] 2544 18 Sep, 2013 [facility] [place] [facility] [address] [id number] [place] [address] 254 17 Sep, 2013 [facility] [place] [facility] [address] [id number] [place] [address]- 2547 17 Sep, 2013 [facility] [place] [facility] [address] [id number] [place] [address] 2545 15 Sep, 2013 [facility] [place] [facility] [address] [id number] [place] [address]- 2546 15 Sep, 2013 [facility] [place] [facility] [address] [id number] [place] [address] 2540 Apr, [facility] [place] [facility] [address] [id number] [place] [address]- 1268 Apr, [facility] [place] [facility] [address] [id number] [place] [address]- 8110 Apr, [facility] [place] [facility] [address] [id number] [place] [address]- 8685 Apr, [facility] [place] [facility] [address] [id number] [place] [address]- 6222 Mar, [facility] [place] [facility] [address] [id number] [place] [address]- 8929 Mar, [facility] [place] [facility] [address] [id number] [place] [address]- 1544 Mar, [facility] [place] [facility] [address] [id number] [place] [address]- 2841 Mar, [facility] [place] [facility] [address] [id number] [place] [address]- 3677 Feb, [facility] [place] [facility] [address] [id number] [place] [address]- 3158 Feb, [facility] [place] [facility] [address] [id number] [place] [address]- 5589 Jul, [facility] [place] [facility] [address] [id number] [place] [address]- 3292 Jul, [facility] [place] [facility] [address] [id number] [place] [address]- 2498 May, [facility] [place] [facility] [address] [id number] [place] [address]- 1495 May, [facility] [place] [facility] [address] [id number] [place] [address]- 0589 Mar, [facility] [place] [facility] [address] [id number] [place] [address]- 4860 Feb, [facility] [place] [facility] [address] [id number] [place] [address]- 2640 Jan, [facility] [place] [facility] [address] [id number] [place] [address]- 4627 Jan, [facility] [place] [facility] [address] [id number] [place] [address]- 9453 Jan, [facility] [place] [facility] [address] [id number] [place] [address]- 9356 Aug, [facility] [place] [facility] [address] [id number] [place] [address]- 0370 Aug, [facility] [place] [facility] [address] [id number] [place] [address]- 0766 Jun, [facility] [place] [facility] [address] [id number] [place] [address]- 4723 Jun, [facility] [place] [facility] [address] [id number] [place] [address]- 4731 Jun, [facility] [place] [facility] [address] [id number] [place] [address]- 3613 Jun, [facility] [place] [facility] [address] [id number] [place] [address]- 6646 May, [facility] [place] [facility] [address] [id number] [place] [address]- 7262 May, [facility] [place] [facility] [address] [id number] [place] [address]- 7906 Feb, [facility] [place] [facility] [address] [id number] [place] [address]- 4035 Jan, [facility] [place] [facility] [address] [id number] [place] [address]- 8936 Jan, [facility] [place] [facility] [address] [id number] [place] [address]- 2587 December, [facility] [place] [facility] [address] [id number] [place] [address]- 1351 December, [facility] [place] [facility] [address] [facility] [id number] [place] [address]- 8201 December, [facility] [address] [facility] [id number] [place] [id number] [address]181 December, [facility] [address] [facility] [id number] [place] [address]- 8837 Jun, [facility] [address] [facility] [id number] [place] [address]- 7869 Feb, IMMUNIZATIONS Vaccine Route Administration Date Status FLULAVAL QUAD 0.5ML (6 MO & UP) 2018 IM Intramuscular May 09, 2018 Administered SOCIAL HISTORY Never Assessed REASON FOR VISIT Flu shot PLAN OF CARE VITAL SIGNS MEDICATIONS Unknown Medications RESULTS No Results PROCEDURES Procedure Date Ordered Result Body Site FLULAVAL QUAD 0.5ML (6 MO AND UP) 2017May 09, 2018 SINGLE IMMUNIZATION ADMIN May 09, 2018 INSTRUCTIONS MEDICATIONS ADMINISTERED No Known Medications MEDICAL (GENERAL) HISTORY Type Description Date Medical History Cardiovascular Disorder (Yanet) Medical History ---- Stress Echo 02/26/2010 (Yanet)- Hypertensive response;no ischemia; normal Echo EF 60% Medical History --Stent 04/2011 Medical History --Heart Cath 06/2011 Medical History --Cardiac Arrest requiring multiple defibrillations 03/2014 Medical History --Heart cath 03/2014 in [place], no stents placed at that time Medical [...] Hospitalization History Surgeries Hospitalization History Chest pain/CAD--[facility]ia [facility] 04/26/16
--- OUTSIDE RECORDS SUMMARY | 2018-06-13 10:17 | XMS REPORT | Clinical Summary ---
Author Author [facility] Organization [facility] Address Unknown Phone Unavailable Care Team Providers Care Design Manager Name Role Phone Shar Chino MD PCP Allergies No Known Allergies Current Medications Prescription Sig. Disp. Refills Start End Date Status Date aspirin (ASPIR-81) 81 MG take 1 tablet by oral 30 0 04/30/20 Active EC tablet route every day 14 fish oil-fat acid take three capsules daily 1 0 06/10/20 Active [id number] (OMEGA 11 3-6-9) 1,200 mg (400 [id number]) cap amLODIPine (NORVASC) 5 MG Take one tablet (5 mg 90 tablet 3 06/26/20 Active tablet total) by mouth daily. 15 clopidogrel (PLAVIX) 75 Take one tablet (75 mg 90 tablet 3 06/26/20 Active mg tablet total) by mouth daily. 15 metformin (GLUCOPHAGE) Take 500 mg by mouth Active 500 mg tablet daily with breakfast. pravastatin (PRAVACHOL) Take 0.5 tablets (10 mg 45 tablet 3 05/12/20 Active 20 MG tablet total) by mouth daily. 17 Active Problems Patient Care Coordination Note 54 y.o. white man with history of coronary artery disease with multiple previous PCIs and history of V tach cardiac arrest for which he has ICD. Patient had tentatively scheduled cardiac cath planned for last week which was canceled as he was largely asymptomatic. Pt was admitted with chest pain and went to [facility] emergency department in [place], [place] where CT pulmonary angiogram was done which was read as possibly showing a small right pulmonary embolus. Patient had a syncopal episode following CT scan. Meat Cutter at [facility] discussed options with patient and patient requested transfer to [facility] for further care. He has been seen by Cardiology and Cath was done 06/03. Cath revealed LMT short, normal. LAD with long 70% lesion in the mid segment. FFR of mLAD lesion was 0.78. The LCx has a 70% stenosis at the proximal margin of previous stent followed by a 70% lesion in the distal LCx. The RCA is large, dominant and has mild disease with a patent stent in the mid-portion. A 2.5 x 14 Resolute BRISEIDA was placed in the distal lesion followed by POBA to mLCx instent restenosis. A 2.5 x 30 Resolute BRISEIDA was placed in the mLAD, post-dilated with a 3.0 NC. There was some carinal shift into the diagonal vessels with good flow, otherwise satisfactory angiographic result. Pt will need Plavix for one year. He was seen by Pulmonary and they reviewed the scans seen from OSH and there was no evidence of PE. Anticoagulation was discontinued . He remains pain free at this time and is stable for discharge. He will follow up with Cardiology. . Problem Noted Date DM type 2 (diabetes mellitus, type 2) ([facility]) 06/03/2015 Last Assessment & Plan: Will hold metformin at this time as patient received contrast for CT-PA and may need contrast for cardiac cath. Will follow accuchecks and provide Humalog correction scale as needed. ICD (implantable cardioverter-defibrillator), dual, in situ 03/19/2014 Overview: VF - Dual chamber [employer]. ([facility]) CAD (coronary artery disease) Current smoker Fatigue Cardiac arrest ([facility]) Overview: x2 Right bundle branch block NV (myocardial infarction) ([facility]) Ventricular fibrillation ([facility]) Overview: s/p ICD placement Hyperlipidemia Depression with anxiety Bipolar 1 disorder ([facility]) Essential hypertension S/P coronary artery stent placement Overview: 06/03/2015 BRISEIDA to distal Cx, balloon angioplasty to mid Cx, BRISEIDA to mid LAD, 05/29/14 BRISEIDA to RCA, 04/13/2011 BRISEIDA to RPDA, 03/28/2011 BRISEIDA to LCX. Resolved Problems Problem Noted Date Resolved Date Pulmonary embolism ([facility]) 06/02/2015 06/04/2015 Last Assessment & Plan: CT pulmonary angio done at [facility] in [place], [place] was read as "a small defect in one of the pulmonary arteries to the right upper lobe. While this finding could be secondary to a flow phenomenon alone, the possibility of a small pulmonary embolus cannot be entirely excluded." Will place on therapeutic Lovenox for now (it appears patient received dose of Lovenox at [address] at 1445) but not sure we would want to commit this patient to chronic anticoagulation based on this finding? Will consult Pulmonology service for their opinion and further recommendations. Unstable angina (HCC) 05/29/2014 04/27/2016 Last Assessment & Plan: Patient has significant history of coronary artery disease. He was seen by CC and will have Cath 06/03 Immunizations Name Dates Previously Given Next Due Influenza TIV (IM) 05/30/2014 Family History Medical History Relation Name Comments Other Father Diagnosed with CAD, Other Mother Diagnosed with CAD, Relation Name Status Comments Father Alive Mother Alive Social History Tobacco Use Types Packs/Day Years Used Date Former Smoker Cigarettes 1.5 30 Smokeless Tobacco: Former Snuff User Tobacco Cessation: Ready to Quit: Yes Alcohol Use Drinks/Week oz/Week Comments No Sex Assigned at Date Recorded Not on file Last Filed Vital Signs Vital Sign Reading Time Taken Blood Pressure 130/82 04/29/2016 4:06 PM CDT Pulse 66 04/29/2016 4:06 PM CDT Temperature 36.7 C (98 F) 06/04/2015 4:47 AM CDT Respiratory Rate 18 06/04/2015 4:47 AM CDT Oxygen Saturation 98% 06/04/2015 4:47 AM CDT Inhaled Oxygen - - Concentration Weight 93.2 kg (205 lb 8 oz) 04/29/2016 4:06 PM CDT Height 177.8 cm (5' 10") 04/29/2016 4:06 PM CDT Body Mass Index 29.49 04/29/2016 4:06 PM CDT Plan of Treatment Health Maintenance Due Date Last Done Comments Diabetes Mellitus 1961 Hemoglobin A1C Diabetes Mellitus 1961 Ophthalmology Exam Diabetes Mellitus Urine 1961 Microalbumin Hepatitis C Screen 1961 Td # 1961 Diabetes Mellitus Foot 1971 Exam Pneumococcal Immunization 1980 19-64 Low/Medium Risk# (1 of 1 - PPSV23) Colorectal Screening via 2011 Colonoscopy Zoster Vaccine# (1 of 2) 2011 Lipid Screening 05/13/2017 05/13/2016, 04/27/2016, 06/26/2015, Additional history exists Influenza Vaccine (#1) 2018 05/30/2014 Implants Implanted Type Area Medicine Teacher Device Expiration Model / Identifier Date Serial / Lot Icd ICD [place] Implanted: 03/19/2014 (Quantity not SCIENTIFIC on file) [employer]CEPTA [id number] / [id number] / Ra Lead Lead / Implanted: 03/19/2014 (Quantity not [id number] / on file) Rv Lead Lead / Implanted: 03/19/2014 (Quantity not [id number] / on file) Results Not on filefrom Last 3 Months
[2018-06-13] MEDS ORDERED: ONDANSETRON 4 MG/2 ML (SDV) Z0FRAN ONE (10:18)
[2018-06-13] MEDS ORDERED: LIDOCAINE PF 2% 5 ML (XYLOCAINE) VIAL ONE (10:18)
[2018-06-13] MEDS ORDERED: proPOfol 200 MG/20 ML (DIPRIVAN) VIAL IV ONE (10:18)
[2018-06-13] MEDS ORDERED: DEXAMETHASONE 10 MG/ML (DECADRON) 1 ML VIAL ONE (10:18)
[2018-06-13] MEDS ORDERED: ROCURONIUM 10 MG/ML 5 ML SYRINGE IV ONE (10:18)
--- OUTSIDE RECORDS SUMMARY | 2018-06-13 10:27 | XMS REPORT | Continuity of Care Document ---
Author Author [facility] Address Unknown Phone Unavailable Allergies Active Description Code Type Severity Reaction Onset Reported/Identified Relationship to Patient Clinical Status Yes isosorbide mononitrate 30 mg tablet extended release 24 hr Drug Allergy N/A N/A 04/24/2014 Yes No Known Drug Allergies [id number] Drug Allergy Unknown N/A 04/20/2018 Medications There is no data. Problems Date Dx Coded Attending Type Code Diagnosis Diagnosed By 02/15/2010 JOSE CHAN DO 786.50 chest pain or discomfort 02/15/2010 JOSE CHAN DO V15.82 OTHER SPECIFIED PERSONAL HISTORY PRESENTING HAZARDS TO HEALTH, HISTORY OF TOBACCO USE 02/15/2010 JOSE CHAN DO 786.50 chest pain or discomfort 02/15/2010 JOSE CHAN DO V15.82 OTHER SPECIFIED PERSONAL HISTORY PRESENTING HAZARDS TO HEALTH, HISTORY OF TOBACCO USE 02/15/2010 786.50 chest pain or discomfort 02/15/2010 V15.82 OTHER SPECIFIED PERSONAL HISTORY PRESENTING HAZARDS TO HEALTH, HISTORY OF TOBACCO USE 02/15/2010 786.50 chest pain or discomfort 02/15/2010 V15.82 OTHER SPECIFIED PERSONAL HISTORY PRESENTING HAZARDS TO HEALTH, HISTORY OF TOBACCO USE 02/15/2010 JOSE CHAN DO 786.50 chest pain or discomfort 02/15/2010 JOSE CHAN DO V15.82 OTHER SPECIFIED PERSONAL HISTORY PRESENTING HAZARDS TO HEALTH, HISTORY OF TOBACCO USE 02/15/2010 JUAN DIEGO YAN MD 786.50 chest pain or discomfort 02/15/2010 JUAN DIEGO YAN MD V15.82 OTHER SPECIFIED PERSONAL HISTORY PRESENTING HAZARDS TO HEALTH, HISTORY OF TOBACCO USE 02/15/2010 DOUG QUIÑONES APRN 786.50 CHEST PAIN OR DISCOMFORT 02/15/2010 DOUG QUIÑONES APRN V15.82 OTHER SPECIFIED PERSONAL HISTORY PRESENTING HAZARDS TO HEALTH, HISTORY OF TOBACCO USE 02/15/2010 PATEL FLETCHER MD 786.50 CHEST PAIN OR DISCOMFORT 02/15/2010 PATEL FLETCHER MD V15.82 OTHER SPECIFIED PERSONAL HISTORY PRESENTING HAZARDS TO HEALTH, HISTORY OF TOBACCO USE 02/15/2010 PATEL FLETCHER MD 786.50 CHEST PAIN OR DISCOMFORT 02/15/2010 PATEL FLETCHER MD N V15.82 OTHER SPECIFIED PERSONAL HISTORY PRESENTING HAZARDS TO HEALTH, HISTORY OF TOBACCO USE 02/15/2010 PATEL FLETCHER MD 786.50 CHEST PAIN OR DISCOMFORT 02/15/2010 PATEL FLETCHER MD V15.82 OTHER SPECIFIED PERSONAL HISTORY PRESENTING HAZARDS TO HEALTH, HISTORY OF TOBACCO USE 02/15/2010 DUSTIN KHAN JOSE K 786.50 CHEST PAIN OR DISCOMFORT 02/15/2010 DUSTIN KHAN JOSE K V15.82 OTHER SPECIFIED PERSONAL HISTORY PRESENTING HAZARDS TO HEALTH, HISTORY OF TOBACCO USE 02/15/2010 PATEL FLETCHER MD 786.50 CHEST PAIN OR DISCOMFORT 02/15/2010 PATEL FLETCHER MD V15.82 OTHER SPECIFIED PERSONAL HISTORY PRESENTING HAZARDS TO HEALTH, HISTORY OF TOBACCO USE 03/28/2011 CHAN DO JOSE K 272.4 HYPERLIPIDEMIA 03/28/2011 CHAN DO, JOSE K 310.2 POSTCONCUSSION SYNDROME 03/28/2011 CHAN DO, JOSE K 530.81 ESOPHAGEAL REFLUX 03/28/2011 CHAN DO, JOSE K 785.1 palpitations 03/28/2011 CHAN DO, JOSE K E000.8 patient function at time of event - recreational activity 03/28/2011 CHAN DO, JOSE K E001.0 patient activity at time of event - walking 03/28/2011 CHAN DO, JOSE K E888.9 a fall 03/28/2011 CHAN DO, JOSE K 272.4 HYPERLIPIDEMIA 03/28/2011 CHAN DO, JOSE K 310.2 POSTCONCUSSION SYNDROME 03/28/2011 CHAN DO, JOSE K 530.81 ESOPHAGEAL REFLUX 03/28/2011 CHAN DO, JOSE K 785.1 palpitations 03/28/2011 CHAN DO, JOSE K E000.8 patient function at time of event - recreational activity 03/28/2011 CHAN DO, JOSE K E001.0 patient activity at time of event - walking 03/28/2011 CHAN DO, JOSE K E888.9 a fall 03/28/2011 272.4 HYPERLIPIDEMIA 03/28/2011 310.2 POSTCONCUSSION SYNDROME 03/28/2011 530.81 ESOPHAGEAL REFLUX 03/28/2011 785.1 palpitations 03/28/2011 E000.8 patient function at time of event - recreational activity 03/28/2011 E001.0 patient activity at time of event - walking 03/28/2011 E888.9 a fall 03/28/2011 272.4 HYPERLIPIDEMIA 03/28/2011 310.2 POSTCONCUSSION SYNDROME 03/28/2011 530.81 ESOPHAGEAL REFLUX 03/28/2011 785.1 palpitations 03/28/2011 E000.8 patient function at time of event - recreational activity 03/28/2011 E001.0 patient activity at time of event - walking 03/28/2011 E888.9 a fall 03/28/2011 JOSE CHAN DO 272.4 HYPERLIPIDEMIA 03/28/2011 JOSE CHAN DO K 310.2 POSTCONCUSSION SYNDROME 03/28/2011 ZARINA CHAN DOA K 530.81 ESOPHAGEAL REFLUX 03/28/2011 ZARINA CHAN DOA K 785.1 palpitations 03/28/2011 JOSE CHAN DO E000.8 patient function at time of event - recreational activity 03/28/2011 JOSE CHAN DO K E001.0 patient activity at time of event - walking 03/28/2011 JOSE CHAN DO K E888.9 a fall 03/28/2011 JUAN DIEGO YAN MD 272.4 HYPERLIPIDEMIA 03/28/2011 JUAN DIEGO YAN MD 310.2 POSTCONCUSSION SYNDROME 03/28/2011 JUAN DIEGO YAN MD 530.81 ESOPHAGEAL REFLUX 03/28/2011 JUAN DIEGO YAN MD 785.1 palpitations 03/28/2011 JUAN DIEGO YAN MD E000.8 patient function at time of event - recreational activity 03/28/2011 JUAN DIEGO YAN MD E001.0 patient activity at time of event - walking 03/28/2011 JUAN DIEGO YAN MD E888.9 a fall 03/28/2011 DOUG QUIÑONES APRN 272.4 HYPERLIPIDEMIA 03/28/2011 DOUG QUIÑONES APRN 310.2 POSTCONCUSSION SYNDROME 03/28/2011 DOUG QUIÑONES APRN 530.81 ESOPHAGEAL REFLUX 03/28/2011 DOUG QUIÑONES APRN 785.1 palpitations 03/28/2011 DOUG QUIÑONES APRN E000.8 patient function at time of event - recreational activity 03/28/2011 DOUG QUIÑONES APRN E001.0 patient activity at time of event - walking 03/28/2011 DOUG QUIÑONES APRN E888.9 A FALL 03/28/2011 PATEL FLETCHER MD N 272.4 HYPERLIPIDEMIA 03/28/2011 PATEL FLETCHER MD N 310.2 POSTCONCUSSION SYNDROME 03/28/2011 PATEL FLETCHER MD N 530.81 ESOPHAGEAL REFLUX 03/28/2011 PATEL FLETCHER MD N 785.1 palpitations 03/28/2011 PATEL FLETCHER MD N E000.8 patient function at time of event - recreational activity 03/28/2011 PATEL FLETCHER MD N E001.0 patient activity at time of event - walking 03/28/2011 PATEL FLETCHER MD E888.9 A FALL 03/28/2011 PATEL FLETCHER MD N 272.4 HYPERLIPIDEMIA 03/28/2011 PATEL FLETCHER MD N 310.2 POSTCONCUSSION SYNDROME 03/28/2011 PATEL FLETCHER MD N 530.81 ESOPHAGEAL REFLUX 03/28/2011 PATEL FLETCHER MD N 785.1 palpitations 03/28/2011 PATEL FLETCHER MD N E000.8 patient function at time of event - recreational activity 03/28/2011 PATEL FLETCHER MD N E001.0 patient activity at time of event - walking 03/28/2011 PATEL FLETCHER MD E888.9 A FALL 03/28/2011 PATEL FLETCHER MD N 272.4 HYPERLIPIDEMIA 03/28/2011 PATEL FLETCHER MD N 310.2 POSTCONCUSSION SYNDROME 03/28/2011 PATEL FLETCHER MD N 530.81 ESOPHAGEAL REFLUX 03/28/2011 PATEL FLETCHER MD N 785.1 palpitations 03/28/2011 PATEL FLETCHER MD N E000.8 patient function at time of event - recreational activity 03/28/2011 PATEL FLETCHER MD N E001.0 patient activity at time of event - walking 03/28/2011 PATEL FLETCHER MD E888.9 A FALL 03/28/2011 JOSE CHAN DO K 272.4 HYPERLIPIDEMIA 03/28/2011 JOSE CHAN DO K 310.2 POSTCONCUSSION SYNDROME 03/28/2011 JOSE CHAN DO K 530.81 ESOPHAGEAL REFLUX 03/28/2011 JOSE CHAN DO K 785.1 palpitations 03/28/2011 JOSE CHAN DO K E000.8 patient function at time of event - recreational activity 03/28/2011 JOSE CHAN DO E001.0 patient activity at time of event - walking 03/28/2011 JOSE CHAN DO E888.9 A FALL 03/28/2011 PATEL FLETCHER MD 272.4 HYPERLIPIDEMIA 03/28/2011 PATEL FLETCHER MD 310.2 POSTCONCUSSION SYNDROME 03/28/2011 PATEL FLETCHER MD 530.81 ESOPHAGEAL REFLUX 03/28/2011 PATEL FLETCHER MD 785.1 palpitations 03/28/2011 PATEL FLETCHER MD E000.8 patient function at time of event - recreational activity 03/28/2011 PATEL FLETCHER MD E001.0 patient activity at time of event - walking 03/28/2011 PATEL FLETCHER MD E888.9 A FALL 03/31/2011 Ot 272.4 03/31/2011 Ot 305.1 03/31/2011 Ot 411.1 03/31/2011 Ot 414.01 04/14/2011 Ot 272.4 04/14/2011 Ot 305.1 04/14/2011 Ot 401.9 04/14/2011 Ot 413.9 04/14/2011 Ot 414.01 04/14/2011 Ot 780.2 04/14/2011 Ot V45.82 04/14/2011 Ot V58.63 04/14/2011 Ot V58.66 04/14/2011 Ot V58.69 12/23/2011 JOSE CHAN DO 496 COPD 12/23/2011 JOSE CHAN DO 496 COPD 12/23/2011 496 COPD 12/23/2011 496 COPD 12/23/2011 JOSE CHAN DO 496 COPD 12/23/2011 JUAN DIEGO YAN MD 496 COPD 12/23/2011 DOUG QUIÑONES APRN 496 COPD 12/23/2011 PATEL FLETCHER MD 496 COPD 12/23/2011 JUSTINE ARMSTRONG, PATEL N 496 COPD 12/23/2011 JUSTINE ARMSTRONG, PATEL N 496 COPD 12/23/2011 JOSE CHAN DO K 496 COPD 12/23/2011 PATEL FLETCHER MD 496 COPD 12/26/2011 JOSE CHAN DO K 702.19 OTHER SEBORRHEIC KERATOSIS 12/26/2011 JOSE CHAN DO 709.9 UNSPECIFIED DISORDER OF SKIN AND SUBCUTANEOUS TISSUE 12/26/2011 JOSE CHAN DO K V70.0 ROUTINE GENERAL MEDICAL EXAMINATION AT A HEALTH CARE FACILITY 12/26/2011 JOSE CHAN DO K 702.19 OTHER SEBORRHEIC KERATOSIS 12/26/2011 JOSE CHAN DO K 709.9 UNSPECIFIED DISORDER OF SKIN AND SUBCUTANEOUS TISSUE 12/26/2011 JOSE CHAN DO K V70.0 ROUTINE GENERAL MEDICAL EXAMINATION AT A HEALTH CARE FACILITY 12/26/2011 702.19 OTHER SEBORRHEIC KERATOSIS 12/26/2011 709.9 UNSPECIFIED DISORDER OF SKIN AND SUBCUTANEOUS TISSUE 12/26/2011 V70.0 ROUTINE GENERAL MEDICAL EXAMINATION AT A HEALTH CARE FACILITY 12/26/2011 702.19 OTHER SEBORRHEIC KERATOSIS 12/26/2011 709.9 UNSPECIFIED DISORDER OF SKIN AND SUBCUTANEOUS TISSUE 12/26/2011 V70.0 ROUTINE GENERAL MEDICAL EXAMINATION AT A HEALTH CARE FACILITY 12/26/2011 JOSE CHAN DO K 702.19 OTHER SEBORRHEIC KERATOSIS 12/26/2011 JOSE CHAN DO 709.9 UNSPECIFIED DISORDER OF SKIN AND SUBCUTANEOUS TISSUE 12/26/2011 JOSE CHAN DO V70.0 ROUTINE GENERAL MEDICAL EXAMINATION AT A HEALTH CARE FACILITY 12/26/2011 JUAN DIEGO YAN MD 702.19 OTHER SEBORRHEIC KERATOSIS 12/26/2011 JUAN DIEGO YAN MD 709.9 UNSPECIFIED DISORDER OF SKIN AND SUBCUTANEOUS TISSUE 12/26/2011 JUAN DIEGO YAN MD V70.0 ROUTINE GENERAL MEDICAL EXAMINATION AT A HEALTH CARE FACILITY 12/26/2011 DOUG QUIÑONES APRN 702.19 OTHER SEBORRHEIC KERATOSIS 12/26/2011 DOUG QUIÑONES APRN 709.9 UNSPECIFIED DISORDER OF SKIN AND SUBCUTANEOUS TISSUE 12/26/2011 DOUG QUIÑONES APRN V70.0 ROUTINE GENERAL MEDICAL EXAMINATION AT A HEALTH CARE FACILITY 12/26/2011 PATEL FLETCHER MD 702.19 OTHER SEBORRHEIC KERATOSIS 12/26/2011 PATEL FLETCHER MD 709.9 UNSPECIFIED DISORDER OF SKIN AND SUBCUTANEOUS TISSUE 12/26/2011 PATEL FLETCHER MD V70.0 ROUTINE GENERAL MEDICAL EXAMINATION AT A HEALTH CARE FACILITY 12/26/2011 PATEL FLETCHER MD 702.19 OTHER SEBORRHEIC KERATOSIS 12/26/2011 PATEL FLETCHER MD 709.9 UNSPECIFIED DISORDER OF SKIN AND SUBCUTANEOUS TISSUE 12/26/2011 PATEL FLETCHER MD V70.0 ROUTINE GENERAL MEDICAL EXAMINATION AT A HEALTH CARE FACILITY 12/26/2011 PATEL FLETCHER MD 702.19 OTHER SEBORRHEIC KERATOSIS 12/26/2011 PATEL FLETCHER MD 709.9 UNSPECIFIED DISORDER OF SKIN AND SUBCUTANEOUS TISSUE 12/26/2011 PATEL FLETCHER MD V70.0 ROUTINE GENERAL MEDICAL EXAMINATION AT A HEALTH CARE FACILITY 12/26/2011 JOSE CHAN DO 702.19 OTHER SEBORRHEIC KERATOSIS 12/26/2011 JOSE CHAN DO 709.9 UNSPECIFIED DISORDER OF SKIN AND SUBCUTANEOUS TISSUE 12/26/2011 JOSE CHAN DO V70.0 ROUTINE GENERAL MEDICAL EXAMINATION AT A HEALTH CARE FACILITY 12/26/2011 PATEL FLETCHER MD 702.19 OTHER SEBORRHEIC KERATOSIS 12/26/2011 PATEL FLETCHER MD 709.9 UNSPECIFIED DISORDER OF SKIN AND SUBCUTANEOUS TISSUE 12/26/2011 PATEL FLETCHER MD V70.0 ROUTINE GENERAL MEDICAL EXAMINATION AT A HEALTH CARE FACILITY 01/09/2012 JOSE CHAN DO 173.62 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 LIMB INCLUDING SHOULDER 01/09/2012 JOSE CHAN DO 173.62 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 LIMB INCLUDING SHOULDER 01/09/2012 173.62 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 LIMB INCLUDING SHOULDER 01/09/2012 173.62 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 LIMB INCLUDING SHOULDER 01/09/2012 JOSE CHAN DO 173.62 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 LIMB INCLUDING SHOULDER 01/09/2012 JUAN DIEGO YAN MD 173.62 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 LIMB INCLUDING SHOULDER 01/09/2012 DOUG QUIÑONES APRN 173.62 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 LIMB INCLUDING SHOULDER 01/09/2012 PATEL FLETCHER MD 173.62 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 LIMB INCLUDING SHOULDER 01/09/2012 PATEL FLETCHER MD 173.62 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 LIMB INCLUDING SHOULDER 01/09/2012 PATEL FLETCHER MD 173.62 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 LIMB INCLUDING SHOULDER 01/09/2012 JOSE CHAN DO 173.62 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 LIMB INCLUDING SHOULDER 01/09/2012 PATEL FLETCHER MD 173.62 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 LIMB INCLUDING SHOULDER 08/29/2012 JOSE CHAN DO 825.25 FRACTURE OF METATARSAL BONE(S) CLOSED 08/29/2012 825.25 FRACTURE OF METATARSAL BONE(S) CLOSED 08/29/2012 825.25 FRACTURE OF METATARSAL BONE(S) CLOSED 08/29/2012 JOSE CHAN DO 825.25 FRACTURE OF METATARSAL BONE(S) CLOSED 08/29/2012 JUAN DIEGO YAN MD 825.25 FRACTURE OF METATARSAL BONE(S) CLOSED 08/29/2012 DOUG QUIÑONES APRN 825.25 FRACTURE OF METATARSAL BONE(S) CLOSED 08/29/2012 PATEL FLETCHER MD 825.25 FRACTURE OF METATARSAL BONE(S) CLOSED 08/29/2012 PATEL FLETCHER MD 825.25 FRACTURE OF METATARSAL BONE(S) CLOSED 08/29/2012 PATEL FLETCHER MD 825.25 FRACTURE OF METATARSAL BONE(S) CLOSED 08/29/2012 JOSE CHAN DO 825.25 FRACTURE OF METATARSAL BONE(S) CLOSED 08/29/2012 PATEL FLETCHER MD 825.25 FRACTURE OF METATARSAL BONE(S) CLOSED 01/24/2013 V58.69 HIGH RISK MEDICATION 01/24/2013 V58.69 HIGH RISK MEDICATION 01/24/2013 JOSE CHAN DO V58.69 HIGH RISK MEDICATION 01/24/2013 JUAN DIEGO YAN MD V58.69 HIGH RISK MEDICATION 01/24/2013 DOUG QUIÑONES APRN V58.69 HIGH RISK MEDICATION 01/24/2013 PATEL FLETCHER MD V58.69 HIGH RISK MEDICATION 01/24/2013 PATEL FLETCHER MD V58.69 HIGH RISK MEDICATION 01/24/2013 PATEL FLETCHER MD V58.69 HIGH RISK MEDICATION 01/24/2013 DUSTIN KHAN JOSE K V58.69 HIGH RISK MEDICATION 01/24/2013 PATEL FLETCHER MD V58.69 HIGH RISK MEDICATION 07/25/2013 JUAN DIEGO YAN MD 729.5 PAIN- LEG 07/25/2013 DOUG QUIÑONES APRN 729.5 PAIN- LEG 07/25/2013 PATEL FLETCHER MD 729.5 PAIN- LEG 07/25/2013 PATEL FLETCHER MD 729.5 PAIN- LEG 07/25/2013 PATEL FLETCHER MD 729.5 PAIN- LEG 07/25/2013 JOSE CHAN DO 729.5 PAIN- LEG 07/25/2013 PATEL FLETCHER MD 729.5 PAIN- LEG 04/08/2014 DOUG QUIÑONES APRN 305.1 NONDEPENDENT TOBACCO USE DISORDER 04/08/2014 DOUG QUIÑONES APRN 413.1 PRINZMETAL ANGINA 04/08/2014 DOUG QUIÑONES APRN 414.00 CORONARY ATHEROSCLEROSIS OF UNSPECIFIED TYPE OF VESSEL [place] OR GRAFT 04/08/2014 DOUG QUIÑONES APRN 427.41 VENTRICULAR FIBRILLATION 04/08/2014 DOUG QUIÑONES APRN V45.02 AUTOMATIC IMPLANTABLE CARDIAC DEFIBRILLATOR IN SITU 04/08/2014 PATEL FLETCHER MD 305.1 NONDEPENDENT TOBACCO USE DISORDER 04/08/2014 PATEL FLETCHER MD 413.1 PRINZMETAL ANGINA 04/08/2014 PATEL FLETCHER MD 414.00 CORONARY ATHEROSCLEROSIS OF UNSPECIFIED TYPE OF VESSEL [place] OR GRAFT 04/08/2014 PATEL FLETCHER MD 427.41 VENTRICULAR FIBRILLATION 04/08/2014 PATEL FLETCHER MD V45.02 AUTOMATIC IMPLANTABLE CARDIAC DEFIBRILLATOR IN SITU 04/08/2014 PATEL FLETCHER MD 305.1 NONDEPENDENT TOBACCO USE DISORDER 04/08/2014 PATEL FLETCHER MD 413.1 PRINZMETAL ANGINA 04/08/2014 PATEL FLETCHER MD 414.00 CORONARY ATHEROSCLEROSIS OF UNSPECIFIED TYPE OF VESSEL [place] OR GRAFT 04/08/2014 PATEL FLETCHER MD 427.41 VENTRICULAR FIBRILLATION 04/08/2014 PATEL FLETCHER MD V45.02 AUTOMATIC IMPLANTABLE CARDIAC DEFIBRILLATOR IN SITU 04/08/2014 PATEL FLETCHER MD 305.1 NONDEPENDENT TOBACCO USE DISORDER 04/08/2014 PATEL FLETCHER MD 413.1 PRINZMETAL ANGINA 04/08/2014 PATEL FLETCHER MD 414.00 CORONARY ATHEROSCLEROSIS OF UNSPECIFIED TYPE OF VESSEL [place] OR GRAFT 04/08/2014 PATEL FLETCHER MD 427.41 VENTRICULAR FIBRILLATION 04/08/2014 PATEL FLETCHER MD V45.02 AUTOMATIC IMPLANTABLE CARDIAC DEFIBRILLATOR IN SITU 04/08/2014 DUSTIN KHAN JOSE K 305.1 NONDEPENDENT TOBACCO USE DISORDER 04/08/2014 DUSTIN KHAN JOSE K 413.1 PRINZMETAL ANGINA 04/08/2014 ZARINA CHAN DOA K 414.00 CORONARY ATHEROSCLEROSIS OF UNSPECIFIED TYPE OF VESSEL [place] OR GRAFT 04/08/2014 ZARINA CHAN DOA K 427.41 VENTRICULAR FIBRILLATION 04/08/2014 ZARINA CHAN DOA K V45.02 AUTOMATIC IMPLANTABLE CARDIAC DEFIBRILLATOR IN SITU 04/08/2014 PATEL FLETCHER MD 305.1 NONDEPENDENT TOBACCO USE DISORDER 04/08/2014 PATEL FLETCHER MD 413.1 PRINZMETAL ANGINA 04/08/2014 PATEL FLETCHER MD 414.00 CORONARY ATHEROSCLEROSIS OF UNSPECIFIED TYPE OF VESSEL [place] OR GRAFT 04/08/2014 PATEL FLETCHER MD 427.41 VENTRICULAR FIBRILLATION 04/08/2014 PATEL FLETCHER MD V45.02 AUTOMATIC IMPLANTABLE CARDIAC DEFIBRILLATOR IN SITU 04/17/2014 PATEL FLETCHER MD Ot 272.4 04/17/2014 PATEL FLETCHER MD Ot 300.00 04/17/2014 PATEL FLETCHER MD Ot 305.1 04/17/2014 PATEL FLETCHER MD Ot 311 04/17/2014 PATEL FLETCHER MD Ot 414.01 04/17/2014 PATEL FLETCHER MD Ot 496 04/17/2014 PATEL FLETCHER MD Ot 780.52 04/17/2014 PATEL FLETCHER MD N Ot 784.0 04/17/2014 PATEL FLETCHER MD N Ot 784.92 04/17/2014 PATEL FLETCHER MD N Ot 785.1 04/17/2014 PATEL FLETCHER MD N Ot 790.29 04/17/2014 PATEL FLETCHER MD N Ot V15.81 04/17/2014 PATEL FLETCHER MD N Ot V45.02 04/17/2014 PATEL FLETCHER MD N Ot V45.82 04/24/2014 PATEL FLETCHER MD N 250.00 DIABETES II CONTROLLED (UNCOMPLICATED) 04/24/2014 PATEL FLETCHER MD N 339.22 CHRONIC POSTTRAUMATIC HEADACHE 04/24/2014 PATEL FLETCHER MD N 401.1 HYPERTENSION, BENIGN ESSENTIAL 04/24/2014 PATEL FLETCHER MD N 250.00 DIABETES II CONTROLLED (UNCOMPLICATED) 04/24/2014 PATEL FLETCHER MD N 339.22 CHRONIC POSTTRAUMATIC HEADACHE 04/24/2014 PATEL FLETCHER MD N 401.1 HYPERTENSION, BENIGN ESSENTIAL 04/24/2014 PATEL FLETCHER MD N 250.00 DIABETES II CONTROLLED (UNCOMPLICATED) 04/24/2014 PATEL FLETCHER MD N 339.22 CHRONIC POSTTRAUMATIC HEADACHE 04/24/2014 PATEL FLETCHER MD N 401.1 HYPERTENSION, BENIGN ESSENTIAL 04/24/2014 DUSTIN KHAN JOSE K 250.00 DIABETES II CONTROLLED (UNCOMPLICATED) 04/24/2014 ZARINA CHAN DOA K 339.22 CHRONIC POSTTRAUMATIC HEADACHE 04/24/2014 ZARINA CHAN DOA K 401.1 HYPERTENSION, BENIGN ESSENTIAL 04/24/2014 PATEL FLETCHER MD N 250.00 DIABETES II CONTROLLED (UNCOMPLICATED) 04/24/2014 PATEL FLETCHER MD N 339.22 CHRONIC POSTTRAUMATIC HEADACHE 04/24/2014 PATEL FLETCHER MD N 401.1 HYPERTENSION, BENIGN ESSENTIAL 05/09/2014 PATEL FLETCHER MD N V76.51 COLON CANCER SCREENING 05/09/2014 PATEL FLETCHER MD V76.51 COLON CANCER SCREENING 05/09/2014 JOSE CHAN DO V76.51 COLON CANCER SCREENING 05/09/2014 PATEL FLETCHER MD N V76.51 COLON CANCER SCREENING 2014 JOSE CHAN DO K 726.5 ENTHESOPATHY OF HIP REGION 2014 PATEL FLETCHER MD 726.5 ENTHESOPATHY OF HIP REGION 09/13/2014 PATEL FLETCHER MD 724.2 BACK PAIN, LOWER 10/09/2014 PATEL FLETCHER MD 786.09 RESPIRATORY ABNORMALITY OTHER 12/31/2014 JOHN ARMSTRONG, JERALD Lu Ot 272.4 12/31/2014 JHON ARMSTRONG, BASBETI J Ot 300.4 12/31/2014 JOHN ARMSTRONG, BASHAR J Ot 305.1 12/31/2014 JOHN ARMSTRONG, BASHAR J Ot 346.90 12/31/2014 JOHN ARMSTRONG, BASHAR J Ot 401.9 12/31/2014 JOHN ARMSTRONG, BASHAR J Ot 411.1 12/31/2014 JERALD LOPEZ MD J Ot 414.01 12/31/2014 JERALD LOPEZ MD J Ot V12.53 12/31/2014 BRINDA LOPEZ MDHAR J Ot V45.02 12/31/2014 JOHN ARMSTRONG, BASHAR J Ot V45.82 01/02/2015 JOHN ARMSTRONG, BASHAR J Ot 272.4 01/02/2015 JOHN ARMSTRONG, BASHAR J Ot 300.4 01/02/2015 JOHN ARMSTRONG, BASHAR J Ot 305.1 01/02/2015 JOHN ARMSTRONG, BASHAR J Ot 346.90 01/02/2015 JOHN ARMSTRONG, BASHAR J Ot 401.9 01/02/2015 JOHN ARMSTRONG, BRINDAHAR J Ot 411.1 01/02/2015 JOHN ARMSTRONG, BASHAR J Ot 414.01 01/02/2015 JOHN ARMSTRONG BASHAR J Ot V12.53 01/02/2015 JOHN ARMSTRONG, BASHAR J Ot V45.02 01/02/2015 JOHN ARMSTRONG BASHAR J Ot V45.82 06/02/2015 PATEL FLETCHER MD Ot E78.5 06/02/2015 PATEL FLETCHER MD Ot F17.210 06/02/2015 PATEL FLETCHER MD Ot F31.9 06/02/2015 PATEL FLETCHER MD Ot F41.9 06/02/2015 PATEL FLETCHER MD Ot G44.40 06/02/2015 PATEL FLETCHER MD Ot I25.10 06/02/2015 PATEL FLETCHER MD Ot I26.99 06/02/2015 PATEL FLETCHER MD Ot T46.3X5A 07/16/2015 Ot 397.0 07/16/2015 Ot 401.9 07/16/2015 Ot 424.0 07/16/2015 Ot 786.50 07/16/2015 Ot 310.2 07/16/2015 Ot 784.0 07/16/2015 Ot 414.01 07/16/2015 Ot 786.50 07/16/2015 Ot 401.9 07/16/2015 Ot 414.00 07/16/2015 Ot 397.0 07/16/2015 Ot 401.9 07/16/2015 Ot 414.00 07/16/2015 Ot 424.0 07/16/2015 RHETT ARMSTRONG, ALEJANDRA Monae Ot 722.52 10/28/2015 PATEL FLETCHER MD Ot G47.33 OBSTRUCTIVE SLEEP APNEA (ADULT) (PEDIATR 10/28/2015 PATEL FLETCHER MD Ot I10 ESSENTIAL (PRIMARY) HYPERTENSION 04/27/2016 ERASMO ARMSTRONG FACC, ALI FACP CCDS Ot F32.9 MAJOR DEPRESSIVE DISORDER, SINGLE EPISOD 04/27/2016 ERASMO ARMSTRONG FACC, ALI FACP CCDS Ot I25.119 ATHSCL HEART DISEASE OF [place] COR ART W 04/27/2016 ERASMO ARMSTRONG FACC, ALI FACP CCDS Ot I25.2 OLD MYOCARDIAL INFARCTION 04/27/2016 ERASMO ARMSTRONG FACC, ALI FACP CCDS Ot K43.9 VENTRAL HERNIA WITHOUT OBSTRUCTION OR GA 04/27/2016 ERASMO ARMSTRONG FACC, ALI FACP CCDS Ot R51 HEADACHE 04/27/2016 ERASMO ARMSTRONG FACC, ALI FACP CCDS Ot Z79.82 HALFWAY (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 04/27/2016 ERASMO ARMSTRONG FACC, ALI FACP CCDS Ot Z79.899 OTHER DATA REVIEW SPECIALIST (CURRENT) DRUG THERAPY 04/27/2016 ERASMO ARMSTRONG FACC, ALI FACP CCDS Ot Z86.74 PERSONAL HISTORY OF SUDDEN CARDIAC ARRES 04/27/2016 ERASMO ARMSTRONG FACC, ALI FACP CCDS Ot Z95.5 PRESENCE OF CORONARY ANGIOPLASTY IMPLANT 04/27/2016 ERASMO MCCULLOUGH, KYLE FACP CCDS Ot Z95.810 PRESENCE OF AUTOMATIC (IMPLANTABLE) CARD 05/20/2016 KERMIT PHAMSHERRON [employer] Ot R41.0 DISORIENTATION, UNSPECIFIED 06/02/2016 ANKIT MARY [employer] Ot R41.0 DISORIENTATION, UNSPECIFIED 06/24/2016 ANKIT MARY [employer] Ot R41.0 DISORIENTATION, UNSPECIFIED 06/28/2016 KIKA MILLAN DO Ot J43.9 EMPHYSEMA, UNSPECIFIED 07/06/2016 KIKA MILLAN DO Ot J43.9 EMPHYSEMA, UNSPECIFIED 07/12/2016 KIKA MILLAN DO Ot J43.9 EMPHYSEMA, UNSPECIFIED 07/14/2016 KIKA MILLAN DO Ot J43.9 EMPHYSEMA, UNSPECIFIED 07/20/2016 KIKA MILLAN DO Ot J43.9 EMPHYSEMA, UNSPECIFIED 09/13/2016 MARY PHAMP Ot R41.0 DISORIENTATION, UNSPECIFIED 09/13/2016 KIKA MILLAN DO Ot J43.9 EMPHYSEMA, UNSPECIFIED 09/13/2016 KIKA MILLAN DO Ot J43.9 EMPHYSEMA, UNSPECIFIED 09/16/2016 MARY PHAMP Ot R41.0 DISORIENTATION, UNSPECIFIED 09/16/2016 KIKA MILLAN DO Ot J43.9 EMPHYSEMA, UNSPECIFIED 09/16/2016 KIKA MILLAN DO Ot J43.9 EMPHYSEMA, UNSPECIFIED 04/02/2017 PHAMMARYP Ot R41.0 DISORIENTATION, UNSPECIFIED 04/02/2017 KIKA MILLAN DO Ot J43.9 EMPHYSEMA, UNSPECIFIED 04/02/2017 KIKA MILLAN DO Ot J43.9 EMPHYSEMA, UNSPECIFIED 04/02/2017 PHAMMARYP Ot R41.0 DISORIENTATION, UNSPECIFIED 04/02/2017 KIKA MILLAN DO Ot J43.9 EMPHYSEMA, UNSPECIFIED 04/02/2017 KIKA MILLAN DO Ot J43.9 EMPHYSEMA, UNSPECIFIED 04/03/2017 MARY PHAM [employer] SALES Ot R41.0 DISORIENTATION, UNSPECIFIED 04/03/2017 YANA DO, KIKA M Ot J43.9 EMPHYSEMA, UNSPECIFIED 04/03/2017 YNAA DO, KIKA M Ot J43.9 EMPHYSEMA, UNSPECIFIED 07/07/2017 MARY PHAM [employer] SAL[employer] Ot R41.0 DISORIENTATION, UNSPECIFIED 07/07/2017 YANA DOKIKA M Ot J43.9 EMPHYSEMA, UNSPECIFIED 07/07/2017 YANA DOKIKA M Ot J43.9 EMPHYSEMA, UNSPECIFIED 07/12/2017 MARY PHAM [employer] Ot R41.0 DISORIENTATION, UNSPECIFIED 07/12/2017 YANA DOKIKA Ot J43.9 EMPHYSEMA, UNSPECIFIED 07/12/2017 YANA DOKIKA M Ot J43.9 EMPHYSEMA, UNSPECIFIED 07/14/2017 RHETT ARMSTRONG, ALEJANDRA Monae Ot M51.26 OTHER INTERVERTEBRAL DISC DISPLACEMENT, 07/14/2017 RHETT ARMSTRONG, ALEJANDRA Monae Ot M79.604 PAIN IN RIGHT LEG 08/16/2017 ALEJANDRA DELANEY MD Ot M51.26 OTHER INTERVERTEBRAL DISC DISPLACEMENT, 08/16/2017 RHETT ARMSTRONG, ALEJANDRA Monae Ot M79.604 PAIN IN RIGHT LEG 08/16/2017 MARY PH[employer] Ot R41.0 DISORIENTATION, UNSPECIFIED 08/16/2017 KIKA MILLAN DO Ot J43.9 EMPHYSEMA, UNSPECIFIED 08/16/2017 KIKA MILLAN DO Ot J43.9 EMPHYSEMA, UNSPECIFIED 08/16/2017 RHETT ARMSTRONG, ALEJANDRA Monae Ot M51.26 OTHER INTERVERTEBRAL DISC DISPLACEMENT, 08/16/2017 RHETT ARMSTRONG, ALEJANDRA Monae Ot M79.604 PAIN IN RIGHT LEG 08/17/2017 MRAY PHAM [employer] Ot R41.0 DISORIENTATION, UNSPECIFIED 08/17/2017 YANA DOKIKA Ot J43.9 EMPHYSEMA, UNSPECIFIED 08/17/2017 YANA KIAK KHAN Ot J43.9 EMPHYSEMA, UNSPECIFIED 08/17/2017 ALEJANDRA DELANEY MD Ot M51.26 OTHER INTERVERTEBRAL DISC DISPLACEMENT, 08/17/2017 ALEJANDRA DELANEY MD Ot M79.604 PAIN IN RIGHT LEG 08/17/2017 DANN DAWSON DO Ot M48.061 SPINAL STENOSIS, LUMBAR REGION WITHOUT N 08/17/2017 DANN DAWSON DO Ot M51.26 OTHER INTERVERTEBRAL DISC DISPLACEMENT, 08/21/2017 EUNICE DO, DANN Coker Ot M48.061 SPINAL STENOSIS, LUMBAR REGION WITHOUT N 08/21/2017 EUNICE DO, DANN Coker Ot M51.26 OTHER INTERVERTEBRAL DISC DISPLACEMENT, 08/22/2017 EUNICE DO, DANN Coekr Ot M48.061 SPINAL STENOSIS, LUMBAR REGION WITHOUT N 08/22/2017 EUNICE DO, DANN Coker Ot M51.26 OTHER INTERVERTEBRAL DISC DISPLACEMENT, 08/25/2017 MARY PHAM APOLINAR Ot R41.0 DISORIENTATION, UNSPECIFIED 08/25/2017 KIKA MILLAN DO Ot J43.9 EMPHYSEMA, UNSPECIFIED 08/25/2017 KIKA MILLAN DO Ot J43.9 EMPHYSEMA, UNSPECIFIED 08/25/2017 ALEJANDRA DELANEY MD, Ot M51.26 OTHER INTERVERTEBRAL DISC DISPLACEMENT, 08/25/2017 ALEJANDRA DELANEY MD, Ot M79.604 PAIN IN RIGHT LEG 08/28/2017 THEODORA LESLIE MD Ot I70.1 ATHEROSCLEROSIS OF RENAL ARTERY 08/28/2017 THEODORA LESLIE MD Ot N20.0 CALCULUS OF KIDNEY 08/28/2017 THEODORA LESLIE MD Ot N28.1 CYST OF KIDNEY, ACQUIRED 09/07/2017 THEODORA LESLIE MD Ot I70.1 ATHEROSCLEROSIS OF RENAL ARTERY 09/07/2017 THEODORA LESLIE MD Ot N20.0 CALCULUS OF KIDNEY 09/07/2017 THEODORA LESLIE MD Ot N28.1 CYST OF KIDNEY, ACQUIRED 12/12/2017 KERMIT PHAMNETTE Prasanna JIANG Ot R41.0 DISORIENTATION, UNSPECIFIED 12/12/2017 KIKA MILLAN DO Ot J43.9 EMPHYSEMA, UNSPECIFIED 12/12/2017 KIKA MILLAN DO Ot J43.9 EMPHYSEMA, UNSPECIFIED 12/12/2017 ALEJANDRA DELANEY MD, Ot M51.26 OTHER INTERVERTEBRAL DISC DISPLACEMENT, 12/12/2017 ALEJANDRA DELANEY MD Ot M79.604 PAIN IN RIGHT LEG 12/12/2017 THEODORA LESLIE MD Ot I70.1 ATHEROSCLEROSIS OF RENAL ARTERY 12/12/2017 THEODORA LESLIE MD Ot N20.0 CALCULUS OF KIDNEY 12/12/2017 THEODORA LESLIE MD Ot N28.1 CYST OF KIDNEY, ACQUIRED 12/14/2017 JERALD LOPEZ MD Ot E78.2 MIXED HYPERLIPIDEMIA 12/14/2017 JERALD LOPEZ MD Ot I07.1 RHEUMATIC TRICUSPID INSUFFICIENCY 12/14/2017 JERALD LOPEZ MD Ot I10 ESSENTIAL (PRIMARY) HYPERTENSION 12/14/2017 JERALD LOPEZ MD Ot I25.10 ATHSCL HEART DISEASE OF [place] CORONARY 12/14/2017 JERALD LOPEZ MD Ot R00.2 PALPITATIONS 12/14/2017 JERALD LOPEZ MD Ot R07.89 OTHER CHEST PAIN 12/28/2017 JERALD LOPEZ MD Ot E78.2 MIXED HYPERLIPIDEMIA 12/28/2017 JERALD LOPEZ MD Ot I07.1 RHEUMATIC TRICUSPID INSUFFICIENCY 12/28/2017 JERALD LOPEZ MD Ot I10 ESSENTIAL (PRIMARY) HYPERTENSION 12/28/2017 JERALD LOPEZ MD Ot I25.10 ATHSCL HEART DISEASE OF [place] CORONARY 12/28/2017 JERALD LOPEZ MD Ot R00.2 PALPITATIONS 12/28/2017 JERALD LOPEZ MD Ot R07.89 OTHER CHEST PAIN 01/11/2018 JERALD LOPEZ MD Ot E78.2 MIXED HYPERLIPIDEMIA 01/11/2018 JERALD LOPEZ MD Ot I07.1 RHEUMATIC TRICUSPID INSUFFICIENCY 01/11/2018 JERALD LOPEZ MD Ot I10 ESSENTIAL (PRIMARY) HYPERTENSION 01/11/2018 JERALD LOPEZ MD Ot I25.10 ATHSCL HEART DISEASE OF [place] CORONARY 01/11/2018 JERALD LOPEZ MD Ot R00.2 PALPITATIONS 01/11/2018 JERALD LOPEZ MD Ot R07.89 OTHER CHEST PAIN 01/12/2018 JERALD LOPZE MD Ot E78.2 MIXED HYPERLIPIDEMIA 01/12/2018 JERALD LOPEZ MD Ot I07.1 RHEUMATIC TRICUSPID INSUFFICIENCY 01/12/2018 JERALD LOPEZ MD Ot I10 ESSENTIAL (PRIMARY) HYPERTENSION 01/12/2018 JERALD LOPEZ MD Ot I25.10 ATHSCL HEART DISEASE OF [place] CORONARY 01/12/2018 JERALD LOPEZ MD Ot R00.2 PALPITATIONS 01/12/2018 JERALD LOPEZ MD Ot R07.89 OTHER CHEST PAIN 01/15/2018 JERALD LOPEZ MD Ot E78.2 MIXED HYPERLIPIDEMIA 01/15/2018 JERALD LOPEZ MD Ot I07.1 RHEUMATIC TRICUSPID INSUFFICIENCY 01/15/2018 JERALD LOPEZ MD Ot I10 ESSENTIAL (PRIMARY) HYPERTENSION 01/15/2018 JERALD LOPEZ MD Ot I25.10 ATHSCL HEART DISEASE OF [place] CORONARY 01/15/2018 JERALD LOPEZ MD Ot R00.2 PALPITATIONS 01/15/2018 JERALD LOPEZ MD Ot R07.89 OTHER CHEST PAIN 01/16/2018 PATEL FLETCHER MD Ot J43.9 EMPHYSEMA, UNSPECIFIED 01/16/2018 PATEL FLETCHER MD Ot Z12.2 ENCNTR SCREEN FOR MALIGNANT NEOPLASM OF 01/16/2018 PATEL FLETCHER MD Ot Z87.891 PERSONAL HISTORY OF NICOTINE DEPENDENCE 01/17/2018 PATEL FLETCHER MD Ot I25.10 ATHSCL HEART DISEASE OF [place] CORONARY 01/17/2018 PATEL FLETCHER MD Ot J43.9 EMPHYSEMA, UNSPECIFIED 01/17/2018 PATEL FLETCHER MD Ot Z12.2 ENCNTR SCREEN FOR MALIGNANT NEOPLASM OF 01/17/2018 PATEL FLETCHER MD Ot Z87.891 PERSONAL HISTORY OF NICOTINE DEPENDENCE 01/17/2018 PATEL FLETCHER MD Ot Z95.5 PRESENCE OF CORONARY ANGIOPLASTY IMPLANT 01/21/2018 PATEL FLETCHER MD Ot I25.10 ATHSCL HEART DISEASE OF [place] CORONARY 01/21/2018 PATEL FLETCHER MD Ot J43.9 EMPHYSEMA, UNSPECIFIED 01/21/2018 PATEL FLETCHER MD Ot Z12.2 ENCNTR SCREEN FOR MALIGNANT NEOPLASM OF 01/21/2018 PATEL FLETCHER MD Ot Z87.891 PERSONAL HISTORY OF NICOTINE DEPENDENCE 01/21/2018 PATEL FLETCHER MD Ot Z95.5 PRESENCE OF CORONARY ANGIOPLASTY IMPLANT 04/17/2018 FELIX DE GUZMAN MD Ot Z01.818 ENCOUNTER FOR OTHER PREPROCEDURAL EXAMIN 04/17/2018 FELIX DE GUZMAN MD Ot Z01.818 ENCOUNTER FOR OTHER PREPROCEDURAL EXAMIN 04/17/2018 FELIX DE GUZMAN MD Ot Z01.818 ENCOUNTER FOR OTHER PREPROCEDURAL EXAMIN 04/17/2018 JERALD LOPEZ MD Ot E78.2 MIXED HYPERLIPIDEMIA 04/17/2018 JERALD LOPEZ MD Ot I07.1 RHEUMATIC TRICUSPID INSUFFICIENCY 04/17/2018 JERALD LOPEZ MD Ot I10 ESSENTIAL (PRIMARY) HYPERTENSION 04/17/2018 JERALD LOPEZ MD Ot I25.10 ATHSCL HEART DISEASE OF [place] CORONARY 04/17/2018 JERALD LOPEZ MD Ot R00.2 PALPITATIONS 04/17/2018 JERALD LOPEZ MD Ot R07.89 OTHER CHEST PAIN 04/17/2018 PATEL FLETCHER MD Ot I25.10 ATHSCL HEART DISEASE OF [place] CORONARY 04/17/2018 PATEL FLETCHER MD Ot J43.9 EMPHYSEMA, UNSPECIFIED 04/17/2018 PATEL FLETCHER MD Ot Z12.2 ENCNTR SCREEN FOR MALIGNANT NEOPLASM OF 04/17/2018 PATEL FLETCHER MD Ot Z87.891 PERSONAL HISTORY OF NICOTINE DEPENDENCE 04/17/2018 PATEL FLETCHER MD Ot Z95.5 PRESENCE OF CORONARY ANGIOPLASTY IMPLANT 04/20/2018 JERALD LOPEZ MD Ot E78.2 MIXED HYPERLIPIDEMIA 04/20/2018 JERALD LOPEZ MD Ot I07.1 RHEUMATIC TRICUSPID INSUFFICIENCY 04/20/2018 JERALD LOPEZ MD Ot I10 ESSENTIAL (PRIMARY) HYPERTENSION 04/20/2018 JERALD LOPEZ MD Ot I25.10 ATHSCL HEART DISEASE OF [place] CORONARY 04/20/2018 JERALD LOPEZ MD Ot R00.2 PALPITATIONS 04/20/2018 JERALD LOPEZ MD Ot R07.89 OTHER CHEST PAIN 04/20/2018 PATEL FLETCHER MD Ot I25.10 ATHSCL HEART DISEASE OF [place] CORONARY 04/20/2018 PATEL FLETCHER MD Ot J43.9 EMPHYSEMA, UNSPECIFIED 04/20/2018 PATEL FLETCHER MD Ot Z12.2 ENCNTR SCREEN FOR MALIGNANT NEOPLASM OF 04/20/2018 PATEL FLETCHER MD Ot Z87.891 PERSONAL HISTORY OF NICOTINE DEPENDENCE 04/20/2018 PATEL FLETCHER MD Ot Z95.5 PRESENCE OF CORONARY ANGIOPLASTY IMPLANT 04/20/2018 FELIX DE GUZMAN MD Ot F17.210 NICOTINE DEPENDENCE, CIGARETTES, UNCOMPL 04/20/2018 FELIX DE GUZMAN MD Ot G62.9 POLYNEUROPATHY, UNSPECIFIED 04/20/2018 FELIX DE GUZMAN MD Ot I10 ESSENTIAL (PRIMARY) HYPERTENSION 04/20/2018 GAB ARMSTRONG, FELIX Mckinney I25.2 OLD MYOCARDIAL INFARCTION 04/20/2018 FELIX DE GUZMAN MD Ot K64.0 FIRST DEGREE HEMORRHOIDS 04/20/2018 FELIX DE GUZMAN MD Ot Z12.11 ENCOUNTER FOR SCREENING FOR MALIGNANT NE 04/20/2018 FELIX DE GUZMAN MD Ot Z79.82 HALFWAY (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 04/20/2018 FELIX DE GUZMAN MD Ot Z79.899 OTHER HALFWAY (CURRENT) DRUG THERAPY 04/20/2018 FELIX DE GUZMAN MD Ot Z95.5 PRESENCE OF CORONARY ANGIOPLASTY IMPLANT 04/20/2018 FELIX DE GUZMAN MD Ot Z95.810 PRESENCE OF AUTOMATIC (IMPLANTABLE) CARD 04/24/2018 FELIX DE GUZMAN MD Ot F17.210 NICOTINE DEPENDENCE, CIGARETTES, UNCOMPL 04/24/2018 FELIX DE GUZMAN MD Ot G62.9 POLYNEUROPATHY, UNSPECIFIED 04/24/2018 FELIX DE GUZMAN MD Ot I10 ESSENTIAL (PRIMARY) HYPERTENSION 04/24/2018 FELIX DE GUZMAN MD, Ot I25.2 OLD MYOCARDIAL INFARCTION 04/24/2018 FELIX DE GUZMAN MD Ot K64.0 FIRST DEGREE HEMORRHOIDS 04/24/2018 FELIX DE GUZMAN MD Ot Z12.11 ENCOUNTER FOR SCREENING FOR MALIGNANT NE 04/24/2018 FELIX DE GUZMAN MD Ot Z79.82 HALFWAY (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 04/24/2018 FELIX DE GUZMAN MD Ot Z79.899 OTHER HALFWAY (CURRENT) DRUG THERAPY 04/24/2018 FELIX DE GUZMAN MD Ot Z95.5 PRESENCE OF CORONARY ANGIOPLASTY IMPLANT 04/24/2018 FELIX DE GUZMAN MD Ot Z95.810 PRESENCE OF AUTOMATIC (IMPLANTABLE) CARD 04/25/2018 EFLIX DE GUZMAN MD Ot F17.210 NICOTINE DEPENDENCE, CIGARETTES, UNCOMPL 04/25/2018 FELIX DE GUZMAN MD, Ot G62.9 POLYNEUROPATHY, UNSPECIFIED 04/25/2018 FEILX DE GUZMAN MD, Ot I10 ESSENTIAL (PRIMARY) HYPERTENSION 04/25/2018 FELIX DE GUZMAN MD, Ot I25.2 OLD MYOCARDIAL INFARCTION 04/25/2018 FELIX DE GUZMAN MD, Ot K64.0 FIRST DEGREE HEMORRHOIDS 04/25/2018 FELIX DE GUZMAN MD, Ot Z12.11 ENCOUNTER FOR SCREENING FOR MALIGNANT NE 04/25/2018 FELIX DE GUZMAN MD, Ot Z79.82 DATA REVIEW SPECIALIST (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 04/25/2018 FELIX DE GUZMAN MD, Ot Z79.899 OTHER HALFWAY (CURRENT) DRUG THERAPY 04/25/2018 FELIX DE GUZMAN MD, Ot Z95.5 PRESENCE OF CORONARY ANGIOPLASTY IMPLANT 04/25/2018 FELIX DE GUZMAN MD, Ot Z95.810 PRESENCE OF AUTOMATIC (IMPLANTABLE) CARD 06/08/2018 MARION SIEGEL MD, Ot M25.312 OTHER INSTABILITY, LEFT SHOULDER 06/08/2018 MARION SIEGEL MD, Ot M75.102 UNSP ROTATR-CUFF TEAR/RUPTR OF LEFT SHOU 06/08/2018 MARION SIEGEL MD, Ot Z01.818 ENCOUNTER FOR OTHER PREPROCEDURAL EXAMIN 06/08/2018 MARION SIEGEL MD, Ot Z11.2 ENCOUNTER FOR SCREENING FOR OTHER BACTER Procedures Code [place] [address] ROUTINE VENIPUNCTURE 07/05/2012 05766 LIVER PANEL (LFT) 07/05/2012 54777 LIPID PANEL 07/05/2012 13269 XRAY CHEST 2 VIEW 08/31/2012 97263 XRAY FOOT RIGHT 2 VIEWS 08/31/2012 OrthopMatthew Resendez 09/07/2012 40690 ROUTINE VENIPUNCTURE 01/24/2013 35875 PT/INR 01/24/2013 62666 INR (IN HOUSE) 01/28/2013 63561 INR (IN HOUSE) 02/04/2013 04150 XRAY CHEST 2 VIEW 02/12/2014 12018 MICRO ALBUMIN-IN HOUSE 04/25/2014 Pietro Puente 04/25/2014 72415 ROUTINE VENIPUNCTURE 04/25/2014 71594 LIPID PANEL 04/25/2014 90883 ROUTINE VENIPUNCTURE 05/26/2014 49984 PT/INR 05/26/2014 28500 CBC 05/26/2014 9499947 GFR CALC (RESULT ONLY) 05/26/2014 90731 BMP 05/26/201485433 JOINT INJECTION- LARGE JOINT (SPECIFY MEDCIN DESCRIPTION) 2014 14179 XRAY HIP RIGHT UNILATERAL MIN 2 VIEWS 2014 41007 A1C (IN-HOUSE) 2014 Results Test Result Range Complete blood count (CBC) with automated white blood cell (WBC) differential - 04/26/16 17:25 Blood leukocytes automated count (number/volume) 7.5 10*3/uL 4.3-11.0 Blood erythrocytes automated count (number/volume) 4.63 10*6/uL 4.35-5.85 Venous blood hemoglobin measurement (mass/volume) 14.6 g/dL 13.3-17.7 Blood hematocrit (volume fraction) 42 % 40-54 Automated erythrocyte mean corpuscular volume 90 [foz_us] 80-99 Automated erythrocyte mean corpuscular hemoglobin (mass per erythrocyte) 32 pg 25-34 Automated erythrocyte mean corpuscular hemoglobin concentration measurement ( mass/volume) 35 g/dL 32-36 Automated erythrocyte distribution width ratio 13.1 % 10.0-14.5 Automated blood platelet count (count/volume) 224 10*3/uL 130-400 Automated blood platelet mean volume measurement 10.2 [foz_us] 7.4-10.4 Automated blood neutrophils/100 leukocytes 64 % 42-75 Automated blood lymphocytes/100 leukocytes 26 % 12-44 Blood monocytes/100 leukocytes 8 % 0-12 Automated blood eosinophils/100 leukocytes 2 % 0-10 Automated blood basophils/100 leukocytes 0 % 0-10 Blood neutrophils automated count (number/volume) 4.8 10*3 1.8-7.8 Blood lymphocytes automated count (number/volume) 1.9 10*3 1.0-4.0 Blood monocytes automated count (number/volume) 0.6 10*3 0.0-1.0 Automated eosinophil count 0.2 10*3/uL 0.0-0.3 Automated blood basophil count (count/volume) 0.0 10*3/uL 0.0-0.1 PT panel in platelet poor plasma by coagulation assay - 04/26/16 17:25 Prothrombin time (PT) in platelet poor plasma by coagulation assay 12.5 s 12.2-14.7 INR in platelet poor plasma or blood by coagulation assay 1.0 0.8-1.4 Activated partial thromboplastin time (aPTT) in platelet poor plasma bycoagulation assay - 04/26/16 17:25 Activated partial thromboplastin time (aPTT) in platelet poor plasma bycoagulation assay 28 s 24-35 Comprehensive metabolic panel - 04/26/16 17:25 Serum or plasma sodium measurement (moles/volume) 137 mmol/L 135-145 Serum or plasma potassium measurement (moles/volume) 3.7 mmol/L 3.6-5.0 Serum or plasma chloride measurement (moles/volume) 106 mmol/L 98-107 Carbon dioxide 20 mmol/L 21-32 Serum or plasma anion gap determination (moles/volume) 11 mmol/L 5-14 Serum or plasma urea nitrogen measurement (mass/volume) 18 mg/dL 7-18 Serum or plasma creatinine measurement (mass/volume) 0.97 mg/dL 0.60-1.30 Serum or plasma urea nitrogen/creatinine mass ratio 19 NRG Serum or plasma creatinine measurement with calculation of estimated glomerular filtration rate > NRG Serum or plasma glucose measurement (mass/volume) 132 mg/dL 70-105 Serum or plasma calcium measurement (mass/volume) 9.2 mg/dL 8.5-10.1 Serum or plasma total bilirubin measurement (mass/volume) 0.9 mg/dL 0.1-1.0 Serum or plasma alkaline phosphatase measurement (enzymatic activity/volume) 74 U/L 40-136 Serum or plasma aspartate aminotransferase measurement (enzymatic activity/ volume) 15 U/L 5-34 Serum or plasma alanine aminotransferase measurement (enzymatic activity/volume ) 20 U/L 0-55 Serum or plasma protein measurement (mass/volume) 6.8 g/dL 6.4-8.2 Serum or plasma albumin measurement (mass/volume) 4.2 g/dL 3.2-4.5 Magnesium - 04/26/16 17:25 Magnesium 2.2 mg/dL 1.8-2.4 Serum or plasma troponin i.cardiac measurement (mass/volume) - 04/26/16 17:25 Serum or plasma troponin i.cardiac measurement (mass/volume) < ng/ mL <0.30 Myoglobin, serum - 04/26/16 17:25 Myoglobin, serum 46.1 ng/mL 10.0-92.0 Serum or plasma troponin i.cardiac measurement (mass/volume) - 04/26/16 23:15 Serum or plasma troponin i.cardiac measurement (mass/volume) < ng/ mL <0.30 Complete blood count (CBC) with automated white blood cell (WBC) differential - 04/27/16 04:15 Blood leukocytes automated count (number/volume) 5.6 10*3/uL 4.3-11.0 Blood erythrocytes automated count (number/volume) 4.30 10*6/uL 4.35-5.85 Venous blood hemoglobin measurement (mass/volume) 13.5 g/dL 13.3-17.7 Blood hematocrit (volume fraction) 39 % 40-54 Automated erythrocyte mean corpuscular volume 91 [foz_us] 80-99 Automated erythrocyte mean corpuscular hemoglobin (mass per erythrocyte) 31 pg 25-34 Automated erythrocyte mean corpuscular hemoglobin concentration measurement ( mass/volume) 35 g/dL 32-36 Automated erythrocyte distribution width ratio 13.0 % 10.0-14.5 Automated blood platelet count (count/volume) 214 10*3/uL 130-400 Automated blood platelet mean volume measurement 10.5 [foz_us] 7.4-10.4 Automated blood neutrophils/100 leukocytes 47 % 42-75 Automated blood lymphocytes/100 leukocytes 36 % 12-44 Blood monocytes/100 leukocytes 12 % 0-12 Automated blood eosinophils/100 leukocytes 4 % 0-10 Automated blood basophils/100 leukocytes 0 % 0-10 Blood neutrophils automated count (number/volume) 2.7 10*3 1.8-7.8 Blood lymphocytes automated count (number/volume) 2.0 10*3 1.0-4.0 Blood monocytes automated count (number/volume) 0.7 10*3 0.0-1.0 Automated eosinophil count 0.3 10*3/uL 0.0-0.3 Automated blood basophil count (count/volume) 0.0 10*3/uL 0.0-0.1 Comprehensive metabolic panel - 04/27/16 04:15 Serum or plasma sodium measurement (moles/volume) 140 mmol/L 135-145 Serum or plasma potassium measurement (moles/volume) 3.7 mmol/L 3.6-5.0 Serum or plasma chloride measurement (moles/volume) 108 mmol/L 98-107 Carbon dioxide 19 mmol/L 21-32 Serum or plasma anion gap determination (moles/volume) 13 mmol/L 5-14 Serum or plasma urea nitrogen measurement (mass/volume) 18 mg/dL 7-18 Serum or plasma creatinine measurement (mass/volume) 0.90 mg/dL 0.60-1.30 Serum or plasma urea nitrogen/creatinine mass ratio 20 NRG Serum or plasma creatinine measurement with calculation of estimated glomerular filtration rate > NRG Serum or plasma glucose measurement (mass/volume) 97 mg/dL 70-105 Serum or plasma calcium measurement (mass/volume) 8.8 mg/dL 8.5-10.1 Serum or plasma total bilirubin measurement (mass/volume) 0.9 mg/dL 0.1-1.0 Serum or plasma alkaline phosphatase measurement (enzymatic activity/volume) 67 U/L 40-136 Serum or plasma aspartate aminotransferase measurement (enzymatic activity/ volume) 12 U/L 5-34 Serum or plasma alanine aminotransferase measurement (enzymatic activity/volume ) 15 U/L 0-55 Serum or plasma protein measurement (mass/volume) 6.2 g/dL 6.4-8.2 Serum or plasma albumin measurement (mass/volume) 3.8 g/dL 3.2-4.5 Magnesium - 04/27/16 04:15 Magnesium 2.3 mg/dL 1.8-2.4 Serum or plasma troponin i.cardiac measurement (mass/volume) - 04/27/16 04:15 Serum or plasma troponin i.cardiac measurement (mass/volume) < ng/ mL <0.30 Lipid 1996 panel - 04/27/16 04:15 Serum or plasma triglyceride measurement (mass/volume) 171 mg/dL <150 Serum or plasma cholesterol measurement (mass/volume) 196 mg/dL < 200 Serum or plasma cholesterol in HDL measurement (mass/volume) 37 mg/ dL 40-60 Cholesterol in LDL [mass/volume] in serum or plasma by direct assay 137 mg/dL 1-129 Serum or plasma cholesterol in VLDL measurement (mass/volume) 34 mg/ dL 5-40 TSH+Free T4 - 05/13/16 08:30 TSH 2.110 uIU/mL 0.450-4.500 T4,Free(Direct) 1.38 ng/dL 0.82-1.77 CBC With Differential/Platelet - 05/13/16 08:30 WBC 6.6 x10E3/uL 3.4-10.8 RBC 4.82 x10E6/uL 4.14-5.80 Hemoglobin 14.9 g/dL 12.6-17.7 Hematocrit 43.4 % 37.5-51.0 MCV 90 fL 79-97 MCH 30.9 pg 26.6-33.0 MCHC 34.3 g/dL 31.5-35.7 RDW 13.4 % 12.3-15.4 Platelets 255 x10E3/uL 150-379 Neutrophils 55 % Lymphs 33 % Monocytes 7 % Eos 5 % Basos 0 % Neutrophils (Absolute) 3.6 x10E3/uL 1.4-7.0 Lymphs (Absolute) 2.2 x10E3/uL 0.7-3.1 Monocytes(Absolute) 0.5 x10E3/uL 0.1-0.9 Eos (Absolute) 0.3 x10E3/uL 0.0-0.4 Baso (Absolute) 0.0 x10E3/uL 0.0-0.2 Immature Granulocytes 0 % Immature Grans (Abs) 0.0 x10E3/uL 0.0-0.1 Comp. Metabolic Panel (14) - 05/13/16 08:30 Glucose, Serum 104 mg/dL 65-99 BUN 18 mg/dL 6-24 Creatinine, Serum 0.84 mg/dL 0.76-1.27 eGFR If NonAfricn Am 99 mL/min/1.73 >59 eGFR If Africn Am 115 mL/min/1.73 >59 BUN/Creatinine Ratio 21 9-20 Sodium, Serum 140 mmol/L 134-144 Potassium, Serum 4.9 mmol/L 3.5-5.2 Chloride, Serum 103 mmol/L 97-108 Carbon Dioxide, Total 22 mmol/L 18-29 Calcium, Serum 9.3 mg/dL 8.7-10.2 Protein, Total, Serum 7.0 g/dL 6.0-8.5 Albumin, Serum 4.6 g/dL 3.5-5.5 Globulin, Total 2.4 g/dL 1.5-4.5 A/G Ratio 1.9 1.1-2.5 Bilirubin, Total 1.0 mg/dL 0.0-1.2 Alkaline Phosphatase, S 70 IU/L 39-117 AST (SGOT) 14 IU/L 0-40 ALT (SGPT) 19 IU/L 0-44 Lipid Panel - 05/13/16 08:30 Cholesterol, Total 149 mg/dL 100-199 Triglycerides 107 mg/dL 0-149 HDL Cholesterol 43 mg/dL >39 VLDL Cholesterol Oscar 21 mg/dL 5-40 LDL Cholesterol Calc 85 mg/dL 0-99 CBC With Differential/Platelet - 05/18/16 12:21 WBC 6.5 x10E3/uL 3.4-10.8 RBC 4.52 x10E6/uL 4.14-5.80 Hemoglobin 13.7 g/dL 12.6-17.7 Hematocrit 40.4 % 37.5-51.0 MCV 89 fL 79-97 MCH 30.3 pg 26.6-33.0 MCHC 33.9 g/dL 31.5-35.7 RDW 13.5 % 12.3-15.4 Platelets 236 x10E3/uL 150-379 Neutrophils 56 % Lymphs 35 % Monocytes 7 % Eos 2 % Basos 0 % Neutrophils (Absolute) 3.6 x10E3/uL 1.4-7.0 Lymphs (Absolute) 2.3 x10E3/uL 0.7-3.1 Monocytes(Absolute) 0.5 x10E3/uL 0.1-0.9 Eos (Absolute) 0.1 x10E3/uL 0.0-0.4 Baso (Absolute) 0.0 x10E3/uL 0.0-0.2 Immature Granulocytes 0 % Immature Grans (Abs) 0.0 x10E3/uL 0.0-0.1 Basic Metabolic Panel (8) - 05/18/16 12:21 Glucose, Serum 89 mg/dL 65-99 BUN 17 mg/dL 6-24 Creatinine, Serum 1.01 mg/dL 0.76-1.27 eGFR If NonAfricn Am 84 mL/min/1.73 >59 eGFR If Africn Am 97 mL/min/1.73 >59 BUN/Creatinine Ratio 17 9-20 Sodium, Serum 139 mmol/L 134-144 Potassium, Serum 4.1 mmol/L 3.5-5.2 Chloride, Serum 104 mmol/L 97-108 Carbon Dioxide, Total 22 mmol/L 18-29 Calcium, Serum 9.2 mg/dL 8.7-10.2 B-Type Natriuretic Peptide - 05/18/16 12:21 B-Type Natriuretic Peptide 19.2 pg/mL 0.0-100.0 CBC With Differential/Platelet - 09/26/16 11:42 WBC 4.5 x10E3/uL 3.4-10.8 RBC 4.79 x10E6/uL 4.14-5.80 Hemoglobin 14.7 g/dL 12.6-17.7 Hematocrit 42.5 % 37.5-51.0 MCV 89 fL 79-97 MCH 30.7 pg 26.6-33.0 MCHC 34.6 g/dL 31.5-35.7 RDW 13.8 % 12.3-15.4 Platelets 188 x10E3/uL 150-379 Neutrophils 55 % Lymphs 29 % Monocytes 13 % Eos 3 % Basos 0 % Neutrophils (Absolute) 2.5 x10E3/uL 1.4-7.0 Lymphs (Absolute) 1.3 x10E3/uL 0.7-3.1 Monocytes(Absolute) 0.6 x10E3/uL 0.1-0.9 Eos (Absolute) 0.2 x10E3/uL 0.0-0.4 Baso (Absolute) 0.0 x10E3/uL 0.0-0.2 Immature Granulocytes 0 % Immature Grans (Abs) 0.0 x10E3/uL 0.0-0.1 Mycoplasma pneumoniae, IgM Ab - 09/26/16 11:42 M pneumoniae IgM Abs <770 U/mL 0-769 CBC - 06/15/17 08:43 WHITE BLOOD CELL COUNT 8.2 Thousand/uL 3.8-10.8 RED BLOOD CELL COUNT 4.85 Million/uL 4.20-5.80 HEMOGLOBIN 15.6 g/dL 13.2-17.1 HEMATOCRIT 45.5 % 38.5-50.0 MCV 93.8 fL 80.0-100.0 MCH 32.2 pg 27.0-33.0 MCHC 34.3 g/dL 32.0-36.0 RDW 12.7 % 11.0-15.0 PLATELET COUNT 223 Thousand/uL 140-400 MPV 10.9 fL 7.5-12.5 ABSOLUTE NEUTROPHILS 4674 cells/uL 4981-0880 ABSOLUTE LYMPHOCYTES 2550 cells/uL 850-3900 ABSOLUTE MONOCYTES 648 cells/uL 200-950 ABSOLUTE EOSINOPHILS 279 cells/uL 15-500 ABSOLUTE BASOPHILS 49 cells/uL 0-200 NEUTROPHILS 57 % NRG LYMPHOCYTES 31.1 % NRG MONOCYTES 7.9 % NRG EOSINOPHILS 3.4 % NRG BASOPHILS 0.6 % NRG Complete blood count (CBC) with automated white blood cell (WBC) differential - 08/17/17 09:23 Blood leukocytes automated count (number/volume) 8.8 10*3/uL 4.3-11.0 Blood erythrocytes automated count (number/volume) 4.56 10*6/uL 4.35-5.85 Venous blood hemoglobin measurement (mass/volume) 14.8 g/dL 13.3-17.7 Blood hematocrit (volume fraction) 43 % 40-54 Automated erythrocyte mean corpuscular volume 93 [foz_us] 80-99 Automated erythrocyte mean corpuscular hemoglobin (mass per erythrocyte) 33 pg 25-34 Automated erythrocyte mean corpuscular hemoglobin concentration measurement ( mass/volume) 35 g/dL 32-36 Automated erythrocyte distribution width ratio 13.8 % 10.0-14.5 Automated blood platelet count (count/volume) 214 10*3/uL 130-400 Automated blood platelet mean volume measurement 10.3 [foz_us] 7.4-10.4 Automated blood neutrophils/100 leukocytes 57 % 42-75 Automated blood lymphocytes/100 leukocytes 27 % 12-44 Blood monocytes/100 leukocytes 10 % 0-12 Automated blood eosinophils/100 leukocytes 6 % 0-10 Automated blood basophils/100 leukocytes 0 % 0-10 Blood neutrophils automated count (number/volume) 5.0 10*3 1.8-7.8 Blood lymphocytes automated count (number/volume) 2.3 10*3 1.0-4.0 Blood monocytes automated count (number/volume) 0.9 10*3 0.0-1.0 Automated eosinophil count 0.5 10*3/uL 0.0-0.3 Automated blood basophil count (count/volume) 0.0 10*3/uL 0.0-0.1 PT panel in platelet poor plasma by coagulation assay - 08/17/17 09:23 Prothrombin time (PT) in platelet poor plasma by coagulation assay 13.0 s 12.2-14.7 INR in platelet poor plasma or blood by coagulation assay 1.0 0.8-1.4 Activated partial thromboplastin time (aPTT) in platelet poor plasma bycoagulation assay - 08/17/17 09:23 Activated partial thromboplastin time (aPTT) in platelet poor plasma bycoagulation assay 26 s 24-35 [facility] - 08/25/17 10:19 GLUCOSE 98 mg/dL 65-99 UREA NITROGEN (BUN) 21 mg/dL 7-25 CREATININE 0.92 mg/dL 0.70-1.33 eGFR NON-AFR. [place] 93 mL/min/1.73m2 > OR=60 eGFR 107 mL/min/1.73m2 > OR=60 BUN/CREATININE RATIO NOT APPLICABLE (calc) 6-22 SODIUM 140 mmol/L 135-146 POTASSIUM 4.0 mmol/L 3.5-5.3 CHLORIDE 106 mmol/L 98-110 CARBON DIOXIDE 25 mmol/L 20-31 CALCIUM 8.9 mg/dL 8.6-10.3 PROTEIN, TOTAL 6.5 g/dL 6.1-8.1 ALBUMIN 4.0 g/dL 3.6-5.1 GLOBULIN 2.5 g/dL (calc) 1.9-3.7 ALBUMIN/GLOBULIN RATIO 1.6 (calc) 1.0-2.5 BILIRUBIN, TOTAL 0.6 mg/dL 0.2-1.2 ALKALINE PHOSPHATASE 68 U/L 40-115 AST 12 U/L 10-35 ALT 15 U/L 9-46 [facility] - 12/07/17 08:59 GLUCOSE 104 mg/dL 65-99 UREA NITROGEN (BUN) 18 mg/dL 7-25 CREATININE 0.97 mg/dL 0.70-1.33 eGFR NON-AFR. [place] 87 mL/min/1.73m2 > OR=60 eGFR 101 mL/min/1.73m2 > OR=60 BUN/CREATININE RATIO NOT APPLICABLE (calc) 6-22 SODIUM 138 mmol/L 135-146 POTASSIUM 4.2 mmol/L 3.5-5.3 CHLORIDE 106 mmol/L 98-110 CARBON DIOXIDE 25 mmol/L 20-31 CALCIUM 9.5 mg/dL 8.6-10.3 PROTEIN, TOTAL 6.7 g/dL 6.1-8.1 ALBUMIN 4.3 g/dL 3.6-5.1 GLOBULIN 2.4 g/dL (calc) 1.9-3.7 ALBUMIN/GLOBULIN RATIO 1.8 (calc) 1.0-2.5 BILIRUBIN, TOTAL 0.8 mg/dL 0.2-1.2 ALKALINE PHOSPHATASE 85 U/L 40-115 AST 15 U/L 10-35 ALT 19 U/L 9-46 Methicillin resistant Staphylococcus aureus (MRSA) screening culture - 11:13 Methicillin resistant Staphylococcus aureus (MRSA) screening culture NEG NRG Encounters ACCT No. Visit Date/Time Discharge Status Pt. Type Provider Facility Loc./Unit Complaint [id number] 10/09/2014 14:22:00 10/09/2014 23:59:59 CLS Outpatient PATEL FLETCHER MD [id number] 2014 14:04:00 2014 23:59:59 CLS Outpatient JOSE CHAN DO [id number] 05/26/2014 10:37:00 05/26/2014 23:59:59 CLS Outpatient PATEL FLETCHER MD [id number] 04/25/2014 08:01:00 04/25/2014 23:59:59 CLS Outpatient PATEL FLETCHER MD [id number] 04/24/2014 14:07:00 04/24/2014 23:59:59 CLS Outpatient PATEL FLETCHER MD [id number] 02/12/2014 16:35:00 02/12/2014 23:59:59 CLS Outpatient DOUG QUIÑONES APRN [id number] 07/25/2013 11:57:00 07/25/2013 23:59:59 CLS Outpatient JUAN DIEGO YAN MD [id number] 02/04/2013 11:24:00 02/04/2013 23:59:59 CLS Outpatient JOSE CHAN DO [id number] 08/30/2012 12:37:00 08/30/2012 23:59:59 [place] [id number] 12/26/2011 11:35:00 12/26/2011 23:59:59 CLS Outpatient JOSE CHAN DO [id number] 01/31/2013 11:00:00 Document Registration [id number] 01/24/2013 16:23:00 Document Registration [id number] 05/14/2016 08:35:00 Document Registration [id number] 09/27/2016 22:07:00 Document Registration [id number] 01/10/2018 11:40:00 01/10/2018 23:59:59 CLS Outpatient PATEL FLETCHER MD [facility] [id number] 12/07/2017 09:00:00 Document Registration [id number] 08/25/2017 10:20:00 Document Registration [id number] 06/15/2017 08:30:00 Document Registration [id number] 02/25/2015 11:34:11 ACT Document Registration [id number] 05/19/2016 18:05:00 Document Registration [id number] 06/07/2018 10:59:00 06/07/2018 11:20:00 DIS Outpatient MARION SIEGEL MD [facility] PREOP LEFT SHOULDER SCOPE [id number] 04/20/2018 10:15:00 04/20/2018 12:45:00 DIS Outpatient FELIX DE GUZMAN MD [facility] ENDO SCREENING [id number] 04/17/2018 08:30:00 04/17/2018 11:43:00 DIS Outpatient FELIX DE GUZMAN MD [facility] PREOP COLONOSCOPY [id number] 01/15/2018 16:29:00 01/15/2018 23:59:59 CLS Outpatient PATEL FLETCHER MD [facility] RAD SCREENING [id number] 12/13/2017 08:02:00 12/13/2017 23:59:59 CLS Outpatient JERALD LOPEZ MD [facility] CARD CAD,CHEST PAIN SYNDROME [id number] 12/05/2017 07:30:00 12/05/2017 23:59:59 CLS Preadmit JERALD LOPEZ MD [facility] CARD CAD,CHEST PAIN SYNDROME [id number] 08/25/2017 14:17:00 08/25/2017 23:59:59 CLS Outpatient THEODORA LESLIE MD [facility] RAD HEMATURIA [id number] 08/17/2017 09:03:00 08/17/2017 13:57:00 DIS Outpatient DANN DAWSON DO [facility] RAD BACK PAIN [id number] 07/13/2017 08:01:00 07/13/2017 23:59:59 CLS Outpatient ALEJANDRA DELANEY MD [facility] RAD LBP R/C LDH [id number] 07/13/2017 07:15:00 07/13/2017 23:59:59 CLS Preadmit ALEJANDRA DELANEY MD [facility] RAD LBP [id number] 07/11/2016 13:11:00 07/11/2016 23:59:59 CLS Outpatient KIKA MILLAN DO M [facility] RT EMPHYSEMA LUNG [id number] 06/24/2016 11:18:00 06/24/2016 23:59:59 CLS Outpatient KIKA MILALN DO [facility] RAD EMPHYSEMA LUNG [id number] 05/18/2016 13:31:00 05/18/2016 23:59:59 CLS Outpatient MARY PHAM [facility] RAD CONFUSED [id number] 04/26/2016 19:43:00 04/27/2016 10:45:00 DIS Inpatient ERASMO ARMSTRONG FACC, KYLE LIU CCDS [facility] ICU CHEST PAIN, CAD [id number] 10/27/2015 20:05:00 10/28/2015 05:40:00 DIS Outpatient PATEL FLETCHER MD [facility] SLEEP OBSERVED APPNEA SNORING [id number] 06/02/2015 15:01:00 06/02/2015 20:25:00 DIS Inpatient PATEL FLETCHER MD [facility] ICU [id number] 12/31/2014 21:19:00 01/02/2015 10:45:00 DIS Outpatient JERALD LOPEZ MD [facility] CATH [id number] 04/15/2014 17:17:00 04/17/2014 11:08:00 DIS Inpatient PATEL FLETCHER MD [facility] CSD [id number] 08/09/2013 09:06:00 08/09/2013 23:59:59 CLS Outpatient ALEJANDRA DELANEY MD [facility] RAD [id number] 06/07/2018 07:55:00 Document Registration [id number] 06/20/2012 11:31:00 Document Registration [id number] 06/14/2012 14:03:00 Document Registration [id number] 04/22/2011 12:07:00 Document Registration [id number] 04/13/2011 16:04:00 Document Registration [id number] 03/28/2011 16:06:00 Document Registration [id number] 03/28/2011 12:37:00 Document Registration [id number] 02/26/2010 11:43:00 Document Registration
--- NOTE | 2018-06-13 11:13 | Progress Note-Pre Operative ---
Pre-Operative Progress Note H&P Reviewed The H&P was reviewed, patient examined and no changes noted. Date Seen by Provider: Jun 13, 2018 Time Seen by Provider: 11:12 Date H&P Reviewed: Jun 13, 2018 Time H&P Reviewed: 11:12 Pre-Operative Diagnosis: left rotator cuff tear and SLAP tear MARION SIEGEL MD Jun 13, 2018 11:13
--- NOTE | 2018-06-13 11:14 | Progress Note-Post Operative ---
Post-Operative Progess Note Surgeon (s)/Electron Beam Photo Mask Technician (s) Surgeon MARION SIEGEL MD Electron Beam Photo Mask Technician: delicia Camarillo Pre-Operative Diagnosis left rotator cuff tear and SLAP tear Post-Operative Diagnosis left rotator cuff tear, labral tear and SLAP tear Procedure & Operative Findings Date of Procedure 06/13/18 Procedure Performed/Findings left shoulder arthroscopic labral debridement, and acromioplasty and open rotator cuff repair and biceps tenodesis Anesthesia Type GETA plus interscalene Estimated Blood Loss Estimated blood loss (mL): 50 ml Specimens/Packing Specimens Removed none Packing: none MARION SIEGEL MD Jun 13, 2018 11:14
[2018-06-13] MEDS ORDERED: oxyCODONE/APAP 5/325MG (PERCOCET 5) TABLET PO PRN (11:15)
[2018-06-13] MEDS ORDERED: NEOSTIGMINE 1 MG/ML 5 ML SYRINGE ONE (12:11)
[2018-06-13] MEDS ORDERED: GLYCOPYRROLATE 0.2 MG/ML (ROBINUL) 2 ML VIAL ONE (12:11)
[2018-06-13] MEDS ORDERED: SEVOFLURANE (ULTANE) 15 ML INHAL SOLN ONE ×2 (12:20→12:25)
[2018-06-13] MEDS ORDERED: HYDROmorphone 2 MG/ML VIAL (DILAUDID) IV ONE (12:45)
[2018-06-13] MEDS ORDERED: morphine INJ 10 MG/ML 1ML (SYR OR VIAL) IVP ONE (12:45)
[2018-06-13] MEDS ORDERED: ONDANSETRON 4 MG/2 ML (SDV) Z0FRAN IVP PRN (12:45)
[2018-06-13] MEDS ORDERED: morphine INJ 10 MG/ML 1ML (SYR OR VIAL) ONE (12:50)
[2018-06-13] MEDS ORDERED: PHENYLEPHRINE 100 MCG/ML 10 ML (ANESTHESIA) SYR ONE (12:53)
[2018-06-13 13:40] VITALS: BP 118/80
--- NOTE | 2018-06-13 13:42 | Anesthesia-General Post-Op ---
General Patient Condition Mental Status/LOC: Same as Preop Cardiovascular: Satisfactory Nausea/Vomiting: Absent Respiratory: Satisfactory Pain: Controlled Complications: Absent Post Op Complications Complications None Follow Up Care/Instructions Patient Instructions None needed. Anesthesia/Patient Condition Patient Condition Patient is doing well, no complaints, stable vital signs, no apparent adverse anesthesia problems. CAMILO ABBOTT DO Jun 13, 2018 13:42
[2018-06-13] MEDS ORDERED: OXYC-471 PO (13:54)
[2018-06-13 14:10] VITALS: BP 122/88
--- NOTE | 2018-06-13 14:30 | OPERATIVE REPORT ---
DATE OF SERVICE: 06/13/2018 PREOPERATIVE DIAGNOSES: 1. Left rotator cuff tear. 2. Left shoulder SLAP tear. POSTOPERATIVE DIAGNOSES: 1. Left rotator cuff tear. 2. Left shoulder SLAP tear. 3. Left shoulder labral tear. PROCEDURES PERFORMED: 1. Left shoulder open rotator cuff repair. 2. Left shoulder biceps tenodesis. 3. Left shoulder arthroscopic labral debridement. 4. Left shoulder arthroscopic acromioplasty. SURGEON: Samuel Siegel MD. HIGHWAY MAINTAINER: APOLINAR Kumar, who assisted throughout the procedure and closed the incisions. ANESTHESIA: Interscalene nerve block per my request for postoperative pain management plus general endotracheal by Dr. Santos. ESTIMATED BLOOD LOSS: Minimal. DRAINS: None. COMPLICATIONS: None. POSTOPERATIVE PLAN: Sling wear for 4 weeks with passive range of motion for 4 weeks. The patient was transported to the recovery room in awake and in stable condition. 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 He had a positive Sullivan maneuver, positive Neer sign, weakness with abduction and external rotation. He had undergone treatment with injections as well as home exercise program and anti-inflammatories without relief. Due to functional impairment and failure to improve with conservative measures, the patient elected to proceed with surgical intervention. Examination under anesthesia revealed forward elevation of 170 degrees, external rotation of 80 degrees, internal rotation of 70 degrees. Arthroscopic findings demonstrated a full thickness supraspinatus tear and a 1 x 1 cm area in the anterior portion of insertion site. There was a type 2 SLAP tear. In addition, there was anterior labral tearing without detachment of the capsule labral complex from the 7 o'clock to 9 o'clock positions. The humeral head and glenoid demonstrated no gross chondral abnormalities. Subacromial space demonstrated moderate bursitis with sloping of the anterolateral acromion. There was a type 2 SLAP tear. DESCRIPTION OF PROCEDURE: After risks and benefits of procedure were discussed and questions were answered and informed consent was signed and placed on the chart, the operative site was confirmed in the preoperative holding area initialed by the surgeon. The patient was then transferred to the operating room and after adequate levels of regional plus general endotracheal anesthetic were obtained, a timeout was called confirming the operative site and the left upper extremity was prepped and draped in the usual sterile fashion after an examination under anesthesia had been performed. The shoulder joint was injected with 20 mL of fluid. A standard posterior portal was placed under direct visualization. An anterior portal was created in the interval between the biceps, subscapularis and glenoid. The biceps anchor was released and the stump was debrided with a shaver. The anterior labral flap was debrided with the shaver as well the scope was then redirected in the subacromial space. A lateral portal was created. A bursectomy was performed and the acromion was planned to a flat type 1 acromion. The lateral incision was then extended. The deltoid was split in line with its fibers leaving attached to the acromion. The rotator cuff tear was sharply debrided and a single corkscrew anchor was placed in a modified Gaston - Charanjit repair was performed with excellent repair obtained. No undue tension was noted with the arm at the side. The wound was copiously irrigated. The deltoid was repaired in a [id number]-ay-gkwt fashion using #2 FiberWire in a rvvqfn-[id number]-bsihh interrupted fashion. The wound was further irrigated. A 2-0 Vicryl was used to reapproximate subcutaneous tissue and skin was closed with 4-0 nylon a running alternating horizontal mattress fashion. The portal sites were closed with 4-0 nylon in a simple interrupted fashion. An incision was then made just distal to the pectoralis insertion. The underlying soft tissues were carefully dissected. The long head of the biceps was identified and pulled into the wound. Of note, the musculocutaneous nerve was more superficial than typical. This was identified and retracted during the procedure to ensure its safety. It was intact at the conclusion of the procedure. The long head of the biceps from the musculotendinous junction extending proximally was whipstitched with a #2 FiberWire approximately 3 cm. The excessive tendon was then excised. A single unicortical drill hole was placed in the bicipital groove just distal to the pectoralis insertion. While carefully retracting in a subperiosteal fashion and ensuring the musculocutaneous nerve was carefully retracted. The suture ends were then passed through the biceps button which was then passed into the humeral canal. The tendon was then pulled to the cortical surface and then oversewn on itself. The elbow and shoulder were taken through range of motion and the repair was found to be stable. The wound was copiously irrigated. A 2-0 Vicryl was used to reapproximate subcutaneous. The skin was closed with 4-0 nylon running alternating horizontal mattress fashion. The incisions were infiltrated with plain Marcaine. A soft dressing and a sling were applied and the patient was transported to recovery room awake and in stable condition. Job ID: [id number] DocumentID: [id number] Dictated Date: 06/13/2018 12:28:01 Color Weigher Date: 06/13/2018 14:29:32 Dictated By: SAMUEL SIEGEL MD
[2018-06-13 14:40] VITALS: BP 127/84
== END 2018-06-13 15:00 | disposition home or self-care (01) ==
LOC: SDC 09:34
PROVIDERS: ATTEND Orthopaedic Surgery
DX: S43.432A Superior glenoid labrum lesion of left shoulder, initial encounter (principal); M75.102 Unspecified rotator cuff tear or rupture of left shoulder, not specified as traumatic; I10 Essential (primary) hypertension; I25.10 Atherosclerotic heart disease of native coronary artery without angina pectoris; E78.2 Mixed hyperlipidemia; F17.210 Nicotine dependence, cigarettes, uncomplicated; G62.9 Polyneuropathy, unspecified; I25.2 Old myocardial infarction; I49.01 Ventricular fibrillation; F41.9 Anxiety disorder, unspecified; F32.9 Major depressive disorder, single episode, unspecified; G43.909 Migraine, unspecified, not intractable, without status migrainosus; Z79.899 Other long term (current) drug therapy; Z79.82 Long term (current) use of aspirin; Z95.5 Presence of coronary angioplasty implant and graft; Z95.810 Presence of automatic (implantable) cardiac defibrillator

== ENCOUNTER → 2019-01-29 | Outpatient (CLI) | payer BC ==
[~2019-01-29] MED LIST changes: -AMLO5TAB7 PO; +AMLO5TAB9 PO; +OXYC-471 PO
--- NOTE | 2019-01-30 10:34 | Diagnostic Imaging Report ---
CT CHEST SCREENING WO TECHNIQUE: Low-dose unenhanced CT of the chest was performed according to the screening protocol. Coronal MIP and sagittal MPR reformats are created. Automatic exposure controls were utilized to keep dose as low as reasonably achievable. INDICATION: 58-year-old current smoker with 57-numr-ecus history of smoking. COMPARISON: 01/15/2018. FINDINGS: Pulmonary findings: No endoluminal nodule within the trachea. Severe paraseptal and centrilobular emphysema. Biapical subpleural scarring is unchanged. No pulmonary mass or consolidation. No new pulmonary nodule that would suggest clinically active lung cancer. Extrapulmonary findings: No pleural effusion. No axillary lymphadenopathy. No mediastinal, discrete hilar or juxtaphrenic lymphadenopathy. Heart is normal in size without pericardial effusion. Unchanged extensive coronary artery calcifications. Stable left pectoral transvenous dual-chamber pacemaker. Normal caliber thoracic aorta. No concerning focal osseous lesions. IMPRESSION: 1. No change in screening CT to indicate clinically active lung cancer. 2. Severe emphysema. 3. Extensive coronary artery disease. Lung-RADS category: 2 - Benign appearance or behavior Recommendations: Continued annual screening with low-dose CT in 12 months. Dictated by: Dictated on workstation # [id number]
== END ==
LOC: RAD 16:57
PROVIDERS: ATTEND Family Medicine
DX: Z12.2 Encounter for screening for malignant neoplasm of respiratory organs (principal); J43.2 Centrilobular emphysema; I25.10 Atherosclerotic heart disease of native coronary artery without angina pectoris; F17.210 Nicotine dependence, cigarettes, uncomplicated; Z95.0 Presence of cardiac pacemaker

== ENCOUNTER 2019-04-05 08:08 | Day surgery (SDC) | payer BC ==
[~2019-04-05] VITALS: Ht 180.3 cm; Wt 96.2 kg
[2019-04-05] VITALS (10 sets, daily range): BP systolic 103–137; BP diastolic 60–87
[~2019-04-05 08:08] MED LIST changes: +HEParin (CATH LAB) 2,000 ML IV ONE; +LIDOCAINE 1% INJ 20 ML 20 ML VIAL ONE; +NS IV 1000 ML 1,000 ML ONE
[2019-04-05] MEDS ORDERED: NS IV 1000 ML 1,000 ML IV SCH (08:15)
[2019-04-05 08:46] LABS: BILIRUBIN,URINE NEGATIVE (NEGATIVE); COLOR,URINE YELLOW; GLUCOSE, URINE (UA) NEGATIVE (NEGATIVE); KETONES,URINE NEGATIVE (NEGATIVE); LEUKOCYTE ESTERASE ,URINE 1+ (NEGATIVE); NITRITE,URINE NEGATIVE (NEGATIVE); PH,URINE 6.5 (5-9); PROTEIN,URINE 1+ (NEGATIVE); UROBILINOGEN,URINE NORMAL (NORMAL)
[2019-04-05 08:51] LABS: HEMOGLOBIN 14.6 G/DL (13.3-17.7); MEAN PLATELET VOLUME 10.7 FL (7.4-10.4); RED CELL DISTRIBUTION WIDTH 13.7 % (10.0-14.5); WHITE BLOOD COUNT 6.9 10^3/uL (4.3-11.0)
[2019-04-05 08:57] LABS: PROTHROMBIN TIME PATIENT 13.5 SEC (12.2-14.7)
[2019-04-05 08:58] LABS: CLARITY,URINE CLEAR
[2019-04-05 08:59] LABS: BACTERIA,URINE TRACE /HPF; URINE OTHER RARE TRANS EPI /HPF
[2019-04-05 09:10] LABS: ALANINE AMINOTRANSFERASE 17 U/L (0-55); ALBUMIN 4.1 GM/DL (3.2-4.5); ALKALINE PHOSPHATASE 71 U/L (40-136); BILIRUBIN,TOTAL 0.8 MG/DL (0.1-1.0); BUN/CREATININE RATIO 18; CALCIUM 9.3 MG/DL (8.5-10.1); CARBON DIOXIDE 21 MMOL/L (21-32); CHLORIDE 106 MMOL/L (98-107); CHOLESTEROL 128 MG/DL (< 200); CREATININE SERUM 0.94 MG/DL (0.60-1.30); GFR ESTIMATED > 60; GLUCOSE 98 MG/DL (70-105); HDL CHOLESTEROL 34 MG/DL (40-60); POTASSIUM 4.2 MMOL/L (3.6-5.0); SODIUM 140 MMOL/L (135-145); TOTAL PROTEIN 7.1 GM/DL (6.4-8.2); TRIGLYCERIDES 122 MG/DL (<150); VLDL CHOLESTEROL 24 MG/DL (5-40)
--- NOTE | 2019-04-05 09:11 | Diagnostic Imaging Report ---
INDICATION: ABN STRESS,CP,CAD,HLP COMPARISON: 04/26/2016 FINDINGS: Single frontal view of the chest demonstrates normal heart size and pulmonary vascularity. The lungs are well aerated and clear. No large pleural effusion or pneumothorax is seen. The visualized osseous structures show no acute abnormalities. Left-sided AICD is noted. IMPRESSION: 1. No acute cardiopulmonary process. Dictated by: Dictated on workstation # [id number]
[2019-04-05] MEDS ORDERED: fentaNYL INJECTION 100 MCG/2 ML AMP ONE (09:51)
[2019-04-05] MEDS ORDERED: MIDAZOLAM 5 MG/5 ML (VERSED) VIAL ONE (09:51)
--- NOTE | 2019-04-05 10:03 | Cardiac Procedure Note-CS/ASA ---
Pre-Procedure Note Pre-Op Procedure Note H&P Reviewed The H&P was reviewed, patient examined and no changes noted. Date H&P Reviewed: Apr 05, 2019 Time H&P Reviewed: 10:03 Conscious Sedation Pre-Proced Time 10:03 ASA Score 3 For ASA 3 and 4: Consider anesthesia and medical clearance. Also, for patients with a history of failed moderate sedation consider anesthesia. Airway Lungs Heart ASA score ASA 1: a normal healthy patient ASA 2: a patient with a mild systemic disease (mid diabetes, controlled hypertension, obesity x ASA 3: a patient with a severe systemic disease that limits activity (angina, COPD, prior Myocardial infarction) ASA 4: a patient with an incapacitating disease that is a constant threat to life (CHF, renal failure) ASA 5: a moribund patient not expected to survive 24 hrs. (ruptured aneurysm) ASA 6: a declared brain- patient whose organs are being harvested. For emergent operations, add the letter E after the classification Mallampati Classification Grade 3 Sedation Plan Analgesia, Amnesia, Plan communicated to team members, Discussed options with patient/fam, Discussed risks with patient/fam The patient is an appropriate candidate to undergo the planned procedure, sedation, and anesthesia. The patient immediately re-assessed prior to indication. JERALD LOPEZ MD Apr 05, 2019 10:03
[2019-04-05] MEDS ORDERED: HEParin 1000 UNIT/ML (10ML VIAL) FOR BOLUS ONE (10:22)
[2019-04-05] MEDS ORDERED: EPTIFIBATIDE BOLUS 20 ML IV ONE (10:22)
[2019-04-05] MEDS ORDERED: NITRO DRIP 25000 MCG/D5W 250 ML IV ONE (10:25)
[2019-04-05] MEDS ORDERED: ASPIRIN 325 MG (5 GR) TABLET ONE (10:49)
[2019-04-05] MEDS ORDERED: TICAGRELOR 90 MG TABLET (BRILINTA) PO ONE (10:49)
[2019-04-05] MEDS: NS IV 1000 ML 1,000 ML IV SCH ×2 (11:00→19:47)
[2019-04-05] MEDS ORDERED: PATIENT MAY USE OWN MEDS, ALL PO SCH (11:00)
--- NOTE | 2019-04-05 11:11 | Cardiac Cath Report ---
Cardiac Cath Report Physician (s)/Patient Resource Coordinator (s) Physician JERALD LOPEZ MD Pre-Procedure Diagnosis Pre-Procedure Diagnosis: Coronary artery disease Post-Procedure Note Procedure Start Date: Apr 05, 2019 Name of Procedure: Left heart catheterization Stent deployment to the left circumflex artery Balloon angioplasty to the right coronary artery Findings/Procedure Note PROCEDURE NOTE: 58 years old gentleman with extensive history of coronary artery disease, multiple intervention the past, has been having chest pain, had an abnormal stress test, scheduled for cardiac catheterization possible PTCA. After explaining the procedure to the patient, all pros and cons were explained, all questions were answered. The patient signed the consent and then he was placed on the cardiac catheterization laboratory. Groin was prepped SL fashion local anesthesia was used. Sheath placed in the right femoral artery. Alex right and left catheter were used to access the coronary system. Pigtail was used to access the left ventricular cavity. Left ventriculogram was not done, pressure was measured Patient had severe stenosis in the circumflex artery and right coronary artery, intervention was done. Patient was given 6000 units of heparin, double bolus Integrilin, FL guide was advanced and left carotid system, BMW wire was advanced to the distal circumflex artery, patient has severe instent restenosis and proximal to stent multiple balloon inflation was done then deployment of Xience Alpine 3.0 x 12 mm drug- eluting stent proximal to the old stent, expanded to 3.2 mm with multiple balloon inflation within the overlap area up to 18 otilio. Patient has significant chest pain, responsive to intracoronary nitroglycerin. Patient has severe instent restenosis in the midright coronary artery, I advanced F are guide and BMW wire to the right coronary artery, didn't single balloon inflation using 3.5 x 18 mm emerge balloon expanded to 3.75 mm, patient has significant chest pain, responded to intracoronary nitroglycerin, still have moderate disease distally. I elected not to proceed with any further intervention due to the fact that he was having significant chest pain and he coming fairly uncomfortable. pain has improved after nitroglycerin, patient was asking for more sedation he was borderline hypotensive. I decided to stop at this point At the end of the procedure the sheath was removed. Closure device was used FINDINGS: Hemodynamics please review separate sheath for pressure, there was no significant gradient during pullback from LV to aorta ANATOMY: Left Main free of obstructive disease Left Anterior Descending has a stent proximally with mild disease within the stent, multiple moderate disease distally Left Circumflex has a stent in the proper circumflex artery with severe in-stent and proximal to the stent stenosis, successful multiple balloon intervention then deployment of overlapping stent 3.0 x 12 mm Xience Alpine stent expanded to 3.2 mm with excellent results, mild disease distally. Right Coronory Artery is a large dominant artery with significant ectasia, severe in-stent restenosis in the midright coronary artery, successful balloon angioplasty using 3.5 x 20 mm emerge with one inflation, had significant chest pain, responded to nitroglycerin. Still have moderate disease distally. LV Gram was not done, pressure was measured CONCLUSION: 1. Severe stenosis within the stent in the distal circumflex artery and proximal to the stent, successful complex balloon angioplasty and deployment of overlapping stent with Xience Alpine 3.012 mm expanded to 3.2 mm with multiple inflation with excellent results. 2. Severe in-stent restenosis in the midright coronary artery successful balloon angioplasty using emerge 3.520 mm with 1 inflation up to 18 otilio. 3. Mild to moderate disease in the mid and distal right coronary artery 4. Mild to moderate disease in the mid LAD and distal LAD 5. Normal left ventricular end-diastolic pressure DISCUSSION AND RECOMMENDATION: patient was started on aspirin and Brilinta, educated on smoking cessation, will continue maximizing medical therapy. Anesthesia Type: Conscious Sedation Estimated blood loss (mL): 25 ml Contrast Amount: 141 ml Total Radiation Dose: 1849 mGy Post-Procedure Diagnosis Post-operative diagnosis: Unstable angina Coronary artery disease Hypertension Hyperlipidemia JERALD LOPEZ MD Apr 05, 2019 11:11
[2019-04-05] MEDS ORDERED: ACETAMINOPHEN 325 MG TABLET ONE (11:38)
[2019-04-05] MEDS: ACETAMINOPHEN 325 MG TABLET PO PRN ×2 (11:46→19:01)
[2019-04-05] MEDS: TICAGRELOR 90 MG TABLET (BRILINTA) PO SCH (20:42)
[2019-04-06] VITALS: BP 124/78
[2019-04-06 04:07] LABS: HEMOGLOBIN 14.4 G/DL (13.3-17.7); MEAN PLATELET VOLUME 10.7 FL (7.4-10.4); RED CELL DISTRIBUTION WIDTH 13.7 % (10.0-14.5); WHITE BLOOD COUNT 8.8 10^3/uL (4.3-11.0)
[2019-04-06 04:23] LABS: BUN/CREATININE RATIO 15; CALCIUM 8.9 MG/DL (8.5-10.1); CARBON DIOXIDE 24 MMOL/L (21-32); CHLORIDE 107 MMOL/L (98-107); GFR ESTIMATED > 60; GLUCOSE 100 MG/DL (70-105); POTASSIUM 4.5 MMOL/L (3.6-5.0); SODIUM 141 MMOL/L (135-145)
[2019-04-06] MEDS: TICAGRELOR 90 MG TABLET (BRILINTA) PO SCH (08:22)
[2019-04-06] MEDS: NS IV 1000 ML 1,000 ML IV SCH (08:22)
--- NOTE | 2019-04-06 08:50 | Cardiology Progress Note ---
Subjective Date Seen by Provider: Apr 06, 2019 Time Seen by Provider: 08:49 Subjective/Events-last exam Patient is laying down in bed, feeling better. No new complaint Review of Systems General: No Chills, No Night Sweats, No Fatigue, No Malaise, No Appetite, No Other HEENT: No Head Aches, No Visual Changes, No Eye Pain, No Ear Pain, No Dysphasia, No Sinus Congestion, No Post Nasal Drip, No Sore Throat, No Other Pulmonary: No Dyspnea, No Cough, No Pleuritic Chest Pain, No Other Cardiovascular: No: Chest Pain, Palpitations, Orthopnea, Paroxysmal Noc. Dyspnea, Edema, Lt Headedness, Other Objective-Cardiology Exam Last Set of Vital Signs Vital Signs 04/05/19 04/06/19 04/06/19 14:57 00:00 07:00 Temp 97.3 Pulse B/P (MAP) 124/78 (93) Pulse Ox 96 O2 Delivery Room Air O2 Flow Rate 3.00 Capillary Refill : Less Than 3 Seconds I&O Intake and Output 04/05/19 23:59 Intake Total 2010 ml Output Total 1100 ml Balance 910 ml Intake Oral 1010 ml IV Total 1000 ml Output Urine Total 1100 ml General: Alert, Oriented X3, Cooperative HEENT: Atraumatic, PERRLA Neck: Supple, No JVD, No Thyromegaly Lungs: Clear to Auscultation, Normal Air Movement Heart: Regular Rate, Normal S1, Normal S2, No Murmurs Abdomen: Normal Bowel Sounds, Soft, No Tenderness, No Hepatosplenomegaly, No Masses Extremities: No Clubbing, No Cyanosis, No Edema, Normal Pulses, No Tenderness/Swelling Skin: No Rashes, No Breakdown, No Significant Lesion Neuro: Normal Gait, Normal Speech, Strength at 5/5 X4 Ext, Normal Tone, Sensation Intact Psych/Mental Status: Mental Status NL, Mood NL Results Lab Laboratory Tests 04/06/19 03:56 A/P-Cardiology Assessment/Plan Coronary artery disease, multiple interventions in the past, status post stenting to the circumflex artery and balloon angioplasty to the right coronary artery with good results as described below. 1. Severe stenosis within the stent in the distal circumflex artery and proximal to the stent, successful complex balloon angioplasty and deployment of overlapping stent with Xience Alpine 3.012 mm expanded to 3.2 mm with multiple inflation with excellent results. 2. Severe in-stent restenosis in the midright coronary artery successful balloon angioplasty using emerge 3.520 mm with 1 inflation up to 18 otilio. 3. Mild to moderate disease in the mid and distal right coronary artery 4. Mild to moderate disease in the mid LAD and distal LAD 5. Normal left ventricular end-diastolic pressure Hypertension, controlled, continue current medication Hyperlipidemia, continue current medication monitor History of sudden with ventricular fibrillation, has ICD. Continue to monitor Tobaccoism, educated on smoking cessation Clinical Quality Measures Smoking Cessation Counseling: Counseling-Symptomatic: 3-10 Minutes JERALD LOPEZ MD Apr 06, 2019 08:50
[2019-04-06] MEDS ORDERED: TICA90TA PO (08:52)
--- NOTE | 2019-04-06 08:52 | Discharge Inst-Post CATH ---
Discharge Inst-CATH/EP Problems Reviewed?: Yes Post Cardiac Cath/EP D/C Inst Follow Up/Plan Appointment with Dr. LOPEZ's office in 2-4 weeks <b>CARDIAC CATH/EP PROCEDURE DISCHARGE INSTRUCTIONS</b> ACTIVITY * Go Home directly and rest. * Limit activity of the leg (or wrist if it was used) for 7 days including aerobics, swimming, jogging, bicycling, etc. * Restrict stair-climbing for 7 days if possible, if not, climb up with your non-cath leg, then bring together on the same step. * Avoid lifting, pushing, pulling or excessive movement of the affected extremity for 7 days. * Customary sexual activity may be resumed after 2 days-use caution not to use a position that strains or causes pain to the affected extremity. * No driving for 24 hours. * NO SMOKING. * Avoid straining for bowel movements for 7 days. * Gentle walking on level ground is allowed. * Returning to work will depend on the type of procedure and the results. Your doctor will discuss this with you. CALL YOUR DOCTOR FOR ANY OF THE FOLLOWING: *If bleeding from the puncture site occurs- Apply gentle pressure to site with clean cloth and call your doctor or EMS. * If a knot or lump forms under the skin, increases in size, or causes pain. * If bruising appears to be worsening or moving further down your leg instead of disappearing. * Temperature above 101 F. CARE OF YOUR GROIN INCISION; * Bruising or purple discoloration of the skin near the puncture site is common. * You may shower only, no bathtub bathing for 5 days. Be careful to avoid slipping as your leg may feel stiff. * If a closure device was used on your femoral artery, please see the attached guide regarding care of the device and your leg. * Leave dressing on FOR 24 hours. CARE OF YOUR WRIST INCISION; * Bruising or purple discoloration of the skin near the puncture site is common. * You may shower. * DO NOT submerge wrist. * Leave dressing on FOR 24 hours. JERALD LOPEZ MD Apr 06, 2019 08:52
[2019-04-06] MEDS ORDERED: ASPIRIN E.C. 81 MG (ECOTRIN) TAB PO SCH (09:00)
== END 2019-04-06 09:38 | disposition home or self-care (01) ==
LOC: CATH 08:08 → ICU 11:29 → CATH 04-06 09:38
PROVIDERS: ATTEND Internal Medicine Cardiovascular Disease
DX: I25.110 Atherosclerotic heart disease of native coronary artery with unstable angina pectoris (principal); I10 Essential (primary) hypertension; E78.2 Mixed hyperlipidemia; G47.33 Obstructive sleep apnea (adult) (pediatric); J43.9 Emphysema, unspecified; I48.91 Unspecified atrial fibrillation; I25.2 Old myocardial infarction; I49.3 Ventricular premature depolarization; F17.210 Nicotine dependence, cigarettes, uncomplicated; Z88.8 Allergy status to other drugs, medicaments and biological substances; Z79.82 Long term (current) use of aspirin; Z82.49 Family history of ischemic heart disease and other diseases of the circulatory system
CPT/HCPCS: 36415; 71045; 80048; 80053; 80061; 81000; 85027; 85610; 85730; 87081; 93005; 93458

== ENCOUNTER 2019-07-23 09:49 | Emergency (ER) | payer BC ==
[~2019-07-23] VITALS: Ht 177.8 cm; Wt 94.0 kg
[~2019-07-23 09:49] MED LIST changes: -HEParin (CATH LAB) 2,000 ML IV ONE; -LIDOCAINE 1% INJ 20 ML 20 ML VIAL ONE; -NS IV 1000 ML 1,000 ML ONE; +TICA90TA PO
[2019-07-23] MEDS ORDERED: fentaNYL INJECTION 100 MCG/2 ML AMP IVP ONE ×2 (10:45→12:15)
[2019-07-23 10:49] LABS: BILIRUBIN,URINE NEGATIVE (NEGATIVE); CLARITY,URINE CLEAR; COLOR,URINE YELLOW; GLUCOSE, URINE (UA) NEGATIVE (NEGATIVE); KETONES,URINE NEGATIVE (NEGATIVE); LEUKOCYTE ESTERASE ,URINE NEGATIVE (NEGATIVE); NITRITE,URINE NEGATIVE (NEGATIVE); PH,URINE 6.5 (5-9); PROTEIN,URINE NEGATIVE (NEGATIVE)
[2019-07-23 10:59] LABS: BACTERIA,URINE NEGATIVE /HPF; SQUAMOUS EPITHELIAL CELL,UR RARE /HPF; WBC,URINE 0-2 /HPF
[2019-07-23 11:02] LABS: BASOPHILS % (AUTO) 0 % (0-10); EOSINOPHILS # (AUTO) 0.2 10^3/uL (0.0-0.3); EOSINOPHILS % (AUTO) 3 % (0-10); HEMATOCRIT 40 % (40-54); HEMOGLOBIN 13.4 G/DL (13.3-17.7); LYMPHOCYTES # (AUTO) 1.9 X 10^3 (1.0-4.0); LYMPHOCYTES % (AUTO) 31 % (12-44); MEAN CORPUSCULAR HEMOGLOBIN 31 PG (25-34); MEAN CORPUSCULAR HGB CONC 34 G/DL (32-36); MEAN CORPUSCULAR VOLUME 93 FL (80-99); MEAN PLATELET VOLUME 9.9 FL (7.4-10.4); MONOCYTES # (AUTO) 0.6 X 10^3 (0.0-1.0); MONOCYTES % (AUTO) 9 % (0-12); NEUTROPHILS # (AUTO) 3.5 X 10^3 (1.8-7.8); NEUTROPHILS % (AUTO) 57 % (42-75); PLATELET COUNT 199 10^3/uL (130-400); RED CELL DISTRIBUTION WIDTH 13.4 % (10.0-14.5); WHITE BLOOD COUNT 6.2 10^3/uL (4.3-11.0)
[2019-07-23 11:20] LABS: ALANINE AMINOTRANSFERASE 25 U/L (0-55); ALKALINE PHOSPHATASE 65 U/L (40-136); BILIRUBIN,TOTAL 0.9 MG/DL (0.1-1.0); BUN/CREATININE RATIO 16; CARBON DIOXIDE 21 MMOL/L (21-32); CHLORIDE 108 MMOL/L (98-107); CREATININE SERUM 0.95 MG/DL (0.60-1.30); GFR ESTIMATED > 60; GLUCOSE 95 MG/DL (70-105); POTASSIUM 4.3 MMOL/L (3.6-5.0); SODIUM 140 MMOL/L (135-145); TOTAL PROTEIN 6.9 GM/DL (6.4-8.2)
--- NOTE | 2019-07-23 11:43 | Diagnostic Imaging Report ---
Clinical indication: Patient fell off roof 8 feet high, 2 days ago and has neck pain. Exam: Axial CT scan without IV contrast with sagittal and coronal reformatted images. Auto Exposure Controls were utilized during the CT exam to meet ALARA standards for radiation dose reduction. Comparison: CT scan of the cervical spine without contrast dated 04/16/2014. Findings: There is no acute cervical spine fracture or dislocation. There is straightening of the cervical spine posture again noted. There is slight progression of cervical spine degenerative disease with vertebral body spurs, uncinate spurs and loss of intervertebral disc height at the C4-C6 levels. There is severe right C5-C6 neural foramen narrowing due to uncinate spurs and severe left C4-C5 and C6-C7 neural foramen narrowing due to uncinate spurs. There is at least moderate left C3-C4 neural foramen narrowing due to uncinate spurs. There is at least mild central canal narrowing at the C4-C5 and C5-C6 level due to posterior spurs. Is no significant neck soft tissue abnormality. There is emphysematous lung disease involving the visualized upper lung sawyer. Impression: 1: There is no acute cervical spine fracture or dislocation. 2: There is slight progression of cervical spine degenerative disease. Dictated by: Dictated on workstation # [id number]
--- NOTE | 2019-07-23 11:43 | Diagnostic Imaging Report ---
PROCEDURE: CT thoracic and lumbar spine without contrast. TECHNIQUE: Multiple contiguous axial images were obtained through the thoracic and lumbar spine without the use of intravenous contrast. Sagittal and coronal reformations were then performed. INDICATION: 8-foot fall, with back pain. FINDINGS: Visualized lungs show changes of centrilobular emphysema. No appreciable lung contusion, pneumothorax, or hemothorax. The partially visualized posterior rib segments appear intact. The partially visualized sacrum and innominate bones as well as SI joints are unremarkable where seen. There are nonaneurysmal aortic atherosclerotic vascular calcifications and small punctate nonobstructing left renal stones. There is coronary arterial atherosclerotic disease as well as an indwelling pacemaker. The thoracic and lumbar vertebral statures are normal, and the alignment appears normal. The pedicles and pars are intact. Neural arches and facets are intact. No acute or suspicious endplate irregularity. No paravertebral mass, hemorrhage, or fluid collection. No fractures are identified. There is multilevel thoracolumbar spondylosis as a chronic degenerative finding. No acute or post-traumatic sequelae, however, appreciable. IMPRESSION: No spinal fracture or traumatic malalignment. No acute or post-traumatic sequelae identified. Chronic findings listed above. Dictated by: Dictated on workstation # [id number]
--- NOTE | 2019-07-23 11:58 | NUR ---
TO ROOM REPORTS PAIN WAS BETTER NOW IT IS STARTIANG TO COME BACK.
--- NOTE | 2019-07-23 12:39 | ED Fall/Injury ---
General Chief Complaint: Trauma-Non Activation Stated Complaint: FALL/LOW BACK PAIN LEG/ARM NUMBNESS Nursing Triage Note: AMB TO ROOM REPORTS WAS ON ROOF ON SAT WHEN HE FELL OFF [place] FIRST THAN FELL BACK. YESTERDAY STARTED HAVING FEELING OF NUMBNESS IN ARMS YESTERDAY. TODAY HAVING NUMBNESS IN LEG TODAY,AND DIFFICULITY SITTING. Source: patient Exam Limitations: no limitations History of Present Illness Date Seen by Provider: Jul 23, 2019 Time Seen by Provider: 10:[address] Rosas is a 58-year-old gentleman who fell off the roof of his leg home July 20. He fell onto his feet and then back onto his buttocks and back. He did not note any significant injury at that time. However, since then he has had worsening problems of pain and numbness in the upper extremities and lower extremities. No significant weakness has been noted. Movement exacerbates the pains. He denies any saddle paresthesia or bowel or bladder dysfunction. He has significant pain and tenderness near L5. He denies any neck pain. He also complains of some vague abdominal discomfort and bloating, but this was present prior to the fall. Location Injury Occurred: BACK Allergies and Home Medications Allergies Coded Allergies: No Known Drug Allergies (Verified , 04/20/18) Home Medications Amlodipine Besylate 5 Mg Tablet, 5 MG PO DAILY, (Reported) Aspirin 81 Mg Tablet.dr, 81 MG PO DAILY, (Reported) Cyclobenzaprine HCl 10 Mg Tablet, 10 MG PO Q8H PRN for SPASMS Prescribed by: FLORENCE MURPHY on 07/23/19 1417 Evolocumab 140 Mg/1 Ml Syringe, 140 MG SQ EVERY 2 WEEKS, (Reported) Hydrocodone Bit/Acetaminophen 1 Tab Tab, 1-2 EACH PO Q6H PRN for PAIN-MODERATE Prescribed by: FLORENCE MURPHY on 07/23/19 1417 Metoprolol Succinate 25 Mg Tab.er.24h, 25 MG PO DAILY, (Reported) Ticagrelor 90 Mg Tablet, 90 MG PO BID Prescribed by: JERALD LOPEZ on 04/06/19 0852 Patient Home Medication List Home Medication List Reviewed: Yes Review of Systems Review of Systems Constitutional: no symptoms reported Eyes: No Symptoms Reported Ears, Nose, Mouth, Throat: no symptoms reported Respiratory: no symptoms reported Cardiovascular: no symptoms reported Gastrointestinal: see HPI Genitourinary: no symptoms reported Musculoskeletal: see HPI Skin: no symptoms reported Psychiatric/Neurological: See HPI Past Lpaxstp-Hmampf-Dkffsf Hx Past Med/Social Hx: Reviewed Nursing Past Med/Soc Hx Patient Social History Alcohol Use: Denies Use Recreational Drug Use: No Smoking Status: Former Smoker Type Used: Cigarettes Recent Foreign Travel: No Contact w/Someone Who Travel: No Recent Infectious Disease Expo: No Recent Hopitalizations: No Immunizations Up To Date Tetanus Booster (TDap): Unknown Date of Pneumonia Vaccine: Apr 15, 2013 Date of Influenza Vaccine: May 08, 2018 Seasonal Allergies Seasonal Allergies: No Past Medical History Surgeries: Yes (THUMB SOWED BACK ON WHEN 15,BROKE FEMUR STEEL SARAH FROM HIP TO KNEE) Coronary Stent, Defibrillator, Orthopedic, Pacemaker Respiratory: Yes Sleep Apnea, Emphysema Currently Using CPAP: Yes Currently Using BIPAP: No Cardiac: Yes (sudden cardiac arrest 2013, [place], stents, pacemake/defib) Coronary Artery Disease, Heart Attack, Hypertension Neurological: No (skull FX and concussion as a child) Reproductive Disorders: No Sexually Transmitted Disease: No HIV/AIDS: No Gastrointestinal: No Abdominal Hernia Musculoskeletal: Yes Arthritis, Fractures Endocrine: No Loss of Vision: Denies Hearing Impairment: Denies Cancer: Yes (Squamous cell carcinoma of the finger, removed) Skin Did You Recieve Any Treatments: Yes Psychosocial: No Integumentary: No Blood Disorders: No Family Medical History FH: heart disease 19 FATHER 19 MOTHER Prostate cancer 19 FATHER Heart Disease, Cancer, Diabetes Physical Exam Vital Signs Vital Signs - First Documented 07/23/19 07/23/19 10:02 14:26 Pulse 86 Resp 18 B/P (MAP) 141/81 (101) Pulse Ox 98 O2 Delivery Room Air Capillary Refill : Less Than 3 Seconds Height, Weight, BMI Height: 5'11.00" Weight: 212lbs. 0.0oz. 96.471285ef; 29.00 BMI Method:Stated General Appearance: WD/WN, mild distress HEENT: PERRL/EOMI, normal ENT inspection Neck: non-tender, normal inspection Cardiovascular: regular rate, rhythm, no edema, no murmur Respiratory: lungs clear, normal breath sounds, no respiratory distress, no accessory muscle use Gastrointestinal: normal bowel sounds, non tender, soft Back: normal inspection, vertebral tenderness (Lower lumbar spine) Extremities: normal inspection, no pedal edema Neurologic/Psychiatric: process tech II-XII nml as tested, no motor/sensory deficits, alert, normal mood/affect, oriented x 3 Skin: normal color, warm/dry [place] Coma Score Best Eye Response: (4) Open Spontaneously Best Verbal Response: (5) Oriented Best Motor Response: (6) Obeys Commands [place] Total: 15 Progress/Results/Core Measures Results/Orders Lab Results Laboratory Tests Test 07/23/19 10:42 07/23/19 10:55 Range/Units Urine Color YELLOW Urine Clarity CLEAR Urine pH 6.5 5-9 Urine Specific [place] 1.010 L 1.016-1.022 Urine Protein NEGATIVE NEGATIVE Urine Glucose (UA) NEGATIVE NEGATIVE Urine Ketones NEGATIVE NEGATIVE Urine Nitrite NEGATIVE NEGATIVE Urine Bilirubin NEGATIVE NEGATIVE Urine Urobilinogen 0.2 < = 1.0 MG/DL Urine Leukocyte Esterase NEGATIVE NEGATIVE Urine RBC (Auto) 1+ H NEGATIVE Urine RBC 5-10 H /HPF Urine WBC 0-2 /HPF Urine Squamous Epithelial Cells RARE /HPF Urine Crystals NONE /LPF Urine Bacteria NEGATIVE /HPF Urine Casts NONE /LPF Urine Mucus NEGATIVE /LPF Urine Culture Indicated NO White Blood Count 6.2 4.3-11.0 10^3/uL Red Blood Count 4.27 L 4.35-5.85 10^6/uL Hemoglobin 13.4 13.3-17.7 G/DL Hematocrit 40 40-54 % Mean Corpuscular Volume 93 80-99 FL Mean Corpuscular Hemoglobin 31 25-34 PG Mean Corpuscular Hemoglobin Concent 34 32-36 G/DL Red Cell Distribution Width 13.4 10.0-14.5 % Platelet Count 199 130-400 10^3/uL Mean Platelet Volume 9.9 7.4-10.4 FL Neutrophils (%) (Auto) 57 42-75 % Lymphocytes (%) (Auto) 31 12-44 % Monocytes (%) (Auto) 9 0-12 % Eosinophils (%) (Auto) 3 0-10 % Basophils (%) (Auto) 0 0-10 % Neutrophils # (Auto) 3.5 1.8-7.8 X 10^3 Lymphocytes # (Auto) 1.9 1.0-4.0 X 10^3 Monocytes # (Auto) 0.6 0.0-1.0 X 10^3 Eosinophils # (Auto) 0.2 0.0-0.3 10^3/uL Basophils # (Auto) 0.0 0.0-0.1 10^3/uL Sodium Level 140 135-145 MMOL/L Potassium Level 4.3 3.6-5.0 MMOL/L Chloride Level 108 H 98-107 MMOL/L Carbon Dioxide Level 21 21-32 MMOL/L Anion Gap 11 5-14 MMOL/L Blood Urea Nitrogen 15 7-18 MG/DL Creatinine 0.95 0.60-1.30 MG/DL Estimat Glomerular Filtration Rate > 60 BUN/Creatinine Ratio 16 Glucose Level 95 70-105 MG/DL Calcium Level 9.0 8.5-10.1 MG/DL Corrected Calcium 9.0 8.5-10.1 MG/DL Total Bilirubin 0.9 0.1-1.0 MG/DL Aspartate Amino Transf (AST/SGOT) 16 5-34 U/L Alanine Aminotransferase (ALT/SGPT) 25 0-55 U/L Alkaline Phosphatase 65 40-136 U/L Total Protein 6.9 6.4-8.2 GM/DL Albumin 4.0 3.2-4.5 GM/DL My Orders Orders - FLORENCE MOODY MD Cbc With Automated Diff (07/23/19 10:32) Comprehensive Metabolic Panel (07/23/19 10:32) Ua Culture If Indicated (07/23/19 10:32) Ed Iv/Invasive Line Start (07/23/19 10:32) Fentanyl Injection (Sublimaze Injection (07/23/19 10:45) Ct Cervical Spine Wo (07/23/19 10:33) Ct Thoracic/Lumbar Spine Wo (07/23/19 10:33) Ct Abdomen/Pelvis W (07/23/19 12:04) Fentanyl Injection (Sublimaze Injection (07/23/19 12:15) Iohexol Injection (Omnipaque 350 Mg/Ml 1 (07/23/19 12:45) Received Contrast (Hold Metformin- Contr (07/23/19 12:45) Sodium Chloride Flush (Catheter Flush Sy (07/23/19 12:45) Ns (Ivpb) (Sodium Chloride 0.9% Ivpb Bag (07/23/19 12:45) Ketorolac Injection (Toradol Injection) (07/23/19 14:15) Oxycodone/Apap 5/325mg Tablet (Percocet (07/23/19 14:15) Medications Given in ED Vital Signs/I&O 07/23/19 07/23/19 10:02 14:26 Pulse 86 66 Resp 18 18 B/P (MAP) 141/81 (101) 136/86 Pulse Ox 98 O2 Delivery Room Air Blood Pressure Mean: 101 Progress Progress Note : Progress Note Pain was initially treated with fentanyl. Complete spine CT was obtained. No stenosis, significant spondylolisthesis or fractures were identified. MRI could not be obtained as patient has a pacemaker that is not MRI compatible. Labs were unremarkable except for a small amount of blood in the urine. I discussed this finding with the radiologist. Given the limitations of scope of imaging with a spine CT, it was determined a CT of the abdomen and pelvis should be offered, especially with his prior symptoms of abdominal discomfort and bloating. Options were discussed with the patient. Risks and benefits were reviewed. Patient elects to have CT of the abdomen and pelvis. CT showed no significant traumatic findings. I advised patient to follow-up in a couple of weeks for a repeat urinalysis, especially with his history of smoking. Pain was further treated Toradol and oxycodone. Diagnostic Imaging Diagonstic Imaging: CT Plain Films/CT/US/NM/MRI: other (Thoracic and lumbar spine) Comments CT of the thoracic and lumbar spine viewed by me and report reviewed. See report below: NAME: JERROD ROSAS [facility] REC#: [id number] PT STATUS: DEP ER : 1960 PHYSICIAN: FLORENCE MOODY MD ADMIT DATE: 07/23/19/ER Signed Date of Exam:07/23/19 CT THORACIC/LUMBAR SPINE WO PROCEDURE: CT thoracic and lumbar spine without contrast. TECHNIQUE: Multiple contiguous axial images were obtained through the thoracic and lumbar spine without the use of intravenous contrast. Sagittal and coronal reformations were then performed. INDICATION: 8-foot fall, with back pain. FINDINGS: Visualized lungs show changes of centrilobular emphysema. No appreciable lung contusion, pneumothorax, or hemothorax. The partially visualized posterior rib segments appear intact. The partially visualized sacrum and innominate bones as well as SI joints are unremarkable where seen. There are nonaneurysmal aortic atherosclerotic vascular calcifications and small punctate nonobstructing left renal stones. There is coronary arterial atherosclerotic disease as well as an indwelling pacemaker. The thoracic and lumbar vertebral statures are normal, and the alignment appears normal. The pedicles and pars are intact. Neural arches and facets are intact. No acute or suspicious endplate irregularity. No paravertebral mass, hemorrhage, or fluid collection. No fractures are identified. There is multilevel thoracolumbar spondylosis as a chronic degenerative finding. No acute or post-traumatic sequelae, however, appreciable. IMPRESSION: No spinal fracture or traumatic malalignment. No acute or post-traumatic sequelae identified. Chronic findings listed above. Dictated by: Dictated on workstation # [id number] Dict: 07/23/19 1136 Trans: 07/23/19 1649 [id number] Interpreted by: FRANKI MALLOY Electronically signed by: FRANKI MALLOY 07/23/19 1649 Diagonstic Imaging: CT Plain Films/CT/US/NM/MRI: c-spine Comments CT viewed by me and report reviewed. See report below: NAME: JERROD ROSAS [facility] REC#: [id number] PT STATUS: DEP ER : 1960 PHYSICIAN: FLORENCE MOODY MD ADMIT DATE: 07/23/19/ER Signed Date of Exam:07/23/19 CT CERVICAL SPINE WO Clinical indication: Patient fell off roof 8 feet high, 2 days ago and has neck pain. Exam: Axial CT scan without IV contrast with sagittal and coronal reformatted images. Auto Exposure Controls were utilized during the CT exam to meet ALARA standards for radiation dose reduction. Comparison: CT scan of the cervical spine without contrast dated 04/16/2014. Findings: There is no acute cervical spine fracture or dislocation. There is straightening of the cervical spine posture again noted. There is slight progression of cervical spine degenerative disease with vertebral body spurs, uncinate spurs and loss of intervertebral disc height at the C4-C6 levels. There is severe right C5-C6 neural foramen narrowing due to uncinate spurs and severe left C4-C5 and C6-C7 neural foramen narrowing due to uncinate spurs. There is at least moderate left C3-C4 neural foramen narrowing due to uncinate spurs. There is at least mild central canal narrowing at the C4-C5 and C5-C6 level due to posterior spurs. Is no significant neck soft tissue abnormality. There is emphysematous lung disease involving the visualized upper lung sawyer. Impression: 1: There is no acute cervical spine fracture or dislocation. 2: There is slight progression of cervical spine degenerative disease. Dictated by: Dictated on workstation # [id number] Dict: 07/23/19 1129 Trans: 07/23/191728 [facility] [id number] Interpreted by: SEUN DUFF MD Electronically signed by: SEUN DUFF MD 07/23/191728 Diagonstic Imaging: CT Plain Films/CT/US/NM/MRI: abdomen, pelvis Comments CT scan reviewed by me and report reviewed. See report below: NAME: JERROD ROSAS [facility] REC#: [id number] PT STATUS: DEP ER : 1960 PHYSICIAN: FLORENCE MOODY MD ADMIT DATE: 07/23/19/ER Signed Date of Exam:07/23/19 CT ABDOMEN/PELVIS W PROCEDURE: CT abdomen and pelvis with contrast. TECHNIQUE: Multiple contiguous axial images were obtained through the abdomen and pelvis after administration of intravenous contrast. Auto Exposure Controls were utilized during the CT exam to meet ALARA standards for radiation dose reduction. INDICATION: Eight feet fall, now with hematuria. FINDINGS: There is a unilocular simple benign exophytic cyst off the lower pole of the left kidney measuring a diameter of 3.4 cm. There were no findings of renal contusion or renal laceration. No disruption to the vascular pedicle or its collecting system. Contrast is excreted by the patent bilateral ureters to the level of the urinary bladder on the delayed images. Bladder wall may be mildly thickened however is poorly distended limiting its evaluation. No extravasation of urinary tract contrast. There is no evidence for liver or splenic contusion or laceration. The adrenals and pancreas are negative. The atherosclerotic aorta is patent and nonaneurysmal. The appendix is normal. No evidence for mesenteric or bowel wall hematoma. There are postsurgical changes to the visualized right femur. Pelvic osseous structures are nonacute. The visualized lower thoracic and lumbar spine were intact. The partially visualized lower ribs segments bilaterally appeared intact. No basilar lung contusion, pneumothorax or hemothorax. There is no free air. No aneurysm, adenopathy, or mass. There is no hemoperitoneum. No evidence for retroperitoneal hemorrhage. IMPRESSION: 1. No acute or posttraumatic sequelae identified. 2. Benign left renal cortical cyst with mild thickening of the urinary bladder sharp. Unobstructed urinary tracts are otherwise normal. Dictated by: Dictated on workstation # [id number] Dict: 07/23/19 1312 Trans: 07/23/191649 [facility] [id number] Interpreted by: FRANKI MALLOY Electronically signed by: FRANKI MALLOY 07/23/191649 Departure Impression Primary Impression: Fall from roof Qualified Codes: W13.2XXA - Fall from, out of or through roof, initial encounter Additional Impressions: Low back pain Qualified Codes: M54.5 - Low back pain Paresthesia of upper and lower extremities of both sides Hematuria Qualified Codes: R31.29 - Other microscopic hematuria Disposition: HOME, SELF-CARE Condition: Improved Departure-Patient Inst. Decision time for Depature: 14:00 Referrals: PATEL FLETCHER MD (PCP/Family) Primary Care Physician Patient Instructions: Low Back Pain in Adults Add. Discharge Instructions: Avoid strenuous activity and excessive bending until pain improves. Bedrest is not necessary. You may take ibuprofen up to 600 mg every 6 hours as needed for pain. Add hydrocodone as prescribed for pain not controlled by ibuprofen. You may add cyclobenzaprine as prescribed for stiff or spasming muscles. Gentle heat to affected areas may be helpful in relaxing sore muscles. Follow-up with your primary care provider soon as possible. Return to care in the emergency room if you have worsening symptoms such as pain not responsive to above medications, true weakness in the lower extremities or arms, problems with bowel or bladder control, numbness in the groin, or other unusual neurologic symptoms. All discharge instructions reviewed with patient and/or family. Voiced understanding. Scripts Cyclobenzaprine HCl (Cyclobenzaprine HCl) 10 Mg Tablet 10 MG PO Q8H PRN for SPASMS, #15 TAB 0 Refills Prov: FLORENCE MOODY MD 07/23/19 Hydrocodone Bit/Acetaminophen (Hydrocodone/Acetaminophen 5/325mg Tablet) 1 Tab Tab 1-2 EACH PO Q6H PRN for PAIN-MODERATE MDD 10, #20 TAB 0 Refills Prov: FLORENCE MOODY MD 07/23/19 Copy Copies To 1: PATEL FLETCHER MD, JOSHUA T MD Jul 23, 2019 12:39
[2019-07-23] MEDS ORDERED: HOLD METFORMIN - RECEIVED CONTRAST 20 ML VIAL IV SCH (12:45)
[2019-07-23] MEDS ORDERED: IOHEXOL 350 MG/ML 100 ML (OMNIPAQUE 350) VIAL IV ONE (12:45)
[2019-07-23] MEDS ORDERED: CATHETER FLUSH 10 ML SYR IV PRN (12:45)
[2019-07-23] MEDS ORDERED: NS 100 ML (IVPB) BAG IV ONE (12:45)
--- NOTE | 2019-07-23 13:19 | Diagnostic Imaging Report ---
PROCEDURE: CT abdomen and pelvis with contrast. TECHNIQUE: Multiple contiguous axial images were obtained through the abdomen and pelvis after administration of intravenous contrast. Auto Exposure Controls were utilized during the CT exam to meet ALARA standards for radiation dose reduction. INDICATION: Eight feet fall, now with hematuria. FINDINGS: There is a unilocular simple benign exophytic cyst off the lower pole of the left kidney measuring a diameter of 3.4 cm. There were no findings of renal contusion or renal laceration. No disruption to the vascular pedicle or its collecting system. Contrast is excreted by the patent bilateral ureters to the level of the urinary bladder on the delayed images. Bladder wall may be mildly thickened however is poorly distended limiting its evaluation. No extravasation of urinary tract contrast. There is no evidence for liver or splenic contusion or laceration. The adrenals and pancreas are negative. The atherosclerotic aorta is patent and nonaneurysmal. The appendix is normal. No evidence for mesenteric or bowel wall hematoma. There are postsurgical changes to the visualized right femur. Pelvic osseous structures are nonacute. The visualized lower thoracic and lumbar spine were intact. The partially visualized lower ribs segments bilaterally appeared intact. No basilar lung contusion, pneumothorax or hemothorax. There is no free air. No aneurysm, adenopathy, or mass. There is no hemoperitoneum. No evidence for retroperitoneal hemorrhage. IMPRESSION: 1. No acute or posttraumatic sequelae identified. 2. Benign left renal cortical cyst with mild thickening of the urinary bladder sharp. Unobstructed urinary tracts are otherwise normal. Dictated by: Dictated on workstation # [id number]
[2019-07-23] MEDS ORDERED: KETOROLAC 30 MG/ML VIAL IVP ONE (14:15)
[2019-07-23] MEDS ORDERED: oxyCODONE/APAP 5/325MG (PERCOCET 5) TABLET PO ONE (14:15)
[2019-07-23] MEDS ORDERED: CYCL10TA9 PO (14:17)
[2019-07-23] MEDS ORDERED: ACHD5005 PO (14:17)
[2019-07-23 14:26] VITALS: BP 136/86
== END 2019-07-23 13:36 | disposition home or self-care (01) ==
LOC: EDUNIT# 09:49 → ER 09:52
DX: M54.5 Low back pain (principal); R20.2 Paresthesia of skin; R31.9 Hematuria, unspecified; I10 Essential (primary) hypertension; I25.10 Atherosclerotic heart disease of native coronary artery without angina pectoris; J43.9 Emphysema, unspecified; G47.30 Sleep apnea, unspecified; I25.2 Old myocardial infarction; R40.2142 Coma scale, eyes open, spontaneous, at arrival to emergency department; R40.2252 Coma scale, best verbal response, oriented, at arrival to emergency department; R40.2362 Coma scale, best motor response, obeys commands, at arrival to emergency department; Z85.828 Personal history of other malignant neoplasm of skin; Z99.89 Dependence on other enabling machines and devices; Z79.82 Long term (current) use of aspirin; Z87.891 Personal history of nicotine dependence; Z95.810 Presence of automatic (implantable) cardiac defibrillator; Z95.5 Presence of coronary angioplasty implant and graft; Z82.49 Family history of ischemic heart disease and other diseases of the circulatory system; Z85.46 Personal history of malignant neoplasm of prostate; W13.2XXA Fall from, out of or through roof, initial encounter
CPT/HCPCS: 36415; 72125; 72128; 72131; 74177; 80053; 81000; 85025

== ENCOUNTER 2019-11-25 12:13 | Emergency (ER) | payer BC ==
[~2019-11-25] VITALS: Ht 177 cm; Wt 95.2 kg
[~2019-11-25 12:13] MED LIST changes: +ACHD5005 PO; +CYCL10TA9 PO; -EVOL140S SQ; +EVOL140S2 SQ; +METF500T19 PO; -METO-387 PO
--- NOTE | 2019-11-25 12:23 | ED Chest Pain ---
General Chief Complaint: Chest Pain Stated Complaint: CHEST PAIN Source: patient Exam Limitations: no limitations History of Present Illness Date Seen by Provider: Nov 25, 2019 Time Seen by Provider: 12:22 Initial Comments 59-year-old male presents with right-sided chest pain. Patient reports the pain started about 20 minutes prior to arrival. Is a constant pain. Does not radiate. He has little bit of a cough, no fevers, chills. He denies any nausea, vomiting, diaphoresis. Patient does have a previous cardiac history. Allergies and Home Medications Allergies Coded Allergies: No Known Drug Allergies (Verified , 04/20/18) Home Medications Amlodipine Besylate 5 Mg Tablet, 5 MG PO DAILY, (Reported) Aspirin 81 Mg Tablet.dr, 81 MG PO DAILY, (Reported) Cyclobenzaprine HCl 10 Mg Tablet, 10 MG PO Q8H PRN for SPASMS Prescribed by: FLORENCE MURPHY on 07/23/19 1417 Evolocumab 140 Mg/1 Ml Syringe, 140 MG SQ EVERY 2 WEEKS, (Reported) Hydrocodone Bit/Acetaminophen 1 Tab Tab, 1-2 EACH PO Q6H PRN for PAIN-MODERATE Prescribed by: FLORENCE MURPHY on 07/23/19 1417 Metoprolol Succinate 25 Mg Tab.er.24h, 25 MG PO DAILY, (Reported) Ticagrelor 90 Mg Tablet, 90 MG PO BID Prescribed by: JERALD LOPEZ on 04/06/19 0852 Patient Home Medication List Home Medication List Reviewed: Yes Review of Systems Review of Systems Constitutional: No chills, No fever, No weakness Respiratory: No Symptoms Reported Cardiovascular: Chest Pain Gastrointestinal: No Symptoms Reported Genitourinary: No Symptoms Reported Musculoskeletal: no symptoms reported Skin: no symptoms reported Psychiatric/Neurological: No Symptoms Reported Past Opqxpjd-Mbaccy-Fzbhif Hx Past Med/Social Hx: Reviewed Nursing Past Med/Soc Hx Patient Social History Type Used: Cigarettes Recent Hopitalizations: No Immunizations Up To Date Tetanus Booster (TDap): Unknown Date of Pneumonia Vaccine: Apr 15, 2013 Date of Influenza Vaccine: May 08, 2018 Seasonal Allergies Seasonal Allergies: No Past Medical History Surgeries: Yes (THUMB SOWED BACK ON WHEN 15,BROKE FEMUR STEEL SARAH FROM HIP TO KNEE) Coronary Stent, Defibrillator, Orthopedic, Pacemaker Respiratory: Yes Sleep Apnea, Emphysema Currently Using CPAP: Yes Currently Using BIPAP: No Cardiac: Yes (sudden cardiac arrest 2014, [place], stents, pacemake/defib) Coronary Artery Disease, Heart Attack, Hypertension Neurological: No (skull FX and concussion as a child) Reproductive Disorders: No Sexually Transmitted Disease: No HIV/AIDS: No Gastrointestinal: No Abdominal Hernia Musculoskeletal: Yes Arthritis, Fractures Endocrine: No Loss of Vision: Denies Hearing Impairment: Denies 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 0.0oz. 96.433027mv; 29.00 BMI Method:Stated General Appearance: No Apparent Distress Neck: Non Tender, Supple Respiratory: Chest Non Tender, Lungs Clear, Normal Breath Sounds Progress/Results/Core Measures Results/Orders Lab Results Laboratory Tests Test 11/25/19 12:33 11/25/19 14:51 Range/Units White Blood Count 8.0 4.3-11.0 10^3/uL Red Blood Count 3.77 L 4.35-5.85 10^6/uL Hemoglobin 12.0 L 13.3-17.7 G/DL Hematocrit 36 L 40-54 % Mean Corpuscular Volume 96 80-99 FL Mean Corpuscular Hemoglobin 32 25-34 PG Mean Corpuscular Hemoglobin Concent 33 32-36 G/DL Red Cell Distribution Width 14.4 10.0-14.5 % Platelet Count 222 130-400 10^3/uL Mean Platelet Volume 10.5 H 7.4-10.4 FL Neutrophils (%) (Auto) 68 42-75 % Lymphocytes (%) (Auto) 21 12-44 % Monocytes (%) (Auto) 9 0-12 % Eosinophils (%) (Auto) 1 0-10 % Basophils (%) (Auto) 0 0-10 % Neutrophils # (Auto) 5.5 1.8-7.8 X 10^3 Lymphocytes # (Auto) 1.7 1.0-4.0 X 10^3 Monocytes # (Auto) 0.7 0.0-1.0 X 10^3 Eosinophils # (Auto) 0.1 0.0-0.3 10^3/uL Basophils # (Auto) 0.0 0.0-0.1 10^3/uL Prothrombin Time 13.0 12.2-14.7 SEC INR Comment 1.0 0.8-1.4 Activated Partial Thromboplast Time 24 24-35 SEC D-Dimer 0.43 0.00-0.49 UG/ML Sodium Level 138 135-145 MMOL/L Potassium Level 4.6 3.6-5.0 MMOL/L Chloride Level 105 98-107 MMOL/L Carbon Dioxide Level 22 21-32 MMOL/L Anion Gap 11 5-14 MMOL/L Blood Urea Nitrogen 19 H 7-18 MG/DL Creatinine 1.05 0.60-1.30 MG/DL Estimat Glomerular Filtration Rate > 60 BUN/Creatinine Ratio 18 Glucose Level 92 70-105 MG/DL Calcium Level 9.0 8.5-10.1 MG/DL Corrected Calcium 9.2 8.5-10.1 MG/DL Magnesium Level 2.2 1.6-2.4 MG/DL Total Bilirubin 0.5 0.1-1.0 MG/DL Aspartate Amino Transf (AST/SGOT) 20 5-34 U/L Alanine Aminotransferase (ALT/SGPT) 19 0-55 U/L Alkaline Phosphatase 65 40-136 U/L Myoglobin 54.4 10.0-92.0 NG/ML Troponin I < 0.028 < 0.028 <0.028 NG/ML C-Reactive Protein High Sensitivity 0.43 0.00-0.50 MG/DL B-Type Natriuretic Peptide 10.9 <100.0 PG/ML Total Protein 7.0 6.4-8.2 GM/DL Albumin 3.7 3.2-4.5 GM/DL My Orders Orders - ROBLES,HERNANDO L DO Cbc With Automated Diff (11/25/19 12:23) Magnesium (11/25/19 12:23) Chest 1 View, Ap/Pa Only (11/25/19 12:23) Ekg Tracing (11/25/19 12:23) Comprehensive Metabolic Panel (11/25/19 12:23) Myoglobin Serum (11/25/19 12:23) Protime With Inr (11/25/19 12:23) Partial Thromboplastin Time (11/25/19 12:23) O2 (11/25/19 12:23) Monitor-Rhythm Ecg Trace Only (11/25/19 12:23) Lipid Panel (11/26/19 06:00) Ed Iv/Invasive Line Start (11/25/19 12:23) BNP (11/25/19 12:23) Troponin I (11/25/19 12:23) Aspirin Chewable Tablet (Baby Aspirin Ch (11/25/19 12:30) Hs C Reactive Protein (11/25/19 12:23) Fentanyl Injection (Sublimaze Injection (11/25/19 12:30) Fibrin Degradation Products (11/25/19 13:16) Troponin I (11/25/19 14:20) Medications Given in ED Current Medications Medications Dose Ordered Sig/Marisa Route Start Time Stop Time Status Last Admin Dose Admin Aspirin 324 mg ONCE ONCE PO 11/25/19 12:30 11/25/19 12:31 DC 11/25/19 12:39 324 MG Fentanyl Citrate 50 mcg ONCE ONCE IVP 11/25/19 12:30 11/25/19 12:31 DC 11/25/19 12:39 50 MCG Vital Signs/I&O 11/25/19 11/25/19 12:22 12:22 Temp 36.6 Pulse 71 Resp 20 B/P (MAP) 120/74 (89) Pulse Ox 96 O2 Delivery Room Air Progress Progress Note : Time: 15:26 Progress Note Patient with negative troponin 2, negative EKG is unchanged from her previous one in March. Patient with negative d-dimer, x-ray and all other labs. I did discuss with Dr. 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 I will have him follow-up with him for further evaluation and outpatient testing. Patient is stable will be discharged home. Departure Impression Primary Impression: Right-sided chest pain Disposition: HOME, SELF-CARE Condition: Stable Departure-Patient Inst. Referrals: PATEL FLETCHER MD (PCP/Family) Primary Care Physician Patient Instructions: Chest Pain, Angina (DC) Add. Discharge Instructions: Emergency department focuses on treating and ruling out life-threatening diseases. Whenever possible, a diagnosis is given. However, most patients are given an impression based on their history, physical exam, and workup during your brief time in the ER. Information about probable diagnosis and other educational material has been provided. Please take the time to read and understand this information. It is very important that you follow up with a physician as discussed during the visit today. Failure to adhere to your follow-up instructions may lead to severe disability, injury, or so please make sure to keep your appointments or obtain one as requested. Please keep in mind the emergency department is not designed to your primary care or "family doctor" and nonurgent issues are best evaluated by an outpatient physician All discharge instructions reviewed with patient and/or family. Voiced understanding. HERNANDO ROBLES DO Nov 25, 2019 12:22
[2019-11-25] MEDS ORDERED: ASPIRIN 81 MG CHEW (CHILDREN'S ASA) PO ONE (12:30)
[2019-11-25] MEDS ORDERED: fentaNYL INJECTION 100 MCG/2 ML AMP IVP ONE (12:30)
[2019-11-25 12:40] LABS: BASOPHILS % (AUTO) 0 % (0-10); EOSINOPHILS # (AUTO) 0.1 10^3/uL (0.0-0.3); EOSINOPHILS % (AUTO) 1 % (0-10); HEMATOCRIT 36 % (40-54); LYMPHOCYTES # (AUTO) 1.7 X 10^3 (1.0-4.0); LYMPHOCYTES % (AUTO) 21 % (12-44); MEAN CORPUSCULAR HEMOGLOBIN 32 PG (25-34); MEAN CORPUSCULAR HGB CONC 33 G/DL (32-36); MEAN CORPUSCULAR VOLUME 96 FL (80-99); MEAN PLATELET VOLUME 10.5 FL (7.4-10.4); MONOCYTES # (AUTO) 0.7 X 10^3 (0.0-1.0); MONOCYTES % (AUTO) 9 % (0-12); NEUTROPHILS # (AUTO) 5.5 X 10^3 (1.8-7.8); NEUTROPHILS % (AUTO) 68 % (42-75); PLATELET COUNT 222 10^3/uL (130-400); RED CELL DISTRIBUTION WIDTH 14.4 % (10.0-14.5)
--- NOTE | 2019-11-25 12:51 | Diagnostic Imaging Report ---
INDICATION: Shortness of breath Portable chest 12:38 PM There is a dual-chamber pacemaker with ICD. Heart size and pulmonary vascularity are normal. Lungs are clear. There are no effusions or pneumothoraces. IMPRESSION: No acute abnormalities in the chest. Dictated by: Dictated on workstation # [id number]
[2019-11-25 12:56] LABS: ALBUMIN 3.7 GM/DL (3.2-4.5); CHLORIDE 105 MMOL/L (98-107); POTASSIUM 4.6 MMOL/L (3.6-5.0); SODIUM 138 MMOL/L (135-145)
[2019-11-25 12:58] LABS: GLUCOSE 92 MG/DL (70-105)
[2019-11-25 12:59] LABS: CARBON DIOXIDE 22 MMOL/L (21-32)
[2019-11-25 13:00] LABS: BILIRUBIN,TOTAL 0.5 MG/DL (0.1-1.0)
[2019-11-25 13:02] LABS: ALKALINE PHOSPHATASE 65 U/L (40-136); CREATININE SERUM 1.05 MG/DL (0.60-1.30); GFR ESTIMATED > 60
[2019-11-25 13:03] LABS: BUN/CREATININE RATIO 18
[2019-11-25 13:05] LABS: ALANINE AMINOTRANSFERASE 19 U/L (0-55); MAGNESIUM 2.2 MG/DL (1.6-2.4)
[2019-11-25 15:53] VITALS: BP 124/81
== END 2019-11-25 15:53 | disposition home or self-care (01) ==
LOC: EDUNIT# 12:13 → ER 12:14
DX: R07.9 Chest pain, unspecified (principal); Z79.82 Long term (current) use of aspirin; Z79.899 Other long term (current) drug therapy; I25.10 Atherosclerotic heart disease of native coronary artery without angina pectoris; Z95.810 Presence of automatic (implantable) cardiac defibrillator; J43.9 Emphysema, unspecified; G47.30 Sleep apnea, unspecified; I25.2 Old myocardial infarction; I10 Essential (primary) hypertension; M19.91 Primary osteoarthritis, unspecified site; Z85.828 Personal history of other malignant neoplasm of skin
CPT/HCPCS: 36415; 71045; 80053; 83735; 83874; 83880; 84484; 85025; 85379; 85610; 85730; 86141; 93005; 93041

== ENCOUNTER → 2020-03-17 | Outpatient (CLI) | payer BC ==
[~2020-03-17] MED LIST changes: +METF-865 PO; -METF500T19 PO
--- NOTE | 2020-03-17 17:26 | Diagnostic Imaging Report ---
PROCEDURE: CT urinary tract, rule out kidney stone. TECHNIQUE: Multiple contiguous axial images were obtained through the abdomen and pelvis without the use of intravenous contrast. Auto Exposure Controls were utilized during the CT exam to meet ALARA standards for radiation dose reduction. INDICATION: Flank pain, hematuria. COMPARISON: 07/23/2019. FINDINGS: There is mild left-sided hydronephrosis secondary to an obstructive 3 mm stone in the mid left ureter. Stone is at the level of L3-L4. There is a benign cortical cyst in the left kidney. Additional nonobstructive stones are seen in the upper pole. Vascular calcifications are present. The lung bases are clear. The gallbladder and the remainder of the solid organs are grossly normal. There is atherosclerosis of the abdominal aorta without evidence of aneurysm. Mild constipation is seen throughout the colon. The appendix is normal. Small bowel is unremarkable. There is no overt prostate enlargement. Urinary bladder is normal. IMPRESSION: Mild left-sided hydronephrosis secondary to an obstructive 3 mm stone in mid left ureter. Dictated by: Dictated on workstation # [id number]
== END ==
LOC: RAD 16:29
PROVIDERS: ATTEND Family Medicine
DX: N13.2 Hydronephrosis with renal and ureteral calculous obstruction (principal)
CPT/HCPCS: 74176

== ENCOUNTER → 2020-03-19 | Outpatient (CLI) | payer BC ==
[~2020-03-19] MED LIST changes: +CLOP75TA69 PO; +PHEN-640 PO; +SULF1TAB35 PO
--- NOTE | 2020-03-19 16:01 | Diagnostic Imaging Report ---
INDICATION: Left-sided stone noted on CT two days earlier. COMPARISON: Correlation is made with CT study from 03/17/2020. EXAMINATION: KUB. FINDINGS: The small calculus noted in the right ureter at approximately the level of L4 on CT is not not well seen by plain film. It is conceivable that this is located in the distal left ureter near the UVJ where there is a small calcific density. No calculi within right-sided ureter tracts are identified. Bowel gas pattern is unremarkable. Calcific density in the upper left abdomen is noted and appears to be vascular on recent CT. IMPRESSION: There is a calcific density in the left pelvis, perhaps distal left ureteric calculus near the UVJ. No other significant abnormality is detected. Dictated by: Dictated on workstation # [id number]
== END ==
LOC: RAD 13:47
PROVIDERS: ATTEND Urology
DX: N20.1 Calculus of ureter (principal)
CPT/HCPCS: 74018

== ENCOUNTER → 2021-02-01 | Outpatient (CLI) | payer BC ==
[~2021-02-01] MED LIST changes: +AMLO-250 PO; -AMLO5TAB9 PO; -OXYC-471 PO; +OXYC1TAB11 PO
--- NOTE | 2021-02-01 13:52 | Diagnostic Imaging Report ---
INDICATION: Syncope TECHNIQUE: Routine non contrast-enhanced axial images were obtained from the skull base to the vertex. Auto Exposure Controls were utilized during the CT exam to meet ALARA standards for radiation dose reduction COMPARISON: 05/18/2016 FINDINGS: The ventricles and cortical sulci are diffusely prominent, compatible with age-related volume loss. There is no midline shift or mass-effect. No acute intra-axial hemorrhage is seen. There are no abnormal areas of increased or decreased density to suggest acute hemorrhage or edema. No extra-axial masses or collections are present. The bony calvarium is intact. The visualized paranasal sinuses show moderate mucosal thickening of the right maxillary sinus. The mastoid air cells are clear. IMPRESSION: 1. No acute intracranial abnormality. No CT evidence of mass, acute infarct or intracranial hemorrhage. Dictated by: Dictated on workstation # [id number]
== END ==
LOC: RAD 13:28
PROVIDERS: ATTEND Family Medicine
DX: R55 Syncope and collapse (principal)
CPT/HCPCS: 70450

== ENCOUNTER → 2021-02-01 | Outpatient (CLI) | payer BC ==
[~2021-02-01] MED LIST changes: -SULF1TAB35 PO; +SULF1TAB38 PO
== END ==
LOC: CANPRECLI → RAD
DX: Z53.9 Procedure and treatment not carried out, unspecified reason (principal)

== ENCOUNTER → 2021-05-05 | Outpatient (CLI) | payer BC ==
--- NOTE | 2021-05-05 17:02 | Diagnostic Imaging Report ---
CT Lung Screening INDICATION: [id number] history of smoking. Shortness of air. TECHNIQUE: Noncontrast, low-dose CT imaging performed according to the lung cancer screening protocol. Auto Exposure Controls were utilized during the CT exam to meet ALARA standards for radiation dose reduction. COMPARISON: 03/17/2020. FINDINGS: Evaluation of the lung sawyer demonstrates background advanced emphysematous disease. Biapical scarring is again noted. No new suspicious pulmonary nodule or mass is identified. There is no focal consolidation, large effusion, nor pneumothorax. Cardiomediastinal structures show normal heart size. There is no large pericardial effusion. There is advanced calcified coronary atherosclerosis. No pathologically enlarged or morphologically abnormal adenopathy is seen within the mediastinum, tosha, nor axillae on this noncontrast study. Osseous structures show age-related degenerative changes. No lytic or blastic osseous lesions are identified. Included portions of the upper abdomen show no additional acute abnormalities. IMPRESSION: 1. No new suspicious pulmonary nodule or mass. Continued follow-up with annual low-dose CT chest could be performed. 2. Background advanced emphysematous disease. 3. Advanced calcified coronary atherosclerosis. LUNG-RADS CATEGORY: 1 MODIFIER: None. OTHER SIGNIFICANT FINDINGS: As above. Dictated on workstation # [id number]
== END ==
LOC: RAD 13:45
PROVIDERS: ATTEND Nurse Practitioner Family
DX: Z12.2 Encounter for screening for malignant neoplasm of respiratory organs (principal); J43.9 Emphysema, unspecified; I25.10 Atherosclerotic heart disease of native coronary artery without angina pectoris; F17.210 Nicotine dependence, cigarettes, uncomplicated
CPT/HCPCS: 71271

== ENCOUNTER → 2021-05-26 | Outpatient (CLI) | payer BC ==
[~2021-05-26] MED LIST changes: +RT-ALBUTEROL SULF 2.5 MG/3 ML PRE-MIX VIAL INH ONE
== END ==
LOC: RT 10:45
PROVIDERS: ATTEND Nurse Practitioner Family
DX: J42 Unspecified chronic bronchitis (principal)
CPT/HCPCS: 94060; 94726; 94729

== ENCOUNTER 2022-01-23 11:28 | Emergency (ER) | payer BC ==
[~2022-01-23] VITALS: Ht 172 cm; Wt 85.0 kg
[~2022-01-23 11:28] MED LIST changes: +CYCL10TA25 PO; -CYCL10TA9 PO; -RT-ALBUTEROL SULF 2.5 MG/3 ML PRE-MIX VIAL INH ONE
--- NOTE | 2022-01-23 11:33 | ED General ---
General Stated Complaint: MENTAL HEALTH EVALUATION Source of Information: Patient Exam Limitations: No Limitations History of Present Illness Date Seen by Provider: Jan 23, 2022 Time Seen by Provider: 11:33 Initial Comments Patient is a 61 yo male who presents with reports of suicidal ideation and intoxication on nitrous oxide after breaking into a local dental office. Patient made statements to the arresting officer that he wanted to end it all and does not want to be here anymore. Patient has longstanding history of substance abuse and has previously been in an inpatient rehab setting in the past 6 months. He has remote history of alcohol abuse. He currently denies suicidal ideation, or intent at time of using nitrous oxide. He denies HI, hallucinations paranoia and delusions. Patient states that he he has recently tested positive for COVID or COVID and is currently being treated for bladder cancer at [facility]. He has history of CAD and pacemaker. He denies any other acute symptoms or complaints at this time. Timing/Duration: 1-3 Hours Severity: Mild Modifying Factors: improves with Other Associated Systoms: Other Allergies and Home Medications Allergies Coded Allergies: No Known Drug Allergies (Verified , 04/20/18) Patient Home Medication List Home Medication List Reviewed: Yes Amlodipine Besylate (Amlodipine Besylate) 5 Mg Tablet, 5 MG PO DAILY, (Reported) Entered as Reported by: EMERALD PURDY on 04/27/16 0828 Aspirin (Aspir 81) 81 Mg Tablet.dr, 81 MG PO DAILY, (Reported) Entered as Reported by: ISAIAS BOCANEGRA on 04/17/18 1120 Clopidogrel Bisulfate (Plavix) 75 Mg Tablet, 75 MG PO DAILY, (Reported) Entered as Reported by: LISA PATEL on 03/20/20 1146 Evolocumab (Repatha Syringe) 140 Mg/1 Ml Syringe, 140 MG SQ EVERY 2 WEEKS, (Reported) Entered as Reported by: ISAIAS BOCANEGRA on 04/17/18 1120 Metoprolol Succinate (Metoprolol Succinate) 25 Mg Tab.er.24h, 25 MG PO DAILY, (Reported) Entered as Reported by: ISAIAS BOCANEGRA on 04/17/18 1120 Phenazopyridine HCl (Pyridium) 200 Mg Tablet, 1 TAB PO TID PRN for BLADDER SPASMS Prescribed by: LISA PATEL on 03/20/20 1311 Sulfamethoxazole/Trimethoprim (Bactrim Ds Tablet) 1 Each Tablet, 1 EACH PO BID Prescribed by: LISA PATEL on 03/20/20 1311 Review of Systems Review of Systems Constitutional: see HPI EENTM: see HPI Respiratory: see HPI Cardiovascular: see HPI Gastrointestinal: see HPI Genitourinary: see HPI Musculoskeletal: see HPI Skin: see HPI Psychiatric/Neurological: See HPI Hematologic/Lymphatic: See HPI Immunological/Allergic: see HPI All Other Systems Reviewed Negative Unless Noted: Yes Past Vlznbdd-Ilgvxn-Twfafy Hx Patient Social History Tobacco Use?: No Tobacco type used: Cigarettes Immunizations Up To Date Tetanus Booster (TDap): Unknown Seasonal Allergies Seasonal Allergies: No Past Medical History Surgeries: Yes (THUMB SOWED BACK ON WHEN 15,BROKE FEMUR STEEL SARAH FROM HIP TO KNEE) Bladder Surgery, Coronary Stent, Defibrillator, Orthopedic, Pacemaker Respiratory: Yes Sleep Apnea, Emphysema Currently Using CPAP: Yes Currently Using BIPAP: No Cardiac: Yes (sudden cardiac arrest 2013, [place], stents, pacemake/defib) Coronary Artery Disease, Heart Attack, Hypertension Neurological: No (skull FX and concussion as a child) Reproductive Disorders: No Sexually Transmitted Disease: No HIV/AIDS: No Gastrointestinal: No Abdominal Hernia Musculoskeletal: Yes Arthritis, Fractures Endocrine: No Loss of Vision: Denies Hearing Impairment: Denies 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 0.0oz. 96.731757cp; 31.63 BMI Method:Stated General Appearance: No Apparent Distress, WD/WN Eyes: Bilateral Eye Normal Inspection, Bilateral Eye PERRL, Bilateral Eye EOMI HEENT: PERRL/EOMI Neck: Full Range of Motion Respiratory: Lungs Clear Cardiovascular: Regular Rate, Rhythm Neurologic/Psychiatric: Alert, Oriented x3, No Motor/Sensory Deficits Skin: Normal Color Focused Exam Sepsis Stage: Ruled Out Progress/Results/Core Measures Suspected Sepsis SIRS Temperature: Pulse: Respiratory Rate: Laboratory Tests 01/23/22 12:00: White Blood Count 10.5 Blood Pressure / Mean: Laboratory Tests 01/23/22 12:00: Creatinine 1.06, Platelet Count 220, Total Bilirubin 0.5 Results/Orders Lab Results Laboratory Tests Test 01/23/22 12:00 01/23/22 12:32 Range/Units White Blood Count 10.5 4.3-11.0 10^3/uL Red Blood Count 3.89 L 4.30-5.52 10^6/uL Hemoglobin 12.8 L 13.3-17.7 g/dL Hematocrit 39 L 40-54 % Mean Corpuscular Volume 99 80-99 fL Mean Corpuscular Hemoglobin 33 25-34 pg Mean Corpuscular Hemoglobin Concent 33 32-36 g/dL Red Cell Distribution Width 14.5 10.0-14.5 % Platelet Count 220 130-400 10^3/uL Mean Platelet Volume 10.0 9.0-12.2 fL Immature Granulocyte % (Auto) 1 % Neutrophils (%) (Auto) 64 42-75 % Lymphocytes (%) (Auto) 27 12-44 % Monocytes (%) (Auto) 6 0-12 % Eosinophils (%) (Auto) 2 0-10 % Basophils (%) (Auto) 1 0-10 % Neutrophils # (Auto) 6.7 1.8-7.8 10^3/uL Lymphocytes # (Auto) 2.8 1.0-4.0 10^3/uL Monocytes # (Auto) 0.7 0.0-1.0 10^3/uL Eosinophils # (Auto) 0.2 0.0-0.3 10^3/uL Basophils # (Auto) 0.1 0.0-0.1 10^3/uL Immature Granulocyte # (Auto) 0.1 0.0-0.1 10^3/uL Sodium Level 143 135-145 MMOL/L Potassium Level 4.2 3.6-5.0 MMOL/L Chloride Level 109 H 98-107 MMOL/L Carbon Dioxide Level 22 21-32 MMOL/L Anion Gap 12 5-14 MMOL/L Blood Urea Nitrogen 21 H 7-18 MG/DL Creatinine 1.06 0.60-1.30 MG/DL Estimat Glomerular Filtration Rate 80 BUN/Creatinine Ratio 20 Glucose Level 95 70-105 MG/DL Calcium Level 9.3 8.5-10.1 MG/DL Corrected Calcium 9.1 8.5-10.1 MG/DL Total Bilirubin 0.5 0.1-1.0 MG/DL Aspartate Amino Transf (AST/SGOT) 17 5-34 U/L Alanine Aminotransferase (ALT/SGPT) 18 0-55 U/L Alkaline Phosphatase 83 40-136 U/L Troponin I < 0.30 <0.30 NG/ML Pro-B-Type Natriuretic Peptide 96.2 H <75.0 PG/ML Total Protein 7.8 6.4-8.2 GM/DL Albumin 4.3 3.2-4.5 GM/DL Salicylates Level < 0.3 L 5.0-20.0 MG/DL Urine Opiates Screen POSITIVE H NEGATIVE Urine Oxycodone Screen NEGATIVE NEGATIVE Urine Methadone Screen NEGATIVE NEGATIVE Urine Propoxyphene Screen NEGATIVE NEGATIVE Acetaminophen Level < 10 L 10-30 UG/ML Urine Barbiturates Screen NEGATIVE NEGATIVE Ur Tricyclic Antidepressants Screen NEGATIVE NEGATIVE Urine Phencyclidine Screen NEGATIVE NEGATIVE Urine Amphetamines Screen NEGATIVE NEGATIVE Urine Methamphetamines Screen NEGATIVE NEGATIVE Urine Benzodiazepines Screen NEGATIVE NEGATIVE Urine Cocaine Screen NEGATIVE NEGATIVE Urine Cannabinoids Screen NEGATIVE NEGATIVE Serum Alcohol < 10 <10 MG/DL Influenza Type A (RT-PCR) Not Detected Not Detecte Influenza Type B (RT-PCR) Not Detected Not Detecte SARS-CoV-2 RNA (RT-PCR) Not Detected Not Detecte My Orders Orders - ALINA QUILES DO Cbc With Automated Diff (01/23/22 11:32) Comprehensive Metabolic Panel (01/23/22 11:32) Chest 1 View Ap/Pa Only (01/23/22 11:32) Ekg Tracing (01/23/22 11:32) Troponin I Fs (01/23/22 11:32) Probnp Fs (01/23/22 11:32) Drug Screen Stat (Urine) (01/23/22 11:32) Alcohol (01/23/22 11:32) Salicylate (01/23/22 11:32) Acetaminophen (01/23/22 11:32) Covid 19 Inhouse Test (01/23/22 12:33) Influenza A And B By Pcr (01/23/22 12:33) Isolation Central Supply Req (01/23/22 12:33) Vital Signs/I&O 01/23/22 11:49 Temp 36.4 Pulse 92 Resp 16 B/P (MAP) 155/85 (108) Pulse Ox 97 O2 Delivery Room Air Capillary Refill : Departure Communication (Admissions) EKG: NSR, rate 85, no acute ST/t wave changes. Patient is medically stable. Mental health screening exam performed. Patient denies SI/HI and is suitable for outpatient rehab. Patient is comfortable with discharge and agreeable to outpatient follow-up. Return precautions reviewed. Patient verbalizes understanding agreement discharge instructions prior to departure. Impression Primary Impression: Encounter for medical screening examination Additional Impression: Substance abuse Disposition: HOME, SELF-CARE Condition: Stable Departure-Patient Inst. Decision time for Depature: 15:03 Referrals: PATEL FLETCHER MD (PCP/Family) Primary Care Physician Patient Instructions: Substance Use Disorder ED Add. Discharge Instructions: Please follow-up with your PCP for referral to outpatient rehab and mental health services. Return to the ED if new or worsening symptoms. ALINA QUILES DO Jan 23, 2022 11:33
[2022-01-23 11:49] VITALS: BP 155/85
[2022-01-23 12:04] LABS: BASOPHILS # (AUTO) 0.1 10^3/uL (0.0-0.1); BASOPHILS % (AUTO) 1 % (0-10); EOSINOPHILS # (AUTO) 0.2 10^3/uL (0.0-0.3); EOSINOPHILS % (AUTO) 2 % (0-10); HEMATOCRIT 39 % (40-54); HEMOGLOBIN 12.8 g/dL (13.3-17.7); LYMPHOCYTES # (AUTO) 2.8 10^3/uL (1.0-4.0); LYMPHOCYTES % (AUTO) 27 % (12-44); MEAN CORPUSCULAR HEMOGLOBIN 33 pg (25-34); MEAN CORPUSCULAR HGB CONC 33 g/dL (32-36); MEAN CORPUSCULAR VOLUME 99 fL (80-99); MONOCYTES # (AUTO) 0.7 10^3/uL (0.0-1.0); MONOCYTES % (AUTO) 6 % (0-12); NEUTROPHILS # (AUTO) 6.7 10^3/uL (1.8-7.8); NEUTROPHILS % (AUTO) 64 % (42-75); PLATELET COUNT 220 10^3/uL (130-400); WHITE BLOOD COUNT 10.5 10^3/uL (4.3-11.0)
[2022-01-23 12:13] LABS: AMPHETAMINE SCREEN, URINE NEGATIVE (NEGATIVE); BARBITURATE SCREEN URINE NEGATIVE (NEGATIVE); BENZODIAZEPINES SCREEN URINE NEGATIVE (NEGATIVE); CANNABINOID SCREEN, URINE NEGATIVE (NEGATIVE); COCAINE SCREEN URINE NEGATIVE (NEGATIVE); METHADONE STAT NEGATIVE (NEGATIVE); OPIATE SCREEN URINE POSITIVE (NEGATIVE); OXYCODONE STAT NEGATIVE (NEGATIVE); PROPOXYPHENE STAT NEGATIVE (NEGATIVE); TRICYCLIC ANTIDEPRESSANTS SCRE NEGATIVE (NEGATIVE)
[2022-01-23 12:20] LABS: ALANINE AMINOTRANSFERASE 18 U/L (0-55); ALBUMIN 4.3 GM/DL (3.2-4.5); ALKALINE PHOSPHATASE 83 U/L (40-136); BILIRUBIN,TOTAL 0.5 MG/DL (0.1-1.0); BUN/CREATININE RATIO 20; CALCIUM 9.3 MG/DL (8.5-10.1); CARBON DIOXIDE 22 MMOL/L (21-32); CHLORIDE 109 MMOL/L (98-107); CREATININE SERUM 1.06 MG/DL (0.60-1.30); GFR ESTIMATED 80; GLUCOSE 95 MG/DL (70-105); POTASSIUM 4.2 MMOL/L (3.6-5.0); SODIUM 143 MMOL/L (135-145); TOTAL PROTEIN 7.8 GM/DL (6.4-8.2)
[2022-01-23 12:21] LABS: ACETAMINOPHEN < 10 UG/ML (10-30); SALICYLATE < 0.3 MG/DL (5.0-20.0)
--- NOTE | 2022-01-23 12:27 | Diagnostic Imaging Report ---
EXAMINATION: Chest 1 view HISTORY: SOA COMPARISON: None available. FINDINGS: Heart size and pulmonary vasculature are normal. The lungs are clear without consolidation, pleural effusion, or pneumothorax. The osseous structures are intact. Left-sided cardiac device is present. IMPRESSION: 1. No acute radiographic abnormality in the chest. Dictated by: Dictated on workstation # [id number]
== END 2022-01-23 15:50 | disposition home or self-care (01) ==
LOC: EDUNIT# 11:28 → ER FS 11:31
DX: F19.10 Other psychoactive substance abuse, uncomplicated (principal); G47.30 Sleep apnea, unspecified; F17.210 Nicotine dependence, cigarettes, uncomplicated; Z00.00 Encounter for general adult medical examination without abnormal findings; Z99.89 Dependence on other enabling machines and devices
CPT/HCPCS: 36415; 71045; 80053; 80306; 83880; 84484; 85025; 87636; 93005; 99284; G0480 ×3; 80320; 80329

== ENCOUNTER → 2022-07-21 | Outpatient (CLI) | payer BC ==
[~2022-07-21] VITALS: Ht 177.8 cm; Wt 96.4 kg
[~2022-07-21] MED LIST changes: +CLOP-31 PO; -CLOP75TA69 PO; +IOHEXOL 240 MGI/ML 50 ML (OMNIPAQUE) VIAL IV ONE
--- NOTE | 2022-07-21 16:10 | Diagnostic Imaging Report ---
INDICATION: Right shoulder pain. PROCEDURE: Patient was brought to the procedure room and placed on the table in a supine position. The right shoulder was prepped and draped in the usual sterile fashion. Small amount of 1% lidocaine was utilized for local anesthesia. 22-gauge needle was advanced into the right shoulder and placed with its tip at the rotator interval. A 15 mm solution of iodinated contrast and normal saline was injected under fluoroscopic observation. A total of 9 seconds of fluoroscopic time was utilized. Needle was withdrawn and hemostasis was obtained. Patient tolerated the procedure well and was sent to CT for post procedure CT arthrogram. IMPRESSION: Successful right shoulder injection of contrast solution, using fluoroscopy. Dictated by: Dictated on workstation # [id number]
--- NOTE | 2022-07-21 16:11 | Diagnostic Imaging Report ---
PROCEDURE: CT right upper extremity with contrast. TECHNIQUE: Axial images were obtained through the right upper extremity after intravenous contrast and reformatted into coronal and sagittal oblique planes. Auto Exposure Controls were utilized during the CT exam to meet ALARA standards for radiation dose reduction. INDICATION: Right shoulder pain, rotator cuff tear. Pacemaker. COMPARISON: None FINDINGS: No acute fracture seen in the right shoulder. Alignment appears normal. Glenohumeral joint spaces generally preserved. There is mild degenerative change in the acromioclavicular joint. There appears to be a high-grade near full-thickness tear at the articular surface of the anterior supraspinatus tendon at the distal attachment, measuring about 1.2 cm transverse. There is additional low-grade partial-thickness intrasubstance tearing extending into the infraspinatus tendon with medial intrasubstance extension. No contrast is seen extending into the subacromial subdeltoid bursa. The teres minor and subscapularis tendons appear to be intact. The long head of the biceps tendon appears intact. The glenoid labrum does appear to have a tear inferiorly and possibly superiorly, likely degenerative. No focal muscular atrophy is seen. There are moderate emphysematous changes in the right lung. There is a small amount of contrast and focus of soft tissue gas in the anterior soft tissues from the recent injection. IMPRESSION: 1. High-grade partial-thickness tear at the anterior supraspinatus tendon with additional low-grade partial-thickness intrasubstance tearing in the right rotator cuff. 2. Tearing of the right glenoid labrum, likely degenerative. 3. Emphysematous changes in the right lung. Dictated by: Dictated on workstation # [id number]
== END ==
LOC: RAD 13:35
PROVIDERS: ATTEND Orthopaedic Surgery
DX: M75.121 Complete rotator cuff tear or rupture of right shoulder, not specified as traumatic (principal); J43.9 Emphysema, unspecified; Z95.0 Presence of cardiac pacemaker
CPT/HCPCS: 23350; 73040; 73201